=== PATIENT | male | born 1940 | race Caucasian/White ===

== ENCOUNTER → 2016-05-12 | Outpatient (CLI) | payer OTHER ==
[2015-05-13 13:11] VITALS: BP 153/74; PULSE 78
[~2016-05-12] MED LIST: ABACTAB11 PO; ACET325T96 PO; ALEN70TA2 PO; ASPI81TA28 PO; ATAZ200C PO; CENTTAB41 PO; CHOL100027 PO; Calcium PO; LISI-725 PO; TAMS0.4C59 PO; VITA1TAB4 PO; VITA400C3 PO; VSC/5 PO
[2016-05-12 12:57] VITALS: BP 151/76; PULSE 100; TEMP 36.6; O2SAT 96
--- NOTE | 2016-05-12 14:31 | Radiation Oncology Follow-Up ---
Radiation Oncology Follow-Up Date of Visit May 12, 2016. (Ama Andrade PA-C) Reason For Visit Annual follow-up (Ama Andrade PA-C) Radiation Completion Date Cesium 131 seed implant on 10/23/13 (Ama Andrade PA-C) Diagnosis (1) Prostate cancer Status: Resolved Onset Date: 02/19/2013 Location: right lobe of the prostate Histology Subtype: adenocarcinoma Stage: ll (A) Permanent Comment: Rising PSA to 5.34 Status post ultrasound-guided biopsies revealing adenocarcinoma [place] 3+4 biopsy stage T2b Status post prostate seed implant as monotherapy with cesium 131 10/23/2013 61 seeds were placed Last Edited By: Ama Andrade on May 13, 2015 16:39 ( Ama Andrade PA-C) Interim History He's been doing well over this past year. His AUA score was 4. Last year the score was 5. He continues to use tamsulosin daily. He is also on Vesicare. With these medications he is doing well in regards to his urination. He completed expanded prostate cancer index composite for clinical practice and gave a score of 2 of 12 urinary incontinence symptoms. He was score of 0 12 and urinary irritation symptoms. He gave a score of 0 of 12 bowel symptoms. He gave a score of 5 of 12 and sexual symptoms. He gave a score of 0 12 in hormonal vitality symptoms. His total was 7 of 60[address] He saw Dr. Crowley 3 weeks ago. The PSA was ordered. The patient did not have this drawn. At his visit last year we recommended that he follow-up with gastroenterology. There have been recommendation for follow-up colonoscopy. He did not follow through on this recommendation. (Ama Andrade PA-C) Allergies Uncoded Allergies: an hiv medication (Allergy, Unknown, rash, 09/06/13) Home Medications Scheduled Acetaminophen Tab (Tylenol), 325 MG PO prn Alendronate Sodium (Fosamax), 70 MG PO WK Aspirin (Aspirin Ec), 81 MG PO DAILY Atazanavir Sulfate (Reyataz), 400 MG PO QAM Cholecalciferol (Vitamin D 1000 Unit), 1,000 INTER.UNIT PO DAILY Lisinopril (Zestril), 20 MG PO DAILY Solifenacin (Vesicare), 5 MG PO DAILY Tamsulosin Hcl (Flomax), 0.4 MG PO HS Vitamin E (Vitamin E), 400-1,200 INTER.UNIT PO DAILY Vitamin E (Vitamin E 400 Iu), 400-800 INTER.UNIT PO DAILY [Calcium], 1,000 MG PO DAILY [Centrum Silver], 1 TAB PO DAILY Review of Systems Gastrointestinal: Symptoms: WNL GI Comments: No fiber supplements Oral: Symptoms: No Problems Respiratory: Symptoms: WNL Urinary: Symptoms: WNL Comments: 3 voids/night;Taking vesicare and tamsulosin; Skin: Symptoms: No Problems (Ama Andrade PA-C) Physical Exam Vital Signs Date Time Temp Pulse Resp B/P Pulse Ox O2 Delivery O2 Flow Rate FiO2 05/12/16 12:57 36.6 100 12 151/76 96 Pain: Pain Location: None Patient Pain Scale: 0 - 10 Initial Pain Intensity: 0.0 Additional Comments: Occaisonal back pain - okay with tylenol Fatigue: None General Appearance: no apparent distress Eyes: normal inspection, EOMI ENT: normal ENT inspection, hearing grossly normal Neck: no adenopathy Respiratory/Chest: lungs clear, no respiratory distress, no accessory muscle use Cardiovascular: regular rate, rhythm, no gallop, + systolic murmur (3/6 systolic murmur) Abdomen: non tender, soft, no organomegaly Anal / Rectum: Rectal examination reveals normal sphincter tone. There are internal and external hemorrhoids. Prostate is consistent with a seed implant. There is firmness centrally. Extremities: no pedal edema Neurologic/Psychiatric: no motor/sensory deficits, alert, normal mood/affect Skin: warm/dry Lymphatic: no adenopathy (Ama Andrade PA-C) Laboratory Studies 05/12/16 0.124 (Ama Andrade PA-C) Assessment & Plan Plan: A PSA was drawn today prior to examination. He'll be notified as to results. He'll continue regular follow-up with Dr. Crowley and his primary care physician. We again recommended that he follow-up with gastroenterology and have the recheck colonoscopy that was recommended. He stated that he will plan to call and have this scheduled to be done in the spring. We asked her to return to our office in 1 year. Hemoccult he has been questions or concerns in the interim. (Ama Andrade PA-C) Total Time In Follow-Up I spent 20 minutes speaking to the patient performing examination. I spent 15 minutes reviewing information in completing this note. (Ama Andrade PA-C) Copy To Rodriguez Byrnes MD; Sebastian Petersne MD; Carlton Crowley MD
== END | disposition home or self-care (01) ==
LOC: C.ONC 12:34
PROVIDERS: ATTEND Radiology Radiation Oncology
DX: Z08 Encounter for follow-up examination after completed treatment for malignant neoplasm (principal); Z92.3 Personal history of irradiation; Z85.46 Personal history of malignant neoplasm of prostate

== ENCOUNTER → 2017-05-10 | Outpatient (CLI) | payer OTHER ==
[2015-05-13 13:11] VITALS: BP 153/74; PULSE 78
[~2017-05-10] MED LIST changes: -ABACTAB11 PO; +ASCO10003 PO
[2017-05-10 13:06] VITALS: BP 107/63; PULSE 96; TEMP 36.6; O2SAT 96
--- NOTE | 2017-05-11 08:17 | Radiation Oncology Follow-Up ---
Radiation Oncology Follow-Up Date of Visit May 10, 2017. Reason For Visit Annual follow-up Radiation Completion Date 10/23/13 - Seed Implant (Monotherapy) Diagnosis (1) Prostate cancer Status: Resolved Onset Date: 02/19/2013 Location: right lobe of the prostate Histology Subtype: adenocarcinoma Stage: ll Permanent Comment: Rising PSA to 5.34 Status post ultrasound-guided biopsies revealing adenocarcinoma [place] 3+4 biopsy stage T2b Status post prostate seed implant as monotherapy with cesium 131 10/23/2013 61 seeds were placed Last Edited By: Ama Andrade on May 13, 2015 16:39 Interim History He's been doing well over this past year. He gave an AUA score of 5. He does not require any medication to help with urination. He completed expanded prostate cancer index composite for clinical practice and Keyshawn score of one of 12 urinary incontinence symptoms. He gave a score of one of 12 and urinary irritation symptoms. He gave a score of 0 of 12 and bowel symptoms. He gave a score of 8 of 12 sexual symptoms. He gave a score of 0 of 12 and hormonal vitality symptoms his total was 10 of 60. His last PSA was 05/12/2016 and that was 0.124. His records were checked in the [facility] system and he has not a PSA evaluation in their system. Allergies Uncoded Allergies: an hiv medication (Allergy, Unknown, rash, 09/06/13) Home Medications Scheduled Acetaminophen Tab (Tylenol), 325 MG PO prn Alendronate Sodium (Fosamax), 70 MG PO WK Ascorbic Acid (Vitamin C), 1 TAB PO DAILY Aspirin (Aspirin Ec), 81 MG PO DAILY Atazanavir Sulfate (Reyataz), 400 MG PO QAM Cholecalciferol (Vitamin D 1000 Unit), 1,000 INTER.UNIT PO DAILY Lisinopril (Zestril), 20 MG PO DAILY Solifenacin (Vesicare), 5 MG PO DAILY Tamsulosin Hcl (Flomax), 0.4 MG PO HS Vitamin E (Vitamin E 400 Iu), 400-800 INTER.UNIT PO DAILY [Calcium], 1,000 MG PO DAILY [Centrum Silver], 1 TAB PO DAILY Review of Systems Gastrointestinal: Symptoms: WNL GI Comments: No fiber supplements Oral: Symptoms: No Problems Respiratory: Symptoms: WNL Urinary: Symptoms: WNL Comments: See AUA & EPIC Skin: Symptoms: No Problems Physical Exam Vital Signs Date Time Temp Pulse Resp B/P (MAP) Pulse Ox O2 Delivery O2 Flow Rate FiO2 05/10/17 13:06 36.6 96 16 107/63 96 Fatigue: None General Appearance: no apparent distress Eyes: normal inspection, EOMI ENT: normal ENT inspection, hearing grossly normal Neck: no adenopathy, thyroid normal Respiratory/Chest: lungs clear, no respiratory distress, no accessory muscle use Cardiovascular: regular rate, rhythm, no gallop, + systolic murmur (2/6 heard best at the left sternal border) Abdomen: non tender, soft, no organomegaly Anal / Rectum: Normal sphincter tone. External hemorrhoids. Prostate is firm and flat there are no nodules. There are no rectal masses and no rectal bleeding. Neurologic/Psychiatric: no motor/sensory deficits, alert, normal mood/affect Skin: warm/dry Pain Management Patient Reports Pain: No Patient Preferred Pain Scale: 0 - 10 Initial Pain Intensity: 0.0 Pain Management Plan He denies pain therefore requires no pain management. Laboratory Laboratory Results: were reviewed, and pertinent findings noted below Laboratory Comments: Test 05/10/17 13:50 Prostate Specific Antigen 0.090 ng/ml (0.000-4.000) Pathology Pathology Results: not applicable Imaging Imaging Studies: not applicable Assessment & Plan Plan: PSA was drawn today prior to examination. She'll be notified as to results. Continue follow-up with Dr. Crowley, his primary care provider, and infectious disease provider. We asked him to return to our office in 1 year. He may call if she has any questions or concerns in the interim. I asked him to try to his follow-up appointments so that he is seen every 6 months and alternates our office with urology. Total Time In Follow-Up I spent 20 minutes speaking to the patient performing examination. I spent 15 minutes reviewing information and completeness note. Copy To Sebastian Petersen MD; Carlton Crowley MD
== END ==
LOC: C.ONC 12:32
PROVIDERS: ATTEND Physician Assistant Medical
DX: Z08 Encounter for follow-up examination after completed treatment for malignant neoplasm (principal); Z92.3 Personal history of irradiation; Z85.46 Personal history of malignant neoplasm of prostate

== ENCOUNTER 2021-06-25 13:11 | Inpatient (IN) ==
[2021-06-25] MEDS: SODIUM CHLORIDE 0.9% 500 ML IV SCH ×2 (13:31→19:06)
[2021-06-25 13:45] LABS: Hematocrit (blood only) 39.9 % (42-52); Hemoglobin 13.8 g/dL (14.0-18.0); Mean Corpuscular Hemoglobin 36.3 pg (25-34); Mean Corpuscular Hgb Conc 34.6 g/dL (32-36); Mean Platelet Volume 9.8 fL (7.4-10.4); Platelet Count 309 K/uL (130-400); RDW Coefficient of Variation 13.1 % (11.5-14.5); RDW Standard Deviation 50.8 fL (36.4-46.3); White Blood Count 11.75 K/uL (4.8-10.8)
[2021-06-25 14:01] LABS: Troponin I 0.05 ng/ml (0-0.04)
[2021-06-25 14:05] LABS: Basophils # (auto) 0.01 K/uL (0-0.2); Basophils % (auto) 0.1 %; Dohle Bodies 1+; Eosinophils # (auto) 0.01 K/uL (0-0.5); Eosinophils % (auto) 0.1 %; Immature Granulocytes # (auto) 0.04 K/uL (0.00-0.02); Immature Granulocytes % (auto) 0.3 %; Lymphocytes # (auto) 2.93 K/uL (1.2-3.4); Lymphocytes % (auto) 24.9 %; Monocytes # (auto) 1.27 K/uL (0.11-0.59); Monocytes % (auto) 10.8 %; Neutrophils # (auto) 7.49 K/uL (1.4-6.5); Neutrophils % (auto) 63.8 %
[2021-06-25 14:13] LABS: Albumin Level 3.2 gm/dl (3.4-5.0); BUN Creatinine Ratio 26.2 (10-20); Bilirubin Direct 0.1 mg/dl (0-0.2); Bilirubin,Total 0.5 mg/dl (0.2-1.0); Calcium 8.9 mg/dl (8.5-10.1); Creatinine Clr Calc Pharmacy 36.8 ml/min; Est GFR (African American) 62.9 ml/min; Est GFR (Non-African American) 54.3 ml/min; Magnesium 2.2 mg/dl (1.7-2.4); Potassium 4.1 mmol/L (3.5-5.1); Total Protein 6.7 gm/dl (6.0-8.3)
[2021-06-25] MEDS ORDERED: ONDANSETRON INJ 2 MG/ML 2 ML VIAL IV STA ×2 (15:08→15:59)
[2021-06-25] MEDS ORDERED: OPTIRAY 320 100ml IV ONE (15:22)
--- NOTE | 2021-06-25 15:47 | CT Scan Report ---
CT abd pelvis IV con only CLINICAL HISTORY: abd pain nvd TECHNIQUE: Helical axial images of the abdomen and pelvis were obtained and displayed. Automated dose lowering techniques and/or adjustment according to patient size were utilized for this exam. This e xam was performed with intravenous contrast. COMPARISON: None available at the time of this dictation. FINDINGS: Lower chest: No acute abnormality Liver: Unremarkable. No focal lesions are seen. Gallbladder and biliary tree: No calcified gallstones. Normal caliber wall. No intra- or extrahepatic biliary ductal dilation. Pancreas: Unremarkable, no focal lesions. Spleen: Calcifications are noted in the spleen compatible with prior granulomatous disease. Adrenals: Unremarkable. Kidneys and ureters: Bilateral renal cysts are seen. Nonobstructive stones are seen. Bladder: Unremarkable. Reproductive organs: Brachytherapy seeds are seen in the prostate. Bowel: The contents are seen in the sigmoid colon. There is diffuse colonic wall thickening and surro unding fat stranding. A few diverticula are seen. Lymph nodes Retroperitoneal: Unremarkable. Mesenteric: Unremarkable. Pelvic: Unremarkable. Peritoneum: Normal. Vessels: Atherosclerotic calcifications are seen. Abdominal wall: Unremarkable. Bones: Degenerative changes in the visualized spine. IMPRESSION: Diffuse pancolitis which may be infectious or inflammatory in origin. No evidence of bowel obstructio n. ACT 112: Negative or not required by law. Electronically signed by: Shan Eduardo M.D. 06/25/2021 3:46 PM
--- NOTE | 2021-06-25 16:02 | Emergency Department Note ---
History of Present Illness General Chief complaint: Diarrhea Stated complaint: DIARRHEA, WEAKNESS, LOWER AB PAIN, DRY THROAT Time Seen by Provider: 06/25/21 13:25 History of Present Illness Provider complaint: Diarrhea nausea vomiting abdominal pain Onset (ago): week(s) 2 Maximum Pain Intensity: 8 Associated symptoms: + nausea/vomiting; no chest pain, no cough, no fever/chills, no headaches or no shortness of breath 80-year-old male presents emergency department with nausea vomiting diarrhea and abdominal pain for last 2 weeks. Patient is HIV positive. Patient states he is compliant with his antiretrovirals and states that he has an undetectable viral load but he is not sure what his last CD4 count was. Patient denies any recent antibiotic usage. He denies any fever. He reports lower abdominal pain that is cramping. No chest pain or difficulty breathing. No hematemesis bilious vomiting coffee-ground emesis melena or hematochezia. Home Medications Medication Instructions Recorded Confirmed Type alendronate 70 mg tablet 70 mg PO DAILY tab 04/27/19 11/19/19 History aspirin 81 mg tablet 81 mg PO DAILY tab 04/27/19 11/19/19 History atazanavir 200 mg capsule 200 mg PO DAILY cap 04/27/19 11/19/19 History lisinopril 20 mg tablet 20 mg PO DAILY tab 04/27/19 11/19/19 History vitamin E 600 unit capsule 600 units PO DAILY cap 04/27/19 11/19/19 History abacavir 600 mg-dolutegravir 50 1 tab PO DAILY #90 tab 05/10/19 11/19/19 Rx mg-lamivudine 300 mg tablet solifenacin 10 mg tablet 10 mg PO DAILY #90 tab 11/18/20 11/18/20 Rx tamsulosin 0.4 mg capsule 0.4 mg PO DAILY #90 cap 11/18/20 11/18/20 Rx Allergies Allergy/AdvReac Type Severity Reaction Status Date / Time an hiv medication Allergy Unknown rash Uncoded 09/06/13 08:25 Past Med/Surg History Medical History Alcohol abuse Human immunodeficiency virus (HIV) disease Hypertension Osteoarthritis Osteoporosis Surgical History No pertinent past surgical history Family History Father Cancer Grandmother (Maternal) Cancer Mother Cancer Other Heart disease Hypertension Social History Smoking Status: Never smoker Hx Alcohol Use: Yes Preferred Language: Grenadian marital status: Single current occupational status: retired Feels Safe at Home: Yes Review of Systems A total of 10 systems reviewed and were otherwise negative Physical Exam Vital Signs Vital Signs - 24 hr 06/25/21 13:05 06/25/21 13:19 Temperature 37.2 C Temperature Source Oral Pulse Rate 91 H Pulse Rate [Apical] 90 Respiratory Rate 16 16 Blood Pressure 121/77 Blood Pressure [Left Arm] 121/77 Blood Pressure Mean 91 Blood Pressure Mean [Left Arm] 91 Pulse Oximetry 99 97 Oxygen Delivery Method Room Air Room Air Sepsis Recent Fever Within 48 Hours No Sepsis New/Unexplained Change in Mental Status No Sepsis Action Taken by Nursing No Action Required Physical Exam HENT: Exam performed. - Head: Normocephalic and atraumatic. - Right Ear: External ear normal. No mastoid tenderness. - Left Ear: External ear normal. No mastoid tenderness. - Mouth/Throat: Dry mucous membranes with missing teeth. No trismus in the jaw. No dental abscesses or uvula swelling. No oropharyngeal exudate or tonsillar abscesses. EYES: Conjunctivae and EOM are normal. Pupils are equal, round, and reactive to light. Right eye exhibits no discharge. Left eye exhibits no discharge. No scleral icterus. NECK: Normal range of motion. Neck supple. No JVD present. No spinous process tenderness present. No carotid bruit present. No rigidity. No tracheal deviation and normal range of motion present. No Brudzinski's sign and no Kernig's sign noted. CV: Normal rate, regular rhythm,Systolic murmur. and intact distal pulses. There is no peripheral edema. Palpable radial pulses bue. PULM/CHEST: Effort normal and breath sounds normal. No respiratory distress. No stridor. He has no wheezes. He has no rales. - Chest Wall: He exhibits no tenderness. ABD: The abdomen is Distended with pain on palpation of the right lower left lower quadrants. No fluid wave. MUSC/SKEL: Normal range of motion. There is no peripheral edema, tenderness or deformity. LYMPH: No cervical adenopathy. NEURO: Motor and sensation grossly intact. PSYCH: He has a normal mood and affect. Behavior is normal. Judgment and thought content normal. Course Course 1325: The patient was evaluated in room C2. A complete history and physical exam was performed Cardiac monitoring: An order was placed for continuous cardiac monitoring. The monitor shows a rate of 90 with sinus rhythm 1622: Vital signs stable. Labs within normal limits with exception of elevated troponin. Patient has a chronically elevated troponin. Patient reports no chest pain or difficulty breathing. CT of the abdomen is within normal limits with exception of colitis. On reassessment the patient still reporting nausea. He has not had a bowel movement in the emergency department. Patient states he does not feel like he can go home. Patient will be admitted to the [facility] service. Discussed with Maddison who stated to admit to Dr. Love Administered Medications Sodium Chloride (Nss) 500 mls @ 125 mls/hr IV .Q4H ARMIDA Stop: 07/25/21 13:29 Last Admin: 06/25/21 13:31 Dose: 125 mls/hr Documented by: [id number] Sodium Chloride (Nss 1000ml) 1,000 mls @ 125 mls/hr IV .Q8H ARMIDA Stop: 07/25/21 15:59 Last Admin: 06/25/21 16:05 Dose: 125 mls/hr Documented by: [id number] Discontinued Medications Ioversol (Optiray 320 100ml) 94 ml IV ONCE ONE Stop: 06/25/21 15:23 Last Admin: 06/25/21 15:22 Dose: 94 ml Documented by: [id number] Ondansetron HCl (Ondansetron Inj 2 Mg/Ml 2 Ml Vial) 4 mg IV NOW STA Stop: 06/25/21 15:09 Last Admin: 06/25/21 15:46 Dose: 4 mg Documented by: [id number] Medical Decision Making Laboratory Data Result diagrams: 06/25/21 13:18 06/25/21 13:18 Lab Results 06/25/21 06/25/21 06/25/21 Range/Units 13:18 13:18 13:18 WBC 11.75 H (4.8-10.8) K/uL RBC 3.80 L (4.7-6.1) M/uL Hgb 13.8 L (14.0-18.0) g/dL Hct 39.9 L (42-52) % MCV 105.0 H (80-100) fL MCH 36.3 H (25-34) pg MCHC 34.6 (32-36) g/dL RDW Std Deviation 50.8 H (36.4-46.3) fL RDW Coeff of Papo 13.1 (11.5-14.5) % Plt Count 309 (130-400) K/uL MPV 9.8 (7.4-10.4) fL Immature Gran % (Auto) 0.3 % Neut % (Auto) 63.8 % Lymph % (Auto) 24.9 % Craven % (Auto) 10.8 % Eos % (Auto) 0.1 % Baso % (Auto) 0.1 % Neut # (Auto) 7.49 H (1.4-6.5) K/uL Lymph # (Auto) 2.93 (1.2-3.4) K/uL Craven # (Auto) 1.27 H (0.11-0.59) K/uL Eos # (Auto) 0.01 (0-0.5) K/uL Baso # (Auto) 0.01 (0-0.2) K/uL Immature Gran # (Auto) 0.04 H (0.00-0.02) K/uL Dohle Bodies 1+ Sodium 137 (136-145) mmol/L Potassium 4.1 (3.5-5.1) mmol/L Chloride 101 (98-107) mmol/L Carbon Dioxide 24 (21-32) mmol/L Anion Gap 12 H (3-11) BUN 33 H (6-23) mg/dl Creatinine 1.26 (0.6-1.4) mg/dl Est Cr Clr Drug Dosing 36.8 ml/min Est GFR ( Amer) 62.9 ml/min Est GFR (Non-Af Amer) 54.3 ml/min BUN/Creatinine Ratio 26.2 H (10-20) Glucose 127 H (70-99(Fasting)) mg/dl Calcium 8.9 (8.5-10.1) mg/dl Magnesium 2.2 Cancelled (1.7-2.4) mg/dl Total Bilirubin 0.5 (0.2-1.0) mg/dl Direct Bilirubin 0.1 (0-0.2) mg/dl AST 13 (13-39) U/L ALT 11 (7-52) U/L Alkaline Phosphatase 71 (34-104) U/L Troponin I 0.05 H* Cancelled (0-0.04) ng/ml Total Protein 6.7 (6.0-8.3) gm/dl Albumin 3.2 L (3.4-5.0) gm/dl Lipase 7 L Cancelled (11-82) U/L SARS-CoV-2, RNA, NAAT (NEGATIVE) 06/25/21 Range/Units 13:54 WBC (4.8-10.8) K/uL RBC (4.7-6.1) M/uL Hgb (14.0-18.0) g/dL Hct (42-52) % MCV (80-100) fL MCH (25-34) pg MCHC (32-36) g/dL RDW Std Deviation (36.4-46.3) fL RDW Coeff of Papo (11.5-14.5) % Plt Count (130-400) K/uL MPV (7.4-10.4) fL Immature Gran % (Auto) % Neut % (Auto) % Lymph % (Auto) % Craven % (Auto) % Eos % (Auto) % Baso % (Auto) % Neut # (Auto) (1.4-6.5) K/uL Lymph # (Auto) (1.2-3.4) K/uL Craven # (Auto) (0.11-0.59) K/uL Eos # (Auto) (0-0.5) K/uL Baso # (Auto) (0-0.2) K/uL Immature Gran # (Auto) (0.00-0.02) K/uL Dohle Bodies Sodium (136-145) mmol/L Potassium (3.5-5.1) mmol/L Chloride (98-107) mmol/L Carbon Dioxide (21-32) mmol/L Anion Gap (3-11) BUN (6-23) mg/dl Creatinine (0.6-1.4) mg/dl Est Cr Clr Drug Dosing ml/min Est GFR ( Amer) ml/min Est GFR (Non-Af Amer) ml/min BUN/Creatinine Ratio (10-20) Glucose (70-99(Fasting)) mg/dl Calcium (8.5-10.1) mg/dl Magnesium (1.7-2.4) mg/dl Total Bilirubin (0.2-1.0) mg/dl Direct Bilirubin (0-0.2) mg/dl AST (13-39) U/L ALT (7-52) U/L Alkaline Phosphatase (34-104) U/L Troponin I (0-0.04) ng/ml Total Protein (6.0-8.3) gm/dl Albumin (3.4-5.0) gm/dl Lipase (11-82) U/L SARS-CoV-2, RNA, NAAT NEGATIVE (NEGATIVE) Imaging Data Radiologist's Impression: Abdomen/Pelvis CT 06/25/21 13:35 CT abd pelvis IV con only CLINICAL HISTORY: abd pain nvd TECHNIQUE: Helical axial images of the abdomen and pelvis were obtained and displayed. Automated dose lowering techniques and/or adjustment according to patient size were utilized for this exam. This exam was performed with intravenous contrast. COMPARISON: None available at the time of this dictation. FINDINGS: Lower chest: No acute abnormality Liver: Unremarkable. No focal lesions are seen. Gallbladder and biliary tree: No calcified gallstones. Normal caliber wall. No intra- or extrahepatic biliary ductal dilation. Pancreas: Unremarkable, no focal lesions. Spleen: Calcifications are noted in the spleen compatible with prior granulomatous disease. Adrenals: Unremarkable. Kidneys and ureters: Bilateral renal cysts are seen. Nonobstructive stones are seen. Bladder: Unremarkable. Reproductive organs: Brachytherapy seeds are seen in the prostate. Bowel: The contents are seen in the sigmoid colon. There is diffuse colonic wall thickening and surrounding fat stranding. A few diverticula are seen. Lymph nodes Retroperitoneal: Unremarkable. Mesenteric: Unremarkable. Pelvic: Unremarkable. Peritoneum: Normal. Vessels: Atherosclerotic calcifications are seen. Abdominal wall: Unremarkable. Bones: Degenerative changes in the visualized spine. IMPRESSION: Diffuse pancolitis which may be infectious or inflammatory in origin. No evidence of bowel obstruction. ACT 112: Negative or not required by law. Electronically signed by: Shan Eduadro M.D. 06/25/2021 3:46 PM MDM Narrative Vital signs stable. Labs within normal limits with exception of elevated troponin. Patient has a chronically elevated troponin. Patient reports no chest pain or difficulty breathing. CT of the abdomen is within normal limits with exception of colitis. On reassessment the patient still reporting nausea. He has not had a bowel movement in the emergency department. Patient states he does not feel like he can go home. [facility] Discussed with Maddison who stated to admit to Dr. Love Impression & Plan Nausea & vomiting, HIV (human immunodeficiency virus infection), Elevated troponin, Diarrhea Discharge Plan Visit Data Chief Complaint: Diarrhea Stated Complaint: DIARRHEA, WEAKNESS, LOWER AB PAIN, DRY THROAT ED Provider: Martin Patrick Discharge Problem: Nausea & vomiting, HIV (human immunodeficiency virus infection), Elevated troponin, Diarrhea Patient Disposition: Being Evaluated by Hospitalist Forms Stand Alone Forms: [facility] Prescriptions Prescriptions: No Action atazanavir 200 mg capsule 200 mg PO DAILY RF: 0 aspirin 81 mg tablet 81 mg PO DAILY RF: 0 alendronate 70 mg tablet 70 mg PO DAILY RF: 0 lisinopril 20 mg tablet 20 mg PO DAILY RF: 0 vitamin E 600 unit capsule 600 units PO DAILY RF: 0 [id number] 600-50-300 mg tablet 1 tab PO DAILY Qty: 90 RF: 6 solifenacin 10 mg tablet 10 mg PO DAILY Qty: 90 RF: 3 tamsulosin 0.4 mg capsule 0.4 mg PO DAILY Qty: 90 RF: 3 Referrals Referrals: Sebastian Petersen MD [Primary Care Provider] -
[2021-06-25] MEDS: SODIUM CHLORIDE 0.9% 1000ML 1,000 ML IV SCH ×2 (16:05→17:50)
[2021-06-25 16:19] LABS: Appearance Urine Clear (Clear); Bacteria Urine Automated Negative (Negative); Bilirubin Urine Negative (Negative); Blood Urine 1+ (Negative); Color Urine Yellow; Epithelial Cell Urine Auto >30 /lpf (0-5); Glucose Urine UA Negative (Negative); Ketones Urine 1+ (Negative); Leukocyte Esterase Urine Negative (Negative); Nitrite Urine Negative (Negative); Protein Urine 2+ (Negative); RBC Urine Automated 0-4 /hpf (0-4); Specific Gravity Urine 1.026 (1.000-1.030); Urobilinogen Urine Negative (Negative)
--- NOTE | 2021-06-25 16:35 | History & Physical Report ---
Date of Service June 25, 2021 Assessment & Plan (1) Pancolitis: (2) Diarrhea: (3) Nausea & vomiting: Plan: - Admit to med surg -Nss at 125 ml/hr, he has received 1 L in the ER -CT of the abdomen pelvis reviewed showing diffuse pancolitis -Stool cultures and c diff ordered -Follow blood culture and lactate -UA pending, follow urine culture -Consult GI with HIV history - unknown last colonoscopy -Consult infectious disease for antibiotic recs: for now will continue zosyn IV, pt with prolonged QTc and flagyl is still on backorder. -Supportive care with fluids, antiemetics, clear liquid diet, Tylenol as needed - Continue vitamins as per [employer] list - pt is not sure about exact medications, list reviewed but unclear if he is actually taking all these medications other than his HIV med which he has in a pill container at bedside. (4) HIV (human immunodeficiency virus infection): Plan: -Continue Dovato -Infectious disease consulted -Check CD4 count - afebrile, leukocytosis of 11.75 (5) Heart disease: Plan: - Noted in external scanned files in [facility] - Echo 2 D ordered - Continue asa and pravastatin 80 mg HS - hold lisinopril with appearing dehydrated. Resume if BP remains stable tomorrow morning. (6) Prostate cancer: Plan: -History of such in 2002, status post brachytherapy -Previously followed with Dr. Crowley, no recent PSA for review -Continue flomax and vesicare DVT PPx: - teds, scds, Lovenox subcu CODE:Full code Dispo: From home, likely to remain in the hospital x 1-2 days History of Present Illness Primary Care Provider: Sebastian Petersen MD This is a 80-year-old male with PMHx of prostate cancer s/p radiation therapy, HTN, HLD, HIV+ who presents with acute abdominal complaints. Pt is a poor historian and voice is very raspy. At times he seems to trail off with tangential thoughts and at other times he gets defensive when he is asked to clarify his answers with more specific questions. Pt c/o of diarrhea, nausea, vomiting, poor appetite x 1 week. He had worsening abdominal pain and had increased diarrhea with 5-8 BM daily x few days. Denies hematochezia or dark tarry stools. Pain is located in bilateral lower quadrants, no radiation He does not note any exacerbating or alleviating factors. Patient has not eaten solids within the past 48 hours but has been able to drink fluids. He denies any raw or undercooked foods, sick contacts that he is aware of. He denies any fevers, or sweats but admits to some chills and states that it is cold and here, and pulls blankets back on himself during my exam. He denies any recent changes in medications and states that he has been taking his HIV medications. He lives at home by himself and has a 12-year-old black cat. Allergies Allergy/AdvReac Type Severity Reaction Status Date / Time ritonavir [From Norvir] Allergy Unknown Rash Verified 06/25/21 17:02 Home Medications Medication Instructions Recorded Confirmed Type solifenacin 10 mg tablet 10 mg PO DAILY #90 tab 11/18/20 06/25/21 Rx abacavir 600 mg-dolutegravir 50 1 tab PO HS 06/25/21 06/25/21 History mg-lamivudine 300 mg tablet ascorbic acid (vitamin C) 1,000 mg 1,000 mg PO DAILY 06/25/21 06/25/21 History tablet,extended release (Vitamin C ER) aspirin 81 mg tablet,delayed 81 mg PO DAILY 06/25/21 06/25/21 History release (Aspirin Low Dose) cholecalciferol (vitamin D3) 25 25 mcg PO Q OTHER DAY 06/25/21 06/25/21 History mcg (1,000 unit) tablet (Vitamin D3) famotidine 20 mg tablet (Pepcid) 20 mg PO DAILY PRN 06/25/21 06/25/21 History lisinopril 5 mg tablet 5 mg PO DAILY 06/25/21 06/25/21 History wfmqdrpkcvaj-yhjlfajj-rqufmg tablet 1 tab PO DAILY 06/25/21 06/25/21 History pravastatin 80 mg tablet 80 mg PO HS 06/25/21 06/25/21 History tamsulosin 0.4 mg capsule 0.4 mg PO HS 06/25/21 06/25/21 History vitamin E 400 unit tablet 400 unit PO DAILY 06/25/21 06/25/21 History Past Med/Surg History Medical History Alcohol abuse Human immunodeficiency virus (HIV) disease Hypertension Osteoarthritis Osteoporosis Surgical History No pertinent past surgical history Family History Father Cancer Grandmother (Maternal) Cancer Mother Cancer Other Heart disease Hypertension Social History Smoking Status: Never smoker Hx Alcohol Use: Yes Preferred Language: Yoruba marital status: Single current occupational status: retired Feels Safe at Home: Yes Review of Systems Review of Systems: Constitutional: No fever, sweats, + chills Eyes: No diplopia, no worsening or blurred vision ENT: normal hearing, no trouble swallowing Respiratory: No cough, sputum, dyspnea at rest or on exertion Cardiovascular: No chest pain, tightness or palpitations Abdomen: + As per HPI, currently minimal pain, + occasional nausea, no vomiting, +diarrhea , no constipation Musculoskeletal: No joint pain, calf pain, swelling Neurologic: No weakness, numbness/tingling, or balance problems Psychiatric: No anxiety or depression Skin: No rash or itch Physical Exam Physical Exam: General: awake, alert, no apparent distress, + thin, BMI of 18, + cachexia Head: Normocephalic, atraumatic ENT: PERRL, EOMI, no pharyngeal exudate, mucous membranes dry, edentulous Chest: Clear to auscultation, on room air, no adventitious breath sounds Cardiac: Regular rate and rhythm, no murmur, no JVD, normal peripheral pulses, good capillary refill Abdominal: NABS x 4 quadrants, soft, minimally tender to palpation bilateral lower quadrants, nondistended, no rebound or guarding Extremities: Normal inspection, no peripheral edema or erythema, calfs nontender to palpation Psych: Defensive affect at times, trails off and tangential thought no obvious anxiety or depression Neuro: AAO x 3, strength intact bilaterally and rated 5/5, no motor deficits, speech is clear, no peripheral sensory deficits Skin: Dry, no obvious rash Results & Data Results & Data ([facility]) Vital Signs (Past 12 Hours) Vital Signs Temp Pulse Pulse Resp BP BP Pulse Ox 06/25/21 13:19 90 16 121/77 97 06/25/21 13:05 37.2 C 91 H 16 121/77 99 Laboratory Results 06/25/21 15:39 Urine Culture - Pending Urine,Clean Catch 06/25/21 06/25/21 06/25/21 15:39 13:54 13:18 WBC RBC Hgb Hct MCV MCH MCHC RDW Std Deviation RDW Coeff of Papo Plt Count MPV Immature Gran % (Auto) Neut % (Auto) Lymph % (Auto) [place] % (Auto) Eos % (Auto) Baso % (Auto) Neut # (Auto) Lymph # (Auto) [place] # (Auto) Eos # (Auto) Baso # (Auto) Immature Gran # (Auto) Dohle Bodies Sodium Potassium Chloride Carbon Dioxide Anion Gap BUN Creatinine Est Cr Clr Drug Dosing Est GFR ( Amer) Est GFR (Non-Af Amer) BUN/Creatinine Ratio Glucose Calcium Magnesium Cancelled Total Bilirubin Direct Bilirubin AST ALT Alkaline Phosphatase Troponin I Cancelled Total Protein Albumin Lipase Cancelled Urine Color Yellow Urine Appearance Clear Urine pH 5.0 Ur Specific [place] 1.026 Urine Protein 2+ H Urine Glucose (UA) Negative Urine Ketones 1+ H Urine Blood 1+ H Urine Nitrite Negative Urine Bilirubin Negative Urine Urobilinogen Negative Ur Leukocyte Esterase Negative Urine WBC (Auto) 1-5 Urine RBC (Auto) 0-4 U Hyaline Cast (Auto) 0 U Epithel Cells (Auto) >30 H Urine Bacteria (Auto) Negative Urine Yeast Not Reportable SARS-CoV-2, RNA, NAAT NEGATIVE 06/25/21 06/25/21 13:18 13:18 WBC 11.75 H RBC 3.80 L Hgb 13.8 L Hct 39.9 L MCV 105.0 H MCH 36.3 H MCHC 34.6 RDW Std Deviation 50.8 H RDW Coeff of Papo 13.1 Plt Count 309 MPV 9.8 Immature Gran % (Auto) 0.3 Neut % (Auto) 63.8 Lymph % (Auto) 24.9 [place] % (Auto) 10.8 Eos % (Auto) 0.1 Baso % (Auto) 0.1 Neut # (Auto) 7.49 H Lymph # (Auto) 2.93 [place] # (Auto) 1.27 H Eos # (Auto) 0.01 Baso # (Auto) 0.01 Immature Gran # (Auto) 0.04 H Dohle Bodies 1+ Sodium 137 Potassium 4.1 Chloride 101 Carbon Dioxide 24 Anion Gap 12 H BUN 33 H Creatinine 1.26 Est Cr Clr Drug Dosing 36.8 Est GFR ( Amer) 62.9 Est GFR (Non-Af Amer) 54.3 BUN/Creatinine Ratio 26.2 H Glucose 127 H Calcium 8.9 Magnesium 2.2 Total Bilirubin 0.5 Direct Bilirubin 0.1 AST 13 ALT 11 Alkaline Phosphatase 71 Troponin I 0.05 H* Total Protein 6.7 Albumin 3.2 L Lipase 7 L Urine Color Urine Appearance Urine pH Ur Specific [place] Urine Protein Urine Glucose (UA) Urine Ketones Urine Blood Urine Nitrite Urine Bilirubin Urine Urobilinogen Ur Leukocyte Esterase Urine WBC (Auto) Urine RBC (Auto) U Hyaline Cast (Auto) U Epithel Cells (Auto) Urine Bacteria (Auto) Urine Yeast SARS-CoV-2, RNA, NAAT Diagnostic Findings Abdomen/Pelvis CT 06/25/21 13:35 CT abd pelvis IV con only CLINICAL HISTORY: abd pain nvd TECHNIQUE: Helical axial images of the abdomen and pelvis were obtained and displayed. Automated dose lowering techniques and/or adjustment according to patient size were utilized for this exam. This exam was performed with intravenous contrast. COMPARISON: None available at the time of this dictation. FINDINGS: Lower chest: No acute abnormality Liver: Unremarkable. No focal lesions are seen. Gallbladder and biliary tree: No calcified gallstones. Normal caliber wall. No intra- or extrahepatic biliary ductal dilation. Pancreas: Unremarkable, no focal lesions. Spleen: Calcifications are noted in the spleen compatible with prior granulomatous disease. Adrenals: Unremarkable. Kidneys and ureters: Bilateral renal cysts are seen. Nonobstructive stones are seen. Bladder: Unremarkable. Reproductive organs: Brachytherapy seeds are seen in the prostate. Bowel: The contents are seen in the sigmoid colon. There is diffuse colonic wall thickening and surrounding fat stranding. A few diverticula are seen. Lymph nodes Retroperitoneal: Unremarkable. Mesenteric: Unremarkable. Pelvic: Unremarkable. Peritoneum: Normal. Vessels: Atherosclerotic calcifications are seen. Abdominal wall: Unremarkable. Bones: Degenerative changes in the visualized spine. IMPRESSION: Diffuse pancolitis which may be infectious or inflammatory in origin. No evidence of bowel obstruction. ACT 112: Negative or not required by law. Electronically signed by: Shan Eduardo M.D. 06/25/2021 3:46 PM Code Status & VTE Plan Code Status Full code Supervising Physician Co-Signing Physician Notes Patient is a 80-year-old male with history of prostate cancer, hypertension, hyperlipidemia, HIV and other medical problems presents with history of nausea, vomiting, diarrhea, poor appetite and abdominal pain which is gradually been worsening since 1 week duration. Patient also states having multiple bowel movements for the last few days. He denies any blood in stools. Abdominal pain is predominantly on the lower quadrants which is band like. For the past 2 days patient has been able to take only liquid diet. He denies any recent change in medications, sick contacts. Please review HPI for complete details of presentation. Blood work suggestive of white count 11.7 5K, hemoglobin 13.8, mild anion gap elevation at 12,normal bicarbonate levels, glucose 127, lactate 1.2, troponin 0 0.05, lipase 17. CT abdomen suggestive of diffuse pancolitis. EKG showed normal sinus rhythm, bifascicular block, QTC 479. On exam patient is thin, frail, chronically appearing, no apparent distress, normocephalic atraumatic, hoarse voice, EOMI, normal breath sounds, clear to auscultation, S1- S2, no murmur, no pedal edema, abdomen soft, mild tenderness in the lower quadrants, no guarding or rigidity, normal bowel sounds. Alert, awake, oriented, grossly no focal deficits. Patient is admitted for management of pancreatitis. Check stool studies to rule out acute infection. IV fluids. Start on broad-spectrum antibiotics with Zosyn. Gastroenterology consult. Trend cardiac enzymes and check resting echo. Consider cardiology evaluation if needed. I personally reviewed the record. Patient is interviewed and examined at bedside. Patient's care is coordinated with Tonia Cuevas PA-C. Please refer to the documentation above for details of patient's presentation and for discussion of other issues. (1) Diarrhea Diarrhea type: unspecified type Qualified Code(s): R19.7 - Diarrhea, unspecified (2) HIV (human immunodeficiency virus infection) HIV symptom status: unspecified Qualified Code(s): B20 - Human immunodeficiency virus [HIV] disease (3) Nausea & vomiting Vomiting type: unspecified Qualified Code(s): R11.2 - Nausea with vomiting, unspecified
[2021-06-25 16:53] LABS: Cast Urine Automated 0 /lpf (0-5)
[2021-06-25] MEDS ORDERED: PIPERACILLIN/TAZOBACTAM 4.5 GM in DEXTROSE 5% 100 ML IV SCH (21:23)
[2021-06-25] MEDS ORDERED: PIPERACILL/TAZOBAC CONSULT ACTIVE PRN (21:23)
[2021-06-25] MEDS ORDERED: PIPERACILLIN/TAZOBACTAM 4.5 GM/120 ML BAG IV SCH (21:45)
[2021-06-25] MEDS ORDERED: SODIUM CHLORIDE 0.9% 1000ML 500 ML IV SCH (21:45)
[2021-06-25] MEDS: TAMSULOSIN HCL 0.4 MG CAP PO SCH (22:11)
[2021-06-25] MEDS: PRAVASTATIN SOD 40 MG TAB PO SCH (22:11)
[2021-06-26] MEDS ORDERED: ACETAMINOPHEN 325 MG TAB PO PRN (02:58)
[2021-06-26] MEDS: PIPERACILLIN/TAZOBACTAM 3.375 GM in DEXTROSE 5% 100 ML IV SCH ×3 (03:47→20:38)
[2021-06-26] MEDS: SODIUM CHLORIDE 0.9% 1000ML 1,000 ML IV SCH ×2 (03:53→13:51)
[2021-06-26 05:10] LABS: Hematocrit (blood only) 33.7 % (42-52); Hemoglobin 11.6 g/dL (14.0-18.0); Mean Corpuscular Hemoglobin 36.1 pg (25-34); Mean Corpuscular Hgb Conc 34.4 g/dL (32-36); Mean Platelet Volume 9.2 fL (7.4-10.4); Platelet Count 254 K/uL (130-400); Red Blood Count 3.21 M/uL (4.7-6.1); White Blood Count 8.08 K/uL (4.8-10.8)
[2021-06-26 05:52] LABS: Troponin I 0.04 ng/ml (0-0.04)
[2021-06-26 06:00] LABS: Albumin Globulin Ratio 0.8 (0.9-2); Albumin Level 2.6 gm/dl (3.4-5.0); BUN Creatinine Ratio 25.9 (10-20); Bilirubin,Total 0.4 mg/dl (0.2-1.0); Calcium 7.2 mg/dl (8.5-10.1); Est GFR (African American) 75.8 ml/min; Est GFR (Non-African American) 65.4 ml/min; Globulin 3.3 gm/dl (2.5-4.0); Potassium 4.1 mmol/L (3.5-5.1); Total Protein 5.9 gm/dl (6.0-8.3)
--- NOTE | 2021-06-26 06:30 | Electrocardiogram Report ---
Test Reason : Blood Pressure : / mmHG Vent. Rate : 084 BPM Atrial Rate : 084 BPM P-R Int : 164 ms QRS Dur : 158 ms QT Int : 406 ms P-R-T Axes : 027 -52 020 degrees QTc Int : 479 ms Normal sinus rhythm Possible Left atrial enlargement Right bundle branch block Left anterior fascicular block Bifascicular block Left ventricular hypertrophy Anteroseptal infarct , age undetermined Abnormal ECG When compared with ECG of 08-OCT-2013 10:38, Anteroseptal infarct is now Present Confirmed by Dave Álvarez ([id number]) on 06/26/2021 6:30:04 AM Referred By: REFERRED SELF Confirmed By:Dave Álvarez
[2021-06-26 06:39] LABS: Estimated Average Glucose 114 mg/dl; Hemoglobin A1C 5.6 % (4.5-5.6)
[2021-06-26] MEDS: ASPIRIN 81 MG ECTAB PO SCH (08:28)
[2021-06-26] MEDS: ASCORBIC ACID 500 MG TAB PO SCH (08:28)
[2021-06-26] MEDS: TOCOPHERYL, DL-ALPHA 400 UNITS 180 MG CAP PO SCH (08:32)
[2021-06-26] MEDS: CEROVITE ADV FORMULA TAB PO SCH (08:32)
[2021-06-26] MEDS: ENOXAPARIN INJ 40 MG/0.4 ML SYR SQ SCH (08:34)
--- NOTE | 2021-06-26 11:21 | Gastrointestinal Consultation ---
Date of Consultation June 26, 2021 Assessment & Plan (1) Pancolitis: (2) Diarrhea: 80 y/o male with h/o HIV well controlled on Triumeq, history of sigmoid stricture, colon polyps, presented with 3 weeks of n/v/d abd pain. CT w/ pancolitis. CD4 count pending. He does have a new anemia, no neutropenia, afebrile. Abd soft, nontender. Consider infectious vs inflammatory etiology. - Await Stool studies (C diff and GI pathogen panel) - Await CD4 count - Infectious disease consult pending - Maintain good hydration; pt tolerating some PO - Analgesia PRN - Pending results of above, I discussed possible need for colonoscopy to evaluate his symptoms, new anemia, r/o inflammatory etiology; he refused this. Thank you for allowing us to participate in the care of this patient. Please call with any acute changes, questions or concerns. Please see addendum below with additional recommendation from my supervising physician. Supervising Physician Co-Signing Physician Notes Attg add: Pt tells me that he has had diarrhea x 2 weeks, and then refused my interview and physical exam. He asked me to leave the room, although he did tell me that his symptoms have improved. Chart reviewed. I noted that he was cachectic; he does not appear to have abdominal distention. I reviewing imaging - colon is diffusly mildly distended, with narrowing in sigmoid. Labs from March show undetectable HIV RNA and CD4 870 I suspect that he has post-obstructive diarrhea. DDX = diarrhea related to malnutrition (bowel wall edema from hypoalbuminemia, zinc deficiency), infectious diarrhea. Rec infectious w/u, and advance to low residue diet as tolerated. Would consider maintenance therapy with Miralax at low dose, also nutrition consult for advice regarding supplement. Please re-call us if pt is amenable to cscopy, or if symptoms persist. History of Present Illness Attending Physician: Konstantin Waggoner MD History of Present Illness This is a 80 y/o male with PMhx prostate CA s/p radiation therapy, HTN, valvular heart disease, CKD, HLD, long-standing HIV+ well controlled on Triumeq, history of colonic polyps and others who developed n/v/d/abd pain 3 weeks ago. Before that he was in his normal state of health. He presented to the ER for worsening symptoms. CT w/ pancolitis. No neutropenia; HGB 11.6 (baseline 15) normal lactate. CD4 count pending. He's afebrile. He was having vomiting 1 x a night, and 4-5 loose brown watery BMs during the day. Developed lower abd pain that comes and goes. Since arriving he feels better and abd pain is 95% improved. Had 3 Bms here in the ER; states the last had a tinge of blood. Tolerating Jello, pudding, clear liquids. He doesn't smoke. Drinks a few beers daily; not since 06/11. No new meds, no well water, no sick contacts or travel. No prior h/o similar symptoms. Denies fever, chills, CP, SOB, cough, rash, melena, hematochezia, hematemesis. H/o colon polyps and sigmoid stricture as below; states he "won't have another colonoscopy." Colonoscopy 2013: - One 5 mm polyp in the descending colon. Resected and retrieved. - One 8 mm polyp in the descending colon. Resected and retrieved. - Stricture in the sigmoid colon. - Internal hemorrhoids. Repeat 1 year poor prep Colonoscopy 2007: Moderate diverticulosis sigmoid colon. - Five benign appearing 2 to 3 mm polyps in the rectum. Resected and retrieved. Allergies Allergy/AdvReac Type Severity Reaction Status Date / Time ritonavir [From Norvir] Allergy Unknown Rash Verified 06/25/21 17:02 Home Medications Medication Instructions Recorded Confirmed Type solifenacin 10 mg tablet 10 mg PO DAILY #90 tab 11/18/20 06/25/21 Rx abacavir 600 mg-dolutegravir 50 1 tab PO HS 06/25/21 06/25/21 History mg-lamivudine 300 mg tablet ascorbic acid (vitamin C) 1,000 mg 1,000 mg PO DAILY 06/25/21 06/25/21 History tablet,extended release (Vitamin C ER) aspirin 81 mg tablet,delayed 81 mg PO DAILY 06/25/21 06/25/21 History release (Aspirin Low Dose) cholecalciferol (vitamin D3) 25 25 mcg PO Q OTHER DAY 06/25/21 06/25/21 History mcg (1,000 unit) tablet (Vitamin D3) famotidine 20 mg tablet (Pepcid) 20 mg PO DAILY PRN 06/25/21 06/25/21 History lisinopril 5 mg tablet 5 mg PO DAILY 06/25/21 06/25/21 History agrcbbgklhyp-krmdaxar-mfjefb tablet 1 tab PO DAILY 06/25/21 06/25/21 History pravastatin 80 mg tablet 80 mg PO HS 06/25/21 06/25/21 History tamsulosin 0.4 mg capsule 0.4 mg PO HS 06/25/21 06/25/21 History vitamin E 400 unit tablet 400 unit PO DAILY 06/25/21 06/25/21 History Patient History Medical History Alcohol abuse Human immunodeficiency virus (HIV) disease Hypertension Osteoarthritis Osteoporosis Surgical History No pertinent past surgical history Family History Father Cancer Grandmother (Maternal) Cancer Mother Cancer Other Heart disease Hypertension Social History Smoking Status: Never smoker Hx Alcohol Use: Yes Alcohol type: beer Hx Substance Use: No Preferred Language: [place] Communication Ability: Effective Data Technical Lead Required: No Beliefs That Will Affect Care: None marital status: Single Current Living Situation: Alone current occupational status: retired Feels Safe at Home: Yes Safety Concerns: Feels Safe At This Time Assistive Devices: None Review of Systems Review of Systems: All systems reviewed & are unremarkable except as noted in HPI & below Physical Exam Constitutional: Thin male, in no acute distress Eyes: PERRL, conjunctivae normal, anicteric sclerae ENMT: Edentulous Respiratory: normal respiratory effort, lungs clear to auscultation Cardiovascular: Rate/Rhythm: regular rate and regular rhythm + systolic murmur Gastrointestinal (Abdomen): Inspection/Auscultation: abdomen normal to inspection and + hyperactive bowel sounds; abdomen not distended Percussion/Palpation: abdomen soft; abdomen nontender and no guarding Skin: no rashes, warm and dry Psychiatric: A+Ox3, euthymic affect Results & Data ([facility]) Vital Signs (Past 12 Hours) Vital Signs Temp Pulse Resp BP Pulse Ox Pulse Ox 06/26/21 08:00 89 18 132/67 96 96 06/26/21 05:56 96 06/26/21 04:13 84 16 112/73 95 06/25/21 23:23 36.7 C 86 15 93/63 L 96 Laboratory Results 06/26/21 06/26/21 06/26/21 Range/Units 09:55 09:55 05:04 WBC (4.8-10.8) K/uL RBC (4.7-6.1) M/uL Hgb (14.0-18.0) g/dL Hct (42-52) % MCV (80-100) fL MCH (25-34) pg MCHC (32-36) g/dL RDW Std Deviation (36.4-46.3) fL RDW Coeff of Papo (11.5-14.5) % Plt Count (130-400) K/uL MPV (7.4-10.4) fL Immature Gran % (Auto) % Neut % (Auto) % Lymph % (Auto) % Spencer % (Auto) % Eos % (Auto) % Baso % (Auto) % Neut # (Auto) (1.4-6.5) K/uL Lymph # (Auto) (1.2-3.4) K/uL Spencer # (Auto) (0.11-0.59) K/uL Eos # (Auto) (0-0.5) K/uL Baso # (Auto) (0-0.2) K/uL Immature Gran # (Auto) (0.00-0.02) K/uL Dohle Bodies Sodium 135 L (136-145) mmol/L Potassium 4.1 (3.5-5.1) mmol/L Chloride 104 (98-107) mmol/L Carbon Dioxide 23 (21-32) mmol/L Anion Gap 8 (3-11) BUN 28 H (6-23) mg/dl Creatinine 1.08 (0.6-1.4) mg/dl Est Cr Clr Drug Dosing 43.0 ml/min Est GFR ( Amer) 75.8 ml/min Est GFR (Non-Af Amer) 65.4 ml/min BUN/Creatinine Ratio 25.9 H (10-20) Glucose 106 H (70-99(Fasting)) mg/dl Estimat Average Glucose mg/dl Hemoglobin A1c (4.5-5.6) % Lactate (0.4-2.0) mmol/L Calcium 7.2 L (8.5-10.1) mg/dl Magnesium (1.7-2.4) mg/dl Total Bilirubin 0.4 (0.2-1.0) mg/dl Direct Bilirubin (0-0.2) mg/dl AST 11 L (13-39) U/L ALT 9 (7-52) U/L Alkaline Phosphatase 61 (34-104) U/L Troponin I 0.04 (0-0.04) ng/ml Total Protein 5.9 L (6.0-8.3) gm/dl Albumin 2.6 L (3.4-5.0) gm/dl Globulin 3.3 (2.5-4.0) gm/dl Albumin/Globulin Ratio 0.8 L (0.9-2) Lipase (11-82) U/L Urine Color Urine Appearance (Clear) Urine pH (4.5-7.5) Ur Specific [place] (1.000-1.030) Urine Protein (Negative) Urine Glucose (UA) (Negative) Urine Ketones (Negative) Urine Blood (Negative) Urine Nitrite (Negative) Urine Bilirubin (Negative) Urine Urobilinogen (Negative) Ur Leukocyte Esterase (Negative) Urine WBC (Auto) (0-5) /hpf Urine RBC (Auto) (0-4) /hpf U Hyaline Cast (Auto) (0-5) /lpf U Epithel Cells (Auto) (0-5) /lpf Urine Bacteria (Auto) (Negative) Urine Yeast Stl C. cayetanensis PCR Pending Stool Rotavirus A PCR Pending Stl Adenov F 40/41 PCR Pending Stool Astrovirus (PCR) Pending Stool Campylobacter PCR Pending Stl C. diff Tox B Gene Cancelled Stl C. diff Tox A/B PCR Pending Stool Cryptosporidium PCR Pending Stl E.coli Shiga Tox PCR Pending Stl Enterotoxigenic E PCR Pending Stool EAEC (PCR) Pending Stl E. histolytica PCR Pending Stool Giardia Lamblia PCR Pending Stool Salmonella PCR Pending Stool Sapovirus (PCR) Pending Stl P. shigelloides PCR Pending Stl Shigella/EIEC PCR Pending St Y.enterocolitica PCR Pending Stool Vibrio (PCR) Pending Stl Vibrio cholerae PCR Pending Stl Norovirus GI/GII PCR Pending Absolute Lymphocytes % CD4 Cells Absolute CD4 Count SARS-CoV-2, RNA, NAAT (NEGATIVE) 06/26/21 06/26/21 06/26/21 Range/Units 05:04 05:04 05:04 WBC 8.08 (4.8-10.8) K/uL RBC 3.21 L (4.7-6.1) M/uL Hgb 11.6 L (14.0-18.0) g/dL Hct 33.7 L (42-52) % MCV 105.0 H (80-100) fL MCH 36.1 H (25-34) pg MCHC 34.4 (32-36) g/dL RDW Std Deviation 50.0 H (36.4-46.3) fL RDW Coeff of Papo 13.0 (11.5-14.5) % Plt Count 254 (130-400) K/uL MPV 9.2 (7.4-10.4) fL Immature Gran % (Auto) % Neut % (Auto) % Lymph % (Auto) % Spencer % (Auto) % Eos % (Auto) % Baso % (Auto) % Neut # (Auto) (1.4-6.5) K/uL Lymph # (Auto) (1.2-3.4) K/uL Spencer # (Auto) (0.11-0.59) K/uL Eos # (Auto) (0-0.5) K/uL Baso # (Auto) (0-0.2) K/uL Immature Gran # (Auto) (0.00-0.02) K/uL Dohle Bodies Sodium (136-145) mmol/L Potassium (3.5-5.1) mmol/L Chloride (98-107) mmol/L Carbon Dioxide (21-32) mmol/L Anion Gap (3-11) BUN (6-23) mg/dl Creatinine (0.6-1.4) mg/dl Est Cr Clr Drug Dosing ml/min Est GFR ( Amer) ml/min Est GFR (Non-Af Amer) ml/min BUN/Creatinine Ratio (10-20) Glucose (70-99(Fasting)) mg/dl Estimat Average Glucose 114 mg/dl Hemoglobin A1c 5.6 (4.5-5.6) % Lactate (0.4-2.0) mmol/L Calcium (8.5-10.1) mg/dl Magnesium (1.7-2.4) mg/dl Total Bilirubin (0.2-1.0) mg/dl Direct Bilirubin (0-0.2) mg/dl AST (13-39) U/L ALT (7-52) U/L Alkaline Phosphatase (34-104) U/L Troponin I (0-0.04) ng/ml Total Protein (6.0-8.3) gm/dl Albumin (3.4-5.0) gm/dl Globulin (2.5-4.0) gm/dl Albumin/Globulin Ratio (0.9-2) Lipase (11-82) U/L Urine Color Urine Appearance (Clear) Urine pH (4.5-7.5) Ur Specific [place] (1.000-1.030) Urine Protein (Negative) Urine Glucose (UA) (Negative) Urine Ketones (Negative) Urine Blood (Negative) Urine Nitrite (Negative) Urine Bilirubin (Negative) Urine Urobilinogen (Negative) Ur Leukocyte Esterase (Negative) Urine WBC (Auto) (0-5) /hpf Urine RBC (Auto) (0-4) /hpf U Hyaline Cast (Auto) (0-5) /lpf U Epithel Cells (Auto) (0-5) /lpf Urine Bacteria (Auto) (Negative) Urine Yeast Stl C. cayetanensis PCR Stool Rotavirus A PCR Stl Adenov F 40/41 PCR Stool Astrovirus (PCR) Stool Campylobacter PCR Stl C. diff Tox B Gene Stl C. diff Tox A/B PCR Stool Cryptosporidium PCR Stl E.coli Shiga Tox PCR Stl Enterotoxigenic E PCR Stool EAEC (PCR) Stl E. histolytica PCR Stool Giardia Lamblia PCR Stool Salmonella PCR Stool Sapovirus (PCR) Stl P. shigelloides PCR Stl Shigella/EIEC PCR St Y.enterocolitica PCR Stool Vibrio (PCR) Stl Vibrio cholerae PCR Stl Norovirus GI/GII PCR Absolute Lymphocytes Pending % CD4 Cells Pending Absolute CD4 Count Pending SARS-CoV-2, RNA, NAAT (NEGATIVE) 06/25/21 06/25/21 06/25/21 Range/Units 21:37 17:28 17:28 WBC (4.8-10.8) K/uL RBC (4.7-6.1) M/uL Hgb (14.0-18.0) g/dL Hct (42-52) % MCV (80-100) fL MCH (25-34) pg MCHC (32-36) g/dL RDW Std Deviation (36.4-46.3) fL RDW Coeff of Papo (11.5-14.5) % Plt Count (130-400) K/uL MPV (7.4-10.4) fL Immature Gran % (Auto) % Neut % (Auto) % Lymph % (Auto) % Spencer % (Auto) % Eos % (Auto) % Baso % (Auto) % Neut # (Auto) (1.4-6.5) K/uL Lymph # (Auto) (1.2-3.4) K/uL Spencer # (Auto) (0.11-0.59) K/uL Eos # (Auto) (0-0.5) K/uL Baso # (Auto) (0-0.2) K/uL Immature Gran # (Auto) (0.00-0.02) K/uL Dohle Bodies Sodium (136-145) mmol/L Potassium (3.5-5.1) mmol/L Chloride (98-107) mmol/L Carbon Dioxide (21-32) mmol/L Anion Gap (3-11) BUN (6-23) mg/dl Creatinine (0.6-1.4) mg/dl Est Cr Clr Drug Dosing ml/min Est GFR ( Amer) ml/min Est GFR (Non-Af Amer) ml/min BUN/Creatinine Ratio (10-20) Glucose (70-99(Fasting)) mg/dl Estimat Average Glucose mg/dl Hemoglobin A1c (4.5-5.6) % Lactate 1.2 (0.4-2.0) mmol/L Calcium (8.5-10.1) mg/dl Magnesium (1.7-2.4) mg/dl Total Bilirubin (0.2-1.0) mg/dl Direct Bilirubin (0-0.2) mg/dl AST (13-39) U/L ALT (7-52) U/L Alkaline Phosphatase (34-104) U/L Troponin I 0.05 H* 0.05 H* (0-0.04) ng/ml Total Protein (6.0-8.3) gm/dl Albumin (3.4-5.0) gm/dl Globulin (2.5-4.0) gm/dl Albumin/Globulin Ratio (0.9-2) Lipase (11-82) U/L Urine Color Urine Appearance (Clear) Urine pH (4.5-7.5) Ur Specific [place] (1.000-1.030) Urine Protein (Negative) Urine Glucose (UA) (Negative) Urine Ketones (Negative) Urine Blood (Negative) Urine Nitrite (Negative) Urine Bilirubin (Negative) Urine Urobilinogen (Negative) Ur Leukocyte Esterase (Negative) Urine WBC (Auto) (0-5) /hpf Urine RBC (Auto) (0-4) /hpf U Hyaline Cast (Auto) (0-5) /lpf U Epithel Cells (Auto) (0-5) /lpf Urine Bacteria (Auto) (Negative) Urine Yeast Stl C. cayetanensis PCR Stool Rotavirus A PCR Stl Adenov F 40/41 PCR Stool Astrovirus (PCR) Stool Campylobacter PCR Stl C. diff Tox B Gene Stl C. diff Tox A/B PCR Stool Cryptosporidium PCR Stl E.coli Shiga Tox PCR Stl Enterotoxigenic E PCR Stool EAEC (PCR) Stl E. histolytica PCR Stool Giardia Lamblia PCR Stool Salmonella PCR Stool Sapovirus (PCR) Stl P. shigelloides PCR Stl Shigella/EIEC PCR St Y.enterocolitica PCR Stool Vibrio (PCR) Stl Vibrio cholerae PCR Stl Norovirus GI/GII PCR Absolute Lymphocytes % CD4 Cells Absolute CD4 Count SARS-CoV-2, RNA, NAAT (NEGATIVE) 06/25/21 06/25/21 06/25/21 Range/Units 15:39 13:54 13:18 WBC (4.8-10.8) K/uL RBC (4.7-6.1) M/uL Hgb (14.0-18.0) g/dL Hct (42-52) % MCV (80-100) fL MCH (25-34) pg MCHC (32-36) g/dL RDW Std Deviation (36.4-46.3) fL RDW Coeff of Papo (11.5-14.5) % Plt Count (130-400) K/uL MPV (7.4-10.4) fL Immature Gran % (Auto) % Neut % (Auto) % Lymph % (Auto) % [place] % (Auto) % Eos % (Auto) % Baso % (Auto) % Neut # (Auto) (1.4-6.5) K/uL Lymph # (Auto) (1.2-3.4) K/uL Spencer # (Auto) (0.11-0.59) K/uL Eos # (Auto) (0-0.5) K/uL Baso # (Auto) (0-0.2) K/uL Immature Gran # (Auto) (0.00-0.02) K/uL Dohle Bodies Sodium (136-145) mmol/L Potassium (3.5-5.1) mmol/L Chloride (98-107) mmol/L Carbon Dioxide (21-32) mmol/L Anion Gap (3-11) BUN (6-23) mg/dl Creatinine (0.6-1.4) mg/dl Est Cr Clr Drug Dosing ml/min Est GFR ( Amer) ml/min Est GFR (Non-Af Amer) ml/min BUN/Creatinine Ratio (10-20) Glucose (70-99(Fasting)) mg/dl Estimat Average Glucose mg/dl Hemoglobin A1c (4.5-5.6) % Lactate (0.4-2.0) mmol/L Calcium (8.5-10.1) mg/dl Magnesium Cancelled (1.7-2.4) mg/dl Total Bilirubin (0.2-1.0) mg/dl Direct Bilirubin (0-0.2) mg/dl AST (13-39) U/L ALT (7-52) U/L Alkaline Phosphatase (34-104) U/L Troponin I Cancelled (0-0.04) ng/ml Total Protein (6.0-8.3) gm/dl Albumin (3.4-5.0) gm/dl Globulin (2.5-4.0) gm/dl Albumin/Globulin Ratio (0.9-2) Lipase Cancelled (11-82) U/L Urine Color Yellow Urine Appearance Clear (Clear) Urine pH 5.0 (4.5-7.5) Ur Specific [place] 1.026 (1.000-1.030) Urine Protein 2+ H (Negative) Urine Glucose (UA) Negative (Negative) Urine Ketones 1+ H (Negative) Urine Blood 1+ H (Negative) Urine Nitrite Negative (Negative) Urine Bilirubin Negative (Negative) Urine Urobilinogen Negative (Negative) Ur Leukocyte Esterase Negative (Negative) Urine WBC (Auto) 1-5 (0-5) /hpf Urine RBC (Auto) 0-4 (0-4) /hpf U Hyaline Cast (Auto) 0 (0-5) /lpf U Epithel Cells (Auto) >30 H (0-5) /lpf Urine Bacteria (Auto) Negative (Negative) Urine Yeast Not Reportable Stl C. cayetanensis PCR Stool Rotavirus A PCR Stl Adenov F 40/41 PCR Stool Astrovirus (PCR) Stool Campylobacter PCR Stl C. diff Tox B Gene Stl C. diff Tox A/B PCR Stool Cryptosporidium PCR Stl E.coli Shiga Tox PCR Stl Enterotoxigenic E PCR Stool EAEC (PCR) Stl E. histolytica PCR Stool Giardia Lamblia PCR Stool Salmonella PCR Stool Sapovirus (PCR) Stl P. shigelloides PCR Stl Shigella/EIEC PCR St Y.enterocolitica PCR Stool Vibrio (PCR) Stl Vibrio cholerae PCR Stl Norovirus GI/GII PCR Absolute Lymphocytes % CD4 Cells Absolute CD4 Count SARS-CoV-2, RNA, NAAT NEGATIVE (NEGATIVE) 06/25/21 06/25/21 Range/Units 13:18 13:18 WBC 11.75 H (4.8-10.8) K/uL RBC 3.80 L (4.7-6.1) M/uL Hgb 13.8 L (14.0-18.0) g/dL Hct 39.9 L (42-52) % MCV 105.0 H (80-100) fL MCH 36.3 H (25-34) pg MCHC 34.6 (32-36) g/dL RDW Std Deviation 50.8 H (36.4-46.3) fL RDW Coeff of Papo 13.1 (11.5-14.5) % Plt Count 309 (130-400) K/uL MPV 9.8 (7.4-10.4) fL Immature Gran % (Auto) 0.3 % Neut % (Auto) 63.8 % Lymph % (Auto) 24.9 % [place] % (Auto) 10.8 % Eos % (Auto) 0.1 % Baso % (Auto) 0.1 % Neut # (Auto) 7.49 H (1.4-6.5) K/uL Lymph # (Auto) 2.93 (1.2-3.4) K/uL [place] # (Auto) 1.27 H (0.11-0.59) K/uL Eos # (Auto) 0.01 (0-0.5) K/uL Baso # (Auto) 0.01 (0-0.2) K/uL Immature Gran # (Auto) 0.04 H (0.00-0.02) K/uL Dohle Bodies 1+ Sodium 137 (136-145) mmol/L Potassium 4.1 (3.5-5.1) mmol/L Chloride 101 (98-107) mmol/L Carbon Dioxide 24 (21-32) mmol/L Anion Gap 12 H (3-11) BUN 33 H (6-23) mg/dl Creatinine 1.26 (0.6-1.4) mg/dl Est Cr Clr Drug Dosing 36.8 ml/min Est GFR ( Amer) 62.9 ml/min Est GFR (Non-Af Amer) 54.3 ml/min BUN/Creatinine Ratio 26.2 H (10-20) Glucose 127 H (70-99(Fasting)) mg/dl Estimat Average Glucose mg/dl Hemoglobin A1c (4.5-5.6) % Lactate (0.4-2.0) mmol/L Calcium 8.9 (8.5-10.1) mg/dl Magnesium 2.2 (1.7-2.4) mg/dl Total Bilirubin 0.5 (0.2-1.0) mg/dl Direct Bilirubin 0.1 (0-0.2) mg/dl AST 13 (13-39) U/L ALT 11 (7-52) U/L Alkaline Phosphatase 71 (34-104) U/L Troponin I 0.05 H* (0-0.04) ng/ml Total Protein 6.7 (6.0-8.3) gm/dl Albumin 3.2 L (3.4-5.0) gm/dl Globulin (2.5-4.0) gm/dl Albumin/Globulin Ratio (0.9-2) Lipase 7 L (11-82) U/L Urine Color Urine Appearance (Clear) Urine pH (4.5-7.5) Ur Specific [place] (1.000-1.030) Urine Protein (Negative) Urine Glucose (UA) (Negative) Urine Ketones (Negative) Urine Blood (Negative) Urine Nitrite (Negative) Urine Bilirubin (Negative) Urine Urobilinogen (Negative) Ur Leukocyte Esterase (Negative) Urine WBC (Auto) (0-5) /hpf Urine RBC (Auto) (0-4) /hpf U Hyaline Cast (Auto) (0-5) /lpf U Epithel Cells (Auto) (0-5) /lpf Urine Bacteria (Auto) (Negative) Urine Yeast Stl C. cayetanensis PCR Stool Rotavirus A PCR Stl Adenov F 40/41 PCR Stool Astrovirus (PCR) Stool Campylobacter PCR Stl C. diff Tox B Gene Stl C. diff Tox A/B PCR Stool Cryptosporidium PCR Stl E.coli Shiga Tox PCR Stl Enterotoxigenic E PCR Stool EAEC (PCR) Stl E. histolytica PCR Stool Giardia Lamblia PCR Stool Salmonella PCR Stool Sapovirus (PCR) Stl P. shigelloides PCR Stl Shigella/EIEC PCR St Y.enterocolitica PCR Stool Vibrio (PCR) Stl Vibrio cholerae PCR Stl Norovirus GI/GII PCR Absolute Lymphocytes % CD4 Cells Absolute CD4 Count SARS-CoV-2, RNA, NAAT (NEGATIVE) Diagnostic Findings CTAP: FINDINGS: Lower chest: No acute abnormality Liver: Unremarkable. No focal lesions are seen. Gallbladder and biliary tree: No calcified gallstones. Normal caliber wall. No intra- or extrahepatic biliary ductal dilation. Pancreas: Unremarkable, no focal lesions. Spleen: Calcifications are noted in the spleen compatible with prior granulomatous disease. Adrenals: Unremarkable. Kidneys and ureters: Bilateral renal cysts are seen. Nonobstructive stones are seen. Bladder: Unremarkable. Reproductive organs: Brachytherapy seeds are seen in the prostate. Bowel: The contents are seen in the sigmoid colon. There is diffuse colonic wall thickening and surrounding fat stranding. A few diverticula are seen. Lymph nodes Retroperitoneal: Unremarkable. Mesenteric: Unremarkable. Pelvic: Unremarkable. Peritoneum: Normal. Vessels: Atherosclerotic calcifications are seen. Abdominal wall: Unremarkable. Bones: Degenerative changes in the visualized spine. IMPRESSION: Diffuse pancolitis which may be infectious or inflammatory in origin. No evidence of bowel obstruction. (1) Diarrhea Diarrhea type: unspecified type Qualified Code(s): R19.7 - Diarrhea, unspecified
--- NOTE | 2021-06-26 15:39 | Hospitalist Progress Note ---
Date of Service June 26, 2021 Assessment & Plan (1) Pancolitis: Plan: -Inflammatory/infective given the history of HIV -Nss at 125 ml/hr, he has received 1 L in the ER -CT of the abdomen pelvis reviewed showing diffuse pancolitis -Stool cultures and c diff ordered-pending -Follow blood culture-pending and lactate is normal -UA pending, follow urine culture-no growth less than 100,000 colonies per mL -Consult GI with HIV history - unknown last colonoscopy -Consult infectious disease for antibiotic recs: for now will continue zosyn IV, pt with prolonged QTc and flagyl is still on backorder. 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 (2) Diarrhea: Plan: Secondary to pancolitis Awaiting stool cultures and C. difficile colitis (3) Nausea & vomiting: Plan: Secondary to above and seems to be improving (4) HIV (human immunodeficiency virus infection): Plan: -Said that his HIV is controlled -Continue Dovato -Infectious disease consulted -Check CD4 count-pending for now - afebrile, leukocytosis of 11.75 (5) Heart disease: Plan: - Noted in external scanned files in [facility] - Echo 2 D ordered: Normal LV size, moderate concentric LVH, septal motion is consistent with conduction abnormality, no wall motion abnormalities, EF 55 to 60%, aortic valve leaflets are moderately calcified and restricted in mobility, moderate valvular aortic stenosis, moderate to heavy calcification of the posterior mitral valve annulus and leaflet and there is trace mitral regurgitation. - Continue asa and pravastatin 80 mg HS - hold lisinopril with appearing dehydrated. Resume if BP remains stable tomorrow morning. -Serial troponins have been negative (6) Prostate cancer: Plan: -History of such in 2002, status post brachytherapy -Previously followed with Dr. Crowley, no recent PSA for review -Continue flomax and vesicare DVT PPx: - teds, scds, Lovenox subcu CODE:Full code Admission and Anticipated Discharge Date Admission Date: June 25, 2021 Subjective 06/26/2021 The patient was seen and examined in medical telemetry unit He complains to have some abdominal discomfort and still having diarrhea Denies any fever and or chills, no nausea no vomiting and no abdominal distention Review of Systems Review of Systems: All systems reviewed and are unremarkable except as noted below Physical Exam Physical Exam: Lying in bed comfortably Constitutional: + ill appearing and average body habitus Eyes: PERRL, conjunctivae normal, anicteric sclerae ENMT: external ear and nose normal, oropharynx normal Neck: trachea midline, no thyromegaly Respiratory: no respiratory distress Auscultation: lungs clear to auscultation bilaterally Cardiovascular: Rate/Rhythm: regular rate and regular rhythm; not tachycardic Heart Sounds: normal S1 and normal S2; no murmur Extremities: no edema Gastrointestinal (Abdomen): Inspection/Auscultation: + abdomen distended (Minimal distention lower abdomen) and normal bowel sounds Percussion/Palpation: + abdomen tender (Mildly tender lower quadrants) and abdomen soft Musculoskeletal: No acute arthritis in any joint Skin: No skin rash Neurologic: PERRL, EOMI, accommodation nl, no face palsy, no dysarthria Results & Data Results & Data ([facility]) Vital Signs (Past 12 Hours) Vital Signs Temp Pulse Pulse Resp BP Pulse Ox Pulse Ox 06/26/21 15:26 79 06/26/21 15:15 36.8 C 74 18 118/69 93 06/26/21 13:53 37.0 C 79 18 133/75 95 06/26/21 13:30 80 20 132/82 95 95 06/26/21 08:00 89 18 132/67 96 96 06/26/21 05:56 96 06/26/21 04:13 84 16 112/73 95 Laboratory Results Short CBC 06/26/21 Range/Units 05:04 WBC 8.08 (4.8-10.8) K/uL Hgb 11.6 L (14.0-18.0) g/dL Hct 33.7 L (42-52) % Plt Count 254 (130-400) K/uL BMP 06/26/21 05:04 Sodium 135 L Potassium 4.1 Chloride 104 Carbon Dioxide 23 BUN 28 H Creatinine 1.08 Glucose 106 H Calcium 7.2 L Cardiac Enzymes 06/25/21 06/25/21 06/26/21 Range/Units 17:28 21:37 05:04 Troponin I 0.05 H* 0.05 H* 0.04 (0-0.04) ng/ml Liver Function 06/26/21 Range/Units 05:04 Total Bilirubin 0.4 (0.2-1.0) mg/dl AST 11 L (13-39) U/L ALT 9 (7-52) U/L Alkaline Phosphatase 61 (34-104) U/L Albumin 2.6 L (3.4-5.0) gm/dl Urine 06/25/21 Range/Units 15:39 Urine Color Yellow Urine Appearance Clear (Clear) Urine pH 5.0 (4.5-7.5) Ur Specific [place] 1.026 (1.000-1.030) Urine Protein 2+ H (Negative) Urine Glucose (UA) Negative (Negative) Medications Administered Current Inpatient Medications Acetaminophen (Acetaminophen 325 Mg Tab) 650 mg PO Q4H PRN PRN Reason: Pain or Fever Stop: 07/26/21 02:57 Ascorbic Acid (Ascorbic Acid 500 Mg Tab) 1,000 mg PO DAILY [facility] Stop: 07/26/21 08:59 Last Admin: 06/26/21 08:28 Dose: 1,000 mg Documented by: Aspirin (Aspirin 81 Mg Ectab) 81 mg PO DAILY [facility] Stop: 07/26/21 08:59 Last Admin: 06/26/21 08:28 Dose: 81 mg Documented by: Enoxaparin Sodium (Enoxaparin Inj 40 Mg/0.4 Ml Syr) 40 mg SQ QAM [facility] Stop: 07/26/21 08:59 Last Admin: 06/26/21 08:34 Dose: 40 mg Documented by: Famotidine (Famotidine 20 Mg Tab) 20 mg PO DAILY PRN PRN Reason: gerd Stop: 07/25/21 21:22 Sodium Chloride (Nss 1000ml) 1,000 mls @ 125 mls/hr IV .Q8H [facility] Stop: 07/25/21 15:59 Last Admin: 06/26/21 13:51 Dose: 125 mls/hr Documented by: Piperacillin Sod/Tazobactam (Sod 3.375 gm/ Dextrose) 115 mls @ 28.75 mls/hr IV Q8H [facility]; Protocol Stop: 07/06/21 03:59 Last Admin: 06/26/21 14:09 Dose: 28.8 mls/hr Documented by: Miscellaneous (Vbqhhcok-Xlnussmfkzzc-Vetdtmk 600-50-300 Mg - Order Awaiting Action) 1 ea N/A QS [facility] Stop: 07/26/21 00:00 Last Admin: 06/26/21 09:33 Dose: Not Given Documented by: Miscellaneous (Solifenacin 10 Mg - Order Awaiting Action) 1 ea N/A QS [facility] Stop: 07/26/21 00:00 Last Admin: 06/26/21 09:32 Dose: Not Given Documented by: Miscellaneous Information (Piperacill/Tazobac Consult Active) 1 ea N/A UD PRN PRN Reason: Consult Stop: 07/25/21 21:22 Multivitamins/Minerals (Cerovite Adv Formula Tab) 1 tab PO DAILY [facility] Stop: 07/26/21 08:59 Last Admin: 06/26/21 08:32 Dose: 1 tab Documented by: Pravastatin Sodium (Pravastatin Sod 40 Mg Tab) 80 mg PO [facility] Stop: 07/25/21 21:22 Last Admin: 06/25/21 22:11 Dose: 80 mg Documented by: Tamsulosin HCl (Tamsulosin Hcl 0.4 Mg Cap) 0.4 mg PO [facility] Stop: 07/25/21 21:22 Last Admin: 06/25/21 22:11 Dose: 0.4 mg Documented by: Vitamin D (Cholecalciferol 1,000 Units 25 Mcg Tab) 1,000 units PO Q2D@0900 [facility] Stop: 07/27/21 08:59 Vitamin E (Tocopheryl, Dl-Alpha 400 Units 180 Mg Cap) 400 units PO DAILY [facility] Stop: 07/26/21 08:59 Last Admin: 06/26/21 08:32 Dose: 400 units Documented by: (1) Diarrhea Diarrhea type: unspecified type Qualified Code(s): R19.7 - Diarrhea, unspecified (2) Nausea & vomiting Vomiting type: unspecified Qualified Code(s): R11.2 - Nausea with vomiting, unspecified (3) HIV (human immunodeficiency virus infection) HIV symptom status: unspecified Qualified Code(s): B20 - Human immunodeficiency virus [HIV] disease
--- NOTE | 2021-06-26 19:13 | Electrocardiogram Report ---
Test Reason : Blood Pressure : / mmHG Vent. Rate : 080 BPM Atrial Rate : 080 BPM P-R Int : 164 ms QRS Dur : 158 ms QT Int : 424 ms P-R-T Axes : 032 -29 012 degrees QTc Int : 489 ms Sinus rhythm with occasional Premature ventricular complexes Possible Left atrial enlargement Right bundle branch block Left ventricular hypertrophy Abnormal ECG When compared with ECG of 25-JUN-2021 13:52, Premature ventricular complexes are now Present Confirmed by Abelino Raymond ([id number]) on 06/26/2021 7:13:34 PM Referred By: REFERRED SELF Confirmed By:Constantin Raymond
[2021-06-26] MEDS: TAMSULOSIN HCL 0.4 MG CAP PO SCH (20:42)
[2021-06-26] MEDS: PRAVASTATIN SOD 40 MG TAB PO SCH (20:42)
[2021-06-27] MEDS: SODIUM CHLORIDE 0.9% 1000ML 1,000 ML IV SCH ×3 (00:03→16:03)
[2021-06-27 00:55] LABS: Adenovirus F 40/41 PCR Not Detected (NotDetected); Astrovirus PCR Not Detected (NotDetected); Campylobacter PCR Not Detected (NotDetected); Clostridium diff Toxin A/B PCR Not Detected (NotDetected); Cryptosporidium PCR Not Detected (NotDetected); Cyclospora cayetanensis PCR Not Detected (NotDetected); Entamoeba histolytica PCR Not Detected (NotDetected); Enteroaggregative E.coli(EAEC) Not Detected (NotDetected); Enteropathogenic E.coli (EPEC) Not Detected (NotDetected); Enterotoxigenic E.coli (ETEC) Not Detected (NotDetected); Giardia lamblia PCR Not Detected (NotDetected); Norovirus GI/GII PCR Not Detected (NotDetected); Plesiomonas shigelloides PCR Not Detected (NotDetected); Rotavirus A PCR Not Detected (NotDetected); Salmonella PCR Not Detected (NotDetected); Sapovirus PCR Not Detected (NotDetected); Shiga-like Toxin E.coli (STEC) Not Detected (NotDetected); Shigella/Enteroinvasive E.coli Not Detected (NotDetected); Vibrio cholerae PCR Not Detected (NotDetected); Vibrio species PCR Not Detected (NotDetected); Yersinia enterocolitica PCR Not Detected (NotDetected)
[2021-06-27] MEDS ORDERED: ONDANSETRON INJ 2 MG/ML 2 ML VIAL ONE (01:06)
[2021-06-27] MEDS: PIPERACILLIN/TAZOBACTAM 3.375 GM in DEXTROSE 5% 100 ML IV SCH ×3 (05:54→20:21)
[2021-06-27 06:05] LABS: Hemoglobin 10.4 g/dL (14.0-18.0); Mean Corpuscular Hemoglobin 35.4 pg (25-34); Mean Corpuscular Hgb Conc 33.5 g/dL (32-36); Mean Corpuscular Volume 105.4 fL (80-100); Mean Platelet Volume 9.2 fL (7.4-10.4); Platelet Count 240 K/uL (130-400); RDW Coefficient of Variation 13.3 % (11.5-14.5); RDW Standard Deviation 52.1 fL (36.4-46.3); Red Blood Count 2.94 M/uL (4.7-6.1); White Blood Count 6.78 K/uL (4.8-10.8)
[2021-06-27 06:34] LABS: Albumin Globulin Ratio 0.9 (0.9-2); Albumin Level 2.4 gm/dl (3.4-5.0); BUN Creatinine Ratio 21.3 (10-20); Bilirubin,Total 0.4 mg/dl (0.2-1.0); Calcium 7.4 mg/dl (8.5-10.1); Creatinine Clr Calc Pharmacy 61.9 ml/min; Est GFR (African American) 101.8 ml/min; Est GFR (Non-African American) 87.9 ml/min; Globulin 2.6 gm/dl (2.5-4.0); Potassium 3.5 mmol/L (3.5-5.1)
[2021-06-27 06:38] LABS: Anisocytosis Present; Basophils # (auto) 0.01 K/uL (0-0.2); Basophils % (auto) 0.1 %; Dohle Bodies 1+; Eosinophils # (auto) 0.03 K/uL (0-0.5); Eosinophils % (auto) 0.4 %; Immature Granulocytes # (auto) 0.01 K/uL (0.00-0.02); Immature Granulocytes % (auto) 0.1 %; Lymphocytes # (auto) 1.41 K/uL (1.2-3.4); Lymphocytes % (auto) 20.8 %; Monocytes % (auto) 14.7 %; Neutrophils # (auto) 4.32 K/uL (1.4-6.5); Neutrophils % (auto) 63.9 %
[2021-06-27] MEDS: ASCORBIC ACID 500 MG TAB PO SCH (09:03)
[2021-06-27] MEDS: CHOLECALCIFEROL 1,000 UNITS 25 MCG TAB PO SCH (09:03)
[2021-06-27] MEDS: TOCOPHERYL, DL-ALPHA 400 UNITS 180 MG CAP PO SCH (09:03)
[2021-06-27] MEDS: CEROVITE ADV FORMULA TAB PO SCH (09:04)
[2021-06-27] MEDS: ASPIRIN 81 MG ECTAB PO SCH (09:05)
[2021-06-27] MEDS: ENOXAPARIN INJ 40 MG/0.4 ML SYR SQ SCH (09:05)
--- NOTE | 2021-06-27 14:16 | Hospitalist Progress Note ---
Date of Service June 27, 2021 Assessment & Plan (1) Pancolitis: Plan: -Inflammatory/infective given the history of HIV -Nss at 125 ml/hr, he has received 1 L in the ER -CT of the abdomen pelvis reviewed showing diffuse pancolitis -Stool cultures and c diff ordered-pending -Follow blood culture-pending and lactate is normal -UA pending, follow urine culture-no growth less than 100,000 colonies per mL -Consult GI with HIV history - unknown last colonoscopy -Consult infectious disease for antibiotic recs: for now will continue zosyn IV, pt with prolonged QTc and flagyl is still on backorder. 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 -Symptomatically a little better -Stool tests have been negative -We will continue current antibiotic (2) Diarrhea: Plan: Secondary to pancolitis Awaiting stool cultures and C. difficile colitis-have been negative so far (3) Nausea & vomiting: Plan: Secondary to above and seems to be improving (4) HIV (human immunodeficiency virus infection): Plan: -Said that his HIV is controlled -Continue Dovato -Infectious disease consulted -Check CD4 count-pending for now - afebrile, leukocytosis of 11.75 -CD4 count is still pending -Awaiting ID recommendation (5) Heart disease: Plan: - Noted in external scanned files in [employer] - Echo 2 D ordered: Normal LV size, moderate concentric LVH, septal motion is consistent with conduction abnormality, no wall motion abnormalities, EF 55 to 60%, aortic valve leaflets are moderately calcified and restricted in mobility, moderate valvular aortic stenosis, moderate to heavy calcification of the posterior mitral valve annulus and leaflet and there is trace mitral regurgitation. - Continue asa and pravastatin 80 mg HS - hold lisinopril with appearing dehydrated. Resume if BP remains stable tomorrow morning. -Serial troponins have been negative (6) Prostate cancer: Plan: -History of such in 2002, status post brachytherapy -Previously followed with Dr. Crowley, no recent PSA for review -Continue flomax and vesicare DVT PPx: - teds, scds, Lovenox subcu CODE:Full code Admission and Anticipated Discharge Date Admission Date: June 25, 2021 Subjective 06/26/2021 The patient was seen and examined in medical telemetry unit He complains to have some abdominal discomfort and still having diarrhea Denies any fever and or chills, no nausea no vomiting and no abdominal distention 06/27/2021 The patient was seen and examined in medical telemetry unit He complains to have abdominal pain but the diarrhea seems to be improving He wanted to go home today but later on decided not to Review of Systems Review of Systems: All systems reviewed and are unremarkable except as noted below Gastrointestinal: Minimal abdominal distention and discomfort with ongoing diarrhea Physical Exam Physical Exam: Lying in bed comfortably Constitutional: + ill appearing and average body habitus Eyes: PERRL, conjunctivae normal, anicteric sclerae ENMT: external ear and nose normal, oropharynx normal Neck: trachea midline, no thyromegaly Respiratory: no respiratory distress Auscultation: lungs clear to auscultation bilaterally Cardiovascular: Rate/Rhythm: regular rate and regular rhythm; not tachycardic Heart Sounds: normal S1 and normal S2; no murmur Extremities: no edema Gastrointestinal (Abdomen): Inspection/Auscultation: + abdomen distended (Minimal distention lower abdomen) and normal bowel sounds Percussion/Palpation: + abdomen tender (Mildly tender lower quadrants) and abdomen soft Musculoskeletal: No acute arthritis in any joint Neurologic: PERRL, EOMI, accommodation nl, no face palsy, no dysarthria Results & Data Results & Data ([facility]) Vital Signs (Past 12 Hours) Vital Signs Temp Pulse Resp BP Pulse Ox 06/27/21 07:45 37.3 C 81 19 122/69 95 06/27/21 03:45 36.8 C 75 18 131/71 95 Laboratory Results Short CBC 06/27/21 Range/Units 05:55 WBC 6.78 (4.8-10.8) K/uL Hgb 10.4 L (14.0-18.0) g/dL Hct 31.0 L (42-52) % Plt Count 240 (130-400) K/uL BMP 06/27/21 05:55 Sodium 139 Potassium 3.5 Chloride 110 H Carbon Dioxide 24 BUN 16 Creatinine 0.75 D Glucose 111 H Calcium 7.4 L Liver Function 06/27/21 Range/Units 05:55 Total Bilirubin 0.4 (0.2-1.0) mg/dl AST 11 L (13-39) U/L ALT 8 (7-52) U/L Alkaline Phosphatase 54 (34-104) U/L Albumin 2.4 L (3.4-5.0) gm/dl Medications Administered Current Inpatient Medications Acetaminophen (Acetaminophen 325 Mg Tab) 650 mg PO Q4H PRN PRN Reason: Pain or Fever Stop: 07/26/21 02:57 Ascorbic Acid (Ascorbic Acid 500 Mg Tab) 1,000 mg PO DAILY [facility] Stop: 07/26/21 08:59 Last Admin: 06/27/21 09:03 Dose: Not Given Documented by: Aspirin (Aspirin 81 Mg Ectab) 81 mg PO DAILY [facility] Stop: 07/26/21 08:59 Last Admin: 06/27/21 09:05 Dose: 81 mg Documented by: Enoxaparin Sodium (Enoxaparin Inj 40 Mg/0.4 Ml Syr) 40 mg SQ QAM [facility] Stop: 07/26/21 08:59 Last Admin: 06/27/21 09:05 Dose: 40 mg Documented by: Famotidine (Famotidine 20 Mg Tab) 20 mg PO DAILY PRN PRN Reason: gerd Stop: 07/25/21 21:22 Sodium Chloride (Nss 1000ml) 1,000 mls @ 125 mls/hr IV .Q8H [facility] Stop: 07/25/21 15:59 Last Admin: 06/27/21 08:03 Dose: 125 mls/hr Documented by: Piperacillin Sod/Tazobactam (Sod 3.375 gm/ Dextrose) 115 mls @ 28.75 mls/hr IV Q8H [facility]; Protocol Stop: 07/06/21 03:59 Last Admin: 06/27/21 12:16 Dose: 28.8 mls/hr Documented by: Miscellaneous (Frkgdvdh-Mcfrpkoaanto-Bsjatgp 600-50-300 Mg - Order Awaiting Action) 1 ea N/A QS [facility] Stop: 07/26/21 00:00 Last Admin: 06/27/21 08:32 Dose: Not Given Documented by: Miscellaneous (Solifenacin 10 Mg - Order Awaiting Action) 1 ea N/A QS [facility] Stop: 07/26/21 00:00 Last Admin: 06/27/21 08:32 Dose: Not Given Documented by: Miscellaneous Information (Piperacill/Tazobac Consult Active) 1 ea N/A UD PRN PRN Reason: Consult Stop: 07/25/21 21:22 Multivitamins/Minerals (Cerovite Adv Formula Tab) 1 tab PO DAILY [facility] Stop: 07/26/21 08:59 Last Admin: 06/27/21 09:04 Dose: Not Given Documented by: Ondansetron HCl (Ondansetron Inj 2 Mg/Ml 2 Ml Vial) 4 mg IV Q6H PRN PRN Reason: Nausea And Vomiting Stop: 07/27/21 00:55 Pravastatin Sodium (Pravastatin Sod 40 Mg Tab) 80 mg PO HS [facility] Stop: 07/25/21 21:22 Last Admin: 06/26/21 20:42 Dose: 80 mg Documented by: Tamsulosin HCl (Tamsulosin Hcl 0.4 Mg Cap) 0.4 mg PO HS [facility] Stop: 07/25/21 21:22 Last Admin: 06/26/21 20:42 Dose: 0.4 mg Documented by: Vitamin D (Cholecalciferol 1,000 Units 25 Mcg Tab) 1,000 units PO Q2D@0900 [facility] Stop: 07/27/21 08:59 Last Admin: 06/27/21 09:03 Dose: Not Given Documented by: Vitamin E (Tocopheryl, Dl-Alpha 400 Units 180 Mg Cap) 400 units PO DAILY [facility] Stop: 07/26/21 08:59 Last Admin: 06/27/21 09:03 Dose: Not Given Documented by: (1) Diarrhea Diarrhea type: unspecified type Qualified Code(s): R19.7 - Diarrhea, unspecified (2) Nausea & vomiting Vomiting type: unspecified Qualified Code(s): R11.2 - Nausea with vomiting, unspecified (3) HIV (human immunodeficiency virus infection) HIV symptom status: unspecified Qualified Code(s): B20 - Human immunodeficiency virus [HIV] disease
[2021-06-27] MEDS: ONDANSETRON INJ 2 MG/ML 2 ML VIAL IV PRN (20:24)
[2021-06-27] MEDS: PRAVASTATIN SOD 40 MG TAB PO SCH (20:37)
[2021-06-27] MEDS: TAMSULOSIN HCL 0.4 MG CAP PO SCH (20:37)
[2021-06-27] MEDS: [UNRECOGNIZED DRUG - REMARK] PO SCH (21:54)
[2021-06-28] MEDS: SODIUM CHLORIDE 0.9% 1000ML 1,000 ML IV SCH ×3 (00:30→16:09)
[2021-06-28] MEDS: PIPERACILLIN/TAZOBACTAM 3.375 GM in DEXTROSE 5% 100 ML IV SCH ×3 (05:56→20:02)
[2021-06-28 06:40] LABS: Hematocrit (blood only) 33.1 % (42-52); Hemoglobin 11.3 g/dL (14.0-18.0); Mean Corpuscular Hgb Conc 34.1 g/dL (32-36); Mean Corpuscular Volume 105.4 fL (80-100); Mean Platelet Volume 9.5 fL (7.4-10.4); Platelet Count 258 K/uL (130-400); RDW Coefficient of Variation 13.6 % (11.5-14.5); RDW Standard Deviation 52.5 fL (36.4-46.3); Red Blood Count 3.14 M/uL (4.7-6.1); White Blood Count 8.32 K/uL (4.8-10.8)
[2021-06-28 07:01] LABS: Albumin Globulin Ratio 0.8 (0.9-2); Albumin Level 2.4 gm/dl (3.4-5.0); BUN Creatinine Ratio 15.2 (10-20); Bilirubin,Total 0.4 mg/dl (0.2-1.0); Calcium 6.4 mg/dl (8.5-10.1); Creatinine Clr Calc Pharmacy 66.8 ml/min; Est GFR (African American) 99.7 ml/min; Potassium 3.1 mmol/L (3.5-5.1); Total Protein 5.4 gm/dl (6.0-8.3)
[2021-06-28] MEDS: TOCOPHERYL, DL-ALPHA 400 UNITS 180 MG CAP PO SCH (08:16)
[2021-06-28] MEDS: ASPIRIN 81 MG ECTAB PO SCH (08:16)
[2021-06-28] MEDS: POTASSIUM CHLORIDE / WTR 10 MEQ/100 ML PLCT IV SCH ×2 (08:16→10:18)
[2021-06-28] MEDS: CEROVITE ADV FORMULA TAB PO SCH (08:16)
[2021-06-28] MEDS: FAMOTIDINE 20 MG TAB PO PRN (08:17)
[2021-06-28] MEDS: ASCORBIC ACID 500 MG TAB PO SCH (08:17)
[2021-06-28] MEDS: ONDANSETRON INJ 2 MG/ML 2 ML VIAL IV PRN ×2 (08:30→16:09)
[2021-06-28] MEDS: ENOXAPARIN INJ 40 MG/0.4 ML SYR SQ SCH (10:19)
--- NOTE | 2021-06-28 11:56 | Hospitalist Progress Note ---
Date of Service June 28, 2021 Assessment & Plan (1) Pancolitis: Plan: -Inflammatory/infective given the history of HIV -Nss at 125 ml/hr, he has received 1 L in the ER -CT of the abdomen pelvis reviewed showing diffuse pancolitis -Stool cultures and c diff ordered-pending -Follow blood culture-pending and lactate is normal -UA pending, follow urine culture-no growth less than 100,000 colonies per mL -Consult GI with HIV history - unknown last colonoscopy -Consult infectious disease for antibiotic recs: for now will continue zosyn IV, pt with prolonged QTc and flagyl is still on backorder. 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 -Symptomatically a little better -Stool tests have been negative including C. difficile toxin -We will continue current antibiotic -Has had blood in the stool could be secondary to ongoing diarrhea and irritation and will monitor CBC and hemoglobin (2) Diarrhea: Plan: Secondary to pancolitis Awaiting stool cultures and C. difficile colitis-have been negative so far We will try Imodium to control diarrhea (3) Nausea & vomiting: Plan: Secondary to above and seems to be improving (4) HIV (human immunodeficiency virus infection): Plan: -Said that his HIV is controlled -Continue Dovato -Infectious disease consulted -Check CD4 count-pending for now - afebrile, leukocytosis of 11.75 -CD4 count is still pending -Awaiting ID recommendation-appreciate ID input and recommendation (5) Heart disease: Plan: - Noted in external scanned files in [employer] - Echo 2 D ordered: Normal LV size, moderate concentric LVH, septal motion is consistent with conduction abnormality, no wall motion abnormalities, EF 55 to 60%, aortic valve leaflets are moderately calcified and restricted in mobility, moderate valvular aortic stenosis, moderate to heavy calcification of the posterior mitral valve annulus and leaflet and there is trace mitral regurgitation. - Continue asa and pravastatin 80 mg HS - hold lisinopril with appearing dehydrated. Resume if BP remains stable tomorrow morning. -Serial troponins have been negative (6) Prostate cancer: Plan: -History of such in 2002, status post brachytherapy -Previously followed with Dr. Crowley, no recent PSA for review -Continue flomax and vesicare DVT PPx: - teds, scds, Lovenox subcu CODE:Full code Admission and Anticipated Discharge Date Admission Date: June 25, 2021 Subjective 06/26/2021 The patient was seen and examined in medical telemetry unit He complains to have some abdominal discomfort and still having diarrhea Denies any fever and or chills, no nausea no vomiting and no abdominal distention 06/27/2021 The patient was seen and examined in medical telemetry unit He complains to have abdominal pain but the diarrhea seems to be improving He wanted to go home today but later on decided not to 06/28/2021 The patient was seen and examined in medical telemetry unit He continues to have diarrhea and has had blood in the stool as well this mor carmen We will hold off his Lovenox Denies any significant symptoms and abdominal pain is minimal Review of Systems Review of Systems: All systems reviewed and are unremarkable except as noted below Gastrointestinal: Minimal abdominal distention and discomfort with ongoing diarrhea Physical Exam Physical Exam: Lying in bed comfortably Constitutional: + ill appearing and average body habitus Eyes: PERRL, conjunctivae normal, anicteric sclerae ENMT: external ear and nose normal, oropharynx normal Neck: trachea midline, no thyromegaly Respiratory: no respiratory distress Auscultation: lungs clear to auscultation bilaterally Cardiovascular: Rate/Rhythm: regular rate and regular rhythm; not tachycardic Heart Sounds: normal S1 and normal S2; no murmur Extremities: no edema Gastrointestinal (Abdomen): Inspection/Auscultation: + abdomen distended (Minimal distention lower abdomen) and normal bowel sounds Percussion/Palpation: + abdomen tender (Mildly tender lower quadrants) and abd omen soft Musculoskeletal: No acute arthritis any of the joint Neurologic: PERRL, EOMI, accommodation nl, no face palsy, no dysarthria Results & Data Results & Data ([facility]) Vital Signs (Past 12 Hours) Vital Signs Temp Pulse Resp BP Pulse Ox 06/28/21 11:33 36.7 C 82 20 159/75 H 96 06/28/21 07:36 36.8 C 86 16 149/77 H 95 06/28/21 02:46 36.9 C 84 18 133/73 97 Laboratory Results Short CBC 06/28/21 Range/Units 06:12 WBC 8.32 (4.8-10.8) K/uL Hgb 11.3 L (14.0-18.0) g/dL Hct 33.1 L (42-52) % Plt Count 258 (130-400) K/uL BMP 06/28/21 06:12 Sodium 135 L Potassium 3.1 L Chloride 108 H Carbon Dioxide 21 BUN 12 Creatinine 0.79 Glucose 102 H Calcium 6.4 L Liver Function 06/28/21 Range/Units 06:12 Total Bilirubin 0.4 (0.2-1.0) mg/dl AST 11 L (13-39) U/L ALT 7 (7-52) U/L Alkaline Phosphatase 59 (34-104) U/L Albumin 2.4 L (3.4-5.0) gm/dl Medications Administered Current Inpatient Medications Acetaminophen (Acetaminophen 325 Mg Tab) 650 mg PO Q4H PRN PRN Reason: Pain or Fever Stop: 07/26/21 02:57 Ascorbic Acid (Ascorbic Acid 500 Mg Tab) 1,000 mg PO DAILY [facility] Stop: 07/26/21 08:59 Last Admin: 06/28/21 08:17 Dose: 1,000 mg Documented by: Aspirin (Aspirin 81 Mg Ectab) 81 mg PO DAILY [facility] Stop: 07/26/21 08:59 Last Admin: 06/28/21 08:16 Dose: 81 mg Documented by: Enoxaparin Sodium (Enoxaparin Inj 40 Mg/0.4 Ml Syr) 40 mg SQ QAM [facility] Stop: 07/26/21 08:59 Last Admin: 06/28/21 10:19 Dose: Not Given Documented by: Famotidine (Famotidine 20 Mg Tab) 20 mg PO DAILY PRN PRN Reason: gerd Stop: 07/25/21 21:22 Last Admin: 06/28/21 08:17 Dose: 20 mg Documented by: Sodium Chloride (Nss 1000ml) 1,000 mls @ 125 mls/hr IV .Q8H [facility] Stop: 07/25/21 15:59 Last Admin: 06/28/21 08:16 Dose: 125 mls/hr Documented by: Piperacillin Sod/Tazobactam (Sod 3.375 gm/ Dextrose) 115 mls @ 28.75 mls/hr IV Q8H [facility]; Protocol Stop: 07/06/21 03:59 Last Admin: 06/28/21 11:48 Dose: 28.8 mls/hr Documented by: Miscellaneous (Solifenacin 10 Mg - Order Awaiting Action) 1 ea N/A QS [facility] Stop: 07/26/21 00:00 Last Admin: 06/28/21 09:24 Dose: Not Given Documented by: Miscellaneous Information (Piperacill/Tazobac Consult Active) 1 ea N/A UD PRN PRN Reason: Consult Stop: 07/25/21 21:22 Multivitamins/Minerals (Cerovite Adv Formula Tab) 1 tab PO DAILY [facility] Stop: 07/26/21 08:59 Last Admin: 06/28/21 08:16 Dose: 1 tab Documented by: Abacavir- Dolutegravir- Lamivudine*Non-Form Patient's Own Med 1 ea PO HS [facility] Stop: 07/27/21 20:59 Last Admin: 06/27/21 21:54 Dose: 1 tab Documented by: Ondansetron HCl (Ondansetron Inj 2 Mg/Ml 2 Ml Vial) 4 mg IV Q6H PRN PRN Reason: Nausea And Vomiting Stop: 07/27/21 00:55 Last Admin: 06/28/21 08:30 Dose: 4 mg Documented by: Pravastatin Sodium (Pravastatin Sod 40 Mg Tab) 80 mg PO [facility] Stop: 07/25/21 21:22 Last Admin: 06/27/21 20:37 Dose: 80 mg Documented by: Tamsulosin HCl (Tamsulosin Hcl 0.4 Mg Cap) 0.4 mg PO [facility] Stop: 07/25/21 21:22 Last Admin: 06/27/21 20:37 Dose: 0.4 mg Documented by: Vitamin D (Cholecalciferol 1,000 Units 25 Mcg Tab) 1,000 units PO Q2D@0900 [facility] Stop: 07/27/21 08:59 Last Admin: 06/27/21 09:03 Dose: Not Given Documented by: Vitamin E (Tocopheryl, Dl-Alpha 400 Units 180 Mg Cap) 400 units PO DAILY [facility] Stop: 07/26/21 08:59 Last Admin: 06/28/21 08:16 Dose: 400 units Documented by: (1) Diarrhea Diarrhea type: unspecified type Qualified Code(s): R19.7 - Diarrhea, unspecified (2) Nausea & vomiting Vomiting type: unspecified Qualified Code(s): R11.2 - Nausea with vomiting, unspecified (3) HIV (human immunodeficiency virus infection) HIV symptom status: unspecified Qualified Code(s): B20 - Human immunodeficiency virus [HIV] disease
[2021-06-28 17:50] LABS: LSP % Cells Analyzed CD4 17 % (30-61); LSP Absolute Ct CD4 253 cells/uL (490-1740); LSP Lymphocytes Absolute 1506 cells/uL (850-3900)
[2021-06-28] MEDS: [UNRECOGNIZED DRUG - REMARK] PO SCH (20:04)
[2021-06-28] MEDS: TAMSULOSIN HCL 0.4 MG CAP PO SCH (20:08)
[2021-06-28] MEDS: PRAVASTATIN SOD 40 MG TAB PO SCH (20:08)
[2021-06-29] MEDS: SODIUM CHLORIDE 0.9% 1000ML 1,000 ML IV SCH ×2 (00:05→07:53)
[2021-06-29] MEDS: PIPERACILLIN/TAZOBACTAM 3.375 GM in DEXTROSE 5% 100 ML IV SCH ×2 (05:04→11:51)
[2021-06-29] MEDS: FAMOTIDINE 20 MG TAB PO PRN (07:53)
[2021-06-29] MEDS: CEROVITE ADV FORMULA TAB PO SCH (07:54)
[2021-06-29] MEDS: ASCORBIC ACID 500 MG TAB PO SCH (07:54)
[2021-06-29] MEDS: CHOLECALCIFEROL 1,000 UNITS 25 MCG TAB PO SCH (07:54)
[2021-06-29] MEDS: ASPIRIN 81 MG ECTAB PO SCH (07:54)
[2021-06-29] MEDS: TOCOPHERYL, DL-ALPHA 400 UNITS 180 MG CAP PO SCH (07:54)
[2021-06-29] MEDS: ENOXAPARIN INJ 40 MG/0.4 ML SYR SQ SCH (07:55)
[2021-06-29 08:24] LABS: Hematocrit (blood only) 35.7 % (42-52); Mean Corpuscular Hemoglobin 35.6 pg (25-34); Mean Corpuscular Hgb Conc 33.6 g/dL (32-36); Mean Corpuscular Volume 105.9 fL (80-100); Mean Platelet Volume 9.5 fL (7.4-10.4); Platelet Count 297 K/uL (130-400); RDW Coefficient of Variation 13.8 % (11.5-14.5); Red Blood Count 3.37 M/uL (4.7-6.1); White Blood Count 10.42 K/uL (4.8-10.8)
[2021-06-29 08:47] LABS: BUN Creatinine Ratio 16.3 (10-20); Calcium 6.5 mg/dl (8.5-10.1); Creatinine Clr Calc Pharmacy 68.5 ml/min; Est GFR (African American) 99.2 ml/min; Est GFR (Non-African American) 85.6 ml/min; Potassium 3.6 mmol/L (3.5-5.1)
[2021-06-29 08:51] LABS: Magnesium 1.6 mg/dl (1.7-2.4); Phosphorus 1.4 mg/dl (2.5-4.9)
[2021-06-29] MEDS ORDERED: POTASSIUM PHOS 3 MMOL/1 ML INFUSION IV STA (09:01)
[2021-06-29 09:04] LABS: Basophils # (auto) 0.02 K/uL (0-0.2); Basophils % (auto) 0.2 %; Eosinophils # (auto) 0.04 K/uL (0-0.5); Eosinophils % (auto) 0.4 %; Immature Granulocytes # (auto) 0.04 K/uL (0.00-0.02); Immature Granulocytes % (auto) 0.4 %; Lymphocytes # (auto) 1.85 K/uL (1.2-3.4); Lymphocytes % (auto) 17.8 %; Monocytes # (auto) 1.44 K/uL (0.11-0.59); Monocytes % (auto) 13.8 %; Neutrophils # (auto) 7.03 K/uL (1.4-6.5); Neutrophils % (auto) 67.4 %
[2021-06-29] MEDS ORDERED: POTASSIUM PHOSPHATE 30 MMOL in DEXTROSE 5% 500 ML IV ONE (10:00)
--- NOTE | 2021-06-29 14:02 | Hospitalist Progress Note ---
Date of Service June 29, 2021 Assessment & Plan (1) Pancolitis: Plan: -Inflammatory/infective given the history of HIV -Nss at 125 ml/hr, he has received 1 L in the ER -CT of the abdomen pelvis reviewed showing diffuse pancolitis -Stool cultures and c diff ordered-pending -Follow blood culture-pending and lactate is normal -UA pending, follow urine culture-no growth less than 100,000 colonies per mL -Consult GI with HIV history - unknown last colonoscopy -Consult infectious disease for antibiotic recs: for now will continue zosyn IV, pt with prolonged QTc and flagyl is still on backorder. -Supportive care with fluids, antiemetics, clear liquid diet, Tylenol as needed - Continue vitamins as per [employer] list - pt is not sure about exact medications, list reviewed but unclear if he is actually taking all these medications other than his HIV med which he has in a pill container at bedside. -Symptomatically a little better -Stool tests have been negative including C. difficile toxin -We will continue current antibiotic -Has had blood in the stool could be secondary to ongoing diarrhea and irritation and will monitor CBC and hemoglobin -His hemoglobin remains stable and stool cultures have been negative -Appreciate ID input and recommendation to discontinue antibiotic -We will put Imodium to control diarrhea and discharge patient likely tomorrow after getting PT and OT evaluation (2) Diarrhea: Plan: Secondary to pancolitis Awaiting stool cultures and C. difficile colitis-have been negative so far We will try Imodium to control diarrhea (3) Nausea & vomiting: Plan: Secondary to above and seems to be improving (4) HIV (human immunodeficiency virus infection): Plan: -Said that his HIV is controlled -Continue Dovato -Infectious disease consulted -Check CD4 count-pending for now - afebrile, leukocytosis of 11.75 -CD4 count is still pending -Awaiting ID recommendation-appreciate ID input and recommendation -CD4 count is minimally low. Appreciate ID input and recommendation (5) Heart disease: Plan: - Noted in external scanned files in [facility] - Echo 2 D ordered: Normal LV size, moderate concentric LVH, septal motion is consistent with conduction abnormality, no wall motion abnormalities, EF 55 to 60%, aortic valve leaflets are moderately calcified and restricted in mobility, moderate valvular aortic stenosis, moderate to heavy calcification of the posterior mitral valve annulus and leaflet and there is trace mitral regurgitation. - Continue asa and pravastatin 80 mg HS - hold lisinopril with appearing dehydrated. Resume if BP remains stable tomorrow morning. -Serial troponins have been negative (6) Prostate cancer: Plan: -History of such in 2002, status post brachytherapy -Previously followed with Dr. Crowley, no recent PSA for review -Continue flomax and vesicare DVT PPx: - teds, scds, Lovenox subcu CODE:Full code Admission and Anticipated Discharge Date Admission Date: June 25, 2021 Subjective 06/26/2021 The patient was seen and examined in medical telemetry unit He complains to have some abdominal discomfort and still having diarrhea Denies any fever and or chills, no nausea no vomiting and no abdominal distention 06/27/2021 The patient was seen and examined in medical telemetry unit He complains to have abdominal pain but the diarrhea seems to be improving He wanted to go home today but later on decided not to 06/28/2021 The patient was seen and examined in medical telemetry unit He continues to have diarrhea and has had blood in the stool as well this morning We will hold off his Lovenox Denies any significant symptoms and abdominal pain is minimal 06/29/2021 The patient was seen and examined in medical telemetry unit He has been complaining of some abdominal pain and has had some bleeding per rectum His diarrhea seems to be under control Review of Systems Review of Systems: All systems reviewed and are unremarkable except as noted below Gastrointestinal: Minimal abdominal distention and discomfort with ongoing diarrhea Physical Exam Physical Exam: Lying in bed comfortably Constitutional: + ill appearing and average body habitus Eyes: PERRL, conjunctivae normal, anicteric sclerae ENMT: external ear and nose normal, oropharynx normal Neck: trachea midline, no thyromegaly Respiratory: no respiratory distress Auscultation: lungs clear to auscultation bilaterally Cardiovascular: Rate/Rhythm: regular rate and regular rhythm; not tachycardic Heart Sounds: normal S1 and normal S2; no murmur Extremities: no edema Gastrointestinal (Abdomen): Inspection/Auscultation: normal bowel sounds; abdomen not distended (Minimal distention lower abdomen) Percussion/Palpation: + abdomen tender (Mildly tender lower quadrants) and abdomen soft Musculoskeletal: No acute arthritis in any joint Neurologic: PERRL, EOMI, accommodation nl, no face palsy, no dysarthria Lymphatic: no cervical or axillary lymphadenopathy Results & Data Results & Data ([facility]) Vital Signs (Past 12 Hours) Vital Signs Temp Pulse Pulse Resp BP BP Pulse Ox 06/29/21 11:06 36.6 C 85 20 130/76 97 06/29/21 07:48 81 06/29/21 07:23 36.7 C 67 20 135/77 95 06/29/21 05:00 36.7 C 79 18 129/75 94 06/29/21 01:59 81 Laboratory Results Short CBC 06/29/21 Range/Units 08:07 WBC 10.42 (4.8-10.8) K/uL Hgb 12.0 L (14.0-18.0) g/dL Hct 35.7 L (42-52) % Plt Count 297 (130-400) K/uL BMP 06/29/21 08:07 Sodium 140 Potassium 3.6 Chloride 108 H Carbon Dioxide 25 BUN 13 Creatinine 0.80 Glucose 97 Calcium 6.5 L Medications Administered Current Inpatient Medications Acetaminophen (Acetaminophen 325 Mg Tab) 650 mg PO Q4H PRN PRN Reason: Pain or Fever Stop: 07/26/21 02:57 Ascorbic Acid (Ascorbic Acid 500 Mg Tab) 1,000 mg PO DAILY [facility] Stop: 07/26/21 08:59 Last Admin: 06/29/21 07:54 Dose: 1,000 mg Documented by: Aspirin (Aspirin 81 Mg Ectab) 81 mg PO DAILY [facility] Stop: 07/26/21 08:59 Last Admin: 06/29/21 07:54 Dose: 81 mg Documented by: Enoxaparin Sodium (Enoxaparin Inj 40 Mg/0.4 Ml Syr) 40 mg SQ QAM [facility] Stop: 07/26/21 08:59 Last Admin: 06/29/21 07:55 Dose: 40 mg Documented by: Famotidine (Famotidine 20 Mg Tab) 20 mg PO DAILY PRN PRN Reason: gerd Stop: 07/25/21 21:22 Last Admin: 06/29/21 07:53 Dose: 20 mg Documented by: Sodium Chloride (Nss 1000ml) 1,000 mls @ 125 mls/hr IV .Q8H [facility] Stop: 07/25/21 15:59 Last Admin: 06/29/21 07:53 Dose: 125 mls/hr Documented by: Potassium Phosphate 30 mmol/ (Dextrose) 510 mls @ 88 mls/hr IV NOW ONE Stop: 06/29/21 15:47 Last Admin: 06/29/21 09:49 Dose: 88 mls/hr Documented by: Miscellaneous (Solifenacin 10 Mg - Order Awaiting Action) 1 ea N/A QS [facility] Stop: 07/26/21 00:00 Last Admin: 06/29/21 07:54 Dose: Not Given Documented by: Multivitamins/Minerals (Cerovite Adv Formula Tab) 1 tab PO DAILY [facility] Stop: 07/26/21 08:59 Last Admin: 06/29/21 07:54 Dose: 1 tab Documented by: Abacavir- Dolutegravir- Lamivudine*Non-Form Patient's Own Med 1 ea PO HS [facility] Stop: 07/27/21 20:59 Last Admin: 06/28/21 20:04 Dose: 1 tab Documented by: Ondansetron HCl (Ondansetron Inj 2 Mg/Ml 2 Ml Vial) 4 mg IV Q6H PRN PRN Reason: Nausea And Vomiting Stop: 07/27/21 00:55 Last Admin: 06/28/21 16:09 Dose: 4 mg Documented by: Pravastatin Sodium (Pravastatin Sod 40 Mg Tab) [address] [facility] Stop: 07/25/21 21:22 Last Admin: 06/28/21 20:08 Dose: 80 mg Documented by: Tamsulosin HCl (Tamsulosin Hcl 0.4 Mg Cap) 0.4 mg PO HS [facility] Stop: 07/25/21 21:22 Last Admin: 06/28/21 20:08 Dose: 0.4 mg Documented by: Vitamin D (Cholecalciferol 1,000 Units 25 Mcg Tab) 1,000 units PO Q2D@0900 [facility] Stop: 07/27/21 08:59 Last Admin: 06/29/21 07:54 Dose: 1,000 units Documented by: Vitamin E (Tocopheryl, Dl-Alpha 400 Units 180 Mg Cap) 400 units PO DAILY [facility] Stop: 07/26/21 08:59 Last Admin: 06/29/21 07:54 Dose: 400 units Documented by: (1) Diarrhea Diarrhea type: unspecified type Qualified Code(s): R19.7 - Diarrhea, unspecified (2) Nausea & vomiting Vomiting type: unspecified Qualified Code(s): R11.2 - Nausea with vomiting, unspecified (3) HIV (human immunodeficiency virus infection) HIV symptom status: unspecified Qualified Code(s): B20 - Human immunodeficiency virus [HIV] disease
[2021-06-29] MEDS: [UNRECOGNIZED DRUG - REMARK] PO SCH (21:28)
[2021-06-29] MEDS: TAMSULOSIN HCL 0.4 MG CAP PO SCH (21:28)
[2021-06-29] MEDS: PRAVASTATIN SOD 40 MG TAB PO SCH (21:28)
[2021-06-30] MEDS: SODIUM CHLORIDE 0.9% 1000ML 1,000 ML IV SCH ×3 (06:09→20:56)
[2021-06-30] MEDS: ENOXAPARIN INJ 40 MG/0.4 ML SYR SQ SCH (08:38)
[2021-06-30] MEDS: CEROVITE ADV FORMULA TAB PO SCH (08:38)
[2021-06-30] MEDS: TOCOPHERYL, DL-ALPHA 400 UNITS 180 MG CAP PO SCH (08:38)
[2021-06-30] MEDS: ASCORBIC ACID 500 MG TAB PO SCH (08:38)
[2021-06-30] MEDS: ASPIRIN 81 MG ECTAB PO SCH (08:38)
--- NOTE | 2021-06-30 12:19 | Gastroenterology Progress Note ---
Date of Service June 30, 2021 Assessment & Plan (1) Pancolitis: (2) Diarrhea: Plan: 80 y/o male with h/o HIV previously well controlled on Triumeq, history of sigmoid stricture, colon polyps, presented with 3 weeks of n/v/d abd pain. CT w/ pancolitis. CD4 count low. He does have a new anemia which is stable, no neutropenia, afebrile. Abd soft, but more distended and tender than Tuesday. Stool studies neg. Diff dx to consider in this particular pt would be viral etiology such as CMV, vs inflammatory etiology, malignancy. Last colonoscopy was in 2013. He is agreeable to proceed with colonoscopy given his ongoing symptoms. - Repeat CTAP today given his abd exam - If CT ok, will start Prep with Miralax beginning at 5 PM - Repeat CBC, BMP - Clear liquids today then NPO after midnight Thank you for allowing us to participate in the care of this patient. Please call with any acute changes, questions or concerns. Please see addendum below with additional recommendation from my supervising physician. Admission and Anticipated Discharge Date Admission Date: June 25, 2021 Supervising Physician Co-Signing Physician Notes Late entry: Patient was seen and examined on 06/30 with Shiraz De La Rosa PA-C whose note reflects our findings and plan. Repeat CT pending. Tentatively planning for colonoscopy Subjective We were asked to see this pt again today for ongoing small volume hematochezia, diarrhea, abd discomfort. HGB stable yesterday; no repeat labs today. CD4 count was low. Stool studies neg. He has been on a clear liquid diet; today doesn't feel like eating much. States he is about the same w/ his abdominal symptoms; feels weaker. Not passing as much flatus as before. No vomiting, nausea, melena, fever, chills, CP, SOB. Review of Systems Review of Systems: All systems reviewed & are unremarkable except as noted in HPI & below Physical Exam Constitutional: chronically ill, no acute distress Eyes: PERRL, conjunctivae normal, anicteric sclerae Respiratory: normal respiratory effort, lungs clear to auscultation Cardiovascular: Rate/Rhythm: regular rate and regular rhythm Gastrointestinal (Abdomen): Inspection/Auscultation: abdomen normal to inspection and normal bowel sounds Percussion/Palpation: abdomen soft; no guarding more distended and w/ generalized tenderness; than when I saw him on Tuesday, no rebound, guarding Skin: no rashes, warm and dry Psychiatric: A+Ox3, euthymic affect Results & Data ([facility]) Vital Signs (Past 12 Hours) Vital Signs Temp Pulse Pulse Resp BP Pulse Ox 06/30/21 11:28 36.9 C 101 H 20 145/82 H 95 06/30/21 07:50 36.5 C 91 H 19 133/81 95 06/30/21 07:18 78 06/30/21 05:11 36.5 C 89 18 126/77 95 (1) Diarrhea Diarrhea type: unspecified type Qualified Code(s): R19.7 - Diarrhea, unspeci fied
[2021-06-30 13:08] LABS: Hematocrit (blood only) 32.9 % (42-52); Hemoglobin 11.2 g/dL (14.0-18.0); Mean Corpuscular Hemoglobin 35.6 pg (25-34); Mean Corpuscular Volume 104.4 fL (80-100); Mean Platelet Volume 9.4 fL (7.4-10.4); Platelet Count 259 K/uL (130-400); RDW Coefficient of Variation 13.9 % (11.5-14.5); RDW Standard Deviation 53.5 fL (36.4-46.3); Red Blood Count 3.15 M/uL (4.7-6.1); White Blood Count 8.66 K/uL (4.8-10.8)
--- NOTE | 2021-06-30 13:09 | Hospitalist Progress Note ---
Date of Service June 30, 2021 Assessment & Plan (1) Pancolitis: Plan: -Inflammatory/infective given the history of HIV -Nss at 125 ml/hr, he has received 1 L in the ER -CT of the abdomen pelvis reviewed showing diffuse pancolitis -Stool cultures and c diff ordered-pending -Follow blood culture-pending and lactate is normal -UA pending, follow urine culture-no growth less than 100,000 colonies per mL -Consult GI with HIV history - unknown last colonoscopy -Consult infectious disease for antibiotic recs: for now will continue zosyn IV, pt with prolonged QTc and flagyl is still on backorder. -Supportive care with fluids, antiemetics, clear liquid diet, Tylenol as needed - Continue vitamins as per [employer] list - pt is not sure about exact medications, list reviewed but unclear if he is actually taking all these medications other than his HIV med which he has in a pill container at bedside. -Symptomatically a little better -Stool tests have been negative including C. difficile toxin -We will continue current antibiotic -Has had blood in the stool could be secondary to ongoing diarrhea and irritation and will monitor CBC and hemoglobin -His hemoglobin remains stable and stool cultures have been negative -Appreciate ID input and recommendation to discontinue antibiotic -We will put Imodium to control diarrhea and discharge patient likely tomorrow after getting PT and OT evaluation -Condition deteriorated with increasing bright red blood per rectum -Appreciate GI reevaluation and plan for possible colonoscopy tomorrow -We will have CT scan of the abdomen today and repeat blood counts as per GI -Repeat CT scan of the abdomen pelvis showed pancolitis, mild ileus and without any evidence of toxic megacolon (2) Diarrhea: Plan: Secondary to pancolitis Awaiting stool cultures and C. difficile colitis-have been negative so far We will try Imodium to control diarrhea Has been having bright red blood per rectum (3) Nausea & vomiting: Plan: Secondary to above and seems to be improving (4) HIV (human immunodeficiency virus infection): Plan: -Said that his HIV is controlled -Continue Dovato -Infectious disease consulted -Check CD4 count-pending for now - afebrile, leukocytosis of 11.75 -CD4 count is still pending -Awaiting ID recommendation-appreciate ID input and recommendation -CD4 count is minimally low. Appreciate ID input and recommendation -Will need appointment with ID as an outpatient (5) Heart disease: Plan: - Noted in external scanned files in [facility] - Echo 2 D ordered: Normal LV size, moderate concentric LVH, septal motion is consistent with conduction abnormality, no wall motion abnormalities, EF 55 to 60%, aortic valve leaflets are moderately calcified and restricted in mobility, moderate valvular aortic stenosis, moderate to heavy calcification of the posterior mitral valve annulus and leaflet and there is trace mitral regurgitation. - Continue asa and pravastatin 80 mg HS - hold lisinopril with appearing dehydrated. Resume if BP remains stable tomorrow morning. -Serial troponins have been negative (6) Prostate cancer: Plan: -History of such in 2002, status post brachytherapy -Previously followed with Dr. Crowley, no recent PSA for review -Continue flomax and vesicare DVT PPx: - teds, scds, Lovenox subcu CODE:Full code Plan: Discussed with his friend Dionisio Unger Admission and Anticipated Discharge Date Admission Date: June 25, 2021 Subjective 06/26/2021 The patient was seen and examined in medical telemetry unit He complains to have some abdominal discomfort and still having diarrhea Denies any fever and or chills, no nausea no vomiting and no abdominal distention 06/27/2021 The patient was seen and examined in medical telemetry unit He complains to have abdominal pain but the diarrhea seems to be improving He wanted to go home today but later on decided not to 06/28/2021 The patient was seen and examined in medical telemetry unit He continues to have diarrhea and has had blood in the stool as well this morning We will hold off his Lovenox Denies any significant symptoms and abdominal pain is minimal 06/29/2021 The patient was seen and examined in medical telemetry unit He has been complaining of some abdominal pain and has had some bleeding per rectum His diarrhea seems to be under control 06/30/2021 The patient was seen and examined in medical telemetry unit He complains to have more abdominal pain today and has had bright red rectal bleed Denies any nausea and or vomiting Review of Systems Review of Systems: All systems reviewed and are unremarkable except as noted below Gastrointestinal: Abdominal discomfort with minimal distention Physical Exam Physical Exam: Lying in bed comfortably Constitutional: + ill appearing and average body habitus Eyes: PERRL, conjunctivae normal, anicteric sclerae ENMT: external ear and nose normal, oropharynx normal Neck: trachea midline, no thyromegaly Respiratory: no respiratory distress Auscultation: lungs clear to auscultation bilaterally Cardiovascular: Rate/Rhythm: regular rate and regular rhythm; not tachycardic Heart Sounds: normal S1 and normal S2; no murmur Extremities: no edema Gastrointestinal (Abdomen): Inspection/Auscultation: normal bowel sounds; abdomen not distended (Minimal distention lower abdomen) Percussion/Palpation: + abdomen tender (Mildly tender lower quadrants) and abdomen soft Musculoskeletal: No acute arthritis involving any joint Neurologic: PERRL, EOMI, accommodation nl, no face palsy, no dysarthria Lymphatic: no cervical or axillary lymphadenopathy Results & Data Results & Data ([facility]) Vital Signs (Past 12 Hours) Vital Signs Temp Pulse Pulse Resp BP Pulse Ox 06/30/21 11:28 36.9 C 101 H 20 145/82 H 95 06/30/21 07:50 36.5 C 91 H 19 133/81 95 06/30/21 07:18 78 06/30/21 05:11 36.5 C 89 18 126/77 95 Medications Administered Current Inpatient Medications Acetaminophen (Acetaminophen 325 Mg Tab) 650 mg PO Q4H PRN PRN Reason: Pain or Fever Stop: 07/26/21 02:57 Ascorbic Acid (Ascorbic Acid 500 Mg Tab) 1,000 mg PO DAILY [facility] Stop: 07/26/21 08:59 Last Admin: 06/30/21 08:38 Dose: Not Given Documented by: Aspirin (Aspirin 81 Mg Ectab) 81 mg PO DAILY [facility] Stop: 07/26/21 08:59 Last Admin: 06/30/21 08:38 Dose: Not Given Documented by: Enoxaparin Sodium (Enoxaparin Inj 40 Mg/0.4 Ml Syr) 40 mg SQ QAM [facility] Stop: 07/26/21 08:59 Last Admin: 06/30/21 08:38 Dose: Not Given Documented by: Famotidine (Famotidine 20 Mg Tab) 20 mg PO DAILY PRN PRN Reason: gerd Stop: 07/25/21 21:22 Last Admin: 06/29/21 07:53 Dose: 20 mg Documented by: Sodium Chloride (Nss 1000ml) 1,000 mls @ 125 mls/hr IV .Q8H [facility] Stop: 07/25/21 15:59 Last Admin: 06/30/21 06:09 Dose: 125 mls/hr Documented by: Miscellaneous (Solifenacin 10 Mg - Order Awaiting Action) 1 ea N/A QS [facility] Stop: 07/26/21 00:00 Last Admin: 06/30/21 08:38 Dose: Not Given Documented by: Multivitamins/Minerals (Cerovite Adv Formula Tab) 1 tab PO DAILY [facility] Stop: 07/26/21 08:59 Last Admin: 06/30/21 08:38 Dose: Not Given Documented by: Abacavir- Dolutegravir- Lamivudine*Non-Form Patient's Own Med 1 ea PO HS [facility] Stop: 07/27/21 20:59 Last Admin: 06/29/21 21:28 Dose: Not Given Documented by: Ondansetron HCl (Ondansetron Inj 2 Mg/Ml 2 Ml Vial) 4 mg IV Q6H PRN PRN Reason: Nausea And Vomiting Stop: 07/27/21 00:55 Last Admin: 06/28/21 16:09 Dose: 4 mg Documented by: Pravastatin Sodium (Pravastatin Sod 40 Mg Tab) 80 mg PO [facility] Stop: 07/25/21 21:22 Last Admin: 06/29/21 21:28 Dose: Not Given Documented by: Tamsulosin HCl (Tamsulosin Hcl 0.4 Mg Cap) 0.4 mg PO [facility] Stop: 07/25/21 21:22 Last Admin: 06/29/21 21:28 Dose: Not Given Documented by: Vitamin D (Cholecalciferol 1,000 Units 25 Mcg Tab) 1,000 units PO Q2D@0900 [facility] Stop: 07/27/21 08:59 Last Admin: 06/29/21 07:54 Dose: 1,000 units Documented by: Vitamin E (Tocopheryl, Dl-Alpha 400 Units 180 Mg Cap) 400 units PO DAILY [facility] Stop: 07/26/21 08:59 Last Admin: 06/30/21 08:38 Dose: Not Given Documented by: (1) Diarrhea Diarrhea type: unspecified type Qualified Code(s): R19.7 - Diarrhea, unspecified (2) HIV (human immunodeficiency virus infection) HIV symptom status: unspecified Qualified Code(s): B20 - Human immunodeficiency virus [HIV] disease (3) Nausea & vomiting Vomiting type: unspecified Qualified Code(s): R11.2 - Nausea with vomiting, unspecified
[2021-06-30 13:23] LABS: Creatinine Clr Calc Pharmacy 68.5 ml/min; Est GFR (African American) 99.2 ml/min; Est GFR (Non-African American) 85.6 ml/min; Potassium 3.4 mmol/L (3.5-5.1)
[2021-06-30] MEDS ORDERED: Nursing to Pharmacy Communication SCH (13:30)
[2021-06-30] MEDS ORDERED: OPTIRAY 320 100ml IV ONE (14:46)
--- NOTE | 2021-06-30 15:18 | CT Scan Report ---
ABDOMEN AND PELVIS CT WITH IV CONTRAST CT DOSE: 353.63 mGy.cm HISTORY: Generalized abdominal abdominal pain with distention. History of pancolitis. TECHNIQUE: Multiaxial CT images of the abdomen and pelvis were performed following the use of intrave nous contrast. A dose lowering technique was utilized adhering to the principles of ALARA. COMPARISON STUDY: Abdomen and pelvis CT 06/25/2021. FINDINGS: Calcified left hilar lymph nodes are partially visualized. There is a small right pleural e ffusion which is new from the prior study. Consolidation within the right lower lobe posteriorly favo rs atelectasis. Dense mitral annulus and coronary artery calcifications. Trace left pleural effusion. No pneumoperitoneum. No pneumatosis. No suspicious lytic or blastic osseous lesions. The gallbladder is mildly distended. No gallbladder wall thickening. Trace perihepatic fluid is noted. The liver, pa ncreas, and adrenal glands unremarkable. Multiple calcified splenic granulomas are again noted. The m ain portal vein is patent. Bilateral cortical renal scarring and a few subcentimeter bilateral renal hypodense lesions remain stable. These are technically too small to characterize but favor cysts. The re is moderate body wall edema. Left-sided nephrolithiasis. No ureteral stones. No hydronephrosis. Th e bladder is unremarkable. No retroperitoneal lymphadenopathy. Mild calcified plaque within the musa l caliber abdominal aorta. Mildly dilated gas and fluid-filled loops of large or small bowel seen thr oughout the abdomen. No definite transition point to suggest an obstruction. The distal colon is deco mpressed. This remains unchanged. Multiple brachytherapy seeds noted within the prostate gland. Moder ate diffuse thickening of the colonic wall consistent with a pancolitis. This is similar to the prior study. The gas-filled and distended colon has slightly progressed. Normal appendix. IMPRESSION: 1. Redemonstration of the pancolitis which is likely secondary to infectious or inflammatory process. This could represent a C. difficile colitis. Colonic distention has also slightly progressed. 2. Mildly dilated gas-filled loops of large and small bowel which favors an ileus. A developing toxic megacolon could also have a similar appearance but is considered less likely. 3. Trace ascites. 4. Small right and trace left pleural effusions. 5. Left-sided nephrolithiasis. No hydronephrosis. 6. Moderate diffuse body wall edema. ACT 112: Negative or not required by law. Electronically signed by: Omar Sarkar M.D. 06/30/2021 3:17 PM
[2021-06-30] MEDS: ONDANSETRON INJ 2 MG/ML 2 ML VIAL IV PRN (17:43)
[2021-06-30] MEDS: [UNRECOGNIZED DRUG - REMARK] PO SCH (20:55)
[2021-06-30] MEDS: TAMSULOSIN HCL 0.4 MG CAP PO SCH (20:55)
[2021-06-30] MEDS: PRAVASTATIN SOD 40 MG TAB PO SCH (20:55)
[2021-06-30] MEDS ORDERED: PROMETHAZINE HCL 12.5 MG in SODIUM CHLORIDE 0.9% 50 ML IV STA (22:47)
[2021-07-01] MEDS ORDERED: PROMETHAZINE HCL 12.5 MG in SODIUM CHLORIDE 0.9% 50 ML IV PRN (03:47)
[2021-07-01] MEDS: SODIUM CHLORIDE 0.9% 1000ML 1,000 ML IV SCH ×2 (04:48→12:42)
[2021-07-01] MEDS ORDERED: POLYETHYLENE (MIRALAX) 17 GM PACK PO SCH (07:00)
[2021-07-01] MEDS: ONDANSETRON INJ 2 MG/ML 2 ML VIAL IV PRN (07:51)
[2021-07-01] MEDS: ASCORBIC ACID 500 MG TAB PO SCH (08:45)
[2021-07-01] MEDS: CHOLECALCIFEROL 1,000 UNITS 25 MCG TAB PO SCH (08:45)
[2021-07-01] MEDS: ENOXAPARIN INJ 40 MG/0.4 ML SYR SQ SCH (08:45)
[2021-07-01] MEDS: ASPIRIN 81 MG ECTAB PO SCH (08:45)
[2021-07-01] MEDS: TOCOPHERYL, DL-ALPHA 400 UNITS 180 MG CAP PO SCH (08:45)
[2021-07-01] MEDS: CEROVITE ADV FORMULA TAB PO SCH (08:46)
[2021-07-01 08:59] LABS: Hematocrit (blood only) 33.9 % (42-52); Hemoglobin 11.4 g/dL (14.0-18.0); Mean Corpuscular Hemoglobin 35.4 pg (25-34); Mean Corpuscular Hgb Conc 33.6 g/dL (32-36); Mean Corpuscular Volume 105.3 fL (80-100); Mean Platelet Volume 9.7 fL (7.4-10.4); Platelet Count 283 K/uL (130-400); RDW Standard Deviation 54.2 fL (36.4-46.3); Red Blood Count 3.22 M/uL (4.7-6.1); White Blood Count 9.71 K/uL (4.8-10.8)
[2021-07-01 09:25] LABS: BUN Creatinine Ratio 18.2 (10-20); Calcium 6.5 mg/dl (8.5-10.1); Est GFR (African American) 107.3 ml/min; Est GFR (Non-African American) 92.6 ml/min; Potassium 3.2 mmol/L (3.5-5.1)
[2021-07-01 09:36] LABS: Magnesium 1.4 mg/dl (1.7-2.4); Phosphorus 1.5 mg/dl (2.5-4.9)
[2021-07-01] MEDS ORDERED: POTASSIUM PHOS 3 MMOL/1 ML INFUSION IV STA (09:50)
--- NOTE | 2021-07-01 10:05 | Anesthesiology Consultation ---
Date of Service July 02, 2021 Assessment & Plan (1) Encounter for pre-operative examination: Chart Review Chart Review: Acceptable Risk for Surgery, Patient NOT seen in Pre Admission Testing and toxicology supervisor initiated Consults Requested none Proposed Anesthesia Anesthesia Type: MAC History Surgery Operation Date: 07/02/21 16:45 Proposed Procedures p Colonoscopy Dr López - Rebecca López, DO Height/Weight Height: 5 ft 7 in Weight: 63.6 kg Allergies Allergy/AdvReac Type Severity Reaction Status Date / Time ritonavir [From Norvir] Allergy Unknown Rash Verified 06/25/21 17:02 Medications Home Medications Medication Instructions Recorded Confirmed Last Taken solifenacin 10 mg tablet 10 mg PO DAILY #90 tab 11/18/20 06/25/21 Unknown abacavir 600 mg-dolutegravir 50 1 tab PO HS 06/25/21 06/25/21 Unknown mg-lamivudine 300 mg tablet ascorbic acid (vitamin C) 1,000 mg 1,000 mg PO DAILY 06/25/21 06/25/21 Unknown tablet,extended release (Vitamin C ER) aspirin 81 mg tablet,delayed 81 mg PO DAILY 06/25/21 06/25/21 Unknown release (Aspirin Low Dose) cholecalciferol (vitamin D3) 25 25 mcg PO Q OTHER DAY 06/25/21 06/25/21 Unknown mcg (1,000 unit) tablet (Vitamin D3) famotidine 20 mg tablet (Pepcid) 20 mg PO DAILY PRN 06/25/21 06/25/21 Unknown lisinopril 5 mg tablet 5 mg PO DAILY 06/25/21 06/25/21 Unknown aonmfqsbmmbw-ccfzxztl-ctwxzs tablet 1 tab PO DAILY 06/25/21 06/25/21 Unknown pravastatin 80 mg tablet 80 mg PO HS 06/25/21 06/25/21 Unknown tamsulosin 0.4 mg capsule 0.4 mg PO HS 06/25/21 06/25/21 Unknown vitamin E 400 unit tablet 400 unit PO DAILY 06/25/21 06/25/21 Unknown Active Medications Generic Name Dose Route Start Last Admin Trade Name Freq PRN Reason Stop Dose Admin Acetaminophen 650 mg 06/26/21 02:58 06/30/21 21:57 Acetaminophen 325 Mg Tab PO 07/26/21 02:57 650 mg Q4H PRN Administration Pain or Fever Ascorbic Acid 1,000 mg 06/26/21 09:00 03/09/22 08:45 Ascorbic Acid 500 Mg Tab PO 07/26/21 08:59 Not Given DAILY ARMIDA Aspirin 81 mg 06/26/21 09:00 07/01/21 08:45 Aspirin 81 Mg Ectab PO 07/26/21 08:59 Not Given DAILY ARMIDA Enoxaparin Sodium 40 mg 06/26/21 09:00 07/01/21 08:45 Enoxaparin Inj 40 Mg/0.4 Ml Syr SQ 07/26/21 08:59 40 mg QAM ARMIDA Administration Famotidine 20 mg 06/25/21 21:23 06/29/21 07:53 Famotidine 20 Mg Tab PO 07/25/21 21:22 20 mg DAILY PRN Administration gerd Sodium Chloride 1,000 mls @ 125 mls/hr 06/25/21 16:00 07/01/21 04:48 Nss 1000ml IV 07/25/21 15:59 125 mls/hr .Q8H ARMIDA Administration Miscellaneous 1 ea 06/26/21 00:00 07/01/21 07:51 Solifenacin 10 Mg - Order Awaiting Action N/A 07/26/21 00:00 Not Given QS ARMIDA Multivitamins/Minerals 1 tab 06/26/21 09:00 07/01/21 08:46 Cerovite Adv Formula Tab PO 07/26/21 08:59 Not Given DAILY ARMIDA Abacavir- 1 ea 06/27/21 21:00 06/30/21 20:55 Dolutegravir- PO 07/27/21 20:59 1 tab Lamivudine*Non-Form HS ARMIDA Administration Patient's Own Med Ondansetron HCl 4 mg 06/27/21 00:56 07/01/21 07:51 Ondansetron Inj 2 Mg/Ml 2 Ml Vial IV 07/27/21 00:55 4 mg Q6H PRN Administration Nausea And Vomiting Pravastatin Sodium 80 mg 06/25/21 21:23 06/30/21 20:55 Pravastatin Sod 40 Mg Tab PO 07/25/21 21:22 80 mg HS ARMIDA Administration Tamsulosin HCl 0.4 mg 06/25/21 21:23 06/30/21 20:55 Tamsulosin Hcl 0.4 Mg Cap PO 07/25/21 21:22 0.4 mg HS ARMIDA Administration Vitamin D 1,000 units 06/27/21 09:00 07/01/21 08:45 Cholecalciferol 1,000 Units 25 Mcg Tab PO 07/27/21 08:59 Not Given Q2D@0900 [facility] Vitamin E 400 units 06/26/21 09:00 07/01/21 08:45 Tocopheryl, Dl-Alpha 400 Units 180 Mg Cap PO 07/26/21 08:59 Not Given DAILY ARMIDA Past Medical History Medical History (Updated 07/01/21 @ 10:07 by Uirel Sutton MD) Alcohol abuse Encounter for pre-operative examination Human immunodeficiency virus (HIV) disease Hypertension Osteoarthritis Osteoporosis Past Family History Family History Father Cancer Grandmother (Maternal) Cancer Mother Cancer Other Heart disease Hypertension Past Surgical History Surgical History No pertinent past surgical history Social History Smoking Status: Never smoker Hx Alcohol Use: Yes Alcohol type: beer alcohol intake frequency: a few times a month Hx Substance Use: No Physical Exam Vital Signs Last Vital Signs Temp 36.2 C L 07/01/21 07:24 Pulse 102 H 07/01/21 08:57 Resp 18 07/01/21 07:24 BP 124/84 07/01/21 07:24 Pulse Ox 96 07/01/21 07:24 Testing Laboratory Results 07/01/21 08:30 07/01/21 08:30 Hemoglobin A1c 5.6 % (4.5-5.6) 06/26/21 05:04 Urine Color Yellow 06/25/21 15:39 Urine Appearance Clear (Clear) 06/25/21 15:39 Urine pH 5.0 (4.5-7.5) 06/25/21 15:39 Ur Specific Orange 1.026 (1.000-1.030) 06/25/21 15:39 Urine Protein 2+ (Negative) H 06/25/21 15:39 Urine Glucose (UA) Negative (Negative) 06/25/21 15:39 Urine Ketones 1+ (Negative) H 06/25/21 15:39 Urine Nitrite Negative (Negative) 06/25/21 15:39 Ur Leukocyte Esterase Negative (Negative) 06/25/21 15:39 Urine WBC (Auto) 1-5 /hpf (0-5) 06/25/21 15:39 Urine RBC (Auto) 0-4 /hpf (0-4) 06/25/21 15:39 U Hyaline Cast (Auto) 0 /lpf (0-5) 06/25/21 15:39 U Epithel Cells (Auto) >30 /lpf (0-5) H 06/25/21 15:39 Urine Bacteria (Auto) Negative (Negative) 06/25/21 15:39 06/25/21 17:27 Aerobic Blood Culture - Final Blood No growth in Aerobic bottle after 5 days. Anaerobic Blood Culture - Final No growth in Anaerobic bottle after 5 days. 06/25/21 17:27 Aerobic Blood Culture - Final Blood No growth in Aerobic bottle after 5 days. Anaerobic Blood Culture - Final No growth in Anaerobic bottle after 5 days. 06/25/21 15:39 Urine Culture - Final Urine,Clean Catch More than three types of organisms present, all high counts mixed probable skin parker - No further identifications or sensitivities to follow. Electrocardiogram Date: 06/26/21 Findings: + NSR @ (80 with PVCs) and + RBBB Echocardiogram Date: 06/26/21 EF: 55-60% LV Function: normal RWMA: + none Valvular Disease: + (Moderate) and + MR (Trace)
[2021-07-01] MEDS ORDERED: POTASSIUM PHOSPHATE 21 MMOL in DEXTROSE 5% 500 ML IV ONE (10:30)
--- NOTE | 2021-07-01 10:36 | Gastroenterology Progress Note ---
Date of Service July 01, 2021 Assessment & Plan (1) Pancolitis: (2) Diarrhea: Plan: 80 y/o male with h/o HIV previously well controlled on Triumeq, admitted w/ several weeks of n/v/d abd pain. CT w/ pancolitis. CD4 count low. New anemia is stable, no neutropenia, afebrile. Stool studies neg. Yesterday abd soft, but was somewhat more distended and tender, CTAP again showing pancolitis, possible mild ileus. Today feels maybe a little better; abd less distended and tender; tolerating clears + his colonoscopy prep. Diff dx to consider in this particular pt would be viral etiology such as CMV, vs inflammatory etiology, malignancy. Last colonoscopy was in 2013, history of sigmoid stricture, colon polyps. He is agreeable to proceed with colonoscopy given his ongoing symptoms. - His potassium is low; please correct - Continue and finish prep until stool is running clear - Clear liquids today then NPO after midnight - Colonoscopy tomorrow - Other supportive care as per primary team Thank you for allowing us to participate in the care of this patient. Please call with any acute changes, questions or concerns. Please see addendum below with additional recommendation from my supervising physician. Admission and Anticipated Discharge Date Admission Date: June 25, 2021 Supervising Physician Co-Signing Physician Notes I have seen and examined the patient with Shiraz De La Rosa PA-C whose note reflects our findings and plan. Colonoscopy planned for tomorrow. Subjective Patient seen and examined, chart reviewed. Overnight feels about the same, maybe less abd distention/discomfort. Having small loose/bloody BMs. Is tolerating his prep + clears; having a popsicle, Jello and orange juice. No nausea, vomiting, hematemesis, melena, CP, SOB. Review of Systems Review of Systems: All systems reviewed & are unremarkable except as noted in HPI & below Physical Exam Eyes: PERRL, conjunctivae normal, anicteric sclerae Respiratory: normal respiratory effort Cardiovascular: Rate/Rhythm: regular rate and regular rhythm Gastrointestinal (Abdomen): Inspection/Auscultation: abdomen normal to inspection and normal bowel sounds Percussion/Palpation: abdomen soft; no guarding mildly distended w/ mild generalized tenderness, no focal tenderness, no rebound Skin: no rashes, warm and dry Psychiatric: A+Ox3, euthymic affect Results & Data ([facility]) Vital Signs (Past 12 Hours) Vital Signs Temp Pulse Pulse Resp BP Pulse Ox 07/01/21 08:57 102 H 07/01/21 07:24 36.2 C L 99 H 18 124/84 96 06/30/21 23:03 36.9 C 90 18 100/62 93 06/30/21 22:50 90 Laboratory Results 07/01/21 07/01/21 06/30/21 Range/Units 08:30 08:30 12:45 WBC 9.71 (4.8-10.8) K/uL RBC 3.22 L (4.7-6.1) M/uL Hgb 11.4 L (14.0-18.0) g/dL Hct 33.9 L (42-52) % MCV 105.3 H (80-100) fL MCH 35.4 H (25-34) pg MCHC 33.6 (32-36) g/dL RDW Std Deviation 54.2 H (36.4-46.3) fL RDW Coeff of Papo 14.0 (11.5-14.5) % Plt Count 283 (130-400) K/uL MPV 9.7 (7.4-10.4) fL Sodium 141 141 (136-145) mmol/L Potassium 3.2 L 3.4 L (3.5-5.1) mmol/L Chloride 109 H 109 H (98-107) mmol/L Carbon Dioxide 27 27 (21-32) mmol/L Anion Gap 5 5 (3-11) BUN 12 13 (6-23) mg/dl Creatinine 0.66 0.80 (0.6-1.4) mg/dl Est Cr Clr Drug Dosing 83.0 68.5 ml/min Est GFR ( Amer) 107.3 99.2 ml/min Est GFR (Non-Af Amer) 92.6 85.6 ml/min BUN/Creatinine Ratio 18.2 (10-20) Glucose 124 H (70-99(Fasting)) mg/dl Fasting Glucose 121 H (70-99) mg/dl Calcium 6.5 L 7.0 L (8.5-10.1) mg/dl Phosphorus 1.5 L* (2.5-4.9) mg/dl Magnesium 1.4 L (1.7-2.4) mg/dl 06/30/21 Range/Units 12:45 WBC 8.66 (4.8-10.8) K/uL RBC 3.15 L (4.7-6.1) M/uL Hgb 11.2 L (14.0-18.0) g/dL Hct 32.9 L (42-52) % MCV 104.4 H (80-100) fL MCH 35.6 H (25-34) pg MCHC 34.0 (32-36) g/dL RDW Std Deviation 53.5 H (36.4-46.3) fL RDW Coeff of Papo 13.9 (11.5-14.5) % Plt Count 259 (130-400) K/uL MPV 9.4 (7.4-10.4) fL Sodium (136-145) mmol/L Potassium (3.5-5.1) mmol/L Chloride (98-107) mmol/L Carbon Dioxide (21-32) mmol/L Anion Gap (3-11) BUN (6-23) mg/dl Creatinine (0.6-1.4) mg/dl Est Cr Clr Drug Dosing ml/min Est GFR ( Amer) ml/min Est GFR (Non-Af Amer) ml/min BUN/Creatinine Ratio (10-20) Glucose (70-99(Fasting)) mg/dl Fasting Glucose (70-99) mg/dl Calcium (8.5-10.1) mg/dl Phosphorus (2.5-4.9) mg/dl Magnesium (1.7-2.4) mg/dl Diagnostic Findings CTAP: FINDINGS: Calcified left hilar lymph nodes are partially visualized. There is a small right pleural effusion which is new from the prior study. Consolidation within the right lower lobe posteriorly favors atelectasis. Dense mitral annulus and coronary artery calcifications. Trace left pleural effusion. No pneumoperitoneum. No pneumatosis. No suspicious lytic or blastic osseous lesions. The gallbladder is mildly distended. No gallbladder wall thickening. Trace perihepatic fluid is noted. The liver, pancreas, and adrenal glands unremarkable. Multiple calcified splenic granulomas are again noted. The main portal vein is patent. Bilateral cortical renal scarring and a few subcentimeter bilateral renal hypodense lesions remain stable. These are technically too small to characterize but favor cysts. There is moderate body wall edema. Left-sided nephrolithiasis. No ureteral stones. No hydronephrosis. The bladder is unremarkable. No retroperitoneal lymphadenopathy. Mild calcified plaque within the normal caliber abdominal aorta. Mildly dilated gas and fluid-filled loops of large or small bowel seen throughout the abdomen. No definite transition point to suggest an obstruction. The distal colon is decompressed. This remains unchanged. Multiple brachytherapy seeds noted within the prostate gland. Moderate diffuse thickening of the colonic wall consistent with a pancolitis. This is similar to the prior study. The gas-filled and distended colon has slightly progressed. Normal appendix. IMPRESSION: 1. Redemonstration of the pancolitis which is likely secondary to infectious or inflammatory process. This could represent a C. difficile colitis. Colonic distention has also slightly progressed. 2. Mildly dilated gas-filled loops of large and small bowel which favors an ileus. A developing toxic megacolon could also have a similar appearance but is considered less likely. 3. Trace ascites. 4. Small right and trace left pleural effusions. 5. Left-sided nephrolithiasis. No hydronephrosis. 6. Moderate diffuse body wall edema. (1) Diarrhea Diarrhea type: unspecified type Qualified Code(s): R19.7 - Diarrhea, unspecified
[2021-07-01] MEDS: POTASSIUM CHLORIDE / WTR 10 MEQ/100 ML PLCT IV SCH ×4 (12:09→15:36)
[2021-07-01] MEDS: MAGNESIUM SULFATE / D5W 1 GM/100 ML BAG IV SCH ×2 (12:09→14:10)
--- NOTE | 2021-07-01 17:32 | Hospitalist Progress Note ---
Date of Service July 01, 2021 Assessment & Plan (1) Pancolitis: Plan: 80-year-old male with PMHx of prostate cancer s/p radiation therapy, HTN, HLD, HIV+ who presents with acute abdominal complaints 06/25. Pt is a poor historian and voice is very raspy. At times he seems to trail off with tangential thoughts and at other times he gets defensive when he is asked to clarify his answers with more specific questions. He is being managed for the following: (#) Pancolitis: #. Diarrhea: 2/2 pancolitis Plan: Patient presented with complaint of diarrhea, nausea, vomiting, poor appetite for 1 week INTERVENTIONAL PAIN PHYSICIAN Admitting CTAP: Diffuse pancolitis, infectious versus inflammatory. No evidence of bowel obstruction. 06/26 stool studies: Negative including C. difficile. Admitting blood culture negative ID evaluated the patient: Likely inflammatory colitis, recommendation to DC antibiotic. Repeat CTAP 06/30 after worsening belly complaints: Redemonstration of pancolitis. Mildly dilated gas-filled loops of large and small bowel, ileus versus developing toxic megacolon. Patient continues to have bright red blood per rectum. Belly pain/discomfort is still present. Monitor and replete electrolytes as appropriate. Patient on clear liquid diet, n.p.o. midnight for colonoscopy tomorrow. GI on board, appreciate recommendation. (#) HIV (human immunodeficiency virus infection): Plan: -Patient on no medication, continue with home medication, ID evaluated, patient afebrile. -CD4 minimally low. Appreciate ID input and recommendation. -Follow-up with ID as an outpatient. (#) Heart disease: Plan: - Noted in external scanned files in [facility] - 06/26 Echo: Normal LV size, moderate concentric LVH, septal motion is consistent with conduction abnormality, no wall motion abnormalities, EF 55 to 60%, aortic valve leaflets are moderately calcified and restricted in mobility, moderate valvular aortic stenosis, moderate to heavy calcification of the posterior mitral valve annulus and leaflet and there is trace mitral regurgitation. - Continue asa and pravastatin 80 mg HS - hold lisinopril with appearing dehydrated. Resume when able. (#) Prostate cancer: Plan: -History of such in 2002, status post brachytherapy -Previously followed with Dr. Crowley, no recent PSA for review -Continue flomax and vesicare DVT PPx: - teds, scds, Lovenox on hold. CODE:Full code Admission and Anticipated Discharge Date Admission Date: June 25, 2021 Subjective Patient seen and examined at bedside as a follow-up for pancolitis, diarrhea, HIV status. Patient lying in bed, on room air, NAD, no new acute events overnight per RN. Patient seems somewhat irritated at bedside exam. He complains of nausea at ti mes, passing red blood per rectum, no gas, distended belly, belly pain. Patient denies any fever/chills/chest pain/palpitation/sore throat/cough/other review of symptoms. Plan for colonoscopy tomorrow per GI. Physical Exam Physical Exam: GENERAL: Alert and oriented x3. NAD, on RA. Ill appearing, average body habitus. HEENT: No pallor, no icterus. Pupils equal, round and reactive to light. Oral mucosa moist. NECK: No JVD, no neck masses. HEART: S1 and S2 heard. Regular rate and rhythm. + murmur at Pulmonic > aortic area, no gallop. RESPIRATORY SYSTEM: Normal AP diameter. No accessory muscle use. No wheezing, no crackles. ABDOMEN: Soft, bowel sounds present, + tender mostly lower quadrant, no distention. CENTRAL NERVOUS SYSTEM: No facial droop. Speech is clear. Obeys simple commands. Moves extremities. EXTREMITIES: No edema, no erythema seen. Results & Data Results & Data ([facility]) Vital Signs (Past 12 Hours) Vital Signs Temp Pulse Pulse Resp BP BP Pulse Ox 07/01/21 14:44 36.8 C 95 H 18 113/72 96 07/01/21 10:43 36.4 C L 99 H 18 111/71 96 07/01/21 08:57 102 H 07/01/21 07:24 36.2 C L 99 H 18 124/84 96
[2021-07-01] MEDS: PRAVASTATIN SOD 40 MG TAB PO SCH (21:35)
[2021-07-01] MEDS: TAMSULOSIN HCL 0.4 MG CAP PO SCH (21:35)
[2021-07-01] MEDS: [UNRECOGNIZED DRUG - REMARK] PO SCH (21:35)
[2021-07-02] MEDS: SODIUM CHLORIDE 0.9% 1000ML 1,000 ML IV SCH ×2 (00:51→21:16)
[2021-07-02] MEDS ORDERED: KETOROLAC TROMETHAMINE 15 MG/ML VIAL IV ONE (01:32)
[2021-07-02 08:15] LABS: Hematocrit (blood only) 31.9 % (42-52); Hemoglobin 10.9 g/dL (14.0-18.0); Mean Corpuscular Hemoglobin 35.6 pg (25-34); Mean Corpuscular Hgb Conc 34.2 g/dL (32-36); Mean Corpuscular Volume 104.2 fL (80-100); Mean Platelet Volume 9.7 fL (7.4-10.4); Platelet Count 264 K/uL (130-400); RDW Coefficient of Variation 13.9 % (11.5-14.5); RDW Standard Deviation 53.1 fL (36.4-46.3); Red Blood Count 3.06 M/uL (4.7-6.1); White Blood Count 8.84 K/uL (4.8-10.8)
[2021-07-02 08:46] LABS: BUN Creatinine Ratio 19.1 (10-20); Calcium 6.4 mg/dl (8.5-10.1); Creatinine Clr Calc Pharmacy 82.4 ml/min; Est GFR (African American) 105.3 ml/min; Est GFR (Non-African American) 90.8 ml/min; Magnesium 1.7 mg/dl (1.7-2.4); Potassium 3.6 mmol/L (3.5-5.1)
[2021-07-02] MEDS ORDERED: LIDOCAINE 2% 2 ML VIAL/AMP(20MG/ML) INFIL ONE (11:00)
[2021-07-02] MEDS ORDERED: PROPOFOL IV EMULSION 10 MG/ML 20 ML VIAL IV ONE (11:00)
--- NOTE | 2021-07-02 11:06 | History & Physical Report ---
Date of Service July 02, 2021 Assessment & Plan (1) Pancolitis: Plan: colonoscopy today (2) Diarrhea: (3) Rectal bleed: Admission and Anticipated Discharge Date Admission Date: June 25, 2021 History of Present Illness Chief Complaint: diarrhea rectal bleeding Primary Care Provider: Sebastian Petersen MD see inpatient notes for full details rectal bleeding and diarrhea Allergies Allergy/AdvReac Type Severity Reaction Status Date / Time ritonavir [From Norvir] Allergy Unknown Rash Verified 07/02/21 10:45 Home Medications Medication Instructions Recorded Confirmed Type solifenacin 10 mg tablet 10 mg PO DAILY #90 tab 11/18/20 06/25/21 Rx abacavir 600 mg-dolutegravir 50 1 tab PO HS 06/25/21 06/25/21 History mg-lamivudine 300 mg tablet ascorbic acid (vitamin C) 1,000 mg 1,000 mg PO DAILY 06/25/21 06/25/21 History tablet,extended release (Vitamin C ER) aspirin 81 mg tablet,delayed 81 mg PO DAILY 06/25/21 06/25/21 History release (Aspirin Low Dose) cholecalciferol (vitamin D3) 25 25 mcg PO Q OTHER DAY 06/25/21 06/25/21 History mcg (1,000 unit) tablet (Vitamin D3) famotidine 20 mg tablet (Pepcid) 20 mg PO DAILY PRN 06/25/21 06/25/21 History lisinopril 5 mg tablet 5 mg PO DAILY 06/25/21 06/25/21 History fowqovufeijq-wowmujxy-ysrdny tablet 1 tab PO DAILY 06/25/21 06/25/21 History pravastatin 80 mg tablet 80 mg PO HS 06/25/21 06/25/21 History tamsulosin 0.4 mg capsule 0.4 mg PO HS 06/25/21 06/25/21 History vitamin E 400 unit tablet 400 unit PO DAILY 06/25/21 06/25/21 History Past Med/Surg History Medical History (Updated 07/02/21 @ 11:06 by Rebecca López DO) Alcohol abuse Encounter for pre-operative examination Human immunodeficiency virus (HIV) disease Hypertension Osteoarthritis Osteoporosis Surgical History No pertinent past surgical history Family History Father Cancer Grandmother (Maternal) Cancer Mother Cancer Other Heart disease Hypertension Social History Smoking Status: Never smoker Hx Alcohol Use: Yes Alcohol type: beer Hx Substance Use: No Preferred Language: Moldovan Communication Ability: Effective 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 Beliefs That Will Affect Care: None marital status: Single Current Living Situation: Alone current occupational status: retired Feels Safe at Home: Yes Safety Concerns: Feels Safe At This Time Assistive Devices: None Review of Systems All systems reviewed & are unremarkable except as noted in HPI & below Physical Exam Constitutional: WD/WN, vitals as above Respiratory: normal respiratory effort, lungs clear to auscultation Cardiovascular: RRR, no murmur, no edema Gastrointestinal (Abdomen): normal bowel sounds, soft, nontender, no hepatosplenomegaly Results & Data ([facility]) Vital Signs (Past 12 Hours) Vital Signs Temp Pulse Pulse Resp BP BP Pulse Ox 07/02/21 10:45 36.9 C 105 H 18 134/84 96 07/02/21 08:54 92 H 07/02/21 07:00 36.6 C 105 H 18 124/76 94 07/02/21 04:51 36.5 C 105 H 18 123/78 96 07/02/21 01:36 91 H Code Status & VTE Plan VTE Prophylaxis Plan VTE Prophylaxis will be ordered: Yes (1) Diarrhea Diarrhea type: unspecified type Qualified Code(s): R19.7 - Diarrhea, unspecified
--- NOTE | 2021-07-02 11:47 | GI REPORT ---
Patient Name: Bertram Childress Procedure Date: 07/02/2021 11:22 AM Date of : 1940 Admit Type: Inpatient Age: 81 Gender: Male Attending MD: Rebecca López DO Procedure: Colonoscopy Providers: Rebecca López DO Referring MD: Pancho Domingo Md Indications: Chronic diarrhea, Rectal bleeding Medicines: Propofol per Anesthesia Complications: No immediate complications. Estimated blood loss: Minimal. Estimated Blood Loss: Estimated blood loss was minimal. Procedure: Pre-Anesthesia Assessment: - Prior to the procedure, a History and Physical was performed, and patient medications, allergies and sensitivities were reviewed. The patient's tolerance of previous anesthesia was reviewed. - The risks and benefits of the procedure and the sedation options and risks were discussed with the patient. All questions were answered and informed consent was obtained. - Patient identification and proposed procedure were verified prior to the procedure by the physician and the nurse. The procedure was verified in the pre-procedure area in the procedure room. - Mental Status Examination: alert and oriented. Airway Examination: normal oropharyngeal airway and neck mobility. Respiratory Examination: clear to auscultation. CV Examination: normal. Abdominal Examination: bowel sounds present, abdomen soft and non-tender, no masses or organomegaly noted. - ASA Grade Assessment: III - A patient with severe systemic disease. After I obtained informed consent, the scope was passed under direct vision. Throughout the procedure, the patient's blood pressure, pulse, and oxygen saturations were monitored continuously. The scope was introduced through the anus and advanced to the cecum, identified by appendiceal orifice and ileocecal valve. The colonoscopy was performed without difficulty. The patient tolerated the procedure well. The quality of the bowel preparation was poor. Findings: The perianal and digital rectal examinations were normal. Pertinent negatives include normal sphincter tone and no palpable rectal lesions. A moderate amount of semi-liquid stool was found in the entire colon. A diffuse area of severely congested, erythematous, inflamed and ulcerated mucosa was found in the entire colon. Biopsies were taken with a cold forceps for histology. Verification of patient identification for the specimen was done by the physician and nurse using the patient's name and date. Estimated blood loss was minimal. Impression: - COLON CHANGES CONCERNING FOR ISCHEMIC COLITIS. - Preparation of the colon was poor. - Stool in the entire examined colon. - Congested, erythematous, inflamed and ulcerated mucosa from the hepatic flexure to the rectum very concerning for ischemia. Biopsied. - Sigmoid stricture which was traversed without difficulty. Recommendation: - Await pathology results. - Return patient to [facility] for ongoing care. Rebecca López D.O. Rebecca López, 07/02/2021 11:46:42 AM This report has been signed electronically. Note Initiated On: 07/02/2021 11:22 AM Number of Addenda: 0 I attest to the content of the Intraoperative Record and orders documented therein, exceptions below {[id number]}
[2021-07-02] MEDS ORDERED: PIPERACILL/TAZOBAC CONSULT ACTIVE PRN (12:55)
[2021-07-02] MEDS: ASCORBIC ACID 500 MG TAB PO SCH (12:58)
[2021-07-02] MEDS: TOCOPHERYL, DL-ALPHA 400 UNITS 180 MG CAP PO SCH (12:58)
[2021-07-02] MEDS: ASPIRIN 81 MG ECTAB PO SCH (12:58)
[2021-07-02] MEDS: CEROVITE ADV FORMULA TAB PO SCH (12:59)
[2021-07-02] MEDS ORDERED: PIPERACILLIN/TAZOBACTAM 4.5 GM in DEXTROSE 5% 100 ML IV ONE (13:15)
[2021-07-02] MEDS: ONDANSETRON INJ 2 MG/ML 2 ML VIAL IV PRN (13:58)
[2021-07-02] MEDS ORDERED: POTASSIUM PHOS 3 MMOL/1 ML INFUSION IV STA (14:02)
[2021-07-02] MEDS ORDERED: CALCIUM GLUCONATE 10% 1,000 MG in DEXTROSE 5% 50 ML IV ONE (14:02)
[2021-07-02] MEDS ORDERED: STAT IV STA (14:02)
[2021-07-02] MEDS ORDERED: POTASSIUM PHOSPHATE 21 MMOL in DEXTROSE 5% 500 ML IV ONE (14:15)
--- NOTE | 2021-07-02 14:18 | Hospitalist Progress Note ---
Date of Service July 02, 2021 Assessment & Plan (1) Pancolitis: Plan: 80-year-old male with PMHx of prostate cancer s/p radiation therapy, HTN, HLD, HIV+ who presents with acute abdominal complaints 06/25. Pt is a poor historian and voice is very raspy. At times he seems to trail off with tangential thoughts and at other times he gets defensive when he is asked to clarify his answers with more specific questions. He is being managed for the following: (#) Pancolitis: #. Diarrhea: 2/2 pancolitis Plan: Patient presented with complaint of diarrhea, nausea, vomiting, poor appetite for 1 week [employer] Admitting CTAP: Diffuse pancolitis, infectious versus inflammatory. No evidence of bowel obstruction. 06/26 stool studies: Negative including C. difficile. Admitting blood culture negative ID evaluated the patient: Likely inflammatory colitis, recommendation to DC antibiotic. Repeat CTAP 06/30 after worsening belly complaints: Redemonstration of pancolitis. Mildly dilated gas-filled loops of large and small bowel, ileus versus developing toxic megacolon. 07/02 status post colonoscopy: Concerning for ischemic colitis, biopsy taken. 07/02: Biopsy: Pending Patient continues to have ?? bright red blood per rectum. Belly pain/discomfort slightly improving after colonoscopy per patient. Monitor and replete electrolytes as appropriate. Discussed with GI 07/02, restarting Zosyn, CTA abdomen to rule out ischemic colitis, starting patient on full liquid diet. GI on board, appreciate recommendation. #. Anemia Previously normal hemoglobin level Admitting hemoglobin 13.8 Hemoglobin dropping gradually, 10.9 today Likely secondary to GI blood loss secondary to pancolitis on the background of dilutional component. Send iron profile, vitamin B12, folate levels. Monitor hemoglobin daily and as needed. (#) HIV (human immunodeficiency virus infection): Plan: -Patient on no medication, continue with home medication, ID evaluated, patient afebrile. -CD4 minimally low. Appreciate ID input and recommendation. -Follow-up with ID as an outpatient. (#) Heart disease: Plan: - Noted in external scanned files in [facility] - 06/26 Echo: Normal LV size, moderate concentric LVH, septal motion is consistent with conduction abnormality, no wall motion abnormalities, EF 55 to 60%, aortic valve leaflets are moderately calcified and restricted in mobility, moderate valvular aortic stenosis, moderate to heavy calcification of the posterior mitral valve annulus and leaflet and there is trace mitral regurgitation. - Continue asa and pravastatin 80 mg HS - hold lisinopril with appearing dehydrated. Resume when able. (#) Prostate cancer: Plan: -History of such in 2002, status post brachytherapy -Previously followed with Dr. Crowley, no recent PSA for review -Continue flomax and vesicare DVT PPx: - teds, scds, Lovenox on hold, Re-gi bleed. CODE:Full code Admission and Anticipated Discharge Date Admission Date: June 25, 2021 Subjective Patient seen and examined at bedside as a follow-up for pancolitis, diarrhea, HIV status. Patient is sitting up in bed, on room air, NAD, had colonoscopy in the morning, patient reports feeling better, had 2-3 bowel movements, 1 bowel movement at bedside exam does not seem to have bright red blood in it. Discussed with GI, initiating full liquid diet, restarting Zosyn for likely infectious colitis, sending CT abdomen to rule out ischemic colitis. Patient reports throwing up of Jell-O after eating it. He complains of nausea at times, passing red blood per rectum, and improvement in belly pain. Patient denies any fever/chills/chest pain/palpitation/sore throat/cough/other review of symptoms. Physical Exam Physical Exam: GENERAL: Alert and oriented x3. NAD, on RA. Ill appearing, average body habitus. HEENT: No pallor, no icterus. Pupils equal, round and reactive to light. Oral mucosa moist. NECK: No JVD, no neck masses. HEART: S1 and S2 heard. Regular rate and rhythm. + murmur at Pulmonic > aortic area, no gallop. RESPIRATORY SYSTEM: Normal AP diameter. No accessory muscle use. No wheezing, no crackles. ABDOMEN: Soft, bowel sounds present, + tender mostly lower quadrant, no d istention. CENTRAL NERVOUS SYSTEM: No facial droop. Speech is clear. Obeys simple commands. Moves extremities. EXTREMITIES: No edema, no erythema seen. Results & Data Results & Data ([facility]) Vital Signs (Past 12 Hours) Vital Signs Temp Pulse Pulse Resp BP BP Pulse Ox 07/02/21 12:08 93 H 20 122/64 96 07/02/21 11:51 88 18 118/73 95 07/02/21 11:36 98 H 22 102/57 L 94 07/02/21 10:45 36.9 C 105 H 18 134/84 96 07/02/21 08:54 92 H 07/02/21 07:00 36.6 C 105 H 18 124/76 94 07/02/21 04:51 36.5 C 105 H 18 123/78 96
--- NOTE | 2021-07-02 16:21 | Anesthesiology Progress Note ---
Date of Service July 02, 2021 Anesthesia Post Procedure Vital Signs Vital Signs: Temp Pulse Pulse Resp BP BP Pulse Ox 07/02/21 15:54 36.6 C 105 H 18 109/73 95 07/02/21 12:08 93 H 20 122/64 96 07/02/21 11:51 88 18 118/73 95 07/02/21 11:36 98 H 22 102/57 L 94 07/02/21 10:45 36.9 C 105 H 18 134/84 96 07/02/21 08:54 92 H 07/02/21 07:00 36.6 C 105 H 18 124/76 94 07/02/21 04:51 36.5 C 105 H 18 123/78 96 07/02/21 01:36 91 H 07/01/21 22:59 36.4 C L 100 H 18 122/80 96 07/01/21 20:13 36.6 C 101 H 18 111/73 95 Transfer of Care Handoff Completed per policy Notes Mental Status: alert / awake / arousable and participated in evaluation Patient Amnestic to Procedure: Yes Nausea / Vomiting: adequately controlled Pain: adequately controlled Airway Patency, RR, SpO2: stable & adequate BP & HR: stable & adequate Hydration State: stable & adequate Anesthetic Complications: no major complications apparent and Pt Satisfied with anesthetic care
[2021-07-02] MEDS ORDERED: OPTIRAY 320 125ml IV ONE (16:35)
--- NOTE | 2021-07-02 16:37 | CT Scan Report ---
CT angio abdomen pelvis w con CLINICAL HISTORY: r/o ischemic colitis TECHNIQUE: Multidetector row helical CT of the abdomen and pelvis was performed, following intravenou s administration of iodinated contrast. No oral contrast was administered. Automated dose lowering te chniques and/or adjustment according to patient size were utilized for this exam. Coronal and sagitta l reformations were obtained. MIP and 3D volume rendered reconstructions were obtained. Comparison: Comparison is made to CT abdomen pelvis 06/30/2021 FINDINGS: Lower chest: Small right pleural effusion. Liver: Hepatic steatosis is noted. Gallbladder and biliary tree: The gallbladder is distended but no evidence of acute cholecystitis is seen. No intra- or extrahepatic biliary ductal dilation. Pancreas: Unremarkable, no focal lesions. Spleen: Unremarkable. Adrenals: Unremarkable. Kidneys and ureters: Lobular contour of the kidneys is seen. Nonobstructing nephrolithiasis seen on t he left. Bladder: Unremarkable. Reproductive organs: Brachytherapy seeds are seen in the prostate. Bowel: There is diffuse distention of wall thickening in the colon. No evidence of perforation or pne umatosis intestinalis is seen. Lymph nodes Retroperitoneal: Unremarkable. Mesenteric: Unremarkable. Pelvic: Unremarkable. Peritoneum: No pneumoperitoneum is seen. There is mild ascites. Abdominal wall: Unremarkable. Bones: Degenerative changes in the visualized spine. CT angiogram: The abdominal aortic contours appear intact without evidence of aneurysmal dilatation a nd/or dissection. There is evidence of scattered atherosclerotic calcifications of the abdominal aor ta and its major branches. The origins of the celiac axis, superior mesenteric, inferior mesenteric and bilateral renal arteries are patent. IMPRESSION: 1. Redemonstration of pancolonic bowel wall thickening and extensive dilation with increased vascula r markings. The origin of the great vessels are patent. Peritoneal fluid is seen. No pneumatosis inte stinalis is seen, however this does not necessarily exclude ischemic colitis in the appropriate clini gissell setting. This may also represent infectious/inflammatory colitis. 2. Small right pleural effusion. ACT 112: Negative or not required by law. Electronically signed by: Shan Eduardo M.D. 07/02/2021 4:32 PM
[2021-07-02] MEDS: PIPERACILLIN/TAZOBACTAM 3.375 GM in DEXTROSE 5% 100 ML IV SCH (18:17)
[2021-07-02] MEDS: PRAVASTATIN SOD 40 MG TAB PO SCH (20:55)
[2021-07-02] MEDS: TAMSULOSIN HCL 0.4 MG CAP PO SCH (20:55)
[2021-07-02] MEDS: [UNRECOGNIZED DRUG - REMARK] PO SCH (21:08)
[2021-07-03] MEDS: PIPERACILLIN/TAZOBACTAM 3.375 GM in DEXTROSE 5% 100 ML IV SCH ×3 (02:23→18:10)
[2021-07-03 02:25] LABS: Reticulocyte % 1.9 % (0.5-2.0); Reticulocytes # 0.06 10^6/uL (0.02-0.10)
[2021-07-03 02:26] LABS: Hematocrit (blood only) 31.3 % (42-52); Hemoglobin 10.6 g/dL (14.0-18.0); Mean Corpuscular Hemoglobin 35.6 pg (25-34); Mean Corpuscular Hgb Conc 33.9 g/dL (32-36); Mean Platelet Volume 9.6 fL (7.4-10.4); Platelet Count 252 K/uL (130-400); RDW Coefficient of Variation 13.9 % (11.5-14.5); RDW Standard Deviation 53.9 fL (36.4-46.3); Red Blood Count 2.98 M/uL (4.7-6.1); White Blood Count 7.82 K/uL (4.8-10.8)
[2021-07-03 02:54] LABS: Basophils # (auto) 0.01 K/uL (0-0.2); Basophils % (auto) 0.1 %; Eosinophils # (auto) 0.06 K/uL (0-0.5); Eosinophils % (auto) 0.8 %; Immature Granulocytes # (auto) 0.04 K/uL (0.00-0.02); Immature Granulocytes % (auto) 0.5 %; Lymphocytes # (auto) 1.33 K/uL (1.2-3.4); Monocytes # (auto) 0.65 K/uL (0.11-0.59); Monocytes % (auto) 8.3 %; Neutrophils # (auto) 5.73 K/uL (1.4-6.5); Neutrophils % (auto) 73.3 %
[2021-07-03 03:04] LABS: Calcium 6.5 mg/dl (8.5-10.1); Creatinine Clr Calc Pharmacy 74.7 ml/min; Est GFR (African American) 101.1 ml/min; Est GFR (Non-African American) 87.2 ml/min; Magnesium 1.6 mg/dl (1.7-2.4); Phosphorus 2.5 mg/dl (2.5-4.9); Potassium 3.4 mmol/L (3.5-5.1)
[2021-07-03] MEDS ORDERED: STAT IV STA (03:35)
[2021-07-03 03:41] LABS: Ferritin 779.9 ng/ml (8-388)
[2021-07-03] MEDS ORDERED: MAGNESIUM SULFATE / D5W 1 GM/100 ML BAG IV ONE (04:00)
[2021-07-03] MEDS ORDERED: CALCIUM GLUCONATE 10% 1,000 MG in DEXTROSE 5% 50 ML IV ONE (04:00)
[2021-07-03 05:51] LABS: Folate (Folic Acid) 15.47 ng/ml (>5.38); Vitamin B12 > 1500 pg/ml (180-914)
[2021-07-03] MEDS ORDERED: POTASSIUM CHLORIDE CRTAB 20 MEQ TABCR PO STA (07:23)
[2021-07-03] MEDS: ASCORBIC ACID 500 MG TAB PO SCH (09:06)
[2021-07-03] MEDS: ASPIRIN 81 MG ECTAB PO SCH (09:06)
[2021-07-03] MEDS: CEROVITE ADV FORMULA TAB PO SCH (09:07)
[2021-07-03] MEDS: TOCOPHERYL, DL-ALPHA 400 UNITS 180 MG CAP PO SCH (09:07)
[2021-07-03] MEDS: CHOLECALCIFEROL 1,000 UNITS 25 MCG TAB PO SCH (09:07)
[2021-07-03] MEDS: FERROUS GLUCONATE 324 MG TAB PO SCH (09:07)
[2021-07-03] MEDS ORDERED: POTASSIUM CHLORIDE 20 MEQ/15 ML UDC PO STA (09:13)
--- NOTE | 2021-07-03 12:00 | Gastroenterology Progress Note ---
Date of Service July 03, 2021 Assessment & Plan (1) Pancolitis: Plan: colonoscopy today (2) Diarrhea: (3) Rectal bleed: Plan: 80 y/o male with h/o HIV previously well controlled on Triumeq, admitted w/ several weeks of n/v/d abd pain. CT w/ pancolitis. CD4 count low. New anemia is stable, no neutropenia, afebrile. Stool studies neg. Yesterday pt underwent colonoscopy w/ poor prep - notable for severely congested, erythematous, ulcerated and inflamed mucosa from the hepatic flexure to the rectum, concerning for ischemic colitis. Bx pending. CTA abd w/ patent origin of the great vessels, and of note, pancolitis w/ peritoneal fluid is seen; ischemic colitis not necessarily excluded; ? infectious/inflammatory colitis. Given his comorbidities consider possibility of CMV. On exam pt abd soft. - Case discussed w/ attending + hospitalist - Please re-consult ID for possibility of CMV; ? whether to start empiric antivirals at this point - Per pathology, biopsies, CMV results are pending; will await these results - Consult surgery to be aware of the pt in case he should worsen given his severe colitis - Continue empiric ABX for ischemic colitis - Repeat C diff pending - His potassium remains slightly low; please correct - Pt can have full liquids as tolerated; consider nutrition consult given pt's restricted PO intake - Other supportive care as per primary team Thank you for allowing us to participate in the care of this patient. Please call with any acute changes, questions or concerns. Please see addendum below with additional recommendation from my supervising physician. Admission and Anticipated Discharge Date Admission Date: June 25, 2021 Supervising Physician Co-Signing Physician Notes I performed a history and physical examination of the patient today, including specifically on physical exam - soft abdomen. I have discussed the patient's management with the advanced practitioner. Please refer to the nurse practitioner's note for the documented findings and plan of care. CTA with patent arteries. Likely has ischemic colitis due to nonocclusive disease, commonly happens with hypotension and CHF. Keep BP elevated and avoid hypotension. Continue ABx coverage. Clinically he is improving but will have Surgery consulted in the event he worsens or requires a colectomy given his extensive disease. Recall GI if needed. Subjective Patient seen and examined, chart reviewed. He states he feels slightly improved today. Abd discomfort is better. Still having some small bloody stools. Passing flatus. Not wanting to eat much; tolerating clears though was advanced to full liquids. No fever, chills, n/v, hematemesis, melena, CP, SOB. Review of Systems Review of Systems: All systems reviewed & are unremarkable except as noted in HPI & below Physical Exam Constitutional: Chronically ill; no acute distress Eyes: PERRL, conjunctivae normal, anicteric sclerae Respiratory: normal respiratory effort, lungs clear to auscultation normal respiratory effort Cardiovascular: Rate/Rhythm: regular rate and regular rhythm Gastrointestinal (Abdomen): Inspection/Auscultation: abdomen normal to inspection and normal bowel sounds Percussion/Palpation: abdomen soft; no guarding mild distention and nonfocal tenderness, slightly better than yesterday no rebound Skin: no rashes, warm and dry Psychiatric: A+Ox3, euthymic affect Results & Data ([facility]) Vital Signs (Past 12 Hours) Vital Signs Temp Pulse Pulse Resp BP Pulse Ox 07/03/21 11:26 36.6 C 99 H 14 115/75 93 07/03/21 11:15 98 H 07/03/21 07:31 36.5 C 20 125/69 94 07/03/21 05:33 105 H 07/03/21 02:52 36.6 C 100 H 20 116/71 93 07/03/21 01:31 99 H 123/70 Laboratory Results 07/03/21 07/03/21 07/03/21 Range/Units 02:07 02:02 02:02 WBC (4.8-10.8) K/uL RBC (4.7-6.1) M/uL Hgb (14.0-18.0) g/dL Hct (42-52) % MCV (80-100) fL MCH (25-34) pg MCHC (32-36) g/dL RDW Std Deviation (36.4-46.3) fL RDW Coeff of Papo (11.5-14.5) % Plt Count (130-400) K/uL MPV (7.4-10.4) fL Immature Gran % (Auto) % Neut % (Auto) % Lymph % (Auto) % Pinal % (Auto) % Eos % (Auto) % Baso % (Auto) % Reticulocyte % (Auto) (0.5-2.0) % Neut # (Auto) (1.4-6.5) K/uL Lymph # (Auto) (1.2-3.4) K/uL Pinal # (Auto) (0.11-0.59) K/uL Eos # (Auto) (0-0.5) K/uL Baso # (Auto) (0-0.2) K/uL Reticulocyte # (0.02-0.10) 10^6/uL Immature Gran # (Auto) (0.00-0.02) K/uL Sodium (136-145) mmol/L Potassium (3.5-5.1) mmol/L Chloride (98-107) mmol/L Carbon Dioxide (21-32) mmol/L Anion Gap (3-11) BUN (6-23) mg/dl Creatinine (0.6-1.4) mg/dl Est Cr Clr Drug Dosing ml/min Est GFR ( Amer) ml/min Est GFR (Non-Af Amer) ml/min BUN/Creatinine Ratio (10-20) Glucose (70-99(Fasting)) mg/dl POC Glucose (70-99) mg/dl Lactate 1.1 (0.4-2.0) mmol/L Calcium (8.5-10.1) mg/dl Ionized Calcium 1.06 L (1.12-1.32) mmol/L Phosphorus (2.5-4.9) mg/dl Magnesium (1.7-2.4) mg/dl Iron (35-175) mcg/dl Ferritin (8-388) ng/ml Vitamin B12 (180-914) pg/ml Folate (>5.38) ng/ml TSH 1.838 (0.300-4.500) uIu/ml Stl C. diff Tox B Gene (Neg) Stl Yersinia Cult Final Giardia Antigen Blood Type Antibody Screen 07/03/21 07/03/21 07/03/21 Range/Units 02:02 02:02 02:02 WBC (4.8-10.8) K/uL RBC (4.7-6.1) M/uL Hgb (14.0-18.0) g/dL Hct (42-52) % MCV (80-100) fL MCH (25-34) pg MCHC (32-36) g/dL RDW Std Deviation (36.4-46.3) fL RDW Coeff of Papo (11.5-14.5) % Plt Count (130-400) K/uL MPV (7.4-10.4) fL Immature Gran % (Auto) % Neut % (Auto) % Lymph % (Auto) % Pinal % (Auto) % Eos % (Auto) % Baso % (Auto) % Reticulocyte % (Auto) 1.9 (0.5-2.0) % Neut # (Auto) (1.4-6.5) K/uL Lymph # (Auto) (1.2-3.4) K/uL Pinal # (Auto) (0.11-0.59) K/uL Eos # (Auto) (0-0.5) K/uL Baso # (Auto) (0-0.2) K/uL Reticulocyte # 0.06 (0.02-0.10) 10^6/uL Immature Gran # (Auto) (0.00-0.02) K/uL Sodium 138 (136-145) mmol/L Potassium 3.4 L (3.5-5.1) mmol/L Chloride 107 (98-107) mmol/L Carbon Dioxide 25 (21-32) mmol/L Anion Gap 6 (3-11) BUN 18 (6-23) mg/dl Creatinine 0.75 (0.6-1.4) mg/dl Est Cr Clr Drug Dosing 74.7 ml/min Est GFR ( Amer) 101.1 ml/min Est GFR (Non-Af Amer) 87.2 ml/min BUN/Creatinine Ratio 24.0 H (10-20) Glucose 103 H (70-99(Fasting)) mg/dl POC Glucose (70-99) mg/dl Lactate (0.4-2.0) mmol/L Calcium 6.5 L (8.5-10.1) mg/dl Ionized Calcium (1.12-1.32) mmol/L Phosphorus 2.5 (2.5-4.9) mg/dl Magnesium 1.6 L (1.7-2.4) mg/dl Iron 18 L (35-175) mcg/dl Ferritin 779.9 H (8-388) ng/ml Vitamin B12 > 1500 H (180-914) pg/ml Folate 15.47 (>5.38) ng/ml TSH (0.300-4.500) uIu/ml Stl C. diff Tox B Gene (Neg) Stl Yersinia Cult Final Giardia Antigen Blood Type Antibody Screen 07/03/21 07/03/21 07/03/21 Range/Units 02:02 02:02 01:53 WBC 7.82 (4.8-10.8) K/uL RBC 2.98 L (4.7-6.1) M/uL Hgb 10.6 L (14.0-18.0) g/dL Hct 31.3 L (42-52) % MCV 105.0 H (80-100) fL MCH 35.6 H (25-34) pg MCHC 33.9 (32-36) g/dL RDW Std Deviation 53.9 H (36.4-46.3) fL RDW Coeff of Papo 13.9 (11.5-14.5) % Plt Count 252 (130-400) K/uL MPV 9.6 (7.4-10.4) fL Immature Gran % (Auto) 0.5 % Neut % (Auto) 73.3 % Lymph % (Auto) 17.0 % Pinal % (Auto) 8.3 % Eos % (Auto) 0.8 % Baso % (Auto) 0.1 % Reticulocyte % (Auto) (0.5-2.0) % Neut # (Auto) 5.73 (1.4-6.5) K/uL Lymph # (Auto) 1.33 (1.2-3.4) K/uL Pinal # (Auto) 0.65 H (0.11-0.59) K/uL Eos # (Auto) 0.06 (0-0.5) K/uL Baso # (Auto) 0.01 (0-0.2) K/uL Reticulocyte # (0.02-0.10) 10^6/uL Immature Gran # (Auto) 0.04 H (0.00-0.02) K/uL Sodium (136-145) mmol/L Potassium (3.5-5.1) mmol/L Chloride (98-107) mmol/L Carbon Dioxide (21-32) mmol/L Anion Gap (3-11) BUN (6-23) mg/dl Creatinine (0.6-1.4) mg/dl Est Cr Clr Drug Dosing ml/min Est GFR ( Amer) ml/min Est GFR (Non-Af Amer) ml/min BUN/Creatinine Ratio (10-20) Glucose (70-99(Fasting)) mg/dl POC Glucose 108 H (70-99) mg/dl Lactate (0.4-2.0) mmol/L Calcium (8.5-10.1) mg/dl Ionized Calcium (1.12-1.32) mmol/L Phosphorus (2.5-4.9) mg/dl Magnesium (1.7-2.4) mg/dl Iron (35-175) mcg/dl Ferritin (8-388) ng/ml Vitamin B12 (180-914) pg/ml Folate (>5.38) ng/ml TSH (0.300-4.500) uIu/ml Stl C. diff Tox B Gene (Neg) Stl Yersinia Cult Final Giardia Antigen Blood Type A Negative Antibody Screen NEGATIVE 07/02/21 07/02/21 07/02/21 Range/Units Unknown 17:50 17:50 WBC (4.8-10.8) K/uL RBC (4.7-6.1) M/uL Hgb (14.0-18.0) g/dL Hct (42-52) % MCV (80-100) fL MCH (25-34) pg MCHC (32-36) g/dL RDW Std Deviation (36.4-46.3) fL RDW Coeff of Papo (11.5-14.5) % Plt Count (130-400) K/uL MPV (7.4-10.4) fL Immature Gran % (Auto) % Neut % (Auto) % Lymph % (Auto) % Pinal % (Auto) % Eos % (Auto) % Baso % (Auto) % Reticulocyte % (Auto) (0.5-2.0) % Neut # (Auto) (1.4-6.5) K/uL Lymph # (Auto) (1.2-3.4) K/uL Pinal # (Auto) (0.11-0.59) K/uL Eos # (Auto) (0-0.5) K/uL Baso # (Auto) (0-0.2) K/uL Reticulocyte # (0.02-0.10) 10^6/uL Immature Gran # (Auto) (0.00-0.02) K/uL Sodium (136-145) mmol/L Potassium (3.5-5.1) mmol/L Chloride (98-107) mmol/L Carbon Dioxide (21-32) mmol/L Anion Gap (3-11) BUN (6-23) mg/dl Creatinine (0.6-1.4) mg/dl Est Cr Clr Drug Dosing ml/min Est GFR ( Amer) ml/min Est GFR (Non-Af Amer) ml/min BUN/Creatinine Ratio (10-20) Glucose (70-99(Fasting)) mg/dl POC Glucose (70-99) mg/dl Lactate (0.4-2.0) mmol/L Calcium (8.5-10.1) mg/dl Ionized Calcium (1.12-1.32) mmol/L Phosphorus (2.5-4.9) mg/dl Magnesium (1.7-2.4) mg/dl Iron (35-175) mcg/dl Ferritin (8-388) ng/ml Vitamin B12 (180-914) pg/ml Folate (>5.38) ng/ml TSH (0.300-4.500) uIu/ml Stl C. diff Tox B Gene (Neg) Stl Yersinia Cult Final Pending Cancelled Giardia Antigen Pending Blood Type Antibody Screen 07/02/21 Range/Units 17:50 WBC (4.8-10.8) K/uL RBC (4.7-6.1) M/uL Hgb (14.0-18.0) g/dL Hct (42-52) % MCV (80-100) fL MCH (25-34) pg MCHC (32-36) g/dL RDW Std Deviation (36.4-46.3) fL RDW Coeff of Papo (11.5-14.5) % Plt Count (130-400) K/uL MPV (7.4-10.4) fL Immature Gran % (Auto) % Neut % (Auto) % Lymph % (Auto) % Pinal % (Auto) % Eos % (Auto) % Baso % (Auto) % Reticulocyte % (Auto) (0.5-2.0) % Neut # (Auto) (1.4-6.5) K/uL Lymph # (Auto) (1.2-3.4) K/uL Pinal # (Auto) (0.11-0.59) K/uL Eos # (Auto) (0-0.5) K/uL Baso # (Auto) (0-0.2) K/uL Reticulocyte # (0.02-0.10) 10^6/uL Immature Gran # (Auto) (0.00-0.02) K/uL Sodium (136-145) mmol/L Potassium (3.5-5.1) mmol/L Chloride (98-107) mmol/L Carbon Dioxide (21-32) mmol/L Anion Gap (3-11) BUN (6-23) mg/dl Creatinine (0.6-1.4) mg/dl Est Cr Clr Drug Dosing ml/min Est GFR ( Amer) ml/min Est GFR (Non-Af Amer) ml/min BUN/Creatinine Ratio (10-20) Glucose (70-99(Fasting)) mg/dl POC Glucose (70-99) mg/dl Lactate (0.4-2.0) mmol/L Calcium (8.5-10.1) mg/dl Ionized Calcium (1.12-1.32) mmol/L Phosphorus (2.5-4.9) mg/dl Magnesium (1.7-2.4) mg/dl Iron (35-175) mcg/dl Ferritin (8-388) ng/ml Vitamin B12 (180-914) pg/ml Folate (>5.38) ng/ml TSH (0.300-4.500) uIu/ml Stl C. diff Tox B Gene Negative Cdiff Gene (Neg) Stl Yersinia Cult Final Giardia Antigen Blood Type Antibody Screen Diagnostic Findings Colonoscopy 07/02/21: - COLON CHANGES CONCERNING FOR ISCHEMIC COLITIS. - Preparation of the colon was poor. - Stool in the entire examined colon. - Congested, erythematous, inflamed and ulcerated mucosa from the hepatic flexure to the rectum very concerning for ischemia. Biopsied. - Sigmoid stricture which was traversed without difficulty. CTA abdomen: FINDINGS: Lower chest: Small right pleural effusion. Liver: Hepatic steatosis is noted. Gallbladder and biliary tree: The gallbladder is distended but no evidence of acute cholecystitis is seen. No intra- or extrahepatic biliary ductal dilation. Pancreas: Unremarkable, no focal lesions. Spleen: Unremarkable. Adrenals: Unremarkable. Kidneys and ureters: Lobular contour of the kidneys is seen. Nonobstructing nephrolithiasis seen on the left. Bladder: Unremarkable. Reproductive organs: Brachytherapy seeds are seen in the prostate. Bowel: There is diffuse distention of wall thickening in the colon. No evidence of perforation or pneumatosis intestinalis is seen. Lymph nodes Retroperitoneal: Unremarkable. Mesenteric: Unremarkable. Pelvic: Unremarkable. Peritoneum: No pneumoperitoneum is seen. There is mild ascites. Abdominal wall: Unremarkable. Bones: Degenerative changes in the visualized spine. CT angiogram: The abdominal aortic contours appear intact without evidence of aneurysmal dilatation and/or dissection. There is evidence of scattered atherosclerotic calcifications of the abdominal aorta and its major branches. The origins of the celiac axis, superior mesenteric, inferior mesenteric and bilateral renal arteries are patent. IMPRESSION: 1. Redemonstration of pancolonic bowel wall thickening and extensive dilation with increased vascular markings. The origin of the great vessels are patent. Peritoneal fluid is seen. No pneumatosis intestinalis is seen, however this does not necessarily exclude ischemic colitis in the appropriate clinical setting. This may also represent infectious/inflammatory colitis. 2. Small right pleural effusion. (1) Diarrhea Diarrhea type: unspecified type Qualified Code(s): R19.7 - Diarrhea, unspecified
[2021-07-03] MEDS: FIRST - Mouthwash BLM 119 ML PO SCH ×2 (13:48→20:40)
[2021-07-03] MEDS ORDERED: metroNIDAZOLE 500 MG TAB PO SCH (15:22)
--- NOTE | 2021-07-03 15:25 | Surgery Consultation ---
Date of Consultation July 03, 2021 Assessment & Plan (1) Pancolitis: patient seen with Dr. De Anda no acute abdominal findings will continue to monitor Supervising Physician Co-Signing Physician Notes as per Stephany montelongo History of Present Illness Attending Physician: Pancho Domingo MD History of Present Illness 81 y/o male admitted 8 days ago for diarrhea, N/V. Has been followed by GI and consult with ID for pancolitis and HIV. Underwent colonoscopy yesterday, biopsies were taken. ? infectious vs ischemic colitis. Patient is feeling better today, continues to have loose BMs. Allergies Allergy/AdvReac Type Severity Reaction Status Date / Time ritonavir [From Norvir] Allergy Unknown Rash Verified 07/02/21 10:45 Home Medications Medication Instructions Recorded Confirmed Type solifenacin 10 mg tablet 10 mg PO DAILY #90 tab 11/18/20 06/25/21 Rx abacavir 600 mg-dolutegravir 50 1 tab PO HS 06/25/21 06/25/21 History mg-lamivudine 300 mg tablet ascorbic acid (vitamin C) 1,000 mg 1,000 mg PO DAILY 06/25/21 06/25/21 History tablet,extended release (Vitamin C ER) aspirin 81 mg tablet,delayed 81 mg PO DAILY 06/25/21 06/25/21 History release (Aspirin Low Dose) cholecalciferol (vitamin D3) 25 25 mcg PO Q OTHER DAY 06/25/21 06/25/21 History mcg (1,000 unit) tablet (Vitamin D3) famotidine 20 mg tablet (Pepcid) 20 mg PO DAILY PRN 06/25/21 06/25/21 History lisinopril 5 mg tablet 5 mg PO DAILY 06/25/21 06/25/21 History gnyfzodrjxhc-yjsxqcku-nxdvwu tablet 1 tab PO DAILY 06/25/21 06/25/21 History pravastatin 80 mg tablet 80 mg PO HS 06/25/21 06/25/21 History tamsulosin 0.4 mg capsule 0.4 mg PO HS 06/25/21 06/25/21 History vitamin E 400 unit tablet 400 unit PO DAILY 06/25/21 06/25/21 History Patient History Medical History Alcohol abuse Encounter for pre-operative examination Human immunodeficiency virus (HIV) disease Hypertension Osteoarthritis Osteoporosis Surgical History No pertinent past surgical history Family History Father Cancer Grandmother (Maternal) Cancer Mother Cancer Other Heart disease Hypertension Social History Smoking Status: Never smoker Hx Alcohol Use: Yes Alcohol type: beer Hx Substance Use: No Preferred Language: Honduran Communication Ability: Effective 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 Beliefs That Will Affect Care: None marital status: Single Current Living Situation: Alone current occupational status: retired Feels Safe at Home: Yes Safety Concerns: Feels Safe At This Time Assistive Devices: None Review of Systems Gastrointestinal: + bloating, + nausea, + vomiting and + diarrhea/loose stools; no abdominal pain Physical Exam Constitutional: + cachectic; no acute distress Gastrointestinal (Abdomen): Inspection/Auscultation: + abdomen distended (slight) Percussion/Palpation: + abdomen tender (mostly epigastric) and abdomen soft; no guarding Results & Data ([facility]) Vital Signs (Past 12 Hours) Vital Signs Temp Pulse Pulse Resp BP Pulse Ox 07/03/21 11:26 36.6 C 99 H 14 115/75 93 07/03/21 11:15 98 H 07/03/21 07:31 36.5 C 20 125/69 94 07/03/21 05:33 105 H PG Care Time/CCT Total # of Minutes Spent Total Time Spent with Patient: Total time spent is greater than 50% in coordination of care (as documented) at patient's floor/unit and/or counseling patient: Coding Level of Care Code 21342 Initial Inpt Care Lvl 1 Diagnoses Pancolitis K51.00
--- NOTE | 2021-07-03 16:27 | Hospitalist Progress Note ---
Date of Service July 03, 2021 Assessment & Plan (1) Pancolitis: Plan: 80-year-old male with PMHx of prostate cancer s/p radiation therapy, HTN, HLD, HIV+ who presents with acute abdominal complaints 06/25. Pt is a poor historian and voice is very raspy. At times he seems to trail off with tangential thoughts and at other times he gets defensive when he is asked to clarify his answers with more specific questions. He is being managed for the following: (#) Pancolitis: #. 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 No evidence of bowel obstruction. 06/26 stool studies: Negative including C. difficile. Admitting blood culture negative ID evaluated the patient: Likely inflammatory colitis, recommendation to DC antibiotic. Repeat CTAP 06/30 after worsening belly complaints: Redemonstration of pancolitis. Mildly dilated gas-filled loops of large and small bowel, ileus versus developing toxic megacolon. 07/02 CTA abdomen pelvis: Pancolonic bowel wall thickening and extensive dilatation with increased vascular markings, origin of great vessels patent. 07/02 status post colonoscopy: Concerning for ischemic colitis, biopsy taken. Zosyn restarted 07/02. 07/02: Biopsy: Suggestive of ischemic colitis, nonocclusive. Patient continues to have bright red blood per rectum. Belly pain/discomfort ongoing. Monitor and replete electrolytes as appropriate. GI on board, appreciate recommendation Surgery on board, appreciate recommendation. #. Anemia Previously normal hemoglobin level Admitting hemoglobin 13.8 Hemoglobin dropping gradually, 10.6 today Likely secondary to GI blood loss secondary to pancolitis on the background of dilutional component. Protein elevated likely inflammatory, iron level low, vitamin B12 and folate WNL. Iron supplement. Monitor hemoglobin daily and as needed. (#) HIV (human immunodeficiency virus infection): Plan: -Patient on no medication, continue with home medication, ID evaluated, patient afebrile. -CD4 minimally low. Appreciate ID input and recommendation. -Follow-up with ID as an outpatient. (#) Heart disease: Plan: - Noted in external scanned files in [facility] - 06/26 Echo: Normal LV size, moderate concentric LVH, septal motion is consistent with conduction abnormality, no wall motion abnormalities, EF 55 to 60%, aortic valve leaflets are moderately calcified and restricted in mobility, moderate valvular aortic stenosis, moderate to heavy calcification of the posterior mitral valve annulus and leaflet and there is trace mitral regurgitation. - Continue asa and pravastatin 80 mg HS - hold lisinopril with appearing dehydrated. Resume when able. (#) Prostate cancer: Plan: -History of such in 2002, status post brachytherapy -Previously followed with Dr. Crowley, no recent PSA for review -Continue flomax and vesicare DVT PPx: - teds, scds, Lovenox on hold, Re-gi bleed. CODE:Full code Admission and Anticipated Discharge Date Admission Date: June 25, 2021 Subjective Patient seen and examined at bedside as a follow-up for pancolitis, diarrhea, HIV status. Patient is lying in bed, on room air, NAD, patient reports having belly pain again today. Per RN, patient still has bright red blood per rectum. Per RN patient is not eating much. Discussed with GI, pathology came back ischemic colitis, surgery has been consulted. Patient denies any fever/chills/chest pain/palpitation/sore throat/cough/other review of symptoms. Physical Exam Physical Exam: GENERAL: Alert and oriented x3. NAD, on RA. Ill appearing, average body habitus. HEENT: No pallor, no icterus. Pupils equal, round and reactive to light. Oral mucosa moist. NECK: No JVD, no neck masses. HEART: S1 and S2 heard. Regular rate and rhythm. + murmur at Pulmonic > aortic area, no gallop. RESPIRATORY SYSTEM: Normal AP diameter. No accessory muscle use. No wheezing, no crackles. ABDOMEN: Soft, bowel sounds present, + tender mostly lower quadrant, no distention. CENTRAL NERVOUS SYSTEM: No facial droop. Speech is clear. Obeys simple commands. Moves extremities. EXTREMITIES: No edema, no erythema seen. Results & Data Results & Data ([facility]) Vital Signs (Past 12 Hours) Vital Signs Temp Pulse Pulse Resp BP Pulse Ox 07/03/21 15:26 102 H 07/03/21 15:25 36.6 C 101 H 20 105/66 97 07/03/21 11:26 36.6 C 99 H 14 115/75 93 07/03/21 11:15 98 H 07/03/21 07:31 36.5 C 20 125/69 94 07/03/21 05:33 105 H
[2021-07-03] MEDS: ONDANSETRON INJ 2 MG/ML 2 ML VIAL IV PRN (18:10)
[2021-07-03] MEDS: PRAVASTATIN SOD 40 MG TAB PO SCH (20:39)
[2021-07-03] MEDS: TAMSULOSIN HCL 0.4 MG CAP PO SCH (20:41)
[2021-07-03] MEDS: [UNRECOGNIZED DRUG - REMARK] PO SCH (20:41)
[2021-07-03] MEDS: HEPARIN SOD 5,000 UNIT/0.5 ML VIAL SQ SCH (21:36)
[2021-07-04] MEDS: PIPERACILLIN/TAZOBACTAM 3.375 GM in DEXTROSE 5% 100 ML IV SCH ×3 (02:47→18:15)
[2021-07-04 06:59] LABS: Hematocrit (blood only) 33.9 % (42-52); Hemoglobin 11.2 g/dL (14.0-18.0)
[2021-07-04 07:24] LABS: Calcium 6.8 mg/dl (8.5-10.1); Creatinine Clr Calc Pharmacy 74.7 ml/min; Est GFR (African American) 101.1 ml/min; Est GFR (Non-African American) 87.2 ml/min; Magnesium 1.8 mg/dl (1.7-2.4); Phosphorus 2.8 mg/dl (2.5-4.9); Potassium 3.4 mmol/L (3.5-5.1)
[2021-07-04] MEDS: HEPARIN SOD 5,000 UNIT/0.5 ML VIAL SQ SCH ×2 (08:54→21:04)
[2021-07-04] MEDS: ASPIRIN 81 MG ECTAB PO SCH (09:33)
[2021-07-04] MEDS: FAMOTIDINE 20 MG TAB PO PRN (09:33)
[2021-07-04] MEDS: ASCORBIC ACID 500 MG TAB PO SCH (09:37)
[2021-07-04] MEDS: CEROVITE ADV FORMULA TAB PO SCH (09:38)
[2021-07-04] MEDS: FERROUS GLUCONATE 324 MG TAB PO SCH (09:38)
[2021-07-04] MEDS: TOCOPHERYL, DL-ALPHA 400 UNITS 180 MG CAP PO SCH (09:38)
[2021-07-04] MEDS: FIRST - Mouthwash BLM 119 ML PO SCH ×2 (09:38→22:10)
--- NOTE | 2021-07-04 10:06 | Surgery Progress Note ---
Date of Service July 04, 2021 Assessment & Plan (1) Pancolitis: Plan: patient seen with Dr. De Anda WBC 11 will check KUB on full liquids, may need to restart IVF Admission and Anticipated Discharge Date Admission Date: June 25, 2021 Subjective feels about the same, less diarrhea, not eating/drinking much Physical Exam Gastrointestinal (Abdomen): Inspection/Auscultation: + abdomen distended (slightly) Percussion/Palpation: + abdomen tender (more in RLQ today) and abdomen soft; no guarding Results & Data ([facility]) Vital Signs (Past 12 Hours) Vital Signs Temp Pulse Pulse Resp BP Pulse Ox 07/04/21 09:06 106 H 07/04/21 06:48 36.4 C L 111 H 20 127/74 92 07/04/21 03:35 36.7 C 101 H 20 113/71 94 07/04/21 00:17 99 H 07/03/21 23:36 36.8 C 107 H 20 108/66 93 PG Care Time/CCT Total # of Minutes Spent Total Time Spent with Patient: Total time spent is greater than 50% in coordination of care (as documented) at patient's floor/unit and/or counseling patient: Coding Level of Care Code 15752 Subseq Hosp Care Lvl 1 Diagnoses Pancolitis K51.00
--- NOTE | 2021-07-04 12:04 | XRay Report ---
KUB HISTORY: Generalized abdominal pain. Follow-up colitis. COMPARISON: Abdomen and pelvis CT 07/02/2021. FINDINGS: Dilated gas-filled colon with the cecum measuring up to 7.6 cm in diameter. There is thicke carmen of the colonic wall this consistent with the patient's known colitis. Mild dilated gas-filled lo ops of small bowel are also noted. Left-sided nephrolithiasis. No evidence for bowel obstruction. No pneumoperitoneum or pneumatosis. IMPRESSION: No significant change in the dilated, gas-filled, and thick-walled colon consistent with a pancolitis . Small bowel loops also remain mildly distended suggesting an associated ileus. ACT 112: Negative or not required by law. Electronically signed by: Omar Sarkar M.D. 07/04/2021 12:03 PM
[2021-07-04] MEDS ORDERED: TPN/PPN CONSULT PHARMACY PRN (12:25)
[2021-07-04] MEDS: POTASSIUM CHLORIDE 20 MEQ/15 ML UDC PO SCH ×2 (12:45→21:06)
[2021-07-04] MEDS ORDERED: DEXTROSE 10% 1,000 ML IV PRN (13:11)
--- NOTE | 2021-07-04 14:34 | Pharmacy Report ---
Pharmacy PN Initial Consult - Date of Service July 04, 2021 - Scope Pharmacy has been consulted to manage parenteral nutrition orders and order appropriate labs. As part of the Nutrition Support Team guidelines, pharmacy will work in conjunction with dietary when determining the patients caloric needs. - Subjective The patient is a 81 year old M admitted on 06/25/21 16:51 for pancolitis. Patient is to receive parenteral nutrition for ischemic colitis, poor oral in take, and need for bowel rest. - Objective Height: 5 ft 7 in Weight: 66.5 kg Diet: Full Liquid Vascular Access:: peripheral Intake & Output (Last 24Hrs): Intake & Output 07/02/21 07/03/21 07/04/21 07/05/21 06:59 06:59 06:59 07:59 Intake Total 3159.5 / 3159.5 2315.333 / 2315.333 957.5 / 957.5 Output Total 501 / 501 575 / 575 Balance 2658.5 / 2658.5 2303.333 / 2303.333 382.5 / 382.5 Weight 67.5 kg 67.6 kg 66.5 kg 66.5 kg Laboratory Data (Last 24 Hrs):: 07/04/21 06:26 Sodium 140 Potassium 3.4 L Chloride 108 H Carbon Dioxide 24 BUN 15 Creatinine 0.75 Glucose 91 Calcium 6.8 L Phosphorus 2.8 Magnesium 1.8 Nutrition Assessment:: Please refer to the Notes section of the EMR for the 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 - Assessment Bertram is a 81 yo male with PMH significant for prostate cancer s/p radiation therapy, HTN, HLD, HIV+ who presented with acute abdominal complaints. PPN has been initiated while patient is on bowel rest due to ischemic colitis with worsening abdominal pain. * patient is at risk for refeeding syndrome -will provide supplementation with phos, mag, and potassium and thiamine * patient with hypocalcemia, received calcium gluconate 1g IV on 07/02 & 07/03, ordered repeat ionized calcium for 07/05 - Plan For day 1 of PN administration, the following will be ordered: Macronutrients Amino acids 66 grams/day Dextrose 78 grams/day Lipids 50 grams/day Micronutrients Combined electrolytes 20 mL - contains 35 mEq Na, 20 meq K, 4.5 mEq Ca, 5 mEq Mg, 35 mEq Cl, 29.5 mEq acetate per 20 mL Potassium phosphate 27 mMol Magnesium sulfate 4.06 mEq Multivitamins 10 mL Trace Elements 10 mL Additional additives: thiamine 100 mg Total volume 1602 mL to be infused over 24 hrs will provide 1030 kcal/day Final osmolarity is less than 900 mOsm/L Labs to be ordered per PN order protocol Pharmacy will follow and adjust parenteral nutrition orders on a daily basis. Thank you.
[2021-07-04] MEDS ORDERED: CLINOLIPID 20% IV FAT EMULSION 250 ML IV SCH (16:00)
[2021-07-04] MEDS ORDERED: PERIPHERAL TPN IV SCH (16:00)
[2021-07-04] MEDS ORDERED: AMINO ACIDS 4.25% IV SCH (16:00)
[2021-07-04] MEDS ORDERED: D5W IV SCH (16:00)
[2021-07-04] MEDS: CLINOLIPID 20% IV FAT EMULSION 100 ML IV SCH ×2 (16:19→19:05)
--- NOTE | 2021-07-04 19:17 | Hospitalist Progress Note ---
Date of Service July 04, 2021 Assessment & Plan (1) Pancolitis: Plan: 80-year-old male with PMHx of prostate cancer s/p radiation therapy, HTN, HLD, HIV+ who presents with acute abdominal complaints 06/25. Pt is a poor historian and voice is very raspy. At times he seems to trail off with tangential thoughts and at other times he gets defensive when he is asked to clarify his answers with more specific questions. He is being managed for the following: (#) Pancolitis: #. 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 No evidence of bowel obstruction. 06/26 stool studies: Negative including C. difficile. Admitting blood culture negative ID evaluated the patient: Likely inflammatory colitis, recommendation to DC antibiotic. Repeat CTAP 06/30 after worsening belly complaints: Redemonstration of pancolitis. Mildly dilated gas-filled loops of large and small bowel, ileus versus developing toxic megacolon. 07/02 CTA abdomen pelvis: Pancolonic bowel wall thickening and extensive dilatation with increased vascular markings, origin of great vessels patent. 07/02 status post colonoscopy: Concerning for ischemic colitis, biopsy taken. Zosyn restarted 07/02. 07/02: Biopsy: Suggestive of ischemic colitis, nonocclusive. Patient continues to have bright red blood per rectum on and off. Belly pain/discomfort ongoing - somewhat better today Pt not eating much, starting him on PPN 07/04 until patient able to eat/tolerate PO. Monitor and replete electrolytes as appropriate. GI on board, appreciate recommendation Surgery on board, appreciate recommendation. #. Anemia Previously normal hemoglobin level Admitting hemoglobin 13.8 Hemoglobin dropping gradually, 10.6 today Likely secondary to GI blood loss secondary to pancolitis on the background of dilutional component. Protein elevated likely inflammatory, iron level low, vitamin B12 and folate WNL. Iron supplement. Monitor hemoglobin daily and as needed. (#) HIV (human immunodeficiency virus infection): Plan: -Patient on no medication, continue with home medication, ID evaluated, patient afebrile. -CD4 minimally low. Appreciate ID input and recommendation. -Follow-up with ID as an outpatient. (#) Heart disease: Plan: - Noted in external scanned files in [facility] - 06/26 Echo: Normal LV size, moderate concentric LVH, septal motion is consistent with conduction abnormality, no wall motion abnormalities, EF 55 to 60%, aortic valve leaflets are moderately calcified and restricted in mobility, moderate valvular aortic stenosis, moderate to heavy calcification of the posterior mitral valve annulus and leaflet and there is trace mitral regurgitation. - Continue asa and pravastatin 80 mg HS - hold lisinopril with appearing dehydrated. Resume when able. (#) Prostate cancer: Plan: -History of such in 2002, status post brachytherapy -Previously followed with Dr. Crowley, no recent PSA for review -Continue flomax and vesicare DVT PPx: - teds, scds, Lovenox on hold, Re-gi bleed. CODE:Full code Admission and Anticipated Discharge Date Admission Date: June 25, 2021 Subjective Patient seen and examined at bedside as a follow-up for pancolitis, diarrhea, HIV status. Patient is lying in bed, on room air, NAD, patient reports having somewhat improving belly pain today. Per RN, patient still has bright red blood per rectum on and off. Per RN patient is not eating much. Patient denies any fever/chills/chest pain/palpitation/sore throat/cough/other review of symptoms. Physical Exam 2 Physical Exam: GENERAL: Alert and oriented x3. NAD, on RA. Ill appearing, average body habitus. HEENT: No pallor, no icterus. Pupils equal, round and reactive to light. Oral mucosa moist. NECK: No JVD, no neck masses. HEART: S1 and S2 heard. Regular rate and rhythm. + murmur at Pulmonic > aortic area, no gallop. RESPIRATORY SYSTEM: Normal AP diameter. No accessory muscle use. No wheezing, no crackles. ABDOMEN: Soft, bowel sounds present, + tender mostly lower quadrant, no distention. CENTRAL NERVOUS SYSTEM: No facial droop. Speech is clear. Obeys simple commands. Moves extremities. EXTREMITIES: No edema, no erythema seen. Results & Data Results & Data ([facility]) Vital Signs (Past 12 Hours) Vital Signs Temp Pulse Pulse Resp BP Pulse Ox 07/04/21 18:41 36.7 C 105 H 18 117/74 92 07/04/21 16:41 107 H 07/04/21 16:04 36.6 C 109 H 18 112/71 92 07/04/21 11:55 36.5 C 75 18 105/60 95 07/04/21 09:06 106 H
[2021-07-04] MEDS ORDERED: STOP CLINOLIPID ONE ×2 (21:00→22:00)
[2021-07-04] MEDS: PRAVASTATIN SOD 40 MG TAB PO SCH (21:13)
[2021-07-04] MEDS: [UNRECOGNIZED DRUG - REMARK] PO SCH (22:10)
[2021-07-04] MEDS: TAMSULOSIN HCL 0.4 MG CAP PO SCH (22:11)
[2021-07-05] MEDS: PIPERACILLIN/TAZOBACTAM 3.375 GM in DEXTROSE 5% 100 ML IV SCH ×3 (03:47→20:49)
[2021-07-05 05:41] LABS: Hematocrit (blood only) 32.1 % (42-52); Hemoglobin 10.3 g/dL (14.0-18.0)
[2021-07-05 06:01] LABS: BUN Creatinine Ratio 25.4 (10-20); Bilirubin,Total 0.5 mg/dl (0.2-1.0); Calcium 7.3 mg/dl (8.5-10.1); Creatinine Clr Calc Pharmacy 83.6 ml/min; Est GFR (African American) 105.9 ml/min; Est GFR (Non-African American) 91.4 ml/min; Magnesium 1.7 mg/dl (1.7-2.4); Phosphorus 1.9 mg/dl (2.5-4.9); Potassium 3.4 mmol/L (3.5-5.1)
[2021-07-05] MEDS ORDERED: POTASSIUM PHOS 3 MMOL/1 ML INFUSION IV STA (07:35)
[2021-07-05] MEDS ORDERED: FUROSEMIDE INJ 20 MG/2 ML VIAL IV ONE ×2 (07:37→16:55)
[2021-07-05] MEDS ORDERED: POTASSIUM PHOSPHATE 15 MMOL in SODIUM CHLORIDE 0.9% 250 ML IV ONE (08:00)
[2021-07-05] MEDS: POTASSIUM CHLORIDE / WTR 10 MEQ/100 ML PLCT IV SCH ×4 (08:52→12:07)
[2021-07-05] MEDS: ASCORBIC ACID 500 MG TAB PO SCH (08:55)
[2021-07-05] MEDS: ASPIRIN 81 MG ECTAB PO SCH (08:55)
[2021-07-05] MEDS: CHOLECALCIFEROL 1,000 UNITS 25 MCG TAB PO SCH (08:55)
[2021-07-05] MEDS: FERROUS GLUCONATE 324 MG TAB PO SCH (08:55)
[2021-07-05] MEDS: TOCOPHERYL, DL-ALPHA 400 UNITS 180 MG CAP PO SCH (08:55)
[2021-07-05] MEDS: FIRST - Mouthwash BLM 119 ML PO SCH ×2 (08:55→23:36)
[2021-07-05] MEDS: CEROVITE ADV FORMULA TAB PO SCH (08:59)
[2021-07-05] MEDS: HEPARIN SOD 5,000 UNIT/0.5 ML VIAL SQ SCH ×2 (08:59→23:36)
[2021-07-05] MEDS ORDERED: THIAMINE HCL 100 MG in SYRINGE 9 ML IV SCH (09:00)
[2021-07-05] MEDS: FUROSEMIDE INJ 20 MG/2 ML VIAL IV SCH (09:22)
--- NOTE | 2021-07-05 09:23 | XRay Report ---
XR chest 1V portable HISTORY: 81 years-old Male ?congestion acute cough with congestion COMPARISON: Chest radiograph 10/08/2013, CT abdomen and pelvis 07/02/2021 TECHNIQUE: Portable AP view of the chest FINDINGS: Cardiac silhouette is enlarged. Calcified plaque of the thoracic aorta. Mild right hemidiaphragmatic elevation is unchanged from the prior CT study. Small right pleural effusion with mild right basilar opacities. Trace left pleural effusion. No pneumothorax or overt pulmonary edema. Degenerative change s of the shoulders and spine. Mild gaseous distention of the colon. IMPRESSION: 1. Cardiomegaly without pulmonary edema. 2. Unchanged right hemidiaphragmatic elevation with small right and trace left pleural effusions. 3. Mild right basilar atelectasis. ACT 112: Negative or not required by law. The above report was generated using voice recognition software. It may contain grammatical, syntax o r spelling errors. Electronically signed by: Ariel Renee M.D. 07/05/2021 9:22 AM
--- NOTE | 2021-07-05 10:18 | Surgery Progress Note ---
Date of Service July 05, 2021 Assessment & Plan (1) Pancolitis: Plan: Patient feeling better abdomen is softer continues on zosyn on full liquids without issue no plans for surgical intervention at this time pt seen/examined with Dr. De Anda Admission and Anticipated Discharge Date Admission Date: June 25, 2021 Subjective Patient sitting on toilet. Saying he feels better. + BMs Physical Exam Physical Exam: awake, on commode. No distress Gastrointestinal (Abdomen): Percussion/Palpation: abdomen soft Results & Data ([facility]) Vital Signs (Past 12 Hours) Vital Signs Temp Pulse Pulse Resp BP Pulse Ox 07/05/21 07:18 96 H 07/05/21 06:47 37.2 C 95 H 20 121/73 92 07/05/21 03:30 36.5 C 103 H 20 106/69 93 07/04/21 23:10 36.6 C 99 H 20 116/75 92 PG Care Time/CCT Total # of Minutes Spent Total Time Spent with Patient: Total time spent is greater than 50% in coordination of care (as documented) at patient's floor/unit and/or counseling patient: Coding Level of Care Code 81832 Subseq Hosp Care Lvl 1 Diagnoses Pancolitis K51.00
[2021-07-05] MEDS ORDERED: AMINO ACIDS 4.25% IV SCH (16:00)
[2021-07-05] MEDS ORDERED: D5W IV SCH (16:00)
[2021-07-05] MEDS ORDERED: PERIPHERAL TPN IV SCH (16:00)
[2021-07-05] MEDS: CLINOLIPID 20% IV FAT EMULSION 100 ML IV SCH ×2 (16:49→19:16)
--- NOTE | 2021-07-05 16:59 | Hospitalist Progress Note ---
Date of Service July 05, 2021 Assessment & Plan (1) Pancolitis: Plan: 80-year-old male with PMHx of prostate cancer s/p radiation therapy, HTN, HLD, HIV+ who presents with acute abdominal complaints 06/25. Pt is a poor historian and voice is very raspy. At times he seems to trail off with tangential thoughts and at other times he gets defensive when he is asked to clarify his answers with more specific questions. He is being managed for the following: (#) Pancolitis: #. 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 No evidence of bowel obstruction. 06/26 stool studies: Negative including C. difficile. Admitting blood culture negative ID evaluated the patient: Likely inflammatory colitis, recommendation to DC antibiotic. Repeat CTAP 06/30 after worsening belly complaints: Redemonstration of pancolitis. Mildly dilated gas-filled loops of large and small bowel, ileus versus developing toxic megacolon. 07/02 CTA abdomen pelvis: Pancolonic bowel wall thickening and extensive dilatation with increased vascular markings, origin of great vessels patent. 07/02 status post colonoscopy: Concerning for ischemic colitis, biopsy taken. Zosyn restarted 07/02. 07/02: Biopsy: Suggestive of ischemic colitis, nonocclusive. Patient continues to have bright red blood per rectum on and off. Belly pain/discomfort ongoing -> stable/improving Pt not eating much, c/w PPN 07/04 until patient able to eat/tolerate PO. Monitor and replete electrolytes as appropriate. GI on board, appreciate recommendation Surgery on board, appreciate recommendation. #. Anemia Previously normal hemoglobin level Admitting hemoglobin 13.8 Hemoglobin dropping gradually, 10.3 today Likely secondary to GI blood loss secondary to pancolitis on the background of dilutional component. Protein elevated likely inflammatory, iron level low, vitamin B12 and folate WNL. Iron supplement. Monitor hemoglobin daily and as needed. (#) HIV (human immunodeficiency virus infection): Plan: -Patient on no medication, continue with home medication, ID evaluated, patient afebrile. -CD4 minimally low. Appreciate ID input and recommendation. -Follow-up with ID as an outpatient. (#) Heart disease: Plan: - Noted in [facility] - 06/26 Echo: Normal LV size, moderate concentric LVH, septal motion is consistent with conduction abnormality, no wall motion abnormalities, EF 55 to 60%, aortic valve leaflets are moderately calcified and restricted in mobility, moderate valvular aortic stenosis, moderate to heavy calcification of the posterior mitral valve annulus and leaflet and there is trace mitral regurgitation. - Continue asa and pravastatin 80 mg HS - hold lisinopril with appearing dehydrated. Resume when able. (#) Prostate cancer: Plan: -History of such in 2002, status post brachytherapy -Previously followed with Dr. Crowley, no recent PSA for review -Continue flomax and vesicare DVT PPx: - teds, scds, Lovenox on hold, Re-gi bleed. CODE:Full code Admission and Anticipated Discharge Date Admission Date: June 25, 2021 Subjective Patient seen and examined at bedside as a follow-up for pancolitis, diarrhea, HI V status. Patient is lying in bed, on room air, NAD, patient reports having improving belly pain today. Per RN, patient still has bright red blood per rectum on and off. Per RN patient is not eating much. Pt on PPN. Patient denies any fever/chills/chest pain/palpitation/sore throat/cough/other review of symptoms. Physical Exam Physical Exam: GENERAL: Alert and oriented x3. NAD, on RA. Ill appearing, average body habitus. HEENT: No pallor, no icterus. Pupils equal, round and reactive to light. Oral mucosa moist. NECK: No JVD, no neck masses. HEART: S1 and S2 heard. Regular rate and rhythm. + murmur at Pulmonic > aortic area, no gallop. RESPIRATORY SYSTEM: Normal AP diameter. No accessory muscle use. No wheezing, no crackles. ABDOMEN: Soft, bowel sounds present, + tender mostly lower quadrant, no distention. CENTRAL NERVOUS SYSTEM: No facial droop. Speech is clear. Obeys simple commands. Moves extremities. EXTREMITIES: 1+ edema, no erythema seen. Results & Data Results & Data ([facility]) Vital Signs (Past 12 Hours) Vital Signs Temp Pulse Pulse Resp BP BP Pulse Ox 07/05/21 16:08 101 H 07/05/21 15:28 36.8 C 102 H 16 106/64 93 07/05/21 11:57 36.9 C 106 H 18 99/68 L 93 07/05/21 07:18 96 H 07/05/21 06:47 37.2 C 95 H 20 121/73 92
[2021-07-05] MEDS: TAMSULOSIN HCL 0.4 MG CAP PO SCH (19:18)
[2021-07-05] MEDS ORDERED: STOP CLINOLIPID ONE (21:00)
[2021-07-05] MEDS: [UNRECOGNIZED DRUG - REMARK] PO SCH (23:36)
[2021-07-05] MEDS: PRAVASTATIN SOD 40 MG TAB PO SCH (23:37)
[2021-07-06] MEDS: PIPERACILLIN/TAZOBACTAM 3.375 GM in DEXTROSE 5% 100 ML IV SCH ×3 (04:17→18:35)
--- NOTE | 2021-07-06 06:40 | Surgery Progress Note ---
Date of Service July 06, 2021 Assessment & Plan (1) Pancolitis: Plan: 07/06/2021 At this point I would advance diet as tolerated on clear liquids to full liquids No acute surgical problem at this time we will follow-up Patient feeling better abdomen is softer continues on zosyn on full liquids without issue no plans for surgical intervention at this time pt seen/examined with Dr. De Anda Admission and Anticipated Discharge Date Admission Date: June 25, 2021 Subjective Feels fine does not have any belly pain moved his bowels Physical Exam Physical Exam: Resting comfortable in bed without any issues Abdomen much softer no guarding or tenderness elicited this morning Results & Data ([facility]) Vital Signs (Past 12 Hours) Vital Signs Temp Pulse Pulse Resp BP Pulse Ox 07/06/21 04:25 36.4 C L 99 H 20 101/66 92 07/05/21 23:03 36.5 C 105 H 18 123/77 95 07/05/21 22:19 107 H 07/05/21 18:46 36.7 C 112 H 18 92/64 L 98 PG Care Time/CCT Total # of Minutes Spent Total Time Spent with Patient: Total time spent is greater than 50% in coordination of care (as documented) at patient's floor/unit and/or counseling patient: Coding Level of Care Code 84825 Subseq Hosp Care Lvl 3 Diagnoses Pancolitis K51.00
[2021-07-06 08:11] LABS: BUN Creatinine Ratio 28.8 (10-20); Calcium 6.6 mg/dl (8.5-10.1); Creatinine Clr Calc Pharmacy 83.1 ml/min; Est GFR (African American) 106.6 ml/min; Magnesium 1.8 mg/dl (1.7-2.4); Phosphorus 2.8 mg/dl (2.5-4.9); Potassium 3.4 mmol/L (3.5-5.1)
[2021-07-06] MEDS: CEROVITE ADV FORMULA TAB PO SCH (08:31)
[2021-07-06] MEDS: FAMOTIDINE 20 MG TAB PO PRN (08:31)
[2021-07-06] MEDS: FERROUS GLUCONATE 324 MG TAB PO SCH (08:32)
[2021-07-06] MEDS: ASCORBIC ACID 500 MG TAB PO SCH (08:32)
[2021-07-06] MEDS: HEPARIN SOD 5,000 UNIT/0.5 ML VIAL SQ SCH ×2 (08:32→21:41)
[2021-07-06] MEDS: ASPIRIN 81 MG ECTAB PO SCH (08:32)
[2021-07-06] MEDS: FUROSEMIDE INJ 20 MG/2 ML VIAL IV SCH (08:40)
[2021-07-06] MEDS: TOCOPHERYL, DL-ALPHA 400 UNITS 180 MG CAP PO SCH (08:40)
[2021-07-06] MEDS: FIRST - Mouthwash BLM 119 ML PO SCH ×3 (08:40→21:41)
[2021-07-06] MEDS ORDERED: STAT IV STA (09:08)
[2021-07-06] MEDS ORDERED: CALCIUM GLUCONATE 10% 2,000 MG in DEXTROSE 5% 50 ML IV ONE (09:15)
[2021-07-06] MEDS: POTASSIUM CHLORIDE / WTR 10 MEQ/100 ML PLCT IV SCH ×2 (10:37→11:37)
[2021-07-06] MEDS ORDERED: D5W IV SCH (16:00)
[2021-07-06] MEDS ORDERED: PERIPHERAL TPN IV SCH (16:00)
[2021-07-06] MEDS ORDERED: AMINO ACIDS 4.25% IV SCH (16:00)
[2021-07-06] MEDS: CLINOLIPID 20% IV FAT EMULSION 100 ML IV SCH ×2 (16:23→18:54)
--- NOTE | 2021-07-06 17:10 | Hospitalist Progress Note ---
Date of Service July 06, 2021 Assessment & Plan (1) Pancolitis: Plan: 80-year-old male with PMHx of prostate cancer s/p radiation therapy, HTN, HLD, HIV+ who presents with acute abdominal complaints 06/25. Pt is a poor historian and voice is very raspy. At times he seems to trail off with tangential thoughts and at other times he gets defensive when he is asked to clarify his answers with more specific questions. He is being managed for the following: (#) Pancolitis: #. 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 No evidence of bowel obstruction. 06/26 stool studies: Negative including C. difficile. Admitting blood culture negative ID evaluated the patient: Likely inflammatory colitis, recommendation to DC antibiotic. Repeat CTAP 06/30 after worsening belly complaints: Redemonstration of pancolitis. Mildly dilated gas-filled loops of large and small bowel, ileus versus developing toxic megacolon. 07/02 CTA abdomen pelvis: Pancolonic bowel wall thickening and extensive dilatation with increased vascular markings, origin of great vessels patent. 07/02 status post colonoscopy: Concerning for ischemic colitis, biopsy taken. Zosyn restarted 07/02. 07/02: Biopsy: Suggestive of ischemic colitis, nonocclusive. Patient continues to have bright red blood per rectum on and off. Belly pain/discomfort ongoing -> stable/improving Pt not eating much, c/w PPN 07/04 until patient able to eat/tolerate PO. Pt denies magic mouthwash Monitor and replete electrolytes as appropriate. GI on board, appreciate recommendation Surgery on board, appreciate recommendation. Diet advanced to full, per RN pt not eating very little -pt reports he chokes on food, will ask speech for re- eval. #. Anemia Previously normal hemoglobin level Admitting hemoglobin 13.8 Hemoglobin dropping gradually, 10.0 today Likely secondary to GI blood loss secondary to pancolitis on the background of dilutional component. Protein elevated likely inflammatory, iron level low, vitamin B12 and folate WNL. Iron supplement. Monitor hemoglobin daily and as needed. (#) HIV (human immunodeficiency virus infection): Plan: -Patient on no medication, continue with home medication, ID evaluated, patient afebrile. -CD4 minimally low. Appreciate ID input and recommendation. -Follow-up with ID as an outpatient. (#) Heart disease: Plan: - Noted in external scanned files in [facility] - 06/26 Echo: Normal LV size, moderate concentric LVH, septal motion is consistent with conduction abnormality, no wall motion abnormalities, EF 55 to 60%, aortic valve leaflets are moderately calcified and restricted in mobility, moderate valvular aortic stenosis, moderate to heavy calcification of the posterior mitral valve annulus and leaflet and there is trace mitral regurgitation. - Continue asa and pravastatin 80 mg HS - hold lisinopril with appearing dehydrated. Resume when able. (#) Prostate cancer: Plan: -History of such in 2002, status post brachytherapy -Previously followed with Dr. Crowley, no recent PSA for review -Continue flomax and vesicare DVT PPx: - teds, scds, Lovenox on hold, Re-gi bleed. CODE:Full code Admission and Anticipated Discharge Date Admission Date: June 25, 2021 Subjective Patient seen and examined at bedside as a follow-up for pancolitis, diarrhea, HIV status. Patient is lying in bed, on room air, NAD, patient reports having improving belly pain. Patient still has bright red blood per rectum on and off. Per RN patient is not eating much and declines magic mouth wash. Pt on PPN. Patient denies any fever/chills/chest pain/palpitation/sore throat/cough/other review of symptoms. Physical Exam Physical Exam: GENERAL: Alert and oriented x3. NAD, on RA. Ill appearing, average body habitus. HEENT: No pallor, no icterus. Pupils equal, round and reactive to light. Oral mucosa moist. NECK: No JVD, no neck masses. HEART: S1 and S2 heard. Regular rate and rhythm. + murmur at Pulmonic > aortic area, no gallop. RESPIRATORY SYSTEM: Normal AP diameter. No accessory muscle use. No wheezing, no crackles. ABDOMEN: Soft, bowel sounds present, + tender mostly lower quadrant, no distention. CENTRAL NERVOUS SYSTEM: No facial droop. Speech is clear. Obeys simple commands. Moves extremities. EXTREMITIES: 1+ edema, no erythema seen. Results & Data Results & Data ([facility]) Vital Signs (Past 12 Hours) Vital Signs Temp Pulse Pulse Resp BP Pulse Ox 07/06/21 14:54 36.8 C 99 H 18 108/66 93 07/06/21 14:25 104 H 07/06/21 10:59 36.5 C 75 18 110/71 97 07/06/21 07:37 96 H 07/06/21 07:05 36.7 C 99 H 16 106/70 94
[2021-07-06] MEDS ORDERED: STOP CLINOLIPID ONE (21:00)
[2021-07-06] MEDS: TAMSULOSIN HCL 0.4 MG CAP PO SCH (21:41)
[2021-07-06] MEDS: PRAVASTATIN SOD 40 MG TAB PO SCH (21:41)
[2021-07-06] MEDS: [UNRECOGNIZED DRUG - REMARK] PO SCH (21:42)
[2021-07-07] MEDS: PIPERACILLIN/TAZOBACTAM 3.375 GM in DEXTROSE 5% 100 ML IV SCH ×3 (03:47→18:26)
[2021-07-07 06:51] LABS: Hematocrit (blood only) 29.6 % (42-52); Hemoglobin 9.7 g/dL (14.0-18.0)
[2021-07-07 07:14] LABS: BUN Creatinine Ratio 28.6 (10-20); Calcium 7.7 mg/dl (8.5-10.1); Creatinine Clr Calc Pharmacy 78.3 ml/min; Est GFR (Non-African American) 89.8 ml/min; Phosphorus 3.2 mg/dl (2.5-4.9); Potassium 3.5 mmol/L (3.5-5.1)
[2021-07-07] MEDS: HEPARIN SOD 5,000 UNIT/0.5 ML VIAL SQ SCH ×2 (10:01→21:34)
[2021-07-07] MEDS: FUROSEMIDE INJ 20 MG/2 ML VIAL IV SCH (10:01)
[2021-07-07] MEDS: FAMOTIDINE 20 MG TAB PO PRN (10:02)
[2021-07-07] MEDS: FIRST - Mouthwash BLM 119 ML PO SCH ×2 (10:15→21:36)
[2021-07-07] MEDS: ASCORBIC ACID 500 MG TAB PO SCH (10:15)
[2021-07-07] MEDS: ASPIRIN 81 MG ECTAB PO SCH (10:16)
[2021-07-07] MEDS: FERROUS GLUCONATE 324 MG TAB PO SCH (10:16)
[2021-07-07] MEDS: CHOLECALCIFEROL 1,000 UNITS 25 MCG TAB PO SCH (10:16)
[2021-07-07] MEDS: TOCOPHERYL, DL-ALPHA 400 UNITS 180 MG CAP PO SCH (10:16)
[2021-07-07] MEDS: CEROVITE ADV FORMULA TAB PO SCH (10:16)
--- NOTE | 2021-07-07 14:46 | Gastroenterology Progress Note ---
Date of Service July 07, 2021 Assessment & Plan (1) Pancolitis: Plan: colonoscopy today (2) Diarrhea: (3) Rectal bleed: Plan: 80 y/o male with h/o HIV, CD4 count 253 admitted w/ n/v/d abd pain, CT w/ pancolitis, colonoscopy concerning for ischemic colitis w/ severely congested, erythematous, ulcerated and inflamed mucosa from the hepatic flexure to the rectum, bx negative for viral and fungal infections GI asked to re-evaluate given concerns for PO intake. Given his low CD4 count and reports of painful and difficultly swallowing in addition to generalized weakness, he was agreeable to empiric therapy with Diflucan. Please start Iv Diflucan 400 mg on day one then 200 mg daily for 14 days. If no improvement in 48 hours, would consider EGD at that time. PEG placement is not without infectious risk given his low CD4 count.Thank you for allowing us to participate in the care of this patient. Please call with any acute changes, questions or concerns. Please see addendum below with additional recommendation from my supervising physician. Admission and Anticipated Discharge Date Admission Date: June 25, 2021 Supervising Physician Co-Signing Physician Notes The patient was seen - he was on the bedside commode. PE limited - but he appeared alert and oriented, in no acute respiratory distress with normal appearing respirations, thin gaunt appearing male without overt lesions noted on his face or arms or extremities Labs reviewed- low cd 4 count Recent colonoscopy also reviewed with findings of ischemic colitis Admitted 3/3 with diarrhea. At the current time - would treat empirically for thrush. Agree with further plan of care as above. 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 Pt was seen and evaluated. He notes pain, discomfort with PO intake. This is limiting his able to trial of PO Suggests cold water and ice is okay but anything else causes pain and feels too weak to trial. Colon concerning for ishcemic colitis, bx negative including CMV: negative HSV: negative PAS: negative for overt fungal organisms GMS: negative for overt fungal organisms Review of Systems Review of Systems: All systems reviewed & are unremarkable except as noted in HPI & below Physical Exam Physical Exam: Pt was on bedside commode, examination was limited. Constitutional: WD/WN, vitals as above Eyes: PERRL, conjunctivae normal, anicteric sclerae Respiratory: normal respiratory effort; no respiratory distress, no labored breathing, no retractions, no cough and + not able to speak in complete sentence (weak, raspy voice) Cardiovascular: Rate/Rhythm: regular rate Skin: no rashes, warm and dry Results & Data ([facility]) Vital Signs (Past 12 Hours) Vital Signs Temp Pulse Pulse Resp BP BP Pulse Ox 07/07/21 12:20 36.4 C L 114 H 18 107/76 92 07/07/21 09:37 100 H 07/07/21 07:41 36.6 C 96 H 18 124/76 97 07/07/21 03:07 37.8 C H 91 H 18 127/80 92 Laboratory Results 07/07/21 07/07/21 07/07/21 Range/Units 12:03 06:40 06:40 Hgb 9.7 L (14.0-18.0) g/dL Hct 29.6 L (42-52) % Sodium 138 (136-145) mmol/L Potassium 3.5 (3.5-5.1) mmol/L Chloride 101 (98-107) mmol/L Carbon Dioxide 32 (21-32) mmol/L Anion Gap 5 (3-11) BUN 20 (6-23) mg/dl Creatinine 0.70 (0.6-1.4) mg/dl Est Cr Clr Drug Dosing 78.3 ml/min Est GFR ( Amer) 104.0 ml/min Est GFR (Non-Af Amer) 89.8 ml/min BUN/Creatinine Ratio 28.6 H (10-20) Glucose 125 H (70-99(Fasting)) mg/dl POC Glucose 128 H (70-99) mg/dl Calcium 7.7 L (8.5-10.1) mg/dl Phosphorus 3.2 (2.5-4.9) mg/dl Magnesium 2.0 (1.7-2.4) mg/dl Giardia Antigen 07/07/21 07/07/21 07/06/21 Range/Units 06:33 00:09 16:28 Hgb (14.0-18.0) g/dL Hct (42-52) % Sodium (136-145) mmol/L Potassium (3.5-5.1) mmol/L Chloride (98-107) mmol/L Carbon Dioxide (21-32) mmol/L Anion Gap (3-11) BUN (6-23) mg/dl Creatinine (0.6-1.4) mg/dl Est Cr Clr Drug Dosing ml/min Est GFR ( Amer) ml/min Est GFR (Non-Af Amer) ml/min BUN/Creatinine Ratio (10-20) Glucose (70-99(Fasting)) mg/dl POC Glucose 126 H 140 H 111 H (70-99) mg/dl Calcium (8.5-10.1) mg/dl Phosphorus (2.5-4.9) mg/dl Magnesium (1.7-2.4) mg/dl Giardia Antigen 07/02/21 Range/Units 17:50 Hgb (14.0-18.0) g/dL Hct (42-52) % Sodium (136-145) mmol/L Potassium (3.5-5.1) mmol/L Chloride (98-107) mmol/L Carbon Dioxide (21-32) mmol/L Anion Gap (3-11) BUN (6-23) mg/dl Creatinine (0.6-1.4) mg/dl Est Cr Clr Drug Dosing ml/min Est GFR ( Amer) ml/min Est GFR (Non-Af Amer) ml/min BUN/Creatinine Ratio (10-20) Glucose (70-99(Fasting)) mg/dl POC Glucose (70-99) mg/dl Calcium (8.5-10.1) mg/dl Phosphorus (2.5-4.9) mg/dl Magnesium (1.7-2.4) mg/dl Giardia Antigen SEE NOTE (1) Diarrhea Diarrhea type: unspecified type Qualified Code(s): R19.7 - Diarrhea, unspecified
[2021-07-07] MEDS ORDERED: D5W IV SCH (16:00)
[2021-07-07] MEDS ORDERED: PERIPHERAL TPN IV SCH (16:00)
[2021-07-07] MEDS ORDERED: AMINO ACIDS 4.25% IV SCH (16:00)
--- NOTE | 2021-07-07 16:21 | Hospitalist Progress Note ---
Date of Service July 07, 2021 Assessment & Plan (1) Pancolitis: Plan: 80-year-old male with PMHx of prostate cancer s/p radiation therapy, HTN, HLD, HIV+ who presents with acute abdominal complaints 06/25. Pt is a poor historian and voice is very raspy. At times he seems to trail off with tangential thoughts and at other times he gets defensive when he is asked to clarify his answers with more specific questions. He is being managed for the following: (#) Pancolitis: #. 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 No evidence of bowel obstruction. 06/26 stool studies: Negative including C. difficile. Admitting blood culture negative ID evaluated the patient: Likely inflammatory colitis, recommendation to DC antibiotic. Repeat CTAP 06/30 after worsening belly complaints: Redemonstration of pancolitis. Mildly dilated gas-filled loops of large and small bowel, ileus versus developing toxic megacolon. 07/02 CTA abdomen pelvis: Pancolonic bowel wall thickening and extensive dilatation with increased vascular markings, origin of great vessels patent. 07/02 status post colonoscopy: Concerning for ischemic colitis, biopsy taken. Zosyn restarted 07/02. 07/02: Biopsy: Suggestive of ischemic colitis, nonocclusive. Patient continues to have bright red blood per rectum on and off. Belly pain/discomfort ongoing -> stable/improving Pt not eating much, c/w PPN 07/04 until patient able to eat/tolerate PO. Pt denies magic mouthwash Speech re-evaled Pt 07/07: lacking functional oral motor or swallow reflex abilities, hence PO intake compromised. B/w feeding tube vs palliative care option, he would like to go with feeding tube if possible. Monitor and replete electrolytes as appropriate. GI evaluated, treating empirically oral thrush with fluconazole course, plan to decide on PEG tube/further plan in 2 days. Surgery on board, appreciate recommendation. After discussion with speech 07/07 and d/t lack of motor ability (see above), pt NPO w/ ice/sips. #. Anemia Previously normal hemoglobin level Admitting hemoglobin 13.8 Hemoglobin dropping gradually, 10.0 today Likely secondary to GI blood loss secondary to pancolitis on the background of dilutional component. Protein elevated likely inflammatory, iron level low, vitamin B12 and folate WNL. Iron supplement. Monitor hemoglobin daily and as needed. (#) HIV (human immunodeficiency virus infection): Plan: -Patient on no medication, continue with home medication, ID evaluated, patient afebrile. -CD4 minimally low. Appreciate ID input and recommendation. -Follow-up with ID as an outpatient. (#) Heart disease: Plan: - Noted in external scanned files in [facility] - 06/26 Echo: Normal LV size, moderate concentric LVH, septal motion is consistent with conduction abnormality, no wall motion abnormalities, EF 55 to 60%, aortic valve leaflets are moderately calcified and restricted in mobility, moderate valvular aortic stenosis, moderate to heavy calcification of the posterior mitral valve annulus and leaflet and there is trace mitral regurgitation. - Continue asa and pravastatin 80 mg HS - hold lisinopril with appearing dehydrated. Resume when able. (#) Prostate cancer: Plan: -History of such in 2002, status post brachytherapy -Previously followed with Dr. Crowley, no recent PSA for review -Continue flomax and vesicare DVT PPx: - teds, scds, Lovenox on hold, Re-gi bleed. CODE:Full code Admission and Anticipated Discharge Date Admission Date: June 25, 2021 Subjective Patient seen and examined at bedside as a follow-up for pancolitis, diarrhea, HIV status. Patient is lying in bed, on room air, NAD, patient reports having improving belly pain. Patient still has bright red blood per rectum on and off. Per RN patient is not eating much and declines magic mouth wash. Pt on PPN. Very poor po intake. Patient denies any fever/chills/chest pain/palpitation/cough/other review of symptoms. Physical Exam Physical Exam: GENERAL: Alert and oriented x3. NAD, on RA. Ill appearing, average body habitus. HEENT: No pallor, no icterus. Pupils equal, round and reactive to light. Oral mucosa moist. NECK: No JVD, no neck masses. HEART: S1 and S2 heard. Regular rate and rhythm. + murmur at Pulmonic > ao rtic area, no gallop. RESPIRATORY SYSTEM: Normal AP diameter. No accessory muscle use. No wheezing, no crackles. ABDOMEN: Soft, bowel sounds present, + tender mostly lower quadrant, no distention. CENTRAL NERVOUS SYSTEM: No facial droop. Speech is clear. Obeys simple commands. Moves extremities. EXTREMITIES: 1-2+ edema, no erythema seen. Results & Data Results & Data ([facility]) Vital Signs (Past 12 Hours) Vital Signs Temp Pulse Pulse Resp BP BP Pulse Ox 07/07/21 15:41 36.3 C L 96 H 20 110/70 94 07/07/21 15:26 100 H 07/07/21 12:20 36.4 C L 114 H 18 107/76 92 07/07/21 09:37 100 H 07/07/21 07:41 36.6 C 96 H 18 124/76 97
[2021-07-07] MEDS: CLINOLIPID 20% IV FAT EMULSION 100 ML IV SCH ×2 (16:34→19:21)
[2021-07-07] MEDS: FLUCONAZOLE 200 MG/100 ML BAG IV SCH ×2 (18:34→19:26)
[2021-07-07] MEDS ORDERED: STOP CLINOLIPID ONE (21:00)
[2021-07-07] MEDS: [UNRECOGNIZED DRUG - REMARK] PO SCH ×2 (21:35→21:53)
[2021-07-07] MEDS: PRAVASTATIN SOD 40 MG TAB PO SCH ×2 (21:36)
[2021-07-07] MEDS: TAMSULOSIN HCL 0.4 MG CAP PO SCH ×2 (21:36)
[2021-07-08] MEDS: PIPERACILLIN/TAZOBACTAM 3.375 GM in DEXTROSE 5% 100 ML IV SCH ×3 (03:00→18:21)
[2021-07-08 07:36] LABS: Hematocrit (blood only) 32.3 % (42-52); Hemoglobin 10.4 g/dL (14.0-18.0)
[2021-07-08 08:08] LABS: BUN Creatinine Ratio 26.9 (10-20); Calcium 7.8 mg/dl (8.5-10.1); Creatinine Clr Calc Pharmacy 70.3 ml/min; Est GFR (African American) 99.5 ml/min; Est GFR (Non-African American) 85.9 ml/min; Magnesium 2.2 mg/dl (1.7-2.4); Phosphorus 3.4 mg/dl (2.5-4.9); Potassium 3.8 mmol/L (3.5-5.1)
[2021-07-08] MEDS: TOCOPHERYL, DL-ALPHA 400 UNITS 180 MG CAP PO SCH (08:42)
[2021-07-08] MEDS: FERROUS GLUCONATE 324 MG TAB PO SCH (08:42)
[2021-07-08] MEDS: ASPIRIN 81 MG ECTAB PO SCH (08:42)
[2021-07-08] MEDS: CEROVITE ADV FORMULA TAB PO SCH (08:42)
[2021-07-08] MEDS: ASCORBIC ACID 500 MG TAB PO SCH (08:42)
[2021-07-08] MEDS ORDERED: STAT IV STA (08:46)
[2021-07-08] MEDS ORDERED: CALCIUM GLUCONATE 10% 2,000 MG in DEXTROSE 5% 50 ML IV ONE (09:10)
[2021-07-08] MEDS: HEPARIN SOD 5,000 UNIT/0.5 ML VIAL SQ SCH ×2 (09:18→22:51)
[2021-07-08] MEDS: FUROSEMIDE INJ 20 MG/2 ML VIAL IV SCH (09:18)
[2021-07-08] MEDS: FIRST - Mouthwash BLM 119 ML PO SCH ×2 (09:19→21:58)
--- NOTE | 2021-07-08 09:22 | Communication Note ---
Date of Service: July 08, 2021 Pt was seen and evaluated, chart reviewed. He notes today he feels stronger, more comfort and has less pain and difficulty swallowing. Continue with empiric therapy with Diflucan for 14 days. If no improvement in 48 hours, would consider EGD at that time. PEG placement is not without infectious risk given his low CD4 count.Thank you for allowing us to participate in the care of this patient. Please call with any acute changes, questions or concerns. Please see addendum below with additional recommendation from my supervising physician. Recall GI as needed.
[2021-07-08] MEDS: ADVANCED PROBIOTIC 1250 MG CAPSULE PO SCH (10:24)
[2021-07-08] MEDS: FLUCONAZOLE 200 MG/100 ML BAG IV SCH (12:15)
--- NOTE | 2021-07-08 15:50 | Hospitalist Progress Note ---
Date of Service July 08, 2021 Assessment & Plan (1) Pancolitis: Plan: 80-year-old male with PMHx of prostate cancer s/p radiation therapy, HTN, HLD, HIV+ who presents with acute abdominal complaints 06/25. Pt is a poor historian and voice is very raspy. At times he seems to trail off with tangential thoughts and at other times he gets defensive when he is asked to clarify his answers with more specific questions. He is being managed for the following: (#) Pancolitis: #. 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 No evidence of bowel obstruction. 06/26 stool studies: Negative including C. difficile. Admitting blood culture negative ID evaluated the patient: Likely inflammatory colitis, recommendation to DC antibiotic. Repeat CTAP 06/30 after worsening belly complaints: Redemonstration of pancolitis. Mildly dilated gas-filled loops of large and small bowel, ileus versus developing toxic megacolon. 07/02 CTA abdomen pelvis: Pancolonic bowel wall thickening and extensive dilatation with increased vascular markings, origin of great vessels patent. 07/02 status post colonoscopy: Concerning for ischemic colitis, biopsy taken. Zosyn restarted 07/02. 07/02: Biopsy: Suggestive of ischemic colitis, nonocclusive. Patient continues to have bright red blood per rectum on and off. Belly pain/discomfort ongoing -> improving Pt not eating much, c/w PPN 07/04 until patient able to eat/tolerate PO. Speech re-evaled Pt 07/07: lacking functional oral motor or swallow reflex abilities, hence PO intake compromised. B/w feeding tube vs palliative care option, he would like to go with feeding tube if possible. Monitor and replete electrolytes as appropriate. GI evaluated again 07/07, treating empirically oral thrush with fluconazole course, further plan if patient with no PO intake in 1-2 days. Surgery on board, appreciate recommendation. Pt feels more better today, will put in full liq diet and see how he improves. #. Anemia Previously normal hemoglobin level Admitting hemoglobin 13.8 Hb stable around 10 Likely secondary to GI blood loss secondary to pancolitis on the background of dilutional component. Protein elevated likely inflammatory, iron level low, vitamin B12 and folate WNL. Iron supplement. Monitor hemoglobin daily and as needed. (#) HIV (human immunodeficiency virus infection): Plan: -Patient on no medication, continue with home medication, ID evaluated, patient afebrile. -CD4 minimally low. Appreciate ID input and recommendation. -Follow-up with ID as an outpatient. (#) Heart disease: Plan: - Noted in external scanned files in [facility] - 06/26 Echo: Normal LV size, moderate concentric LVH, septal motion is consistent with conduction abnormality, no wall motion abnormalities, EF 55 to 60%, aortic valve leaflets are moderately calcified and restricted in mobility, moderate valvular aortic stenosis, moderate to heavy calcification of the posterior mitral valve annulus and leaflet and there is trace mitral regurgitation. - Continue asa and pravastatin 80 mg HS - hold lisinopril with appearing dehydrated. Resume when able. (#) Prostate cancer: Plan: -History of such in 2002, status post brachytherapy -Previously followed with Dr. Crowley, no recent PSA for review -Continue flomax and vesicare DVT PPx: - teds, scds, Lovenox on hold, Re-gi bleed. CODE:Full code Admission and Anticipated Discharge Date Admission Date: June 25, 2021 Subjective Patient seen and examined at bedside as a follow-up for pancolitis, diarrhea, HIV status. Patient is lying in bed, on room air, NAD, patient reports improved belly pain, some tenderness on palpation. Patient still has bright red blood per rectum on and off. Pt on PPN. Very poor po intake. Pt feels better today. Patient denies any fever/chills/chest pain/palpitation/cough/other review of symptoms. Physical Exam Physical Exam: GENERAL: Alert and oriented x3. NAD, on RA. Ill appearing, average body habitus. HEENT: No pallor, no icterus. Pupils equal, round and reactive to light. Oral mucosa moist. NECK: No JVD, no neck masses. HEART: S1 and S2 heard. Regular rate and rhythm. + murmur at Pulmonic > aortic area, no gallop. RESPIRATORY SYSTEM: Normal AP diameter. No accessory muscle use. No wheezing, no crackles. ABDOMEN: Soft, bowel sounds present, + tender mostly lower quadrant, no distention. CENTRAL NERVOUS SYSTEM: No facial droop. Speech is clear. Obeys simple commands. Moves extremities. EXTREMITIES: 1+ BLE edema, no erythema seen. Results & Data Results & Data ([facility]) Vital Signs (Past 12 Hours) Vital Signs Temp Pulse Pulse Resp BP BP Pulse Ox 07/08/21 15:01 36.8 C 96 H 18 124/76 95 07/08/21 11:40 36.6 C 89 16 137/78 97 07/08/21 10:04 88 07/08/21 07:34 36.5 C 90 18 116/76 94 07/08/21 04:00 37.1 C 101 H 18 108/71 93
[2021-07-08] MEDS ORDERED: D5W IV SCH (16:00)
[2021-07-08] MEDS ORDERED: PERIPHERAL TPN IV SCH (16:00)
[2021-07-08] MEDS ORDERED: AMINO ACIDS 4.25% IV SCH (16:00)
[2021-07-08] MEDS: CLINOLIPID 20% IV FAT EMULSION 100 ML IV SCH ×2 (16:35→19:31)
[2021-07-08] MEDS ORDERED: STOP CLINOLIPID ONE (21:00)
[2021-07-08] MEDS ORDERED: LOPERAMIDE LIQUID 120 ML BOTTLE PO STA (21:06)
[2021-07-08] MEDS: TAMSULOSIN HCL 0.4 MG CAP PO SCH (21:58)
[2021-07-08] MEDS: PRAVASTATIN SOD 40 MG TAB PO SCH (21:58)
[2021-07-08] MEDS: [UNRECOGNIZED DRUG - REMARK] PO SCH (21:58)
[2021-07-09] MEDS: PIPERACILLIN/TAZOBACTAM 3.375 GM in DEXTROSE 5% 100 ML IV SCH ×3 (02:24→19:57)
[2021-07-09 08:12] LABS: Hematocrit (blood only) 27.2 % (42-52); Hemoglobin 8.9 g/dL (14.0-18.0); Mean Corpuscular Hgb Conc 32.7 g/dL (32-36); Mean Corpuscular Volume 103.8 fL (80-100); Mean Platelet Volume 9.6 fL (7.4-10.4); Platelet Count 258 K/uL (130-400); RDW Coefficient of Variation 13.5 % (11.5-14.5); RDW Standard Deviation 50.9 fL (36.4-46.3); Red Blood Count 2.62 M/uL (4.7-6.1)
[2021-07-09] MEDS ORDERED: STAT IV STA (08:35)
[2021-07-09 08:44] LABS: BUN Creatinine Ratio 34.2 (10-20); Calcium 7.6 mg/dl (8.5-10.1); Creatinine Clr Calc Pharmacy 63.5 ml/min; Est GFR (Non-African American) 85.4 ml/min; Phosphorus 3.5 mg/dl (2.5-4.9); Potassium 3.5 mmol/L (3.5-5.1)
[2021-07-09] MEDS ORDERED: CALCIUM GLUCONATE 10% 2,000 MG in DEXTROSE 5% 50 ML IV ONE (08:45)
[2021-07-09] MEDS: ASCORBIC ACID 500 MG TAB PO SCH (09:23)
[2021-07-09] MEDS: ASPIRIN 81 MG ECTAB PO SCH (09:23)
[2021-07-09] MEDS: TOCOPHERYL, DL-ALPHA 400 UNITS 180 MG CAP PO SCH (09:23)
[2021-07-09] MEDS: CHOLECALCIFEROL 1,000 UNITS 25 MCG TAB PO SCH (09:23)
[2021-07-09] MEDS: FERROUS GLUCONATE 324 MG TAB PO SCH (09:24)
[2021-07-09] MEDS: ADVANCED PROBIOTIC 1250 MG CAPSULE PO SCH (09:25)
[2021-07-09] MEDS: HEPARIN SOD 5,000 UNIT/0.5 ML VIAL SQ SCH ×2 (09:25→19:56)
[2021-07-09] MEDS: FIRST - Mouthwash BLM 119 ML PO SCH ×2 (09:25→19:56)
[2021-07-09] MEDS: CEROVITE ADV FORMULA TAB PO SCH (09:25)
[2021-07-09] MEDS: FUROSEMIDE INJ 20 MG/2 ML VIAL IV SCH (09:34)
[2021-07-09] MEDS: FLUCONAZOLE 200 MG/100 ML BAG IV SCH (09:35)
[2021-07-09] MEDS ORDERED: AMINO ACIDS 4.25% IV SCH (16:00)
[2021-07-09] MEDS ORDERED: PERIPHERAL TPN IV SCH (16:00)
[2021-07-09] MEDS ORDERED: D5W IV SCH (16:00)
--- NOTE | 2021-07-09 16:51 | Hospitalist Progress Note ---
Date of Service July 09, 2021 Assessment & Plan (1) Pancolitis: Plan: 80-year-old male with PMHx of prostate cancer s/p radiation therapy, HTN, HLD, HIV+ who presents with acute abdominal complaints 06/25. Pt is a poor historian and voice is very raspy. At times he seems to trail off with tangential thoughts and at other times he gets defensive when he is asked to clarify his answers with more specific questions. He is being managed for the following: (#) Pancolitis: #. 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 No evidence of bowel obstruction. 06/26 stool studies: Negative including C. difficile. Admitting blood culture negative ID evaluated the patient: Likely inflammatory colitis, recommendation to DC antibiotic. Repeat CTAP 06/30 after worsening belly complaints: Redemonstration of pancolitis. Mildly dilated gas-filled loops of large and small bowel, ileus versus developing toxic megacolon. 07/02 CTA abdomen pelvis: Pancolonic bowel wall thickening and extensive dilatation with increased vascular markings, origin of great vessels patent. 07/02 status post colonoscopy: Concerning for ischemic colitis, biopsy taken. Zosyn restarted 07/02. 07/02: Biopsy: Suggestive of ischemic colitis, nonocclusive. Patient continues to have bright red blood per rectum on and off. Belly pain/discomfort ongoing, not better today Pt not eating much, c/w PPN 07/04 until patient able to eat/tolerate PO. Speech re-evaled Pt 07/07: lacking functional oral motor or swallow reflex abilities, hence PO intake compromised. B/w feeding tube vs palliative care option, he would like to go with feeding tube if possible. Monitor and replete electrolytes as appropriate. GI evaluated again 07/07, treating empirically oral thrush with fluconazole course, Reached out to GI 07/09 as it is day 3 of fluconazole Rx, likely GI will eval him da. Awaiting further plans including PEG tube decision which will help determine whether to do PICC line for TPN or not. Pt agreeable to PICC line if needed. Surgery evaluated, appreciate recommendation. Pt not able to swallow food per RN and has increased bloody BM today. #. Anemia Previously normal hemoglobin level Admitting hemoglobin 13.8 Likely secondary to GI blood loss secondary to pancolitis on the background of dilutional component. Ferritin elevated likely inflammatory, iron level low, vitamin B12 and folate WNL. Iron supplement. Hb gradually dropping. Monitor hemoglobin daily and as needed. (#) HIV (human immunodeficiency virus infection): Plan: -Patient on no medication, continue with home medication, ID evaluated, patient afebrile. -CD4 minimally low. Appreciate ID input and recommendation. -Follow-up with ID as an outpatient. (#) Heart disease: Plan: - [facility] Echo: Normal LV size, moderate concentric LVH, septal motion is consistent with conduction abnormality, no wall motion abnormalities, EF 55 to 60%, aortic valve leaflets are moderately calcified and restricted in mobility, moderate valvular aortic stenosis, moderate to heavy calcification of the posterior mitral valve annulus and leaflet and there is trace mitral regurgitation. - Continue asa and pravastatin 80 mg HS - hold lisinopril. Resume when able. (#) Prostate cancer: Plan: -History of such in 2002, status post brachytherapy -Previously followed with Dr. Crowley, no recent PSA for review -Continue flomax and vesicare DVT PPx: - teds, scds, Lovenox on hold, Re-gi bleed. CODE:Full code 07/09: Updated Pt's caregiver at bedside, answered all his questions. Admission and Anticipated Discharge Date Admission Date: June 25, 2021 Subjective Patient seen and examined at bedside as a follow-up for pancolitis, diarrhea, HIV status. Patient is lying in bed, on room air, NAD, patient reports improved belly pain but increased bloody BM today, some tenderness on palpation. Per RN, bloody BM increased today, pt not able to eat. Pt on PPN. Very poor po intake. Patient denies any fever/chills/chest pain/palpitation/cough/other review of symptoms. Physical Exam Physical Exam: GENERAL: Alert and oriented x3. NAD, on RA. Ill appearing, average body habitus. HEENT: No pallor, no icterus. Pupils equal, round and reactive to light. Oral mucosa moist. NECK: No JVD, no neck masses. HEART: S1 and S2 heard. Regular rate and rhythm. + murmur at Pulmonic > aortic area, no gallop. RESPIRATORY SYSTEM: Normal AP diameter. No accessory muscle use. No wheezing, no crackles. ABDOMEN: Soft, bowel sounds present, + tender diffuse, no distention. CENTRAL NERVOUS SYSTEM: No facial droop. Speech is clear. Obeys simple commands. Moves extremities. EXTREMITIES: 1+ BLE edema, no erythema seen. Results & Data Results & Data ([facility]) Vital Signs (Past 12 Hours) Vital Signs Temp Pulse Pulse Resp BP BP Pulse Ox 07/09/21 15:53 35.8 C L 97 H 18 114/63 95 07/09/21 11:49 36.6 C 116 H 18 99/68 L 96 07/09/21 07:39 103 H 07/09/21 06:45 37.2 C 97 H 18 100/62 96
[2021-07-09] MEDS: CLINOLIPID 20% IV FAT EMULSION 100 ML IV SCH ×2 (17:03→19:54)
[2021-07-09] MEDS ORDERED: STOP CLINOLIPID ONE (21:00)
[2021-07-09] MEDS: [UNRECOGNIZED DRUG - REMARK] PO SCH (22:16)
[2021-07-09] MEDS: PRAVASTATIN SOD 40 MG TAB PO SCH (22:17)
[2021-07-09] MEDS: TAMSULOSIN HCL 0.4 MG CAP PO SCH (22:17)
[2021-07-10] MEDS: PIPERACILLIN/TAZOBACTAM 3.375 GM in DEXTROSE 5% 100 ML IV SCH ×3 (03:02→21:14)
[2021-07-10 07:00] LABS: Hematocrit (blood only) 26.4 % (42-52); Hemoglobin 8.5 g/dL (14.0-18.0)
[2021-07-10 07:48] LABS: Magnesium 1.9 mg/dl (1.7-2.4); Phosphorus 3.2 mg/dl (2.5-4.9); Potassium 3.2 mmol/L (3.5-5.1)
--- NOTE | 2021-07-10 08:36 | Communication Note ---
Date of Service: July 10, 2021 GI asked to re-evaluate. Persistent issues with tolerating PO intake. 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 NPO for EGD this AM.
[2021-07-10] MEDS ORDERED: CALCIUM GLUCONATE 10% 1,000 MG in DEXTROSE 5% 50 ML IV ONE (08:42)
[2021-07-10] MEDS ORDERED: STAT IV STA (08:42)
[2021-07-10] MEDS: HEPARIN SOD 5,000 UNIT/0.5 ML VIAL SQ SCH ×2 (08:46→21:14)
[2021-07-10] MEDS: ASCORBIC ACID 500 MG TAB PO SCH (08:55)
[2021-07-10] MEDS: ASPIRIN 81 MG ECTAB PO SCH (08:56)
[2021-07-10] MEDS: FERROUS GLUCONATE 324 MG TAB PO SCH (08:56)
[2021-07-10] MEDS: TOCOPHERYL, DL-ALPHA 400 UNITS 180 MG CAP PO SCH (08:56)
[2021-07-10] MEDS: CEROVITE ADV FORMULA TAB PO SCH (08:57)
[2021-07-10] MEDS: ADVANCED PROBIOTIC 1250 MG CAPSULE PO SCH (08:57)
[2021-07-10] MEDS: FIRST - Mouthwash BLM 119 ML PO SCH ×2 (08:57→21:15)
[2021-07-10] MEDS: FLUCONAZOLE 200 MG/100 ML BAG IV SCH (09:20)
[2021-07-10] MEDS: POTASSIUM CHLORIDE / WTR 10 MEQ/100 ML PLCT IV SCH ×3 (09:26→14:47)
[2021-07-10 10:06] LABS: BUN Creatinine Ratio 35.1 (10-20); Calcium 7.6 mg/dl (8.5-10.1); Creatinine Clr Calc Pharmacy 63.5 ml/min; Est GFR (Non-African American) 86.3 ml/min; Potassium 3.4 mmol/L (3.5-5.1)
--- NOTE | 2021-07-10 10:30 | Anesthesiology Consultation ---
Date of Service July 10, 2021 Assessment & Plan (1) Encounter for pre-operative examination: Chart Review Chart Review: Acceptable Risk for Surgery and Patient NOT seen in Pre Admission Testing Consults Requested none History Surgery Operation Date: 07/02/21 16:45 Proposed Procedures p Colonoscopy Dr Maribel López, Operation Date: 07/10/21 17:15 Proposed Procedures p Esophagogastroduodenoscopy Dr Sanya Segundo, DO Height/Weight Height: 5 ft 7 in Weight: 57.7 kg Allergies Allergy/AdvReac Type Severity Reaction Status Date / Time ritonavir [From Norvir] Allergy Unknown Rash Verified 07/10/21 10:28 Medications Home Medications Medication Instructions Recorded Confirmed Last Taken solifenacin 10 mg tablet 10 mg PO DAILY #90 tab 11/18/20 06/25/21 Unknown abacavir 600 mg-dolutegravir 50 1 tab PO HS 06/25/21 06/25/21 Unknown mg-lamivudine 300 mg tablet ascorbic acid (vitamin C) 1,000 mg 1,000 mg PO DAILY 06/25/21 06/25/21 Unknown tablet,extended release (Vitamin C ER) aspirin 81 mg tablet,delayed 81 mg PO DAILY 06/25/21 06/25/21 Unknown release (Aspirin Low Dose) cholecalciferol (vitamin D3) 25 25 mcg PO Q OTHER DAY 06/25/21 06/25/21 Unknown mcg (1,000 unit) tablet (Vitamin D3) famotidine 20 mg tablet (Pepcid) 20 mg PO DAILY PRN 06/25/21 06/25/21 Unknown lisinopril 5 mg tablet 5 mg PO DAILY 06/25/21 06/25/21 Unknown fkqqnwkvvkoi-ttyjjmaw-ejfzin tablet 1 tab PO DAILY 06/25/21 06/25/21 Unknown pravastatin 80 mg tablet 80 mg PO HS 06/25/21 06/25/21 Unknown tamsulosin 0.4 mg capsule 0.4 mg PO HS 06/25/21 06/25/21 Unknown vitamin E 400 unit tablet 400 unit PO DAILY 06/25/21 06/25/21 Unknown Active Medications Generic Name Dose Route Start Last Admin Trade Name Freq PRN Reason Stop Dose Admin Acetaminophen 650 mg 06/26/21 02:58 06/30/21 21:57 Acetaminophen 325 Mg Tab PO 07/26/21 02:57 650 mg Q4H PRN Administration Pain or Fever Ascorbic Acid 1,000 mg 06/26/21 09:00 07/10/21 08:55 Ascorbic Acid 500 Mg Tab PO 07/26/21 08:59 Not Given DAILY ARMIDA Aspirin 81 mg 06/26/21 09:00 07/10/21 08:56 Aspirin 81 Mg Ectab PO 07/26/21 08:59 Not Given DAILY ARMIDA Famotidine 20 mg 06/25/21 21:23 07/07/21 10:02 Famotidine 20 Mg Tab PO 07/25/21 21:22 20 mg DAILY PRN Administration gerd Ferrous Gluconate 324 mg 07/03/21 09:00 07/10/21 08:56 Ferrous Gluconate 324 Mg Tab PO 08/02/21 08:59 Not Given QAM [facility] Heparin Sodium (Porcine) 5,000 units 07/03/21 21:00 07/10/21 08:46 Heparin Sod 5,000 Unit/0.5 Ml Vial SQ 08/02/21 20:59 5,000 units Q12 ARMIDA Administration Piperacillin Sod/Tazobactam 115 mls @ 28.75 mls/hr 07/02/21 19:00 07/10/21 07:35 Sod 3.375 gm/ Dextrose IV 07/12/21 18:59 Infused Q8H [facility] Infusion Protocol Fluconazole 200 mg in 100 mls @ 100 mls/hr 07/08/21 12:00 07/10/21 10:06 Diflucan IV 07/21/21 09:59 0 mls/hr DAILY [facility] Infusion Protocol Amino Acids 1,612 ml/ 1,612 mls @ 67.167 mls/hr 07/09/21 16:00 07/09/21 17:03 Nutrition (Parenteral) IV 07/10/21 15:59 67.2 mls/hr .Q24H ARMIDA Administration Protocol Potassium Chloride 10 meq in 100 mls @ 100 mls/hr 07/10/21 09:00 07/10/21 10:06 K Tristan / Wtr IV 07/10/21 11:59 0 mls/hr Q1H [facility] Infusion Protocol Lactobacillus Acidophilus 2 cap 07/08/21 09:00 07/10/21 08:57 Advanced Probiotic 1250 Mg Capsule PO 08/07/21 08:59 Not Given DAILY [facility] Multi-Ingredient Mouthwash/Gargle 5 ml 03/11/22 12:15 07/10/21 08:57 First - Mouthwash Blm 119 Ml PO 08/02/21 12:14 Not Given BID [facility] Multivitamins/Minerals 1 tab 06/26/21 09:00 07/10/21 08:57 Cerovite Adv Formula Tab PO 07/26/21 08:59 Not Given DAILY [facility] Abacavir- 1 ea 06/27/21 21:00 07/09/21 22:16 Dolutegravir- PO 07/27/21 20:59 Not Given Lamivudine*Non-Form HS [facility] Patient's Own Med Ondansetron HCl 4 mg 06/27/21 00:56 07/03/21 18:10 Ondansetron Inj 2 Mg/Ml 2 Ml Vial IV 07/27/21 00:55 4 mg Q6H PRN Administration Nausea And Vomiting Pravastatin Sodium 80 mg 06/25/21 21:23 07/09/21 22:17 Pravastatin Sod 40 Mg Tab PO 07/25/21 21:22 Not Given HS [facility] Tamsulosin HCl 0.4 mg 06/25/21 21:23 07/09/21 22:17 Tamsulosin Hcl 0.4 Mg Cap PO 07/25/21 21:22 Not Given HS [facility] Vitamin D 1,000 units 06/27/21 09:00 07/09/21 09:23 Cholecalciferol 1,000 Units 25 Mcg Tab PO 07/27/21 08:59 Not Given Q2D@0900 [facility] Vitamin E 400 units 06/26/21 09:00 07/10/21 08:56 Tocopheryl, Dl-Alpha 400 Units 180 Mg Cap PO 07/26/21 08:59 Not Given DAILY [facility] NPO Last Intake of Solids Comment: per patient 3 weeks ago Past Medical History Medical History (Updated 07/10/21 @ 10:28 by Carlitos Carrasco MD) Alcohol abuse Human immunodeficiency virus (HIV) disease Hypertension Osteoarthritis Osteoporosis Rectal bleed Past Family History Family History Father Cancer Grandmother (Maternal) Cancer Mother Cancer Other Heart disease Hypertension Past Surgical History Surgical History (Updated 07/10/21 @ 10:29 by Carlitos Carrasco MD) H/O colonoscopy 07/02/2021. Tolerated propofol sedation. Past Anesthesia History No Hx of Anesthesia Complications History of PONV No Hx of PONV and No Hx of Motion Sickness Social History Smoking Status: Never smoker Hx Alcohol Use: Yes Alcohol type: beer alcohol intake frequency: a few times a month Hx Substance Use: No Physical Exam Vital Signs Last Vital Signs Temp 36.2 C L 07/10/21 07:28 Pulse 104 H 07/10/21 07:47 Resp 14 07/10/21 07:28 BP 115/77 07/10/21 07:28 Pulse Ox 94 07/10/21 07:28 Testing Laboratory Results 07/10/21 06:27 07/10/21 06:27 Hemoglobin A1c 5.6 % (4.5-5.6) 06/26/21 05:04 Urine Color Yellow 06/25/21 15:39 Urine Appearance Clear (Clear) 06/25/21 15:39 Urine pH 5.0 (4.5-7.5) 06/25/21 15:39 Ur Specific [place] 1.026 (1.000-1.030) 06/25/21 15:39 Urine Protein 2+ (Negative) H 06/25/21 15:39 Urine Glucose (UA) Negative (Negative) 06/25/21 15:39 Urine Ketones 1+ (Negative) H 06/25/21 15:39 Urine Nitrite Negative (Negative) 06/25/21 15:39 Ur Leukocyte Esterase Negative (Negative) 06/25/21 15:39 Urine WBC (Auto) 1-5 /hpf (0-5) 06/25/21 15:39 Urine RBC (Auto) 0-4 /hpf (0-4) 06/25/21 15:39 U Hyaline Cast (Auto) 0 /lpf (0-5) 06/25/21 15:39 U Epithel Cells (Auto) >30 /lpf (0-5) H 06/25/21 15:39 Urine Bacteria (Auto) Negative (Negative) 06/25/21 15:39 Blood Type A Negative 07/03/21 02:02 Antibody Screen NEGATIVE 07/03/21 02:02 06/25/21 17:27 Aerobic Blood Culture - Final Blood No growth in Aerobic bottle after 5 days. Anaerobic Blood Culture - Final No growth in Anaerobic bottle after 5 days. 06/25/21 17:27 Aerobic Blood Culture - Final Blood No growth in Aerobic bottle after 5 days. Anaerobic Blood Culture - Final No growth in Anaerobic bottle after 5 days. 06/25/21 15:39 Urine Culture - Final Urine,Clean Catch More than three types of organisms present, all high counts mixed probable skin parker - No further identifications or sensitivities to follow. 07/10/21 07/09/21 06:09 23:56 POC Glucose 127 H 139 H Electrocardiogram Date: 06/26/21 Findings: + NSR @ (80 with PVCs) and + RBBB Echocardiogram Date: 06/26/21 EF: 55-60% LV Function: normal RWMA: + none Valvular Disease: + (Moderate) and + MR (Trace)
--- NOTE | 2021-07-10 10:37 | History & Physical Bridge Note ---
Date of Service July 10, 2021 History & Physical Bridge Note I have examined the patient, reviewed the History & Physical and in the interval since the performance of the History & Physical I have noted the following changes of clinical significance: no changes noted. The patient has a history of HIV with low CD4 count complicated by oral ulcers and difficulty with swallowing. We are planning to do upper endoscopy today for further evaluation as the patient's symptoms are refractory to an empiric course of antifungal medication. I have discussed the risks and benefits of the upper endoscopy with the patient to include bleeding, infection, perforation and need for follow-up studies. It may be prudent to consider an infectious disease consultation if not already obtained.
[2021-07-10] MEDS ORDERED: BENZOCAINE/TETRACAIN/BUTAM 50 APPLN/5 GM CAN EXT ONE (11:13)
[2021-07-10] MEDS ORDERED: LIDOCAINE 2% 2 ML VIAL/AMP(20MG/ML) INFIL ONE (11:13)
[2021-07-10] MEDS ORDERED: PROPOFOL IV EMULSION 10 MG/ML 20 ML VIAL IV ONE (11:13)
[2021-07-10] MEDS ORDERED: PHENYLEPHRINE 100MCG/ML 5ML SYR ONE (11:39)
--- NOTE | 2021-07-10 11:47 | GI REPORT ---
Patient Name: Bertram Childress Procedure Date: 07/10/2021 11:28 AM Date of : 1940 Admit Type: Inpatient Age: 81 Gender: Male Attending MD: Carlton Segundo DO Procedure: Upper GI endoscopy Providers: Carlton Segundo DO Referring MD: Pancho Domingo Md Indications: Dysphagia Medicines: Monitored Anesthesia Care Complications: No immediate complications. Estimated blood loss: Minimal. Estimated Blood Loss: Estimated blood loss was minimal. Procedure: Pre-Anesthesia Assessment: - Prior to the procedure, a History and Physical was performed, and patient medications, allergies and sensitivities were reviewed. The patient's tolerance of previous anesthesia was reviewed. - The risks and benefits of the procedure and the sedation options and risks were discussed with the patient. All questions were answered and informed consent was obtained. - Patient identification and proposed procedure were verified prior to the procedure by the physician, the nurse and the facilities director. The procedure was verified in the procedure room. - Pre-procedure physical examination revealed no contraindications to sedation. - ASA Grade Assessment: III - A patient with severe systemic disease. - After reviewing the risks and benefits, the patient was deemed in satisfactory condition to undergo the procedure. - The anesthesia plan was to use monitored anesthesia care (MAC). - Immediately prior to administration of medications, the patient was re-assessed for adequacy to receive sedatives. - The heart rate, respiratory rate, oxygen saturations, blood pressure, adequacy of pulmonary ventilation, and response to care were monitored throughout the procedure. - The physical status of the patient was re-assessed after the procedure. After obtaining informed consent, the endoscope was passed under direct vision. Throughout the procedure, the patient's blood pressure, pulse, and oxygen saturations were monitored continuously. The Scope was introduced through the mouth, and advanced to the third part of duodenum. The upper GI endoscopy was accomplished without difficulty. The patient tolerated the procedure well. Findings: The esophagus and gastroesophageal junction were examined with white light. 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 These changes involved the mucosa at the upper extent of the gastric folds (34 cm from the incisors) extending to the Z-line (22 cm from the incisors). Circumferential salmon-colored mucosa was present from 22 to 34 cm. The maximum longitudinal extent of these esophageal mucosal changes was 12 cm in length. Mucosa was biopsied with a cold forceps for histology. A total of 7 specimen bottles were sent to pathology. The pathology specimen was placed into Bottle A. Estimated blood loss was minimal. A small hiatal hernia was found. The proximal extent of the gastric folds (end of tubular esophagus) was 36 cm from the incisors. The hiatal narrowing was 34 cm from the incisors. The gastric fundus, gastric body, incisura and gastric antrum were normal. The examined duodenum was normal. Erythema and hyperkeritosis with thick mucous was found diffusely, throughout the oropharynx. 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 Biopsied. - Small hiatal hernia. - Normal gastric fundus, gastric body, incisura and antrum. - Normal examined duodenum. Recommendation: - Return patient to hospital [facility] for ongoing care. - Full liquid diet. - Await pathology results. - Consider a ENT consult for evaluation of the patient oropharynx. Carlton Segundo D.O. Carlton Segundo, 07/10/2021 11:46:46 AM This report has been signed electronically. Note Initiated On: 07/10/2021 11:28 AM Number of Addenda: 0 I attest to the content of the Intraoperative Record and orders documented therein, exceptions below {[id number]}
--- NOTE | 2021-07-10 13:27 | Anesthesiology Progress Note ---
Date of Service July 10, 2021 Anesthesia Post Procedure Vital Signs Vital Signs: Temp Pulse Pulse Pulse Resp BP BP 07/10/21 12:00 86 14 80/49 L 07/10/21 11:45 36.2 C L 96 H 12 100/61 07/10/21 10:28 36.7 C 100 H 18 121/71 07/10/21 07:47 104 H 07/10/21 07:28 36.2 C L 84 14 115/77 07/10/21 06:38 36.9 C 100 H 16 107/69 07/10/21 03:08 37 C 91 H 16 107/71 07/09/21 23:23 37.1 C 68 18 146/71 H 07/09/21 22:17 98 H 07/09/21 19:08 36.1 C L 99 H 18 119/67 07/09/21 17:12 98 H 07/09/21 15:53 35.8 C L 97 H 18 114/63 Pulse Ox 07/10/21 12:00 97 07/10/21 11:45 96 07/10/21 10:28 96 07/10/21 07:47 07/10/21 07:28 94 07/10/21 06:38 95 07/10/21 03:08 95 07/09/21 23:23 92 07/09/21 22:17 07/09/21 19:08 97 07/09/21 17:12 07/09/21 15:53 95 Transfer of Care Handoff Completed per policy Notes Mental Status: alert / awake / arousable and participated in evaluation Patient Amnestic to Procedure: Yes Nausea / Vomiting: adequately controlled Pain: adequately controlled Airway Patency, RR, SpO2: stable & adequate BP & HR: stable & adequate Hydration State: stable & adequate Anesthetic Complications: no major complications apparent and Pt Satisfied with anesthetic care
--- NOTE | 2021-07-10 13:52 | Communication Note ---
Date of Service: July 10, 2021 The patient had evidence of long segment Nguyen's esophagus during today's upper endoscopy. Biopsies were taken from the segment and pathology is pending. The patient has irritation, hyperkeratosis and ulceration of his oropharynx. This is likely the cause of his symptoms and perhaps he would from an ENT evaluation Recommendations Await pathology results Daily use of a proton pump inhibitor Consider ENT referral
[2021-07-10] MEDS: CLINOLIPID 20% IV FAT EMULSION 100 ML IV SCH ×2 (15:58→18:30)
[2021-07-10] MEDS ORDERED: D5W IV SCH (16:00)
[2021-07-10] MEDS ORDERED: AMINO ACIDS 4.25% IV SCH (16:00)
[2021-07-10] MEDS ORDERED: PERIPHERAL TPN IV SCH (16:00)
--- NOTE | 2021-07-10 17:30 | Hospitalist Progress Note ---
Date of Service July 10, 2021 Assessment & Plan (1) Pancolitis: Plan: 80-year-old male with PMHx of prostate cancer s/p radiation therapy, HTN, HLD, HIV+ who presents with acute abdominal complaints 06/25. Pt is a poor historian and voice is very raspy. At times he seems to trail off with tangential thoughts and at other times he gets defensive when he is asked to clarify his answers with more specific questions. He is being managed for the following: (#) Pancolitis: #. 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 No evidence of bowel obstruction. 06/26 stool studies: Negative including C. difficile. Admitting blood culture negative ID evaluated the patient: Likely inflammatory colitis, recommendation to DC antibiotic. Repeat CTAP 06/30 after worsening belly complaints: Redemonstration of pancolitis. Mildly dilated gas-filled loops of large and small bowel, ileus versus developing toxic megacolon. 07/02 CTA abdomen pelvis: Pancolonic bowel wall thickening and extensive dilatation with increased vascular markings, origin of great vessels patent. 07/02 status post colonoscopy: Concerning for ischemic colitis, biopsy taken. Zosyn restarted 07/02. 07/02: Biopsy: Suggestive of ischemic colitis, nonocclusive. 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 07/10 esophagus biopsy: await results Patient continues to have bright red blood per rectum on and off. Belly pain/discomfort ongoing, better today Pt not eating much, c/w PPN 07/04 --> PICC line 07/10 --> 07/10 TPN. Speech re-evaled Pt 07/07: lacking functional oral motor or swallow reflex abilities, hence PO intake compromised. B/w feeding tube vs palliative care option, he would like to go with feeding tube if possible. Monitor and replete electrolytes as appropriate. GI evaluated again 07/07, treating empirically oral thrush with fluconazole course. Scoped 07/10, recommends ENT eval Surgery evaluated, appreciate recommendation. Will reach out ENT tomorrow PPI BID for Nguyen's esophagus #. Anemia Previously normal hemoglobin level Admitting hemoglobin 13.8 Likely secondary to GI blood loss secondary to pancolitis on the background of dilutional component. Ferritin elevated likely inflammatory, iron level low, vitamin B12 and folate WNL. Iron supplement. Hb gradually dropping. Monitor hemoglobin daily and as needed. (#) HIV (human immunodeficiency virus infection): Plan: -Patient on no medication, continue with home medication, ID evaluated, patient afebrile. -CD4 minimally low. Appreciate ID input and recommendation. -Follow-up with ID as an outpatient. (#) Heart disease: Plan: - Noted in external scanned files in [facility] - 06/26 Echo: Normal LV size, moderate concentric LVH, septal motion is consistent with conduction abnormality, no wall motion abnormalities, EF 55 to 60%, aortic valve leaflets are moderately calcified and restricted in mobility, moderate valvular aortic stenosis, moderate to heavy calcification of the posterior mitral valve annulus and leaflet and there is trace mitral regurgitation. - Continue asa and pravastatin 80 mg HS - hold lisinopril. Resume when able. (#) Prostate cancer: Plan: -History of such in 2002, status post brachytherapy -Previously followed with Dr. Crowley, no recent PSA for review -Continue flomax and vesicare DVT PPx: - teds, scds, Lovenox on hold, Re-gi bleed. CODE:Full code 07/09: Updated Pt's caregiver at bedside, answered all his questions. Admission and Anticipated Discharge Date Admission Date: June 25, 2021 Subjective Patient seen and examined at bedside as a follow-up for pancolitis, diarrhea, HIV status. Patient is lying in bed, on room air, NAD, patient reports improved belly pain. Per RN, no blood in BM today, patient denies oral care. No tenderness on palpation today. Pt not able to swallow and hence not eating per RN. Pt on PPN, will change to TPN today. Very poor po intake. Patient denies any fever/chills/chest pain/palpitation/cough/other review of symptoms. Physical Exam Physical Exam: GENERAL: Alert and oriented x3. NAD, on RA. Ill appearing, average body habitus. HEENT: No pallor, no icterus. Pupils equal, round and reactive to light. Oral mucosa moist. NECK: No JVD, no neck masses. HEART: S1 and S2 heard. Regular rate and rhythm. + murmur at Pulmonic > aortic area, no gallop. RESPIRATORY SYSTEM: Normal AP diameter. No accessory muscle use. No wheezing, no crackles. ABDOMEN: Soft, bowel sounds present, non tender today, no distention. CENTRAL NERVOUS SYSTEM: No facial droop. Speech is clear. Obeys simple commands. Moves extremities. EXTREMITIES: 1+ BLE edema, no erythema seen. Results & Data Results & Data ([facility]) Vital Signs (Past 12 Hours) Vital Signs Temp Pulse Pulse Pulse Resp BP BP 07/10/21 16:24 105 H 07/10/21 16:06 36.3 C L 85 16 117/72 07/10/21 13:50 36.5 C 96 H 14 146/86 H 07/10/21 12:00 86 14 80/49 L 07/10/21 11:45 36.2 C L 96 H 12 100/61 07/10/21 10:28 36.7 C 100 H 18 121/71 07/10/21 07:47 104 H 07/10/21 07:28 36.2 C L 84 14 115/77 07/10/21 06:38 36.9 C 100 H 16 107/69 Pulse Ox 07/10/21 16:24 07/10/21 16:06 96 07/10/21 13:50 96 07/10/21 12:00 97 07/10/21 11:45 96 07/10/21 10:28 96 07/10/21 07:47 07/10/21 07:28 94 07/10/21 06:38 95
[2021-07-10] MEDS ORDERED: STOP CLINOLIPID ONE (21:00)
[2021-07-10] MEDS: PANTOprazole 40 MG TAB PO SCH (21:14)
[2021-07-10] MEDS: TAMSULOSIN HCL 0.4 MG CAP PO SCH (21:15)
[2021-07-10] MEDS: PRAVASTATIN SOD 40 MG TAB PO SCH (21:15)
[2021-07-10] MEDS: [UNRECOGNIZED DRUG - REMARK] PO SCH (21:15)
[2021-07-11] MEDS: PIPERACILLIN/TAZOBACTAM 3.375 GM in DEXTROSE 5% 100 ML IV SCH ×3 (05:28→22:11)
[2021-07-11 05:46] LABS: Hematocrit (blood only) 27.8 % (42-52); Hemoglobin 9.1 g/dL (14.0-18.0)
[2021-07-11 06:03] LABS: BUN Creatinine Ratio 34.3 (10-20); Calcium 7.7 mg/dl (8.5-10.1); Est GFR (African American) 105.9 ml/min; Est GFR (Non-African American) 91.4 ml/min; Magnesium 1.9 mg/dl (1.7-2.4); Phosphorus 2.9 mg/dl (2.5-4.9); Potassium 3.5 mmol/L (3.5-5.1)
[2021-07-11] MEDS: FLUCONAZOLE 200 MG/100 ML BAG IV SCH (09:23)
[2021-07-11] MEDS: CEROVITE ADV FORMULA TAB PO SCH (09:48)
[2021-07-11] MEDS: ASPIRIN 81 MG ECTAB PO SCH (09:49)
[2021-07-11] MEDS: CHOLECALCIFEROL 1,000 UNITS 25 MCG TAB PO SCH (09:49)
[2021-07-11] MEDS: ADVANCED PROBIOTIC 1250 MG CAPSULE PO SCH (09:49)
[2021-07-11] MEDS: FAMOTIDINE 20 MG TAB PO PRN (09:49)
[2021-07-11] MEDS: ASCORBIC ACID 500 MG TAB PO SCH (09:49)
[2021-07-11] MEDS: FERROUS GLUCONATE 324 MG TAB PO SCH (09:49)
[2021-07-11] MEDS: TOCOPHERYL, DL-ALPHA 400 UNITS 180 MG CAP PO SCH (09:49)
[2021-07-11] MEDS: PANTOprazole 40 MG TAB PO SCH ×2 (09:49→20:07)
[2021-07-11] MEDS: HEPARIN SOD 5,000 UNIT/0.5 ML VIAL SQ SCH ×2 (09:50→20:33)
[2021-07-11] MEDS: FIRST - Mouthwash BLM 119 ML PO SCH ×2 (09:50→20:07)
[2021-07-11] MEDS ORDERED: D5W IV SCH (16:00)
[2021-07-11] MEDS ORDERED: PERIPHERAL TPN IV SCH (16:00)
[2021-07-11] MEDS ORDERED: AMINO ACIDS 4.25% IV SCH (16:00)
--- NOTE | 2021-07-11 16:24 | Hospitalist Progress Note ---
Date of Service July 11, 2021 Assessment & Plan (1) Pancolitis: Plan: 80-year-old male with PMHx of prostate cancer s/p radiation therapy, HTN, HLD, HIV+ who presents with acute abdominal complaints 06/25. Pt is a poor historian and voice is very raspy. At times he seems to trail off with tangential thoughts and at other times he gets defensive when he is asked to clarify his answers with more specific questions. 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 No evidence of bowel obstruction. 06/26 stool studies: Negative including C. difficile. Admitting blood culture negative ID evaluated the patient: Likely inflammatory colitis, recommendation to DC antibiotic. Repeat CTAP 06/30 after worsening belly complaints: Redemonstration of pancolitis. Mildly dilated gas-filled loops of large and small bowel, ileus versus developing toxic megacolon. 07/02 CTA abdomen pelvis: Pancolonic bowel wall thickening and extensive dilatation with increased vascular markings, origin of great vessels patent. 07/02 status post colonoscopy: Concerning for ischemic colitis, biopsy taken. Zosyn restarted 07/02. 07/02: Biopsy: Suggestive of ischemic colitis, nonocclusive. 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 07/10 esophagus biopsy: await results Patient continues to have bright red blood per rectum on and off. Belly pain/discomfort ongoing, better today Pt not eating much, c/w PPN 07/04 --> PICC line 07/10 --> 07/10 TPN. Speech re-evaled Pt 07/07: lacking functional oral motor or swallow reflex abilities, hence PO intake compromised. B/w feeding tube vs palliative care option, he would like to go with feeding tube if possible. Monitor and replete electrolytes as appropriate. GI evaluated again 07/07, treating empirically oral thrush with fluconazole cour se. Scoped 07/10, recommends ENT eval Surgery evaluated, appreciate recommendation. Will reach out ENT tomorrow-ENT evaluation likely to be on Tuesday PPI BID for Nguyen's esophagus Anemia Previously normal hemoglobin level Admitting hemoglobin 13.8 Likely secondary to GI blood loss secondary to pancolitis on the background of dilutional component. Ferritin elevated likely inflammatory, iron level low, vitamin B12 and folate WNL. Iron supplement. Hb gradually dropping. Monitor hemoglobin daily and as needed. HIV (human immunodeficiency virus infection): Plan: -Patient on no medication, continue with home medication, ID evaluated, patient afebrile. -CD4 minimally low. Appreciate ID input and recommendation. -Follow-up with ID as an outpatient. Heart disease: Plan: - Noted in external scanned files in [facility] - 06/26 Echo: Normal LV size, moderate concentric LVH, septal motion is consistent with conduction abnormality, no wall motion abnormalities, EF 55 to 60%, aortic valve leaflets are moderately calcified and restricted in mobility, moderate valvular aortic stenosis, moderate to heavy calcification of the posterior mitral valve annulus and leaflet and there is trace mitral regurgitation. - Continue asa and pravastatin 80 mg HS - hold lisinopril. Resume when able. Prostate cancer: Plan: -History of such in 2002, status post brachytherapy -Previously followed with Dr. Crowley, no recent PSA for review -Continue flomax and vesicare DVT PPx: - teds, scds, Lovenox on hold, Re-gi bleed. CODE:Full code 07/09: Updated Pt's caregiver at bedside, answered all his questions. Admission and Anticipated Discharge Date Admission Date: June 25, 2021 Subjective 07/11/2021 The patient was seen and examined in medical telemetry unit He has been weak and lethargic with ongoing diarrhea but normal bleeding Has been having problem with swallowing and awaiting ENT evaluation Review of Systems Review of Systems: All systems reviewed and are unremarkable except as noted below Gastrointestinal: Abdominal discomfort with minimal distention Physical Exam Physical Exam: Lying in bed comfortably very anxious Constitutional: + ill appearing and average body habitus Eyes: PERRL, conjunctivae normal, anicteric sclerae ENMT: external ear and nose normal, oropharynx normal Neck: trachea midline, no thyromegaly Respiratory: no respiratory distress Auscultation: lungs clear to auscultation bilaterally Cardiovascular: Rate/Rhythm: regular rate and regular rhythm; not tachycardic Heart Sounds: normal S1 and normal S2; no murmur Extremities: no edema Gastrointestinal (Abdomen): Inspection/Auscultation: normal bowel sounds; abdomen not distended (Minimal distention lower abdomen) Percussion/Palpation: + abdomen tender (Mildly tender lower quadrants) and abdomen soft Neurologic: PERRL, EOMI, accommodation nl, no face palsy, no dysarthria Lymphatic: no cervical or axillary lymphadenopathy Results & Data Results & Data ([facility]) Vital Signs (Past 12 Hours) Vital Signs Temp Pulse Pulse Resp BP Pulse Ox 07/11/21 14:55 36.6 C 103 H 18 136/85 96 07/11/21 12:28 93 H 07/11/21 10:55 36.5 C 103 H 18 118/74 95 07/11/21 08:16 91 H 07/11/21 07:00 37.1 C 107 H 18 116/78 95 Laboratory Results Short CBC 07/11/21 Range/Units 05:32 Hgb 9.1 L (14.0-18.0) g/dL Hct 27.8 L (42-52) % BMP 07/11/21 05:32 Sodium 139 Potassium 3.5 Chloride 105 Carbon Dioxide 29 BUN 23 Creatinine 0.67 Glucose 117 H Calcium 7.7 L Medications Administered Current Inpatient Medications Acetaminophen (Acetaminophen 325 Mg Tab) 650 mg PO Q4H PRN PRN Reason: Pain or Fever Stop: 07/26/21 02:57 Last Admin: 06/30/21 21:57 Dose: 650 mg Documented by: Ascorbic Acid (Ascorbic Acid 500 Mg Tab) 1,000 mg PO DAILY [facility] Stop: 07/26/21 08:59 Last Admin: 07/11/21 09:49 Dose: 1,000 mg Documented by: Aspirin (Aspirin 81 Mg Ectab) 81 mg PO DAILY [facility] Stop: 07/26/21 08:59 Last Admin: 07/11/21 09:49 Dose: 81 mg Documented by: Famotidine (Famotidine 20 Mg Tab) 20 mg PO DAILY PRN PRN Reason: gerd Stop: 07/25/21 21:22 Last Admin: 07/11/21 09:49 Dose: 20 mg Documented by: Ferrous Gluconate (Ferrous Gluconate 324 Mg Tab) 324 mg PO QAM [facility] Stop: 08/02/21 08:59 Last Admin: 07/11/21 09:49 Dose: 324 mg Documented by: Heparin Sodium (Beef Lung) (Heparin 10 Unit/Ml 5 Ml Flush) 5 ml FLUSH PRN PRN PRN Reason: Flush Stop: 08/10/21 01:23 Heparin Sodium (Porcine) (Heparin Sod 5,000 Unit/0.5 Ml Vial) 5,000 units SQ Q12 [facility] Stop: 08/02/21 20:59 Last Admin: 07/11/21 09:50 Dose: 5,000 units Documented by: Promethazine HCl 12.5 mg/ (Sodium Chloride) 50.5 mls @ 202 mls/hr IV Q6H PRN PRN Reason: Nausea And Vomiting Stop: 07/31/21 03:46 Piperacillin Sod/Tazobactam (Sod 3.375 gm/ Dextrose) 115 mls @ 28.75 mls/hr IV Q8H [facility]; Protocol Stop: 07/12/21 18:59 Last Admin: 07/11/21 15:54 Dose: 28.8 mls/hr Documented by: Dextrose (D10w) 1,000 mls @ 0 mls/hr IV .Q0M PRN PRN Reason: protocol (see label comments) Stop: 08/03/21 13:10 Fluconazole (Diflucan) 200 mg in 100 mls @ 100 mls/hr IV DAILY [facility]; Protocol Stop: 07/21/21 09:59 Last Infusion: 07/11/21 10:20 Dose: Infused Documented by: Amino Acids 1,624 ml/ (Nutrition (Parenteral)) 1,624 mls @ 67.7 mls/hr IV .Q24H [facility]; Protocol Stop: 07/12/21 15:59 Fat Emulsion-Tabor Oil/Soybean Oil (Clinolipid 20% Iv Fat Emulsion) 100 mls @ 40 mls/hr IV .Q2H30M [facility] Stop: 07/11/21 20:59 Lactobacillus Acidophilus (Advanced Probiotic 1250 Mg Capsule) 2 cap PO DAILY [facility] Stop: 08/07/21 08:59 Last Admin: 07/11/21 09:49 Dose: 2 cap Documented by: Miscellaneous (Stop Clinolipid) 1 ea N/A 2100 ONE Stop: 07/11/21 21:01 Miscellaneous Information (Piperacill/Tazobac Consult Active) 1 ea N/A UD PRN PRN Reason: Consult Stop: 08/01/21 12:54 Miscellaneous Information (Tpn/Ppn Consult Pharmacy) 1 ea N/A UD PRN PRN Reason: Consult Stop: 08/03/21 12:24 Multi-Ingredient Mouthwash/Gargle (First - Mouthwash Blm 119 Ml) 5 ml PO BID [facility] Stop: 08/02/21 12:14 Last Admin: 07/11/21 09:50 Dose: 5 ml Documented by: Multivitamins/Minerals (Cerovite Adv Formula Tab) 1 tab PO DAILY [facility] Stop: 07/26/21 08:59 Last Admin: 07/11/21 09:48 Dose: 1 tab Documented by: Abacavir- Dolutegravir- Lamivudine*Non-Form Patient's Own Med 1 ea PO [facility] Stop: 07/27/21 20:59 Last Admin: 07/10/21 21:15 Dose: Not Given Documented by: Ondansetron HCl (Ondansetron Inj 2 Mg/Ml 2 Ml Vial) 4 mg IV Q6H PRN PRN Reason: Nausea And Vomiting Stop: 07/27/21 00:55 Last Admin: 07/03/21 18:10 Dose: 4 mg Documented by: Pantoprazole Sodium (Pantoprazole 40 Mg Tab) 40 mg PO BID [facility] Stop: 08/09/21 20:59 Last Admin: 07/11/21 09:49 Dose: 40 mg Documented by: Pravastatin Sodium (Pravastatin Sod 40 Mg Tab) 80 mg PO [facility] Stop: 07/25/21 21:22 Last Admin: 07/10/21 21:15 Dose: Not Given Documented by: Tamsulosin HCl (Tamsulosin Hcl 0.4 Mg Cap) 0.4 mg PO [facility] Stop: 07/25/21 21:22 Last Admin: 07/10/21 21:15 Dose: Not Given Documented by: Vitamin D (Cholecalciferol 1,000 Units 25 Mcg Tab) 1,000 units PO Q2D@0900 [facility] Stop: 07/27/21 08:59 Last Admin: 07/11/21 09:49 Dose: 1,000 units Documented by: Vitamin E (Tocopheryl, Dl-Alpha 400 Units 180 Mg Cap) 400 units PO DAILY [facility] Stop: 07/26/21 08:59 Last Admin: 07/11/21 09:49 Dose: 400 units Documented by:
[2021-07-11] MEDS: CLINOLIPID 20% IV FAT EMULSION 100 ML IV SCH ×2 (17:05→19:24)
[2021-07-11] MEDS: [UNRECOGNIZED DRUG - REMARK] PO SCH (20:07)
[2021-07-11] MEDS: PRAVASTATIN SOD 40 MG TAB PO SCH (20:07)
[2021-07-11] MEDS: TAMSULOSIN HCL 0.4 MG CAP PO SCH (20:08)
[2021-07-11] MEDS ORDERED: STOP CLINOLIPID ONE (21:00)
[2021-07-12] MEDS: PIPERACILLIN/TAZOBACTAM 3.375 GM in DEXTROSE 5% 100 ML IV SCH ×2 (06:17→13:38)
[2021-07-12 06:39] LABS: Hematocrit (blood only) 27.3 % (42-52); Hemoglobin 8.7 g/dL (14.0-18.0); Mean Corpuscular Hemoglobin 33.6 pg (25-34); Mean Corpuscular Hgb Conc 31.9 g/dL (32-36); Mean Corpuscular Volume 105.4 fL (80-100); Mean Platelet Volume 9.5 fL (7.4-10.4); Nucleated RBC # (auto) 0.04 K/uL (0-0); Nucleated RBC % (auto) 0.6 %; Platelet Count 287 K/uL (130-400); RDW Coefficient of Variation 13.7 % (11.5-14.5); RDW Standard Deviation 52.7 fL (36.4-46.3); Red Blood Count 2.59 M/uL (4.7-6.1); White Blood Count 6.35 K/uL (4.8-10.8)
[2021-07-12 07:03] LABS: BUN Creatinine Ratio 29.7 (10-20); Calcium 7.6 mg/dl (8.5-10.1); Creatinine Clr Calc Pharmacy 75.7 ml/min; Est GFR (African American) 107.9 ml/min; Est GFR (Non-African American) 93.1 ml/min; Magnesium 1.9 mg/dl (1.7-2.4); Phosphorus 3.1 mg/dl (2.5-4.9); Potassium 3.3 mmol/L (3.5-5.1)
[2021-07-12 07:22] LABS: ALC (manual) 0.33 K/uL (1.2-3.4); ANC (manual) 5.75 K/uL (1.4-6.5); Dohle Bodies 2+; Eosinophils # (manual) 0.11 K/uL (0-0.5); Eosinophils % (manual) 1.7 %; Lymphocytes # (manual) 0.33 K/uL (1.2-3.4); Lymphocytes % (manual) 5.2 %; Monocytes # (manual) 0.06 K/uL (0.11-0.59); Monocytes % (manual) 0.9 %; Myelocytes # (manual) 0.11 K/uL (0-0); Myelocytes % (manual) 1.7 %; Neutrophils # (manual) 5.75 K/uL (1.4-6.5); Neutrophils % (manual) 90.5 %; Toxic Granulation 2+
[2021-07-12] MEDS: FLUCONAZOLE 200 MG/100 ML BAG IV SCH (08:19)
[2021-07-12] MEDS: PANTOprazole 40 MG TAB PO SCH ×2 (08:20→20:17)
[2021-07-12] MEDS: FIRST - Mouthwash BLM 119 ML PO SCH ×2 (08:20→20:17)
[2021-07-12] MEDS: HEPARIN SOD 5,000 UNIT/0.5 ML VIAL SQ SCH ×2 (08:28→20:49)
[2021-07-12] MEDS: POTASSIUM CHLORIDE / WTR 10 MEQ/100 ML PLCT IV SCH ×2 (08:48→09:54)
[2021-07-12] MEDS: TOCOPHERYL, DL-ALPHA 400 UNITS 180 MG CAP PO SCH (10:05)
[2021-07-12] MEDS: FERROUS GLUCONATE 324 MG TAB PO SCH (10:05)
[2021-07-12] MEDS: ASCORBIC ACID 500 MG TAB PO SCH (10:05)
[2021-07-12] MEDS: ASPIRIN 81 MG ECTAB PO SCH (10:05)
[2021-07-12] MEDS: CEROVITE ADV FORMULA TAB PO SCH (10:06)
[2021-07-12] MEDS: ADVANCED PROBIOTIC 1250 MG CAPSULE PO SCH (10:06)
--- NOTE | 2021-07-12 13:57 | Hospitalist Progress Note ---
Date of Service July 12, 2021 Assessment & Plan (1) Pancolitis: Plan: 80-year-old male with PMHx of prostate cancer s/p radiation therapy, HTN, HLD, HIV+ who presents with acute abdominal complaints 06/25. Pt is a poor historian and voice is very raspy. At times he seems to trail off with tangential thoughts and at other times he gets defensive when he is asked to clarify his answers with more specific questions. 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 No evidence of bowel obstruction. 06/26 stool studies: Negative including C. difficile. Admitting blood culture negative ID evaluated the patient: Likely inflammatory colitis, recommendation to DC antibiotic. Repeat CTAP 06/30 after worsening belly complaints: Redemonstration of pancolitis. Mildly dilated gas-filled loops of large and small bowel, ileus versus developing toxic megacolon. 07/02 CTA abdomen pelvis: Pancolonic bowel wall thickening and extensive dilatation with increased vascular markings, origin of great vessels patent. 07/02 status post colonoscopy: Concerning for ischemic colitis, biopsy taken. Zosyn restarted 07/02. 07/02: Biopsy: Suggestive of ischemic colitis, nonocclusive. 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 07/10 esophagus biopsy: await results Patient continues to have bright red blood per rectum on and off. Belly pain/discomfort ongoing, better today Pt not eating much, c/w PPN 07/04 --> PICC line 07/10 --> 07/10 TPN. Speech re-evaled Pt 07/07: lacking functional oral motor or swallow reflex abilities, hence PO intake compromised. B/w feeding tube vs palliative care option, he would like to go with feeding tube if possible. Monitor and replete electrolytes as appropriate. GI evaluated again 07/07, treating empirically oral thrush with fluconazole cour se. Scoped 07/10, recommends ENT eval Surgery evaluated, appreciate recommendation. PPI BID for Nguyen's esophagus EGD showed keratosis and a timeout was 1 on the wound pharynx and and ENT consultation was advised . Anemia Previously normal hemoglobin level Admitting hemoglobin 13.8 Likely secondary to GI blood loss secondary to pancolitis on the background of dilutional component. Ferritin elevated likely inflammatory, iron level low, vitamin B12 and folate WNL. Iron supplement. Hb gradually dropping.-8.7 as of 07/12/2021 Monitor hemoglobin daily and as needed. HIV (human immunodeficiency virus infection): Plan: -Patient on no medication, continue with home medication, ID evaluated, patient afebrile. -CD4 minimally low. Appreciate ID input and recommendation. -Follow-up with ID as an outpatient. Heart disease: Plan: - Noted in external scanned files in [facility] - 06/26 Echo: Normal LV size, moderate concentric LVH, septal motion is consistent with conduction abnormality, no wall motion abnormalities, EF 55 to 60%, aortic valve leaflets are moderately calcified and restricted in mobility, moderate valvular aortic stenosis, moderate to heavy calcification of the posterior mitral valve annulus and leaflet and there is trace mitral regurgitation. - Continue asa and pravastatin 80 mg HS - hold lisinopril. Resume when able. Prostate cancer: Plan: -History of such in 2002, status post brachytherapy -Previously followed with Dr. Crowley, no recent PSA for review -Continue flomax and vesicare DVT PPx: - teds, scds, Lovenox on hold, Re-gi bleed. CODE:Full code 07/09: Updated Pt's caregiver at bedside, answered all his questions. Admission and Anticipated Discharge Date Admission Date: June 25, 2021 Subjective 07/11/2021 The patient was seen and examined in medical telemetry unit He has been weak and lethargic with ongoing diarrhea but normal bleeding Has been having problem with swallowing and awaiting ENT evaluation 07/12/2021 The patient was seen and examined medical telemetry unit He has not been able to eat anything and barely drinking anything He will have ENT evaluation tomorrow Ongoing diarrhea but no hematochezia Review of Systems Review of Systems: All systems reviewed and are unremarkable except as noted below Gastrointestinal: Abdominal discomfort with minimal distention Physical Exam Physical Exam: Lying in bed comfortably very anxious Constitutional: + ill appearing and average body habitus Eyes: PERRL, conjunctivae normal, anicteric sclerae ENMT: external ear and nose normal, oropharynx normal Neck: trachea midline, no thyromegaly Respiratory: no respiratory distress Auscultation: lungs clear to auscultation bilaterally Cardiovascular: Rate/Rhythm: regular rate and regular rhythm; not tachycardic Heart Sounds: normal S1 and normal S2; no murmur Extremities: no edema Gastrointestinal (Abdomen): Inspection/Auscultation: normal bowel sounds; abdomen not distended (Minimal distention lower abdomen) Percussion/Palpation: + abdomen tender (Mildly tender lower quadrants) and a bdomen soft Musculoskeletal: No acute arthritis in any joint Neurologic: PERRL, EOMI, accommodation nl, no face palsy, no dysarthria Lymphatic: no cervical or axillary lymphadenopathy Results & Data Results & Data ([facility]) Vital Signs (Past 12 Hours) Vital Signs Temp Pulse Pulse Resp BP Pulse Ox 07/12/21 10:56 36.5 C 71 18 107/73 93 07/12/21 07:49 87 07/12/21 06:00 36.6 C 89 18 109/69 96 07/12/21 04:00 36.5 C 91 H 18 123/80 94 Laboratory Results Short CBC 07/12/21 Range/Units 06:05 WBC 6.35 (4.8-10.8) K/uL Hgb 8.7 L (14.0-18.0) g/dL Hct 27.3 L (42-52) % Plt Count 287 (130-400) K/uL BMP 07/12/21 06:05 Sodium 140 Potassium 3.3 L Chloride 106 Carbon Dioxide 29 BUN 19 Creatinine 0.64 Glucose 116 H Calcium 7.6 L Medications Administered Current Inpatient Medications Acetaminophen (Acetaminophen 325 Mg Tab) 650 mg PO Q4H PRN PRN Reason: Pain or Fever Stop: 07/26/21 02:57 Last Admin: 06/30/21 21:57 Dose: 650 mg Documented by: Ascorbic Acid (Ascorbic Acid 500 Mg Tab) 1,000 mg PO DAILY [facility] Stop: 07/26/21 08:59 Last Admin: 07/12/21 10:05 Dose: Not Given Documented by: Aspirin (Aspirin 81 Mg Ectab) 81 mg PO DAILY [facility] Stop: 07/26/21 08:59 Last Admin: 07/12/21 10:05 Dose: Not Given Documented by: Famotidine (Famotidine 20 Mg Tab) 20 mg PO DAILY PRN PRN Reason: gerd Stop: 07/25/21 21:22 Last Admin: 07/11/21 09:49 Dose: 20 mg Documented by: Ferrous Gluconate (Ferrous Gluconate 324 Mg Tab) 324 mg PO QAM [facility] Stop: 08/02/21 08:59 Last Admin: 07/12/21 10:05 Dose: Not Given Documented by: Heparin Sodium (Beef Lung) (Heparin 10 Unit/Ml 5 Ml Flush) 5 ml FLUSH PRN PRN PRN Reason: Flush Stop: 08/10/21 01:23 Last Admin: 07/12/21 10:21 Dose: 5 ml Documented by: Heparin Sodium (Porcine) (Heparin Sod 5,000 Unit/0.5 Ml Vial) 5,000 units SQ Q12 [facility] Stop: 08/02/21 20:59 Last Admin: 07/12/21 08:28 Dose: 5,000 units Documented by: Promethazine HCl 12.5 mg/ (Sodium Chloride) 50.5 mls @ 202 mls/hr IV Q6H PRN PRN Reason: Nausea And Vomiting Stop: 07/31/21 03:46 Piperacillin Sod/Tazobactam (Sod 3.375 gm/ Dextrose) 115 mls @ 28.75 mls/hr IV Q8H [facility]; Protocol Stop: 07/12/21 18:59 Last Admin: 07/12/21 13:38 Dose: 28.8 mls/hr Documented by: Dextrose (D10w) 1,000 mls @ 0 mls/hr IV .Q0M PRN PRN Reason: protocol (see label comments) Stop: 08/03/21 13:10 Fluconazole (Diflucan) 200 mg in 100 mls @ 100 mls/hr IV DAILY [facility]; Protocol Stop: 07/21/21 09:59 Last Infusion: 07/12/21 09:19 Dose: Infused Documented by: Amino Acids 1,624 ml/ (Nutrition (Parenteral)) 1,624 mls @ 67.7 mls/hr IV .Q24H [facility]; Protocol Stop: 07/12/21 15:59 Last Admin: 07/11/21 17:03 Dose: 67.7 mls/hr Documented by: Amino Acids/Dextrose 1,287 ml/ (Nutrition (Parenteral)) 1,287 mls @ 53.6 mls/hr IV .Q24H [facility]; Protocol Stop: 07/13/21 15:59 Fat Emulsion-[place] Oil/Soybean Oil (Clinolipid 20% Iv Fat Emulsion) 100 mls @ 40 mls/hr IV .Q2H30M [facility] Stop: 07/12/21 20:59 Lactobacillus Acidophilus (Advanced Probiotic 1250 Mg Capsule) 2 cap PO DAILY [facility] Stop: 08/07/21 08:59 Last Admin: 07/12/21 10:06 Dose: Not Given Documented by: Miscellaneous (Stop Clinolipid) 1 ea N/A 2100 ONE Stop: 07/12/21 21:01 Miscellaneous Information (Piperacill/Tazobac Consult Active) 1 ea N/A UD PRN PRN Reason: Consult Stop: 07/12/21 18:59 Miscellaneous Information (Tpn/Ppn Consult Pharmacy) 1 ea N/A UD PRN PRN Reason: Consult Stop: 08/03/21 12:24 Multi-Ingredient Mouthwash/Gargle (First - Mouthwash Blm 119 Ml) 5 ml PO BID [facility] Stop: 08/02/21 12:14 Last Admin: 07/12/21 08:20 Dose: 5 ml Documented by: Multivitamins/Minerals (Cerovite Adv Formula Tab) 1 tab PO DAILY [facility] Stop: 07/26/21 08:59 Last Admin: 07/12/21 10:06 Dose: Not Given Documented by: Abacavir- Dolutegravir- Lamivudine*Non-Form Patient's Own Med 1 ea PO HS [facility] Stop: 07/27/21 20:59 Last Admin: 07/11/21 20:07 Dose: Not Given Documented by: Ondansetron HCl (Ondansetron Inj 2 Mg/Ml 2 Ml Vial) 4 mg IV Q6H PRN PRN Reason: Nausea And Vomiting Stop: 07/27/21 00:55 Last Admin: 07/03/21 18:10 Dose: 4 mg Documented by: Pantoprazole Sodium (Pantoprazole 40 Mg Tab) 40 mg PO BID [facility] Stop: 08/09/21 20:59 Last Admin: 07/12/21 08:20 Dose: 40 mg Documented by: Pravastatin Sodium (Pravastatin Sod 40 Mg Tab) 80 mg PO HS [facility] Stop: 07/25/21 21:22 Last Admin: 07/11/21 20:07 Dose: Not Given Documented by: Tamsulosin HCl (Tamsulosin Hcl 0.4 Mg Cap) 0.4 mg PO HS [facility] Stop: 07/25/21 21:22 Last Admin: 07/11/21 20:08 Dose: Not Given Documented by: Vitamin D (Cholecalciferol 1,000 Units 25 Mcg Tab) 1,000 units PO Q2D@0900 [facility] Stop: 07/27/21 08:59 Last Admin: 07/11/21 09:49 Dose: 1,000 units Documented by: Vitamin E (Tocopheryl, Dl-Alpha 400 Units 180 Mg Cap) 400 units PO DAILY [facility] Stop: 07/26/21 08:59 Last Admin: 07/12/21 10:05 Dose: Not Given Documented by:
[2021-07-12] MEDS ORDERED: AMINO ACID 8% IV SCH (16:00)
[2021-07-12] MEDS ORDERED: CENTRAL TPN IV SCH (16:00)
[2021-07-12] MEDS ORDERED: [UNRECOGNIZED DRUG - OTHER] IV SCH (16:00)
[2021-07-12] MEDS: CLINOLIPID 20% IV FAT EMULSION 100 ML IV SCH ×2 (17:04→20:06)
[2021-07-12] MEDS: TAMSULOSIN HCL 0.4 MG CAP PO SCH (20:17)
[2021-07-12] MEDS: [UNRECOGNIZED DRUG - REMARK] PO SCH (20:17)
[2021-07-12] MEDS: PRAVASTATIN SOD 40 MG TAB PO SCH (20:17)
[2021-07-12] MEDS ORDERED: STOP CLINOLIPID ONE (21:00)
[2021-07-13 06:22] LABS: Hemoglobin 8.9 g/dL (14.0-18.0); Mean Corpuscular Hemoglobin 33.6 pg (25-34); Mean Corpuscular Hgb Conc 31.8 g/dL (32-36); Mean Corpuscular Volume 105.7 fL (80-100); Mean Platelet Volume 9.3 fL (7.4-10.4); Nucleated RBC # (auto) 0.05 K/uL (0-0); Nucleated RBC % (auto) 0.7 %; Platelet Count 339 K/uL (130-400); RDW Coefficient of Variation 13.9 % (11.5-14.5); RDW Standard Deviation 53.3 fL (36.4-46.3); Red Blood Count 2.65 M/uL (4.7-6.1); White Blood Count 7.39 K/uL (4.8-10.8)
[2021-07-13 06:42] LABS: Albumin Globulin Ratio 0.7 (0.9-2); Albumin Level 2.3 gm/dl (3.4-5.0); Bilirubin,Total 0.5 mg/dl (0.2-1.0); Calcium 7.8 mg/dl (8.5-10.1); Creatinine Clr Calc Pharmacy 77.9 ml/min; Est GFR (African American) 110.8 ml/min; Est GFR (Non-African American) 95.6 ml/min; Globulin 3.2 gm/dl (2.5-4.0); Potassium 3.7 mmol/L (3.5-5.1); Total Protein 5.5 gm/dl (6.0-8.3)
[2021-07-13 06:54] LABS: ALC (manual) 1.41 K/uL (1.2-3.4); ANC (manual) 5.59 K/uL (1.4-6.5); Dohle Bodies 1+; Lymphocytes # (manual) 1.41 K/uL (1.2-3.4); Lymphocytes % (manual) 19.1 %; Monocytes # (manual) 0.38 K/uL (0.11-0.59); Monocytes % (manual) 5.2 %; Neutrophils # (manual) 5.59 K/uL (1.4-6.5); Neutrophils % (manual) 75.7 %; Toxic Granulation 1+; Toxic Vacuolation 1+
[2021-07-13] MEDS: ASPIRIN 81 MG ECTAB PO SCH (08:29)
[2021-07-13] MEDS: FLUCONAZOLE 200 MG/100 ML BAG IV SCH (08:30)
[2021-07-13] MEDS: HEPARIN SOD 5,000 UNIT/0.5 ML VIAL SQ SCH ×2 (08:30→21:36)
[2021-07-13] MEDS: CEROVITE ADV FORMULA TAB PO SCH (08:45)
[2021-07-13] MEDS: FERROUS GLUCONATE 324 MG TAB PO SCH (08:45)
[2021-07-13] MEDS: ASCORBIC ACID 500 MG TAB PO SCH (08:45)
[2021-07-13] MEDS: PANTOprazole 40 MG TAB PO SCH ×2 (08:45→21:37)
[2021-07-13] MEDS: CHOLECALCIFEROL 1,000 UNITS 25 MCG TAB PO SCH (08:45)
[2021-07-13] MEDS: ADVANCED PROBIOTIC 1250 MG CAPSULE PO SCH (08:45)
[2021-07-13] MEDS: FIRST - Mouthwash BLM 119 ML PO SCH ×2 (08:45→21:35)
[2021-07-13] MEDS: TOCOPHERYL, DL-ALPHA 400 UNITS 180 MG CAP PO SCH (08:45)
--- NOTE | 2021-07-13 12:14 | Pharmacy Report ---
PHA: Parenteral Nutrition Con - Date of Service July 13, 2021 - Scope Pharmacy was consulted on 07/04 to manage parenteral nutrition orders for this patient. - Subjective The patient is a 81 year old M admitted on 06/25/21 16:51 for pancolitis. Patient is to receive parenteral nutrition for ischemic colitis, poor oral intake, and need for bowel rest. - Objective Height: 5 ft 7 in Weight: 55.2 kg Diet: Full Liquid Intake & Output (24hrs):: Intake & Output 07/11/21 07/12/21 07/13/21 07/14/21 06:59 06:59 06:59 06:59 Intake Total 2595.907 / 2595.907 2242.427 / 2242.427 2354 / 2354 100 / 100 Output Total 650 / 650 / 7 6 / Balance 1945.907 / 5132.745 8985.427 / 2235.427 2348 / 2348 99 / 99 Weight 57.7 kg 57.2 kg 55.2 kg Laboratory Data (Last 24 Hr):: 07/13/21 07/13/21 06:05 06:05 Sodium 141 Potassium 3.7 Chloride 108 H Carbon Dioxide 28 BUN 24 H Creatinine 0.60 Glucose 139 H Calcium 7.8 L Phosphorus 3.0 Magnesium 2.0 Total Bilirubin 0.5 AST 21 ALT 17 Alkaline Phosphatase 70 Albumin 2.3 L Triglycerides 102 Nutrition Assessment:: Please refer to the Notes section of the EMR for the most recent pasteurizer note. - Plan For day 10 of PN administration, the following will be ordered. Central line access placed yesterday, so day 2 of central TPN today. Had been receiving peripheral TPN 07/04-07/11 * Will titrate TPN further today to goal Kcal range. * Chloride trending upward, will decrease in TPN today * Calcium low, repeat albumin low - will increase calcium in TPN today. Had been trending ionized calcium, will order repeat tomorrow Macronutrients Amino acids 115 grams/day Dextrose 202 grams/day Lipids 40 grams/day Micronutrients Combined electrolytes 30 mL - contains 35 mEq Na, 20 meq K, 4.5 mEq Ca, 5 mEq Mg, 35 mEq Cl, 29.5 mEq acetate per 20 mL Sodium acetate 25 mEq Potassium phosphate 39 mMol Potassium acetate 40 mEq Magnesium sulfate 8.12 mEq Calcium gluconate 4.65 mEq Multivitamins 10 mL Trace Elements 1 mL Additional additives: thiamine 100 mg Total volume 1539 mL to be infused over 24 hrs will provide 1546 kcal/day Labs, as indicated, will be ordered per protocol Pharmacy will continue to follow and adjust parenteral nutrition orders on a daily basis. Thank you for allowing us to participate in the care of this patient.
--- NOTE | 2021-07-13 14:39 | Hospitalist Progress Note ---
Date of Service July 13, 2021 Assessment & Plan (1) Pancolitis: Plan: 80-year-old male with PMHx of prostate cancer s/p radiation therapy, HTN, HLD, HIV+ who presents with acute abdominal complaints 06/25. Pt is a poor historian and voice is very raspy. At times he seems to trail off with tangential thoughts and at other times he gets defensive when he is asked to clarify his answers with more specific questions. 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 No evidence of bowel obstruction. 06/26 stool studies: Negative including C. difficile. Admitting blood culture negative ID evaluated the patient: Likely inflammatory colitis, recommendation to DC antibiotic. Repeat CTAP 06/30 after worsening belly complaints: Redemonstration of pancolitis. Mildly dilated gas-filled loops of large and small bowel, ileus versus developing toxic megacolon. 07/02 CTA abdomen pelvis: Pancolonic bowel wall thickening and extensive dilatation with increased vascular markings, origin of great vessels patent. 07/02 status post colonoscopy: Concerning for ischemic colitis, biopsy taken. Zosyn restarted 07/02. 07/02: Biopsy: Suggestive of ischemic colitis, nonocclusive. 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 07/10 esophagus biopsy: await results Patient remains weak and lethargic and cannot eat or swallow Awaiting ENT evaluation Remains generally weak and lethargic with continuation of diarrhea and inability to eat or drink Discussed with ID specialist in [place] with initial recommendation to transfer him to [place] for further evaluation and continuation of care Discussed with auto damage estimator-nothing more to offer at this time, does not think due to ulcerative colitis and did not recommend any steroid Discussed with the friend and the patient and want to now transferred to [place] if further management can be done Long discussion with hospitalist, GI specialist and ID specialist-nothing further can be done given his current presentation Patient was made aware about this decision and he was agreeable to stay here and continue with the current treatment plan Overall prognosis remains very poor Patient continues to have bright red blood per rectum on and off. Belly pain/discomfort ongoing, better today Pt not eating much, c/w PPN 07/04 --> PICC line 07/10 --> 07/10 TPN. Speech re-evaled Pt 07/07: lacking functional oral motor or swallow reflex abilities, hence PO intake compromised. B/w feeding tube vs palliative care option, he would like to go with feeding tube if possible. Monitor and replete electrolytes as appropriate. GI evaluated again 07/07, treating empirically oral thrush with fluconazole course. Scoped 07/10, recommends ENT eval Surgery evaluated, appreciate recommendation. PPI BID for Nguyen's esophagus EGD showed keratosis and erythema around pharynx and and ENT consultation was advised . Anemia Previously normal hemoglobin level Admitting hemoglobin 13.8 Likely secondary to GI blood loss secondary to pancolitis on the background of dilutional component. Ferritin elevated likely inflammatory, iron level low, vitamin B12 and folate WNL. Iron supplement. Hb gradually dropping.-8.7 as of 07/12/2021 Monitor hemoglobin daily and as needed. HIV (human immunodeficiency virus infection): Plan: -Patient on no medication, continue with home medication, ID evaluated, patient afebrile. -CD4 minimally low. Appreciate ID input and recommendation. -Follow-up with ID as an outpatient. -We will discuss with ID specialist for any other recommendations Heart disease: Plan: - Noted in external scanned files [facility] - 06/26 Echo: Normal LV size, moderate concentric LVH, septal motion is consistent with conduction abnormality, no wall motion abnormalities, EF 55 to 60%, aortic valve leaflets are moderately calcified and restricted in mobility, moderate valvular aortic stenosis, moderate to heavy calcification of the posterior mitral valve annulus and leaflet and there is trace mitral regurgitation. - Continue asa and pravastatin 80 mg HS - hold lisinopril. Resume when able. Prostate cancer: Plan: -History of such in 2002, status post brachytherapy -Previously followed with Dr. Crowley, no recent PSA for review -Continue flomax and vesicare DVT PPx: - teds, scds, Lovenox on hold, Re-gi bleed. CODE:Full code 07/09: Updated Pt's caregiver at bedside, answered all his questions. Prognosis remains poor Prolonged discussion with the caregiver at bedside Admission and Anticipated Discharge Date Admission Date: June 25, 2021 Subjective 07/11/2021 The patient was seen and examined in medical telemetry unit He has been weak and lethargic with ongoing diarrhea but normal bleeding Has been having problem with swallowing and awaiting ENT evaluation 07/12/2021 The patient was seen and examined medical telemetry unit He has not been able to eat anything and barely drinking anything He will have ENT evaluation tomorrow Ongoing diarrhea but no hematochezia 07/13/2021 The patient was seen and examined in medical telemetry unit He has been worsening Getting weaker day by day and cannot eat anything orally Denies any abdominal pain has been having profuse diarrhea Review of Systems Review of Systems: All systems reviewed and are unremarkable except as noted below Gastrointestinal: Abdominal discomfort with minimal distention Physical Exam Physical Exam: Lying in bed very ill but otherwise comfortable Constitutional: + ill appearing and average body habitus Eyes: PERRL, conjunctivae normal, anicteric sclerae ENMT: external ear and nose normal, oropharynx normal Neck: trachea midline, no thyromegaly Respiratory: no respiratory distress Auscultation: lungs clear to auscultation bilaterally Cardiovascular: Rate/Rhythm: regular rate and regular rhythm; not tachycardic Heart Sounds: normal S1 and normal S2; no murmur Extremities: no edema Gastrointestinal (Abdomen): Inspection/Auscultation: normal bowel sounds; abdomen not distended (Minimal distention lower abdomen) Percussion/Palpation: + abdomen tender (Mildly tender lower quadrants) and abdomen soft Musculoskeletal: No acute arthritis in any joint Neurologic: PERRL, EOMI, accommodation nl, no face palsy, no dysarthria Lymphatic: no cervical or axillary lymphadenopathy Results & Data Results & Data ([facility]) Vital Signs (Past 12 Hours) Vital Signs Temp Pulse Pulse Resp BP Pulse Ox 07/13/21 11:30 36.7 C 108 H 20 135/78 97 07/13/21 08:00 36.5 C 107 H 18 115/73 96 07/13/21 04:00 36.7 C 108 H 18 114/73 94 07/13/21 03:42 116 H Laboratory Results Short CBC 07/13/21 Range/Units 06:05 WBC 7.39 (4.8-10.8) K/uL Hgb 8.9 L (14.0-18.0) g/dL Hct 28.0 L (42-52) % Plt Count 339 (130-400) K/uL BMP 07/13/21 06:05 Sodium 141 Potassium 3.7 Chloride 108 H Carbon Dioxide 28 BUN 24 H Creatinine 0.60 Glucose 139 H Calcium 7.8 L Liver Function 07/13/21 Range/Units 06:05 Total Bilirubin 0.5 (0.2-1.0) mg/dl AST 21 (13-39) U/L ALT 17 (7-52) U/L Alkaline Phosphatase 70 (34-104) U/L Albumin 2.3 L (3.4-5.0) gm/dl Medications Administered Current Inpatient Medications Acetaminophen (Acetaminophen 325 Mg Tab) 650 mg PO Q4H PRN PRN Reason: Pain or Fever Stop: 07/26/21 02:57 Last Admin: 06/30/21 21:57 Dose: 650 mg Documented by: Ascorbic Acid (Ascorbic Acid 500 Mg Tab) 1,000 mg PO DAILY [facility] Stop: 07/26/21 08:59 Last Admin: 07/13/21 08:45 Dose: Not Given Documented by: Aspirin (Aspirin 81 Mg Ectab) 81 mg PO DAILY [facility] Stop: 07/26/21 08:59 Last Admin: 07/13/21 08:29 Dose: 81 mg Documented by: Famotidine (Famotidine 20 Mg Tab) 20 mg PO DAILY PRN PRN Reason: gerd Stop: 07/25/21 21:22 Last Admin: 07/11/21 09:49 Dose: 20 mg Documented by: Ferrous Gluconate (Ferrous Gluconate 324 Mg Tab) 324 mg PO QAM [facility] Stop: 08/02/21 08:59 Last Admin: 07/13/21 08:45 Dose: Not Given Documented by: Heparin Sodium (Beef Lung) (Heparin 10 Unit/Ml 5 Ml Flush) 5 ml FLUSH PRN PRN PRN Reason: Flush Stop: 08/10/21 01:23 Last Admin: 07/12/21 10:21 Dose: 5 ml Documented by: Heparin Sodium (Porcine) (Heparin Sod 5,000 Unit/0.5 Ml Vial) 5,000 units SQ Q12 [facility] Stop: 08/02/21 20:59 Last Admin: 07/13/21 08:30 Dose: 5,000 units Documented by: Promethazine HCl 12.5 mg/ (Sodium Chloride) 50.5 mls @ 202 mls/hr IV Q6H PRN PRN Reason: Nausea And Vomiting Stop: 07/31/21 03:46 Dextrose (D10w) 1,000 mls @ 0 mls/hr IV .Q0M PRN PRN Reason: protocol (see label comments) Stop: 08/03/21 13:10 Fluconazole (Diflucan) 200 mg in 100 mls @ 100 mls/hr IV DAILY [facility]; Protocol Stop: 07/21/21 09:59 Last Infusion: 07/13/21 10:08 Dose: Infused Documented by: Amino Acids/Dextrose 1,287 ml/ (Nutrition (Parenteral)) 1,287 mls @ 53.6 mls/hr IV .Q24H [facility]; Protocol Stop: 07/13/21 15:59 Last Admin: 07/12/21 17:04 Dose: 53.6 mls/hr Documented by: Amino Acids/Dextrose 1,539.5 (ml/ Nutrition (Parenteral)) 1,539.5 mls @ 64.15 mls/hr IV .Q24H [facility]; Protocol Stop: 07/14/21 15:59 Fat Emulsion-[place] Oil/Soybean Oil (Clinolipid 20% Iv Fat Emulsion) 100 mls @ 40 mls/hr IV .Q2H30M [facility] Stop: 07/13/21 20:59 Lactobacillus Acidophilus (Advanced Probiotic 1250 Mg Capsule) 2 cap PO DAILY [facility] Stop: 08/07/21 08:59 Last Admin: 07/13/21 08:45 Dose: Not Given Documented by: Miscellaneous (Stop Clinolipid) 1 ea N/A 2100 ONE Stop: 07/13/21 21:01 Miscellaneous Information (Tpn/Ppn Consult Pharmacy) 1 ea N/A UD PRN PRN Reason: Consult Stop: 08/03/21 12:24 Multi-Ingredient Mouthwash/Gargle (First - Mouthwash Blm 119 Ml) 5 ml PO BID [facility] Stop: 08/02/21 12:14 Last Admin: 07/13/21 08:45 Dose: 5 ml Documented by: Multivitamins/Minerals (Cerovite Adv Formula Tab) 1 tab PO DAILY [facility] Stop: 07/26/21 08:59 Last Admin: 07/13/21 08:45 Dose: Not Given Documented by: Abacavir- Dolutegravir- Lamivudine*Non-Form Patient's Own Med 1 ea PO HS [facility] Stop: 07/27/21 20:59 Last Admin: 07/12/21 20:17 Dose: Not Given Documented by: Ondansetron HCl (Ondansetron Inj 2 Mg/Ml 2 Ml Vial) 4 mg IV Q6H PRN PRN Reason: Nausea And Vomiting Stop: 07/27/21 00:55 Last Admin: 07/03/21 18:10 Dose: 4 mg Documented by: Pantoprazole Sodium (Pantoprazole 40 Mg Tab) 40 mg PO BID [facility] Stop: 08/09/21 20:59 Last Admin: 07/13/21 08:45 Dose: Not Given Documented by: Pravastatin Sodium (Pravastatin Sod 40 Mg Tab) 80 mg PO [facility] Stop: 07/25/21 21:22 Last Admin: 07/12/21 20:17 Dose: Not Given Documented by: Tamsulosin HCl (Tamsulosin Hcl 0.4 Mg Cap) 0.4 mg PO [facility] Stop: 07/25/21 21:22 Last Admin: 07/12/21 20:17 Dose: Not Given Documented by: Vitamin D (Cholecalciferol 1,000 Units 25 Mcg Tab) 1,000 units PO Q2D@0900 [facility] Stop: 07/27/21 08:59 Last Admin: 07/13/21 08:45 Dose: Not Given Documented by: Vitamin E (Tocopheryl, Dl-Alpha 400 Units 180 Mg Cap) 400 units PO DAILY [facility] Stop: 07/26/21 08:59 Last Admin: 07/13/21 08:45 Dose: Not Given Documented by:
[2021-07-13] MEDS ORDERED: CENTRAL TPN IV SCH (16:00)
[2021-07-13] MEDS ORDERED: AMINO ACID 8% IV SCH (16:00)
[2021-07-13] MEDS ORDERED: [UNRECOGNIZED DRUG - OTHER] IV SCH (16:00)
[2021-07-13] MEDS: CLINOLIPID 20% IV FAT EMULSION 100 ML IV SCH ×2 (16:04→18:29)
[2021-07-13] MEDS ORDERED: STOP CLINOLIPID ONE (21:00)
[2021-07-13] MEDS: [UNRECOGNIZED DRUG - REMARK] PO SCH (21:37)
[2021-07-13] MEDS: TAMSULOSIN HCL 0.4 MG CAP PO SCH (21:37)
[2021-07-13] MEDS: PRAVASTATIN SOD 40 MG TAB PO SCH (21:37)
[2021-07-14 07:08] LABS: BUN Creatinine Ratio 45.8 (10-20); Est GFR (African American) 111.6 ml/min; Est GFR (Non-African American) 96.3 ml/min; Magnesium 2.2 mg/dl (1.7-2.4); Phosphorus 3.3 mg/dl (2.5-4.9); Potassium 3.8 mmol/L (3.5-5.1)
[2021-07-14] MEDS: HEPARIN SOD 5,000 UNIT/0.5 ML VIAL SQ SCH ×2 (09:06→20:46)
[2021-07-14] MEDS: FERROUS GLUCONATE 324 MG TAB PO SCH (09:07)
[2021-07-14] MEDS: PANTOprazole 40 MG TAB PO SCH ×2 (09:07→20:46)
[2021-07-14] MEDS: ADVANCED PROBIOTIC 1250 MG CAPSULE PO SCH (09:07)
[2021-07-14] MEDS: ASCORBIC ACID 500 MG TAB PO SCH (09:07)
[2021-07-14] MEDS: CEROVITE ADV FORMULA TAB PO SCH (09:07)
[2021-07-14] MEDS: TOCOPHERYL, DL-ALPHA 400 UNITS 180 MG CAP PO SCH (09:07)
[2021-07-14] MEDS: FIRST - Mouthwash BLM 119 ML PO SCH ×2 (09:08→20:46)
[2021-07-14] MEDS: ASPIRIN 81 MG ECTAB PO SCH (09:09)
[2021-07-14] MEDS: FLUCONAZOLE 200 MG/100 ML BAG IV SCH (09:10)
[2021-07-14] MEDS ORDERED: CENTRAL TPN IV SCH ×2 (16:00)
[2021-07-14] MEDS ORDERED: [UNRECOGNIZED DRUG - OTHER] IV SCH (16:00)
[2021-07-14] MEDS ORDERED: [UNRECOGNIZED DRUG - OTHER] IV SCH (16:00)
[2021-07-14] MEDS ORDERED: AMINO ACID 8% IV SCH ×2 (16:00)
[2021-07-14] MEDS: CLINOLIPID 20% IV FAT EMULSION 100 ML IV SCH ×2 (16:04→18:34)
--- NOTE | 2021-07-14 18:35 | Hospitalist Progress Note ---
Date of Service July 14, 2021 Assessment & Plan (1) Pancolitis: Plan: 80-year-old male with PMHx of prostate cancer s/p radiation therapy, HTN, HLD, HIV+ who presents with acute abdominal complaints 06/25. Pt is a poor historian and voice is very raspy. At times he seems to trail off with tangential thoughts and at other times he gets defensive when he is asked to clarify his answers with more specific questions. 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 No evidence of bowel obstruction. 06/26 stool studies: Negative including C. difficile. Admitting blood culture negative ID evaluated the patient: Likely inflammatory colitis, recommendation to DC antibiotic. Repeat CTAP 06/30 after worsening belly complaints: Redemonstration of pancolitis. Mildly dilated gas-filled loops of large and small bowel, ileus versus developing toxic megacolon. 07/02 CTA abdomen pelvis: Pancolonic bowel wall thickening and extensive dilatation with increased vascular markings, origin of great vessels patent. 07/02 status post colonoscopy: Concerning for ischemic colitis, biopsy taken. Zosyn restarted 07/02. 07/02: Biopsy: Suggestive of ischemic colitis, nonocclusive. 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 07/10 esophagus biopsy: await results Patient remains weak and lethargic and cannot eat or swallow Awaiting ENT evaluation Has Significant oral thrush Remains generally weak and lethargic with continuation of diarrhea and inability to eat or drink Discussed with ID specialist in [place] with initial recommendation to transfer him to [place] for further evaluation and continuation of care Discussed with document improvement specialist-nothing more to offer at this time, does not think due to ulcerative colitis and did not recommend any steroid Discussed with the friend and the patient and want to now transferred to [place] if further management can be done Long discussion with hospitalist, GI specialist and ID specialist-nothing further can be done given his current presentation Patient was made aware about this decision and he was agreeable to stay here and continue with the current treatment plan Overall prognosis remains very poor Remains generally weak and lethargic and overall condition has not been improving Does not want any Palliative care evaluation for now Patient continues to have bright red blood per rectum on and off. Belly pain/discomfort ongoing, better today Pt not eating much, c/w PPN 07/04 --> PICC line 07/10 --> 07/10 TPN. Speech re-evaled Pt 07/07: lacking functional oral motor or swallow reflex abilities, hence PO intake compromised. B/w feeding tube vs palliative care option, he would like to go with feeding tube if possible. Monitor and replete electrolytes as appropriate. GI evaluated again 07/07, treating empirically oral thrush with fluconazole course. Scoped 07/10, recommends ENT eval Surgery evaluated, appreciate recommendation. PPI BID for Nguyen's esophagus EGD showed keratosis and erythema around pharynx and and ENT consultation was advised . Anemia Previously normal hemoglobin level Admitting hemoglobin 13.8 Likely secondary to GI blood loss secondary to pancolitis on the background of dilutional component. Ferritin elevated likely inflammatory, iron level low, vitamin B12 and folate WNL. Iron supplement. Hb gradually dropping.-8.7 as of 07/12/2021 Monitor hemoglobin daily and as needed. HIV (human immunodeficiency virus infection): Plan: -Patient on no medication, continue with home medication, ID evaluated, patient afebrile. -CD4 minimally low. Appreciate ID input and recommendation. -Follow-up with ID as an outpatient. -We will discuss with ID specialist for any other recommendations Heart disease: Plan: - Noted in external scanned files in [facility] - 06/26 Echo: Normal LV size, moderate concentric LVH, septal motion is consistent with conduction abnormality, no wall motion abnormalities, EF 55 to 60%, aortic valve leaflets are moderately calcified and restricted in mobility, moderate valvular aortic stenosis, moderate to heavy calcification of the posterior mitral valve annulus and leaflet and there is trace mitral regurgitation. - Continue asa and pravastatin 80 mg HS - hold lisinopril. Resume when able. Prostate cancer: Plan: -History of such in 2002, status post brachytherapy -Previously followed with Dr. Crowley, no recent PSA for review -Continue flomax and vesicare DVT PPx: - teds, scds, Lovenox on hold, Re-gi bleed. CODE:Full code 07/09: Updated Pt's caregiver at bedside, answered all his questions. Prognosis remains poor Prolonged discussion with the caregiver at bedside again today Patient is agreeable to continue current management plan at this hospital Admission and Anticipated Discharge Date Admission Date: June 25, 2021 Subjective 07/11/2021 The patient was seen and examined in medical telemetry unit He has been weak and lethargic with ongoing diarrhea but normal bleeding Has been having problem with swallowing and awaiting ENT evaluation 07/12/2021 The patient was seen and examined medical telemetry unit He has not been able to eat anything and barely drinking anything He will have ENT evaluation tomorrow Ongoing diarrhea but no hematochezia 07/13/2021 The patient was seen and examined in medical telemetry unit He has been worsening Getting weaker day by day and cannot eat anything orally Denies any abdominal pain has been having profuse diarrhea 07/14/2021 Patient was seen and examined in medical telemetry unit He remains stable denies any significant symptoms Remains weak and lethargic Review of Systems Review of Systems: All systems reviewed and are unremarkable except as noted below Gastrointestinal: Abdominal discomfort with minimal distention Physical Exam Physical Exam: Lying in bed very ill but otherwise comfortable Constitutional: + ill appearing and average body habitus Eyes: PERRL, conjunctivae normal, anicteric sclerae ENMT: external ear and nose normal, oropharynx normal Neck: trachea midline, no thyromegaly Respiratory: no respiratory distress Auscultation: lungs clear to auscultation bilaterally Cardiovascular: Rate/Rhythm: regular rate and regular rhythm; not tachycardic Heart Sounds: normal S1 and normal S2; no murmur Extremities: no edema Gastrointestinal (Abdomen): Inspection/Auscultation: normal bowel sounds; abdomen not distended (Minimal distention lower abdomen) Percussion/Palpation: + abdomen tender (Mildly tender lower quadrants) and abdomen soft Musculoskeletal: No acute arthritis in any joint Neurologic: PERRL, EOMI, accommodation nl, no face palsy, no dysarthria Lymphatic: no cervical or axillary lymphadenopathy Results & Data Results & Data ([facility]) Vital Signs (Past 12 Hours) Vital Signs Temp Pulse Pulse Resp BP BP Pulse Ox 07/14/21 15:06 36.3 C L 105 H 20 151/82 H 95 07/14/21 14:58 103 H 07/14/21 11:53 36.7 C 109 H 20 120/84 97 07/14/21 07:35 97 H Laboratory Results BMP 07/14/21 06:23 Sodium 144 Potassium 3.8 Chloride 110 H Carbon Dioxide 29 BUN 27 H Creatinine 0.59 L Glucose 152 H Calcium 8.0 L Medications Administered Current Inpatient Medications Acetaminophen (Acetaminophen 325 Mg Tab) 650 mg PO Q4H PRN PRN Reason: Pain or Fever Stop: 07/26/21 02:57 Last Admin: 06/30/21 21:57 Dose: 650 mg Documented by: Ascorbic Acid (Ascorbic Acid 500 Mg Tab) 1,000 mg PO DAILY ARMIDA Stop: 07/26/21 08:59 Last Admin: 07/14/21 09:07 Dose: Not Given Documented by: Aspirin (Aspirin 81 Mg Ectab) 81 mg PO DAILY ARMIDA Stop: 07/26/21 08:59 Last Admin: 07/14/21 09:09 Dose: Not Given Documented by: Famotidine (Famotidine 20 Mg Tab) 20 mg PO DAILY PRN PRN Reason: gerd Stop: 07/25/21 21:22 Last Admin: 07/11/21 09:49 Dose: 20 mg Documented by: Ferrous Gluconate (Ferrous Gluconate 324 Mg Tab) 324 mg PO QAM ARMIDA Stop: 08/02/21 08:59 Last Admin: 07/14/21 09:07 Dose: Not Given Documented by: Heparin Sodium (Beef Lung) (Heparin 10 Unit/Ml 5 Ml Flush) 5 ml FLUSH PRN PRN PRN Reason: Flush Stop: 08/10/21 01:23 Last Admin: 07/14/21 10:36 Dose: 5 ml Documented by: Heparin Sodium (Porcine) (Heparin Sod 5,000 Unit/0.5 Ml Vial) 5,000 units SQ Q12 ARMIDA Stop: 08/02/21 20:59 Last Admin: 07/14/21 09:06 Dose: 5,000 units Documented by: Promethazine HCl 12.5 mg/ (Sodium Chloride) 50.5 mls @ 202 mls/hr IV Q6H PRN PRN Reason: Nausea And Vomiting Stop: 07/31/21 03:46 Dextrose (D10w) 1,000 mls @ 0 mls/hr IV .Q0M PRN PRN Reason: protocol (see label comments) Stop: 08/03/21 13:10 Fluconazole (Diflucan) 200 mg in 100 mls @ 100 mls/hr IV DAILY ARMIDA; Protocol Stop: 07/21/21 09:59 Last Infusion: 07/14/21 10:12 Dose: Infused Documented by: Fat Emulsion-Dodge Oil/Soybean Oil (Clinolipid 20% Iv Fat Emulsion) 100 mls @ 40 mls/hr IV .Q2H30M ARMIDA Stop: 07/14/21 20:59 Last Admin: 07/14/21 16:04 Dose: 40 mls/hr Documented by: Amino Acids/Dextrose 1,312 ml/ (Nutrition (Parenteral)) 1,312 mls @ 54.6 mls/hr IV .Q24H [facility]; Protocol Stop: 07/15/21 15:59 Last Admin: 07/14/21 16:04 Dose: 54.6 mls/hr Documented by: Lactobacillus Acidophilus (Advanced Probiotic 1250 Mg Capsule) 2 cap PO DAILY [facility] Stop: 08/07/21 08:59 Last Admin: 07/14/21 09:07 Dose: Not Given Documented by: Miscellaneous (Stop Clinolipid) 1 ea N/A 2100 ONE Stop: 07/14/21 21:01 Miscellaneous Information (Tpn/Ppn Consult Pharmacy) 1 ea N/A UD PRN PRN Reason: Consult Stop: 08/03/21 12:24 Multi-Ingredient Mouthwash/Gargle (First - Mouthwash Blm 119 Ml) 5 ml PO BID SC H Stop: 08/02/21 12:14 Last Admin: 07/14/21 09:08 Dose: 5 ml Documented by: Multivitamins/Minerals (Cerovite Adv Formula Tab) 1 tab PO DAILY [facility] Stop: 07/26/21 08:59 Last Admin: 07/14/21 09:07 Dose: Not Given Documented by: Abacavir- Dolutegravir- Lamivudine*Non-Form Patient's Own Med 1 ea PO HS [facility] Stop: 07/27/21 20:59 Last Admin: 07/13/21 21:37 Dose: Not Given Documented by: Ondansetron HCl (Ondansetron Inj 2 Mg/Ml 2 Ml Vial) 4 mg IV Q6H PRN PRN Reason: Nausea And Vomiting Stop: 07/27/21 00:55 Last Admin: 07/03/21 18:10 Dose: 4 mg Documented by: Pantoprazole Sodium (Pantoprazole 40 Mg Tab) 40 mg PO BID [facility] Stop: 08/09/21 20:59 Last Admin: 07/14/21 09:07 Dose: Not Given Documented by: Pravastatin Sodium (Pravastatin Sod 40 Mg Tab) 80 mg PO HS [facility] Stop: 07/25/21 21:22 Last Admin: 07/13/21 21:37 Dose: Not Given Documented by: Tamsulosin HCl (Tamsulosin Hcl 0.4 Mg Cap) 0.4 mg PO HS [facility] Stop: 07/25/21 21:22 Last Admin: 07/13/21 21:37 Dose: Not Given Documented by: Vitamin D (Cholecalciferol 1,000 Units 25 Mcg Tab) 1,000 units PO Q2D@0900 ARMIDA Stop: 07/27/21 08:59 Last Admin: 07/13/21 08:45 Dose: Not Given Documented by: Vitamin E (Tocopheryl, Dl-Alpha 400 Units 180 Mg Cap) 400 units PO DAILY ARMIDA Stop: 07/26/21 08:59 Last Admin: 07/14/21 09:07 Dose: Not Given Documented by:
[2021-07-14] MEDS ORDERED: METOPROLOL TARTRATE 1 MG/ML VIAL IV STA ×2 (19:31→22:56)
[2021-07-14] MEDS ORDERED: SODIUM CHLORIDE 0.9% 1000ML 1,000 ML IV SCH (19:45)
[2021-07-14] MEDS: [UNRECOGNIZED DRUG - REMARK] PO SCH (20:46)
[2021-07-14] MEDS: TAMSULOSIN HCL 0.4 MG CAP PO SCH (20:46)
[2021-07-14] MEDS: PRAVASTATIN SOD 40 MG TAB PO SCH (20:46)
[2021-07-14] MEDS ORDERED: STOP CLINOLIPID ONE (21:00)
[2021-07-15 06:03] LABS: Hematocrit (blood only) 28.5 % (42-52); Hemoglobin 8.7 g/dL (14.0-18.0); Mean Corpuscular Hemoglobin 33.1 pg (25-34); Mean Corpuscular Hgb Conc 30.5 g/dL (32-36); Mean Corpuscular Volume 108.4 fL (80-100); Mean Platelet Volume 9.6 fL (7.4-10.4); Nucleated RBC # (auto) 0.04 K/uL (0-0); Nucleated RBC % (auto) 0.5 %; Platelet Count 364 K/uL (130-400); RDW Coefficient of Variation 14.3 % (11.5-14.5); RDW Standard Deviation 56.2 fL (36.4-46.3); Red Blood Count 2.63 M/uL (4.7-6.1); White Blood Count 7.91 K/uL (4.8-10.8)
[2021-07-15 06:26] LABS: Albumin Globulin Ratio 0.7 (0.9-2); Albumin Level 2.3 gm/dl (3.4-5.0); BUN Creatinine Ratio 47.5 (10-20); Bilirubin,Total 0.6 mg/dl (0.2-1.0); Creatinine Clr Calc Pharmacy 76.5 ml/min; Est GFR (African American) 111.6 ml/min; Est GFR (Non-African American) 96.3 ml/min; Globulin 3.4 gm/dl (2.5-4.0); Magnesium 2.1 mg/dl (1.7-2.4); Phosphorus 3.5 mg/dl (2.5-4.9); Potassium 3.8 mmol/L (3.5-5.1); Total Protein 5.7 gm/dl (6.0-8.3)
[2021-07-15 06:30] LABS: ALC (manual) 1.31 K/uL (1.2-3.4); Dohle Bodies 1+; Lymphocytes # (manual) 1.31 K/uL (1.2-3.4); Lymphocytes % (manual) 16.5 %; Monocytes # (manual) 0.13 K/uL (0.11-0.59); Monocytes % (manual) 1.7 %; Myelocytes # (manual) 0.07 K/uL (0-0); Myelocytes % (manual) 0.9 %; Neutrophils % (manual) 80.9 %; Toxic Granulation 1+; Toxic Vacuolation 1+
[2021-07-15] MEDS: CHOLECALCIFEROL 1,000 UNITS 25 MCG TAB PO SCH (08:38)
[2021-07-15] MEDS: ASCORBIC ACID 500 MG TAB PO SCH (08:38)
[2021-07-15] MEDS: FERROUS GLUCONATE 324 MG TAB PO SCH (08:38)
[2021-07-15] MEDS: CEROVITE ADV FORMULA TAB PO SCH (08:38)
[2021-07-15] MEDS: ADVANCED PROBIOTIC 1250 MG CAPSULE PO SCH (08:38)
[2021-07-15] MEDS: TOCOPHERYL, DL-ALPHA 400 UNITS 180 MG CAP PO SCH (08:38)
[2021-07-15] MEDS: PANTOprazole 40 MG TAB PO SCH ×2 (08:38→21:11)
[2021-07-15] MEDS: ASPIRIN 81 MG ECTAB PO SCH (08:38)
[2021-07-15] MEDS: FLUCONAZOLE 200 MG/100 ML BAG IV SCH (08:52)
[2021-07-15] MEDS: FIRST - Mouthwash BLM 119 ML PO SCH ×2 (08:52→21:11)
[2021-07-15] MEDS: HEPARIN SOD 5,000 UNIT/0.5 ML VIAL SQ SCH ×2 (08:56→21:12)
[2021-07-15] MEDS ORDERED: [UNRECOGNIZED DRUG - OTHER] IV SCH (16:00)
[2021-07-15] MEDS ORDERED: CENTRAL TPN IV SCH (16:00)
[2021-07-15] MEDS ORDERED: AMINO ACID 8% IV SCH (16:00)
[2021-07-15] MEDS: CLINOLIPID 20% IV FAT EMULSION 100 ML IV SCH ×2 (16:04→18:33)
--- NOTE | 2021-07-15 18:47 | Hospitalist Progress Note ---
Date of Service July 15, 2021 Assessment & Plan (1) Pancolitis: Plan: Patient is a 80 yr male with H/O prostate cancer s/p radiation therapy, HTN, HLD, HIV+ who presents with acute abdominal complaints 06/25. Pt is a poor historian and voice is very raspy. At times he seems to trail off with tangential thoughts and at other times he gets defensive when he is asked to clarify his answers with more specific questions. 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 No evidence of bowel obstruction. Stool studies: Negative including C. difficile. Blood Cx:Negative ID: Likely inflammatory colitis, recommendation to DC antibiotic. --Repeat CTAP 06/30 after worsening belly complaints: Redemonstration of pancolitis. Mildly dilated gas-filled loops of large and small bowel, ileus versus developing toxic megacolon. 07/02 CTA abdomen pelvis: Pancolonic bowel wall thickening and extensive dilatation with increased vascular markings, origin of great vessels patent. 07/02 status post colonoscopy: Concerning for ischemic colitis, biopsy taken. Zosyn restarted 07/02. 07/02: Biopsy: Suggestive of ischemic colitis, nonocclusive. 07/10 esophagus biopsy: Nguyen's esophagus, negative for dysplasia, focal squamous epithelium, heavily inflamed and ulcerated squamous mucosa EGD showed keratosis and erythema around pharynx and and ENT consultation was advised. 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-nothing more to offer at this time, does not think due to ulcerative colitis and did not recommend any steroid Discussed with the friend and the patient and want to now transferred to [place] if further management can be done Long discussion with hospitalist, GI specialist and ID specialist-nothing further can be done given his current presentation Patient was made aware about this decision and he was agreeable to stay here and continue with the current treatment plan Overall prognosis remains very poor Remains generally weak and lethargic and overall condition has not been improving Does not want any Palliative care evaluation for now Patient continues to have bright red blood per rectum on and off. Belly pain/discomfort ongoing, better today Pt not eating much, c/w PPN 07/04 --> PICC line 07/10 --> 07/10 TPN. Speech re-evaled Pt 07/07: lacking functional oral motor or swallow reflex abilities, hence PO intake compromised. B/w feeding tube vs palliative care option, he would like to go with feeding tube if possible. Surgery evaluated, appreciate recommendation. Continue PPI BID for Nguyen's esophagus Anemia Likely secondary to GI blood loss secondary to pancolitis and partly Hb drop due to dilution. Ferritin elevated likely inflammatory, iron level low, vitamin B12 and folate WNL. Iron supplement. Monitor CBC HIV (human immunodeficiency virus infection): -CD4 minimally low. Appreciate ID input and recommendation. -Follow-up with ID as an outpatient. Resume Home meds when swallowing improves Heart disease: - 06/26 Echo: Normal LV size, moderate concentric LVH, septal motion is consistent with conduction abnormality, no wall motion abnormalities, EF 55 to 60%, aortic valve leaflets are moderately calcified and restricted in mobility, moderate valvular aortic stenosis, moderate to heavy calcification of the posterior mitral valve annulus and leaflet and there is trace mitral regurgitation. - Continue asa and pravastatin 80 mg HS - hold lisinopril for now, resume as able. Prostate cancer: -Dx in 2002, status post brachytherapy -Previously followed with Dr. Crowley -Continue flomax and vesicare DVT Px: Heparin SQ CODE STATUS: Full code Admission and Anticipated Discharge Date Admission Date: June 25, 2021 Subjective Patient is seen and examined at bedside States feeling tired and reports having diarrhea Denies any chest pain, shortness of breath, dizziness, nausea, abdominal pain Offers no other complaints Review of Systems Review of Systems: All systems reviewed & are unremarkable except as noted in Subjective Physical Exam Physical Exam: Physical Exam: Vitals signs as noted above General Appearance: Thin, frail, ill-appearing, no apparent distress Head: normocephalic, Atraumatic Eyes: normal inspection, EOMI Neck: supple, Trachea midline Respiratory/Chest: Normal breath sounds, CTA, No accessory muscle use Cardiovascular: S1, S2, + murmur Abdomen/GI:Soft, Non tender, Bowel sounds present Extremities/Musculoskeletal:normal inspection, B/L LE edema Neurologic/Psych:AAOX3, grossly no focal neurological deficits, +Hoarseness Skin: normal color, warm Results & Data Results & Data ([facility]) Vital Signs (Past 12 Hours) Vital Signs Temp Pulse Pulse Resp BP Pulse Ox 07/15/21 16:19 36.5 C 106 H 16 152/91 H 94 07/15/21 16:11 104 H 07/15/21 11:22 36.2 C L 114 H 18 121/77 95 07/15/21 07:42 108 H 07/15/21 07:18 36.6 C 95 H 20 119/78 93 Laboratory Results Short CBC 07/15/21 Range/Units 05:32 WBC 7.91 (4.8-10.8) K/uL Hgb 8.7 L (14.0-18.0) g/dL Hct 28.5 L (42-52) % Plt Count 364 (130-400) K/uL BMP 07/15/21 05:32 Sodium 147 H Potassium 3.8 Chloride 112 H Carbon Dioxide 29 BUN 28 H Creatinine 0.59 L Glucose 130 H Calcium 8.0 L Liver Function 07/15/21 Range/Units 05:32 Total Bilirubin 0.6 (0.2-1.0) mg/dl AST 75 H (13-39) U/L ALT 54 H (7-52) U/L Alkaline Phosphatase 88 (34-104) U/L Albumin 2.3 L (3.4-5.0) gm/dl
[2021-07-15] MEDS ORDERED: STOP CLINOLIPID ONE (21:00)
[2021-07-15] MEDS: [UNRECOGNIZED DRUG - REMARK] PO SCH (21:11)
[2021-07-15] MEDS: TAMSULOSIN HCL 0.4 MG CAP PO SCH (21:11)
[2021-07-15] MEDS ORDERED: POTASSIUM CHLORIDE PWD 20 MEQ PACK PO STA (23:19)
[2021-07-15] MEDS ORDERED: LACTATED RINGER'S 1,000 ML IV ONE (23:20)
[2021-07-16] MEDS: POTASSIUM CHLORIDE / WTR 10 MEQ/100 ML PLCT IV SCH ×2 (00:53→01:56)
[2021-07-16 07:54] LABS: Albumin Globulin Ratio 0.7 (0.9-2); Albumin Level 2.2 gm/dl (3.4-5.0); BUN Creatinine Ratio 50.8 (10-20); Bilirubin,Total 0.6 mg/dl (0.2-1.0); Calcium 7.8 mg/dl (8.5-10.1); Creatinine Clr Calc Pharmacy 71.4 ml/min; Est GFR (African American) 110.1 ml/min; Total Protein 5.2 gm/dl (6.0-8.3)
[2021-07-16] MEDS: FLUCONAZOLE 200 MG/100 ML BAG IV SCH (09:19)
[2021-07-16] MEDS: FERROUS GLUCONATE 324 MG TAB PO SCH (09:25)
[2021-07-16] MEDS: ASCORBIC ACID 500 MG TAB PO SCH (09:25)
[2021-07-16] MEDS: TOCOPHERYL, DL-ALPHA 400 UNITS 180 MG CAP PO SCH (09:25)
[2021-07-16] MEDS: CEROVITE ADV FORMULA TAB PO SCH (09:26)
[2021-07-16] MEDS: FIRST - Mouthwash BLM 119 ML PO SCH ×2 (09:26→23:50)
[2021-07-16] MEDS: PANTOprazole 40 MG TAB PO SCH (09:26)
[2021-07-16] MEDS: ADVANCED PROBIOTIC 1250 MG CAPSULE PO SCH (09:26)
[2021-07-16] MEDS: ASPIRIN 81 MG ECTAB PO SCH (09:27)
[2021-07-16] MEDS: HEPARIN SOD 5,000 UNIT/0.5 ML VIAL SQ SCH (11:04)
--- NOTE | 2021-07-16 13:14 | Palliative Care Consultation ---
Date of Consultation July 16, 2021 Assessment & Plan (1) Anxiety: He is easily frustrated and irritable. Per Jonathan, he tends to shut down when overwhelmed. Will add prn lorazepam for his comfort (2) Abdominal pain: Denies pain currently but has had abdominal pain during admission. Will add prn morphine for comfort (3) Palliative care encounter: When I initially addressed goals of care with Luis, he deferred decision making to his friend and poa, Jonathan Taylor. I spoke with Jonathan on the phone. Jonathan told me that he was worried that time was short for Luis. We reviewed his current status and confirmed that his prognosis is poor. Jonathan tells me that Luis had said to him a few days ago that he just wanted to be comfortable. He supports this and feels that at this time it would be in Luis's best interest to shift focus of care to comfort. We discussed forgoing medications that do not directly contribute to Luis's comfort, including TPN. He asked about hospice . At this time, Luis will remain in the hospital and is likely to within days. He lives alone and would not have the level of care he needs to return home if he were to plateau. Plan would be to consider SNF with hospice care. I did speak with Luis and reviewed my conversation with Jonathan. I asked him if he agreed with a plan to focus on his comfort and allow him to peacefully. He answered "Yes, thank you". Dr. Kerr aware. (4) Pancolitis: History of Present Illness Reason for Consultation: goals of care Requesting Physician: Dr. Kerr Attending Physician: Paulo Kerr MD History of Present Illness 81 yo gentleman who has been hospitalized since 06/25 with pancolitis. He has been seen by ID and etiology was felt to be more inflammatory than infectious. He had a colonoscopy with biopsy that is suggestive of ischemic colitis. He is C diff and culture negative. He does have HIV but viral load was undetectable and CD4 was 870 at last check in May of this year. He also has a history of prostate cancer and is s/p radiation treatment. He has chronic loose stools with 7 BMs today per RN. He also has oral steven and dysphagia. He has been on TPN for nutrition. Unfortunately he has had progressive decline with lethargy, confusion at times, and is now hypotensive. He is resting and appears comfortable but is easily arousable. His speech is difficult to understand but he denies pain and tells me that he defers any decisions to his friends Jonathan and Sav. Allergies Allergy/AdvReac Type Severity Reaction Status Date / Time ritonavir [From Norvir] Allergy Unknown Rash Verified 07/10/21 10:28 Home Medications Medication Instructions Recorded Confirmed Type solifenacin 10 mg tablet 10 mg PO DAILY #90 tab 11/18/20 06/25/21 Rx abacavir 600 mg-dolutegravir 50 1 tab PO HS 06/25/21 06/25/21 History mg-lamivudine 300 mg tablet ascorbic acid (vitamin C) 1,000 mg 1,000 mg PO DAILY 06/25/21 06/25/21 History tablet,extended release (Vitamin C ER) aspirin 81 mg tablet,delayed 81 mg PO DAILY 06/25/21 06/25/21 History release (Aspirin Low Dose) cholecalciferol (vitamin D3) 25 25 mcg PO Q OTHER DAY 06/25/21 06/25/21 History mcg (1,000 unit) tablet (Vitamin D3) famotidine 20 mg tablet (Pepcid) 20 mg PO DAILY PRN 06/25/21 06/25/21 History lisinopril 5 mg tablet 5 mg PO DAILY 06/25/21 06/25/21 History bpbtebivyhdw-ofpelffl-bdhxhx tablet 1 tab PO DAILY 06/25/21 06/25/21 History pravastatin 80 mg tablet 80 mg PO HS 06/25/21 06/25/21 History tamsulosin 0.4 mg capsule 0.4 mg PO HS 06/25/21 06/25/21 History vitamin E 400 unit tablet 400 unit PO DAILY 06/25/21 06/25/21 History Patient History Medical History Alcohol abuse Human immunodeficiency virus (HIV) disease Hypertension Osteoarthritis Osteoporosis Rectal bleed Surgical History H/O colonoscopy 07/02/2021. Tolerated propofol sedation. Family History Father Cancer Grandmother (Maternal) Cancer Mother Cancer Other Heart disease Hypertension Social History Smoking Status: Never smoker Hx Alcohol Use: Yes Alcohol type: beer Hx Substance Use: No Preferred Language: Cymraes Communication Ability: Effective It Data Architect Required: No Beliefs That Will Affect Care: None marital status: Single Current Living Situation: Alone current occupational status: retired Feels Safe at Home: Yes Safety Concerns: Feels Safe At This Time Assistive Devices: None Review of Systems Review of Systems: [place] Symptom Assessment Scale Pain 0/3 Dyspnea 0/3 Anxiety 2/3 Fatigue 3/3 Nausea 0/3 Drowsiness 2/3 Palliative Performance Score 30% Physical Exam Constitutional: + ill appearing and + cachectic ENMT: Mouth: + dry oral mucous membranes no obvious exudate noted Respiratory: normal respiratory effort; no labored breathing Cardiovascular: Rate/Rhythm: regular rate and regular rhythm Gastrointestinal (Abdomen): Inspection/Auscultation: abdomen not distended Musculoskeletal: Extremities: + muscle atrophy Skin: warm and dry Neurologic: moves all extremities; not confused Results & Data ([facility]) Vital Signs (Past 12 Hours) Vital Signs Temp Pulse Pulse Resp BP Pulse Ox 07/16/21 10:50 98.4 F 96 H 20 114/70 91 07/16/21 07:49 108 H 07/16/21 07:08 98.8 F 115 H 20 98/62 L 91 07/16/21 03:06 98.4 F 124 H 16 118/74 93 PG Care Time/CCT Total # of Minutes Spent Total Time Spent: 75 Total Time Spent with Patient: Total time spent is greater than 50% in coordination of care (as documented) at patient's floor/unit and/or counseling patient: goals of care, symptom management, family education and support, coordination of care Coding Level of Care Code 77736 Initial Inpt Care Lvl 3 Diagnoses Anxiety F41.9 Abdominal pain R10.9 Palliative care encounter Z51.5 Pancolitis K51.00
[2021-07-16] MEDS ORDERED: LORazepam 0.5 MG TAB PO PRN (13:20)
[2021-07-16] MEDS ORDERED: ACETAMINOPHEN 650 MG SUPP PR PRN (13:20)
[2021-07-16] MEDS ORDERED: GLYCOPYRROLATE 0.2 MG/ML VIAL IV PRN (13:20)
[2021-07-16] MEDS ORDERED: ONDANSETRON 4 MG OD TAB SL PRN (13:20)
[2021-07-16] MEDS ORDERED: ONDANSETRON INJ 2 MG/ML 2 ML VIAL IV PRN (13:20)
[2021-07-16] MEDS ORDERED: LORazepam 2 MG/1 ML VIAL IV PRN (13:20)
[2021-07-16] MEDS ORDERED: AMINO ACID 8% IV SCH (16:00)
[2021-07-16] MEDS ORDERED: CLINOLIPID 20% IV FAT EMULSION 100 ML IV SCH (16:00)
[2021-07-16] MEDS ORDERED: DEXTROSE 5% 1,000 ML IV SCH (16:00)
[2021-07-16] MEDS ORDERED: [UNRECOGNIZED DRUG - OTHER] IV SCH (16:00)
[2021-07-16] MEDS ORDERED: CENTRAL TPN IV SCH (16:00)
--- NOTE | 2021-07-16 16:40 | Hospitalist Progress Note ---
Date of Service July 16, 2021 Assessment & Plan (1) Pancolitis: Plan: Patient is a 80 yr male with H/O prostate cancer s/p radiation therapy, HTN, HLD, HIV+ who presents with acute abdominal complaints 06/25. Pt is a poor historian and voice is very raspy. At times he seems to trail off with tangential thoughts and at other times he gets defensive when he is asked to clarify his answers with more specific questions. 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 No evidence of bowel obstruction. Stool studies: Negative including C. difficile. Blood Cx:Negative ID: Likely inflammatory colitis, recommendation to DC antibiotic. --Repeat CTAP 06/30 after worsening belly complaints: Redemonstration of pancolitis. Mildly dilated gas-filled loops of large and small bowel, ileus versus developing toxic megacolon. 07/02 CTA abdomen pelvis: Pancolonic bowel wall thickening and extensive dilatation with increased vascular markings, origin of great vessels patent. 07/02 status post colonoscopy: Concerning for ischemic colitis, biopsy taken. Zosyn restarted 07/02. 07/02: Biopsy: Suggestive of ischemic colitis, nonocclusive. 07/10 esophagus biopsy: Nguyen's esophagus, negative for dysplasia, focal squamous epithelium, heavily inflamed and ulcerated squamous mucosa EGD showed keratosis and erythema around pharynx and and ENT consultation was advised. Requested ENT evaluation fluconazole, TPN DCed Transition to comfort measures only Appreciate palliative care input As per Prior Hospitalist: Discussed with ID specialist in [place] with initial recommendation to transfer him to [place] for further evaluation and continuation of care Discussed with scaleman-nothing more to offer at this time, does not think due to ulcerative colitis and did not recommend any steroid Discussed with the friend and the patient and want to now transferred to [facility] [place] if further management can be done Long discussion with hospitalist, GI specialist and ID specialist-nothing further can be done given his current presentation Patient was made aware about this decision and he was agreeable to stay here and continue with the current treatment plan Overall prognosis remains very poor Remains generally weak and lethargic and overall condition has not been improv ing Does not want any Palliative care evaluation for now Patient continues to have bright red blood per rectum on and off. Belly pain/discomfort ongoing, better today Pt not eating much, c/w PPN 07/04 --> PICC line 07/10 --> 07/10 TPN. Speech re-evaled Pt 07/07: lacking functional oral motor or swallow reflex abilities, hence PO intake compromised. B/w feeding tube vs palliative care option, he would like to go with feeding tube if possible. Surgery evaluated, appreciate recommendation. Continue PPI BID for Nguyen's esophagus Anemia Likely secondary to GI blood loss secondary to pancolitis and partly Hb drop due to dilution. Ferritin elevated likely inflammatory, iron level low, vitamin B12 and folate WNL. Iron supplement. Monitor CBC HIV (human immunodeficiency virus infection): -CD4 minimally low. Appreciate ID input and recommendation. -Follow-up with ID as an outpatient. Heart disease: - 06/26 Echo: Normal LV size, moderate concentric LVH, septal motion is consistent with conduction abnormality, no wall motion abnormalities, EF 55 to 60%, aortic valve leaflets are moderately calcified and restricted in mobility, moderate valvular aortic stenosis, moderate to heavy calcification of the posterior mitral valve annulus and leaflet and there is trace mitral regurgitation. - Continue asa and pravastatin 80 mg HS - was on lisinopril Prostate cancer: -Dx in 2002, status post brachytherapy -Previously followed with Dr. Crowley -was on flomax and vesicare DVT Px: Heparin SQ CODE STATUS: Full code Disposition Poor prognosis Currently on comfort measures only Appreciate palliative care input Admission and Anticipated Discharge Date Admission Date: June 25, 2021 Subjective Patient is seen and examined at bedside Medically deteriorating Discussed with palliative care Patient continues to have diarrhea No new complaints Poor oral intake Poor prognosis Denies any chest pain, shortness of breath, dizziness, nausea, abdominal pain Review of Systems Review of Systems: All systems reviewed & are unremarkable except as noted in Subjective Physical Exam Physical Exam: Physical Exam: Vitals signs as noted above General Appearance: Thin, frail, ill-appearing, no apparent distress Head: normocephalic, Atraumatic Eyes: normal inspection, EOMI Neck: supple, Trachea midline Respiratory/Chest: Normal breath sounds, CTA, No accessory muscle use Cardiovascular: S1, S2, + murmur Abdomen/GI:Soft, Non tender, Bowel sounds present Extremities/Musculoskeletal:normal inspection, B/L LE edema Neurologic/Psych:AAOX3, grossly no focal neurological deficits, +Hoarseness Skin: normal color, warm Results & Data Results & Data ([facility]) Vital Signs (Past 12 Hours) Vital Signs Temp Pulse Pulse Resp BP Pulse Ox 07/16/21 10:50 36.9 C 96 H 20 114/70 91 07/16/21 07:49 108 H 07/16/21 07:08 37.1 C 115 H 20 98/62 L 91
[2021-07-16] MEDS ORDERED: STOP CLINOLIPID ONE (21:00)
--- NOTE | 2021-07-17 11:07 | Palliative Care Progress Note ---
Date of Service July 17, 2021 Assessment & Plan (1) Abdominal pain: Plan: Denies. Morphine available if needed. (2) Anxiety: Plan: He denies feeling anxious or worried. He tells me that he knows that his time is coming and he is ready. (3) Copious oral secretions: Plan: Discussed with RN. Use glycopyrrolate as ordered. Continue oral suction prn by patient as desired. (4) Palliative care encounter: Plan: On comfort measures. Anticipate within days. He has support from friends who have been visiting. (5) Pancolitis: Admission and Anticipated Discharge Date Admission Date: June 25, 2021 Subjective Awake. Denies discomfort. Has copious oral and tracheal secretions and is using suction to remove. No prn medication use for comfort. Review of Systems Review of Systems: [place] Symptom Assessment Scale Pain 0/3 Dyspnea 0/3 Fatigue 2/3 Nausea 0/3 Drowsiness 1/3 Palliative Performance Score 30% Physical Exam Constitutional: + cachectic; no acute distress ENMT: pink tinged secretions Respiratory: normal respiratory effort; no labored breathing Gastrointestinal (Abdomen): Inspection/Auscultation: abdomen not distended frequent liquid foul smelling stools Musculoskeletal: Extremities: + muscle atrophy Skin: warm and dry Neurologic: moves all extremities; not confused PG Care Time/CCT Total # of Minutes Spent Total Time Spent with Patient: Total time spent is greater than 50% in coordination of care (as documented) at patient's floor/unit and/or counseling patient: Coding Level of Care Code 68994 Subseq Hosp Care Lvl 2 Diagnoses Abdominal pain R10.9 Anxiety F41.9 Copious oral secretions R68.89 Palliative care encounter Z51.5 Pancolitis K51.00
[2021-07-17] MEDS: FIRST - Mouthwash BLM 119 ML PO SCH ×2 (11:38→21:58)
--- NOTE | 2021-07-17 15:14 | Hospitalist Progress Note ---
Date of Service July 17, 2021 Assessment & Plan (1) Pancolitis: Plan: Patient is a 80 yr male with H/O prostate cancer s/p radiation therapy, HTN, HLD, HIV+ who presents with acute abdominal complaints 06/25. Pt is a poor historian and voice is very raspy. At times he seems to trail off with tangential thoughts and at other times he gets defensive when he is asked to clarify his answers with more specific questions. 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 No evidence of bowel obstruction. Stool studies: Negative including C. difficile. Blood Cx:Negative ID: Likely inflammatory colitis, recommendation to DC antibiotic. --Repeat CTAP 06/30 after worsening belly complaints: Redemonstration of pancolitis. Mildly dilated gas-filled loops of large and small bowel, ileus versus developing toxic megacolon. 07/02 CTA abdomen pelvis: Pancolonic bowel wall thickening and extensive dilatation with increased vascular markings, origin of great vessels patent. 07/02 status post colonoscopy: Concerning for ischemic colitis, biopsy taken. Zosyn restarted 07/02. 07/02: Biopsy: Suggestive of ischemic colitis, nonocclusive. 07/10 esophagus biopsy: Nguyen's esophagus, negative for dysplasia, focal squamous epithelium, heavily inflamed and ulcerated squamous mucosa EGD showed keratosis and erythema around pharynx and and ENT consultation was advised. Requested ENT evaluation fluconazole, TPN DCed Transition to comfort measures only Appreciate palliative care input Continue current management As per Prior Hospitalist: Discussed with ID specialist in [place] with initial recommendation to transfer him to [place] for further evaluation and continuation of care Discussed with hide mill worker-nothing more to offer at this time, does not think due to ulcerative colitis and did not recommend any steroid Discussed with the friend and the patient and want to now transferred to [place] if further management can be done Long discussion with hospitalist, GI specialist and ID specialist-nothing further can be done given his current presentation Patient was made aware about this decision and he was agreeable to stay here and continue with the current treatment plan Overall prognosis remains very poor Remains generally weak and lethargic and overall condition has not been improving Does not want any Palliative care evaluation for now Patient continues to have bright red blood per rectum on and off. Belly pain/discomfort ongoing, better today Pt not eating much, c/w PPN 07/04 --> PICC line 07/10 --> 07/10 TPN. Speech re-evaled Pt 07/07: lacking functional oral motor or swallow reflex abilities, hence PO intake compromised. B/w feeding tube vs palliative care option, he would like to go with feeding tube if possible. Surgery evaluated, appreciate recommendation. Continue PPI BID for Nguyen's esophagus Anemia Likely secondary to GI blood loss secondary to pancolitis and partly Hb drop due to dilution. Ferritin elevated likely inflammatory, iron level low, vitamin B12 and folate WNL. Was on Iron supplement. HIV (human immunodeficiency virus infection): -CD4 minimally low. Appreciate ID input and recommendation. -Follow-up with ID as an outpatient. Heart disease: - 06/26 Echo: Normal LV size, moderate concentric LVH, septal motion is consistent with conduction abnormality, no wall motion abnormalities, EF 55 to 60%, aortic valve leaflets are moderately calcified and restricted in mobility, moderate valvular aortic stenosis, moderate to heavy calcification of the posterior mitral valve annulus and leaflet and there is trace mitral regurgitation. - Continue asa and pravastatin 80 mg HS - was on lisinopril Prostate cancer: -Dx in 2002, status post brachytherapy -Previously followed with Dr. Crowley -was on flomax and vesicare DVT Px: Was on Heparin SQ CODE STATUS: DNI/DNR Disposition Poor prognosis Currently on comfort measures only Appreciate palliative care input Admission and Anticipated Discharge Date Admission Date: June 25, 2021 Subjective Patient is seen and examined at bedside No distress during my encounter Still has diarrhea Poor oral intake Denies any chest pain, shortness of breath, dizziness, nausea, abdominal pain Review of Systems Review of Systems: All systems reviewed & are unremarkable except as noted in Subjective Physical Exam Physical Exam: Physical Exam: Vitals signs as noted above General Appearance: Thin, frail, ill-appearing, no apparent distress Head: normocephalic, Atraumatic Eyes: normal inspection, EOMI Neck: supple, Trachea midline Respiratory/Chest: Normal breath sounds, CTA, No accessory muscle use Cardiovascular: S1, S2, + murmur Abdomen/GI:Soft, Non tender, Bowel sounds present Extremities/Musculoskeletal:normal inspection, B/L LE edema Neurologic/Psych:AAOX3, grossly no focal neurological deficits, +Hoarseness Skin: normal color, warm
[2021-07-17] MEDS: MoRPHine SULFATE 2 MG/ML CARP IV PRN (20:00)
--- NOTE | 2021-07-18 15:51 | Hospitalist Progress Note ---
Date of Service July 18, 2021 Assessment & Plan (1) Pancolitis: Plan: Patient is a 80 yr male with H/O prostate cancer s/p radiation therapy, HTN, HLD, HIV+ who presents with acute abdominal complaints 06/25. Pt is a poor historian and voice is very raspy. At times he seems to trail off with tangential thoughts and at other times he gets defensive when he is asked to clarify his answers with more specific questions. 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 No evidence of bowel obstruction. Stool studies: Negative including C. difficile. Blood Cx:Negative ID: Likely inflammatory colitis, recommendation to DC antibiotic. --Repeat CTAP 06/30 after worsening belly complaints: Redemonstration of pancolitis. Mildly dilated gas-filled loops of large and small bowel, ileus versus developing toxic megacolon. 07/02 CTA abdomen pelvis: Pancolonic bowel wall thickening and extensive dilatation with increased vascular markings, origin of great vessels patent. 07/02 status post colonoscopy: Concerning for ischemic colitis, biopsy taken. Zosyn restarted 07/02. 07/02: Biopsy: Suggestive of ischemic colitis, nonocclusive. 07/10 esophagus biopsy: Nguyen's esophagus, negative for dysplasia, focal squamous epithelium, heavily inflamed and ulcerated squamous mucosa EGD showed keratosis and erythema around pharynx and and ENT consultation was advised. Requested ENT evaluation fluconazole, TPN DCed Appreciate palliative care input Currently on Comfort measures only As per Prior Hospitalist: Discussed with ID specialist in [place] with initial recommendation to transfer him to [place] for further evaluation and continuation of care Discussed with city planning engineer-nothing more to offer at this time, does not think due to ulcerative colitis and did not recommend any steroid Discussed with the friend and the patient and want to now transferred to [facility] if further management can be done Long discussion with hospitalist, GI specialist and ID specialist-nothing further can be done given his current presentation Patient was made aware about this decision and he was agreeable to stay here and continue with the current treatment plan Overall prognosis remains very poor Patient continues to have bright red blood per rectum on and off. Belly pain/di scomfort ongoing, better today Pt not eating much, c/w PPN 07/04 --> PICC line 07/10 --> 07/10 TPN. Speech re-evaled Pt 07/07: lacking functional oral motor or swallow reflex abilities, hence PO intake compromised. B/w feeding tube vs palliative care option, he would like to go with feeding tube if possible. Surgery evaluated, appreciate recommendation. Continue PPI BID for Nguyen's esophagus Anemia Likely secondary to GI blood loss secondary to pancolitis and partly Hb drop due to dilution. Ferritin elevated likely inflammatory, iron level low, vitamin B12 and folate WNL. Was on Iron supplement. HIV (human immunodeficiency virus infection): -CD4 minimally low. Appreciate ID input and recommendation. -Follow-up with ID as an outpatient. Heart disease: - 06/26 Echo: Normal LV size, moderate concentric LVH, septal motion is consistent with conduction abnormality, no wall motion abnormalities, EF 55 to 60%, aortic valve leaflets are moderately calcified and restricted in mobility, moderate valvular aortic stenosis, moderate to heavy calcification of the posterior mitral valve annulus and leaflet and there is trace mitral regurgitation. - Continue asa and pravastatin 80 mg HS - was on lisinopril Prostate cancer: -Dx in 2002, status post brachytherapy -Previously followed with Dr. Crowley -was on flomax and vesicare DVT Px: Was on Heparin SQ CODE STATUS: DNI/DNR Disposition Poor prognosis Currently on comfort measures only Appreciate palliative care input Admission and Anticipated Discharge Date Admission Date: June 25, 2021 Subjective Patient is seen and examined at bedside Poor oral intake Denies any chest pain, shortness of breath, dizziness, nausea, abdominal pain Has stool incontinence per industrial relations manager of Systems Review of Systems: All systems reviewed & are unremarkable except as noted in Subjective Physical Exam Physical Exam: Physical Exam: Vitals signs as noted above General Appearance: Thin, frail, ill-appearing, no apparent distress Head: normocephalic, Atraumatic Eyes: normal inspection, EOMI Neck: supple, Trachea midline Respiratory/Chest: Normal breath sounds, CTA, No accessory muscle use Cardiovascular: S1, S2, + murmur Abdomen/GI:Soft, Non tender, Bowel sounds present Extremities/Musculoskeletal:normal inspection, B/L LE edema Neurologic/Psych:AAOX3, grossly no focal neurological deficits, +Hoarseness Skin: normal color, warm
[2021-07-18] MEDS: FIRST - Mouthwash BLM 119 ML PO SCH ×2 (16:39→21:00)
[2021-07-19] MEDS: MoRPHine SULFATE 2 MG/ML CARP IV PRN ×2 (01:10→16:06)
[2021-07-19] MEDS: FIRST - Mouthwash BLM 119 ML PO SCH ×2 (10:05→20:35)
--- NOTE | 2021-07-19 14:50 | Hospitalist Progress Note ---
Date of Service July 19, 2021 Assessment & Plan (1) Pancolitis: Plan: Patient is a 80 yr male with H/O prostate cancer s/p radiation therapy, HTN, HLD, HIV+ who presents with acute abdominal complaints 06/25. Pt is a poor historian and voice is very raspy. At times he seems to trail off with tangential thoughts and at other times he gets defensive when he is asked to clarify his answers with more specific questions. 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 No evidence of bowel obstruction. Stool studies: Negative including C. difficile. Blood Cx:Negative ID: Likely inflammatory colitis, recommendation to DC antibiotic. --Repeat CTAP 06/30 after worsening belly complaints: Redemonstration of pancolitis. Mildly dilated gas-filled loops of large and small bowel, ileus versus developing toxic megacolon. 07/02 CTA abdomen pelvis: Pancolonic bowel wall thickening and extensive dilatation with increased vascular markings, origin of great vessels patent. 07/02 status post colonoscopy: Concerning for ischemic colitis, biopsy taken. Zosyn restarted 07/02. 07/02: Biopsy: Suggestive of ischemic colitis, nonocclusive. 07/10 esophagus biopsy: Nguyen's esophagus, negative for dysplasia, focal squamous epithelium, heavily inflamed and ulcerated squamous mucosa EGD showed keratosis and erythema around pharynx and and ENT consultation was advised. 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 Belly pain/discomfort ongoing, better today Pt not eating much, c/w PPN 3/12 --> PICC line 07/10 --> 07/10 TPN. Speech re-evaled Pt 07/07: lacking functional oral motor or swallow reflex abilities, hence PO intake compromised. B/w feeding tube vs palliative care option, he would like to go with feeding tube if possible. Surgery evaluated, appreciate recommendation. PPI BID for Nguyen's esophagus Anemia Likely secondary to GI blood loss secondary to pancolitis and partly Hb drop due to dilution. Ferritin elevated likely inflammatory, iron level low, vitamin B12 and folate WNL. Was on Iron supplement. HIV (human immunodeficiency virus infection): -CD4 minimally low. Appreciate ID input and recommendation. -Follow-up with ID as an outpatient. Heart disease: - 06/26 Echo: Normal LV size, moderate concentric LVH, septal motion is consistent with conduction abnormality, no wall motion abnormalities, EF 55 to 60%, aortic valve leaflets are moderately calcified and restricted in mobility, moderate valvular aortic stenosis, moderate to heavy calcification of the posterior mitral valve annulus and leaflet and there is trace mitral regurgitation. - Continue asa and pravastatin 80 mg HS - was on lisinopril Prostate cancer: -Dx in 2002, status post brachytherapy -Previously followed with Dr. Crowley -was on flomax and vesicare DVT Px: Was on Heparin SQ CODE STATUS: DNI/DNR Disposition Poor prognosis Currently on comfort measures only Appreciate palliative care input Admission and Anticipated Discharge Date Admission Date: June 25, 2021 Subjective Patient is seen and examined at bedside Clinically deteriorating Denies any diarrhea today Poor oral intake Also denies any chest pain, shortness of breath, dizziness, nausea, abdominal pain Review of Systems Review of Systems: All systems reviewed & are unremarkable except as noted in Subjective Physical Exam Physical Exam: Physical Exam: Vitals signs as noted above General Appearance: Thin, frail, ill-appearing, no apparent distress Head: normocephalic, Atraumatic Eyes: normal inspection, EOMI Neck: supple, Trachea midline Respiratory/Chest: Normal breath sounds, CTA, No accessory muscle use Cardiovascular: S1, S2, + murmur,+Tachycardia Abdomen/GI:Soft, Non tender, Bowel sounds present Extremities/Musculoskeletal:normal inspection, B/L LE edema Neurologic/Psych:AAOX3, grossly no focal neurological deficits, +Hoarseness Skin: normal color, warm
[2021-07-19] MEDS ORDERED: MoRPHine SULFATE 2 MG/ML CARP IV PRN (19:02)
[2021-07-19] MEDS ORDERED: MoRPHine SULFATE 2 MG/ML CARP ONE (19:06)
[2021-07-19] MEDS ORDERED: MoRPHine SULFATE 4 MG/ML 1 ML CARP\\VIAL IV PRN (23:42)
[2021-07-19] MEDS ORDERED: LORazepam 2 MG/1 ML VIAL IV PRN (23:42)
[2021-07-19] MEDS ORDERED: MoRPHine SULFATE 4 MG/ML 1 ML CARP\\VIAL ONE (23:49)
[2021-07-20] MEDS: FIRST - Mouthwash BLM 119 ML PO SCH ×2 (09:14→22:38)
[2021-07-20] MEDS ORDERED: LORazepam 2 MG/1 ML VIAL IV PRN (11:58)
--- NOTE | 2021-07-20 11:58 | Palliative Care Progress Note ---
Date of Service July 20, 2021 Assessment & Plan (1) Abdominal pain: Plan: Morphine dose significantly increased overnight. He appears very comfortable. (2) Copious oral secretions: Plan: Controlled (3) Palliative care encounter: Plan: He appears to be actively dying. I called Jonathan to let him know that Luis appears comfortable but will likely today. He is coming in after speaking with the home. (4) Pancolitis: Admission and Anticipated Discharge Date Admission Date: June 25, 2021 Subjective No response to verbal or tactile stimuli. Appears comfortable. Review of Systems Review of Systems: Unobtainable due to reduced consciousness [place] Symptom Assessment Scale Pain by observation 0/3 Dyspnea by observation 0/3 Palliative Performance Score 10% Physical Exam Constitutional: + cachectic ENMT: Mouth: + dry oral mucous membranes Respiratory: apnea, no audible rhonchi Cardiovascular: mottling of knees and feet noted PG Care Time/CCT Total # of Minutes Spent Total Time Spent with Patient: Total time spent is greater than 50% in coordination of care (as documented) at patient's floor/unit and/or counseling patient: Coding Level of Care Code 45639 Subseq Hosp Care Lvl 2 Diagnoses Palliative care encounter Z51.5 Abdominal pain R10.9 Copious oral secretions R68.89 Pancolitis K51.00
[2021-07-20] MEDS: MoRPHine SULFATE 4 MG/ML 1 ML CARP\\VIAL IV PRN ×2 (15:50→20:28)
--- NOTE | 2021-07-20 16:19 | Hospitalist Progress Note ---
Date of Service July 20, 2021 Assessment & Plan (1) Pancolitis: Plan: Patient is a 80 yr male with H/O prostate cancer s/p radiation therapy, HTN, HLD, HIV+ who presents with acute abdominal complaints 06/25. Pt is a poor historian and voice is very raspy. At times he seems to trail off with tangential thoughts and at other times he gets defensive when he is asked to clarify his answers with more specific questions. 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 No evidence of bowel obstruction. Stool studies: Negative including C. difficile. Blood Cx:Negative ID: Likely inflammatory colitis, recommendation to DC antibiotic. --Repeat CTAP 06/30 after worsening belly complaints: Redemonstration of pancolitis. Mildly dilated gas-filled loops of large and small bowel, ileus versus developing toxic megacolon. 07/02 CTA abdomen pelvis: Pancolonic bowel wall thickening and extensive dilatation with increased vascular markings, origin of great vessels patent. 07/02 status post colonoscopy: Concerning for ischemic colitis, biopsy taken. Zosyn restarted 07/02. 07/02: Biopsy: Suggestive of ischemic colitis, nonocclusive. 07/10 esophagus biopsy: Nguyen's esophagus, negative for dysplasia, focal squamous epithelium, heavily inflamed and ulcerated squamous mucosa EGD showed keratosis and erythema around pharynx and and ENT consultation was advised. Requested ENT evaluation fluconazole, TPN DCed Appreciate palliative care input Comfort measures only Continues to deteriorate clinically No distress on exam As per Prior Hospitalist: Discussed with ID specialist in [place] with initial recommendation to transfer him to [place] for further evaluation and continuation of care Discussed with airplane patrol pilot-nothing more to offer at this time, does not think due to ulcerative colitis and did not recommend any steroid Discussed with the friend and the patient and want to now transferred to [place] if further management can be done Long discussion with hospitalist, GI specialist and ID specialist-nothing further can be done given his current presentation Patient was made aware about this decision and he was agreeable to stay here and continue with the current treatment plan Overall prognosis remains very poor Patient continues to have bright red blood per rectum on and off. Belly pain/discomfort ongoing, better today Pt not eating much, c/w PPN 07/04 --> PICC line 07/10 --> 07/10 TPN. Speech re-evaled Pt 07/07: lacking functional oral motor or swallow reflex abilities, hence PO intake compromised. B/w feeding tube vs palliative care option, he would like to go with feeding tube if possible. Surgery evaluated, appreciate recommendation. PPI BID for Nguyen's esophagus Anemia Likely secondary to GI blood loss secondary to pancolitis and partly Hb drop due to dilution. Ferritin elevated likely inflammatory, iron level low, vitamin B12 and folate WNL. Was on Iron supplement. HIV (human immunodeficiency virus infection): -CD4 minimally low. Appreciate ID input and recommendation. -Follow-up with ID as an outpatient. Heart disease: - 06/26 Echo: Normal LV size, moderate concentric LVH, septal motion is consistent with conduction abnormality, no wall motion abnormalities, EF 55 to 60%, aortic valve leaflets are moderately calcified and restricted in mobility, moderate valvular aortic stenosis, moderate to heavy calcification of the posterior mitral valve annulus and leaflet and there is trace mitral regurgitation. - Continue asa and pravastatin 80 mg HS - was on lisinopril Prostate cancer: -Dx in 2002, status post brachytherapy -Previously followed with Dr. Crowley -was on flomax and vesicare DVT Px: Was on Heparin SQ CODE STATUS: DNI/DNR Disposition Poor prognosis Currently on comfort measures only Appreciate palliative care input Admission and Anticipated Discharge Date Admission Date: June 25, 2021 Subjective Patient is seen and examined at bedside No distress on exam Bloody diarrhea overnight as per RN No response to stimulus Review of Systems Review of Systems: Unobtainable due to reduced consciousness Physical Exam Physical Exam: Physical Exam: Vitals signs as noted above General Appearance: Thin, frail, ill-appearing, no apparent distress Head: normocephalic, Atraumatic Eyes: normal inspection, EOMI Neck: supple, Trachea midline Respiratory/Chest: Decreased breath sounds, Rhonchi Cardiovascular: S1, S2, + murmur,+Tachycardia Abdomen/GI:Soft, Non tender, Bowel sounds present Extremities/Musculoskeletal:normal inspection, B/L LE edema Neurologic/Psych: Unable to perform due to reduced consciousness Skin: normal color, warm
[2021-07-21] MEDS: MoRPHine SULFATE 4 MG/ML 1 ML CARP\\VIAL IV PRN ×4 (02:54→11:14)
[2021-07-21] MEDS: FIRST - Mouthwash BLM 119 ML PO SCH (08:10)
--- NOTE | 2021-07-21 11:51 | Palliative Care Progress Note ---
Date of Service July 21, 2021 Assessment & Plan (1) Abdominal pain: Plan: Will order morphine routine dosing for more steady state analgesia. PRN dosing also available. No signs of toxicity. (2) Copious oral secretions: Plan: Controlled (3) Palliative care encounter: Plan: He is actively dying. Anticipate within hours. His friends Jonathan and Sav were at bedside most of yesterday. Admission and Anticipated Discharge Date Admission Date: June 25, 2021 Subjective Unresponsive. Facial grimace with movement. He has had 5 prn doses of morphine in last 24 hours for total 60 OME. Continues to have frequent liquid stools. Review of Systems Review of Systems: Unobtainable due to reduced consciousness [place] Symptom Assessment Scale pain by observation 1/3 dyspnea by observation 0/3 Palliative Performance Score 10% Physical Exam Constitutional: + cachectic; no acute distress ENMT: Mouth: + dry oral mucous membranes Respiratory: apnea, shallow respirations, no audible rhonchi Cardiovascular: mottling noted on knees and feet Musculoskeletal: Extremities: + muscle atrophy Neurologic: + obtunded Results & Data ([facility]) Vital Signs (Past 12 Hours) Vital Signs Temp Pulse Resp BP Pulse Ox 07/21/21 07:44 98.2 F 122 H 14 102/89 96 PG Care Time/CCT Total # of Minutes Spent Total Time Spent: 25 Total Time Spent with Patient: Total time spent is greater than 50% in coordination of care (as documented) at patient's floor/unit and/or counseling patient: symptom management Coding Level of Care Code 87466 Subseq Hosp Care Lvl 2 Diagnoses Abdominal pain R10.9 Copious oral secretions R68.89 Palliative care encounter Z51.5
[2021-07-21] MEDS ORDERED: MoRPHine SULFATE 4 MG/ML 1 ML CARP\\VIAL IV SCH (12:45)
[2021-07-21] MEDS: MoRPHine SULFATE 2 MG/ML CARP IV PRN ×2 (14:26→16:28)
--- NOTE | 2021-07-21 17:50 | Hospitalist Progress Note ---
Date of Service July 21, 2021 Assessment & Plan (1) Pancolitis: Plan: Patient is a 80 yr male with H/O prostate cancer s/p radiation therapy, HTN, HLD, HIV+ who presents with acute abdominal complaints 06/25. Pt is a poor historian and voice is very raspy. At times he seems to trail off with tangential thoughts and at other times he gets defensive when he is asked to clarify his answers with more specific questions. 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 No evidence of bowel obstruction. Stool studies: Negative including C. difficile. Blood Cx:Negative ID: Likely inflammatory colitis, recommendation to DC antibiotic. --Repeat CTAP 06/30 after worsening belly complaints: Redemonstration of pancolitis. Mildly dilated gas-filled loops of large and small bowel, ileus versus developing toxic megacolon. 07/02 CTA abdomen pelvis: Pancolonic bowel wall thickening and extensive dilatation with increased vascular markings, origin of great vessels patent. 07/02 status post colonoscopy: Concerning for ischemic colitis, biopsy taken. Zosyn restarted 07/02. 07/02: Biopsy: Suggestive of ischemic colitis, nonocclusive. 07/10 esophagus biopsy: Nguyen's esophagus, negative for dysplasia, focal squamous epithelium, heavily inflamed and ulcerated squamous mucosa EGD showed keratosis and erythema around pharynx and and ENT consultation was advised. Requested ENT evaluation fluconazole, TPN DCed Appreciate palliative care input Comfort measures only Palliative Care following As per Prior Hospitalist: Discussed with ID specialist in [place] with initial recommendation to transfer him to [place] for further evaluation and continuation of care Discussed with brewery pumper-nothing more to offer at this time, does not think due to ulcerative colitis and did not recommend any steroid Discussed with the friend and the patient and want to now transferred to [place] if further management can be done Long discussion with hospitalist, GI specialist and ID specialist-nothing further can be done given his current presentation Patient was made aware about this decision and he was agreeable to stay here and continue with the current treatment plan Overall prognosis remains very poor Patient continues to have bright red blood per rectum on and off. Belly pain/discomfort ongoing, better today Pt not eating much, c/w PPN 07/04 --> PICC line 07/10 --> 07/10 TPN. Speech re-evaled Pt 07/07: lacking functional oral motor or swallow reflex abilities, hence PO intake compromised. B/w feeding tube vs palliative care option, he would like to go with feeding tube if possible. Surgery evaluated, appreciate recommendation. PPI BID for Nguyen's esophagus Anemia Likely secondary to GI blood loss secondary to pancolitis and partly Hb drop due to dilution. Ferritin elevated likely inflammatory, iron level low, vitamin B12 and folate WNL. Was on Iron supplement. HIV (human immunodeficiency virus infection): -CD4 minimally low. Appreciate ID input and recommendation. -Follow-up with ID as an outpatient. Heart disease: - 06/26 Echo: Normal LV size, moderate concentric LVH, septal motion is consistent with conduction abnormality, no wall motion abnormalities, EF 55 to 60%, aortic valve leaflets are moderately calcified and restricted in mobility, moderate valvular aortic stenosis, moderate to heavy calcification of the posterior mitral valve annulus and leaflet and there is trace mitral regurgitation. - Continue asa and pravastatin 80 mg HS - was on lisinopril Prostate cancer: -Dx in 2002, status post brachytherapy -Previously followed with Dr. Crowley -was on flomax and vesicare DVT Px: Was on Heparin SQ CODE STATUS: DNI/DNR Disposition Poor prognosis Currently on comfort measures only Appreciate palliative care input Admission and Anticipated Discharge Date Admission Date: June 25, 2021 Subjective Patient is seen and examined at bedside Obtunded Minimal diarrhea Unable to obtain any history Palliative Care following Review of Systems Review of Systems: Unobtainable due to reduced consciousness Physical Exam Physical Exam: Physical Exam: Vitals signs as noted above General Appearance: Thin, frail, ill-appearing, no apparent distress Head: normocephalic, Atraumatic Eyes: normal inspection, EOMI Neck: supple, Trachea midline Respiratory/Chest: Decreased breath sounds, Rhonchi Cardiovascular: S1, S2, + murmur,+Tachycardia Abdomen/GI:Soft, Non tender, Bowel sounds present Extremities/Musculoskeletal:normal inspection, B/L LE edema Neurologic/Psych: Unable to perform due to reduced consciousness Skin: normal color, warm Results & Data Results & Data ([facility]) Vital Signs (Past 12 Hours) Vital Signs Temp Pulse Resp BP Pulse Ox 07/21/21 07:44 36.8 C 122 H 14 102/89 96
--- NOTE | 2021-07-21 18:52 | Communication Note ---
Date of Service: July 21, 2021 Patient ceased breathing at 1824. Examined the patient. Patient had no audible heart sounds, breath sounds. No response with stimulus. Updated patient's friends at bedside. Patient pronounced at 1824.
--- NOTE | 2021-07-21 18:55 | Discharge Summary ---
Date of Service July 21, 2021 Admission HPI Per Admitting Provider This is a 80-year-old male with PMHx of prostate cancer s/p radiation therapy, HTN, HLD, HIV+ who presents with acute abdominal complaints. Pt is a poor historian and voice is very raspy. At times he seems to trail off with tangential thoughts and at other times he gets defensive when he is asked to clarify his answers with more specific questions. Pt c/o of diarrhea, nausea, vomiting, poor appetite x 1 week. He had worsening abdominal pain and had increased diarrhea with 5-8 BM daily x few days. Denies hematochezia or dark tarry stools. Pain is located in bilateral lower quadrants, no radiation He does not note any exacerbating or alleviating factors. Patient has not eaten solids within the past 48 hours but has been able to drink fluids. He denies any raw or undercooked foods, sick contacts that he is aware of. He denies any fevers, or sweats but admits to some chills and states that it is cold and here, and pulls blankets back on himself during my exam. He denies any recent changes in medications and states that he has been taking his HIV medications. He lives at home by himself and has a 12-year-old black cat. Admission Exam Per Admitting Provider General: awake, alert, no apparent distress, + thin, BMI of 18, + cachexia Head: Normocephalic, atraumatic ENT: PERRL, EOMI, no pharyngeal exudate, mucous membranes dry, edentulous Chest: Clear to auscultation, on room air, no adventitious breath sounds Cardiac: Regular rate and rhythm, no murmur, no JVD, normal peripheral pulses, good capillary refill Abdominal: NABS x 4 quadrants, soft, minimally tender to palpation bilateral lower quadrants, nondistended, no rebound or guarding Extremities: Normal inspection, no peripheral edema or erythema, calfs nontender to palpation Psych: Defensive affect at times, trails off and tangential thought no obvious anxiety or depression Neuro: AAO x 3, strength intact bilaterally and rated 5/5, no motor deficits, speech is clear, no peripheral sensory deficits Skin: Dry, no obvious rash Principal Diagnosis Pancolitis Rectal Bleeding Nguyen's esophagus Significant dysphagia Oral thrush HIV Failure to thrive H/O Prostate cancer Discharge Data Allergies Allergy/AdvReac Type Severity Reaction Status Date / Time ritonavir [From Norvir] Allergy Unknown Rash Verified 07/10/21 10:28 Consultations 06/25/21 16:00 ED Decision to Admit Stat 06/25/21 17:18 Consult Gastroenterology Routine Consult Infectious Diseases Routine 07/03/21 08:39 Consult General Surgery Routine 07/12/21 14:01 Consult Otolaryngology (Head and Neck) Routine 07/16/21 08:43 Consult Palliative Care Routine 07/16/21 13:20 Consult Palliative Care Routine Procedures Performed Operation Date: 07/02/21 16:45 Actual Procedures p Colonoscopy Biopsy Cytology - Rebecca López DO Operation Date: 07/10/21 17:15 Actual Procedures p EGD Biopsy Cytology - Carlton Segundo DO Ordered Studies 06/25/21 13:35 CT abd pelvis IV con only Stat 06/30/21 12:19 CT abd pelvis IV con only Urgent 07/02/21 14:35 CT angio abdomen pelvis w con Routine Hospital Course (1) Pancolitis: Patient is a 80 yr male with H/O prostate cancer s/p radiation therapy, HTN, HLD, HIV+ who presents with acute abdominal complaints 06/25. Pt is a poor historian and voice is very raspy. At times he seems to trail off with tangential thoughts and at other times he gets defensive when he is asked to clarify his answers with more specific questions. 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 No evidence of bowel obstruction. Stool studies: Negative including C. difficile. Blood Cx:Negative ID: Likely inflammatory colitis, recommendation to DC antibiotic. --Repeat CTAP 06/30 after worsening belly complaints: Redemonstration of pancolitis. Mildly dilated gas-filled loops of large and small bowel, ileus versus developing toxic megacolon. 07/02 CTA abdomen pelvis: Pancolonic bowel wall thickening and extensive dilatation with increased vascular markings, origin of great vessels patent. 07/02 status post colonoscopy: Concerning for ischemic colitis, biopsy taken. Zosyn restarted 07/02. 07/02: Biopsy: Suggestive of ischemic colitis, nonocclusive. 07/10 esophagus biopsy: Nguyen's esophagus, negative for dysplasia, focal squamous epithelium, heavily inflamed and ulcerated squamous mucosa EGD showed keratosis and erythema around pharynx and and ENT consultation was advised. Requested ENT evaluation fluconazole, TPN DCed Appreciate palliative care input Comfort measures only Palliative Care following Patient at 1824 while on comfort measures. As per Prior Hospitalist: Discussed with ID specialist in [place] with initial recommendation to transfer him to [place] for further evaluation and continuation of care Discussed with educational audiologist-nothing more to offer at this time, does not think due to ulcerative colitis and did not recommend any steroid Discussed with the friend and the patient and want to now transferred to [place] if further management can be done Long discussion with hospitalist, GI specialist and ID specialist-nothing further can be done given his current presentation Patient was made aware about this decision and he was agreeable to stay here and continue with the current treatment plan Overall prognosis remains very poor Patient continues to have bright red blood per rectum on and off. Belly pain/discomfort ongoing, better today Pt not eating much, c/w PPN 07/04 --> PICC line 07/10 --> 07/10 TPN. Speech re-evaled Pt 07/07: lacking functional oral motor or swallow reflex abilities, hence PO intake compromised. B/w feeding tube vs palliative care option, he would like to go with feeding tube if possible. Surgery evaluated, appreciate recommendation. PPI BID for Nguyen's esophagus Anemia Likely secondary to GI blood loss secondary to pancolitis and partly Hb drop due to dilution. Ferritin elevated likely inflammatory, iron level low, vitamin B12 and folate WNL. Was on Iron supplement. HIV (human immunodeficiency virus infection): -CD4 minimally low. Appreciate ID input and recommendation. -Follow-up with ID as an outpatient. Heart disease: - 3 Echo: Normal LV size, moderate concentric LVH, septal motion is consistent with conduction abnormality, no wall motion abnormalities, EF 55 to 60%, aortic valve leaflets are moderately calcified and restricted in mobility, moderate valvular aortic stenosis, moderate to heavy calcification of the posterior mitral valve annulus and leaflet and there is trace mitral regurgitation. - Continue asa and pravastatin 80 mg HS - was on lisinopril Prostate cancer: -Dx in 2002, status post brachytherapy -Previously followed with Dr. Crowley -was on flomax and vesicare DVT Px: Was on Heparin SQ CODE STATUS: DNI/DNR Disposition Poor prognosis Currently on comfort measures only Appreciate palliative care input Total Time Total Time Spent Total Time Spent (In Minutes): 38 minutes Discharge Plan Discharge Items Patient Disposition: Discharge Diagnosis: Pancolitis Rectal Bleeding Nguyen's esophagus Significant dysphagia Oral thrush HIV Failure to thrive H/O Prostate cancer Other Date/Time: 07/21/21 18:24
== END 2021-07-21 20:28 | disposition expired | DRG 386 ==
LOC: ED 13:11 → EDINP 16:51 → SUATTDRO 16:51 → EDINP 21:26 → 2N 06-26 13:46
DX: K92.1 Melena; R64 Cachexia; I45.2 Bifascicular block; N18.9 Chronic kidney disease, unspecified; I35.0 Nonrheumatic aortic (valve) stenosis; Z79.899 Other long term (current) drug therapy; R13.10 Dysphagia, unspecified; Z68.1 Body mass index [BMI] 19.9 or less, adult; R62.7 Adult failure to thrive; B20 Human immunodeficiency virus [HIV] disease; K51.00 Ulcerative (chronic) pancolitis without complications; M81.0 Age-related osteoporosis without current pathological fracture; Z51.5 Encounter for palliative care; E88.09 Other disorders of plasma-protein metabolism, not elsewhere classified; Z92.3 Personal history of irradiation; D50.0 Iron deficiency anemia secondary to blood loss (chronic); Z79.82 Long term (current) use of aspirin; M19.90 Unspecified osteoarthritis, unspecified site; B37.0 Candidal stomatitis; K22.70 Barrett's esophagus without dysplasia; I12.9 Hypertensive chronic kidney disease with stage 1 through stage 4 chronic kidney disease, or unspecified chronic kidney disease; C61 Malignant neoplasm of prostate; K55.9 Vascular disorder of intestine, unspecified; Z66 Do not resuscitate; R79.89 Other specified abnormal findings of blood chemistry